=== PATIENT | male | born 1965 | race African-American/Black ===

== ENCOUNTER 2024-07-27 09:49 | Inpatient (IN) | payer MEDICARE, MEDICAID, SELFPAY ==
[2024-07-27] VITALS (14 sets, daily range): BP systolic 75–117; BP diastolic 49–77; PULSE 71–112; RESP 16–27; TEMP 36.6–38.9; O2SAT 97–100; BMI 26.5
--- NOTE | 2024-07-27 10:12 | XR_ITS ---
Examination: AP chest single view Technique one AP portable upright chest single view Exam date and time: November 24, 2024 11:10 AM Comparison April 29, 2024 Indications: Onset chest pain shortness of breath today. Findings: Moderate enlargement cardiac contour Mild vascular congestion. No anatoliy pulmonary edema No lobar pneumonia Left internal jugular dialysis catheter tip right atrium Cardiac lead satisfactory position Impression: Moderate enlargement cardiac contour No lobar pneumonia or anatoliy pulmonary edema
--- NOTE | 2024-07-27 10:12 | EKG_ITS ---
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[id number] Requested By: Christo Lopez Order Number: [id number] Reading MD: Christo Lopez Measurements Intervals Dumont Rate: 106 P: 50 AL: 144 QRS: -19 QRSD: 94 T: 159 QT: 346 QTc: 461 Interpretive Statements SINUS TACHYCARDIA WITH FREQUENT VENTRICULAR PREMATURE COMPLEXES POSSIBLE LEFT ATRIAL ENLARGEMENT [-0.1mV P-WAVE IN V1/V2] LEFT VENTRICULAR HYPERTROPHY AND ST-T CHANGE [VOLTAGE CRITERIA PLUS ST/T ABNORMALITY] Compared to ECG 05/01/2024 09:31:50 Ventricular premature complex(es) now present Sinus rhythm no longer present ST (T wave) deviation still present /store/S0/[id number].pdf
--- NOTE | 2024-07-27 10:14 | PD.EDADULT ---
ED General RME/HPI General Chief complaint: General Adult/Misc Complain Stated complaint: WEAKNESS Time Seen by Provider: 07/27/24 10:10 Arrival date/time: 07/27/24 09:49 RME / HPI RME / HPI narrative: DR. LOPEZ MAIN ED EVALUATION: Patient is a 59-year-old gentleman who comes in states he has been short of breath for the last day but went to dialysis this morning complete his dialysis and states he felt short of breath but EMS states his O2 sats were 98% on room air since the initial evaluated him and he has been asymptomatic up to the time of arrival. Patient has no complaints of fever was noted that his heart was going to 100 110 with a technical lead monitor. There is no known fever vomiting or diarrhea. Related Data Home Medications ?Medication ?Instructions ?Recorded ?Confirmed carvedilol 12.5 mg tablet (Coreg) 25 mg PO BID #0 tabs 03/10/17 04/29/24 sodium bicarbonate 650 mg tablet 1,300 mg PO BID 10/02/19 04/30/24 doxazosin 4 mg tablet 8 mg PO HS 12/16/23 04/29/24 sevelamer carbonate 800 mg tablet 800 mg PO TIDWMEAL 12/16/23 04/30/24 losartan 100 mg tablet 100 mg PO QDAY 04/29/24 04/29/24 sucroferric oxyhydroxide 500 mg 500 mg PO TID 04/30/24 04/30/24 chewable tablet (Velphoro) Previous Rx's ?Medication ?Instructions ?Recorded nifedipine 30 mg tablet,extended See Rx Instructions .Route 12/16/23 release .COMPLEX #20 tabs aspirin 81 mg tablet,delayed 81 mg PO QDAY #30 tabs 05/01/24 release hydralazine 50 mg tablet 50 mg PO TID 30 days #90 tabs 05/02/24 nifedipine 30 mg tablet,extended 60 mg (2 x 30 mg) PO SuMoWeFr@0900 05/02/24 release 24 hr #36 tabs fluticasone propionate 45 2 puff inhalation BID PRN 05/06/24 mcg-salmeterol 21 mcg/actuation shortness of breath or wheezing HFA inhaler (Advair HFA) #12 grams Allergies Allergy/AdvReac Type Severity Reaction Status Date / Time No Known Allergies Allergy Verified 11/01/24 10:09 Review of Systems Review of Systems Narrative Review of Systems: Review of Systems: Constitutional: DENIES: Fevers,; Eyes: DENIES: Loss of vision, Head/Ear/Nose: DENIES: Loss of hearing. Throat: Denies dysphagia. Cardiovascular: Denies chest pain, reports shortness of breath but unable to give precise duration and character of the symptoms. Respiratory: DENIES: Shortness of breath, Gastrointestinal: DENIES: Rectal bleeding or melena. Genitourinary: DENIES: Dysuria (painful or difficult urination),; Musculoskeletal: DENIES: Arthralgia (pain in a joint),; Skin: DENIES: Rash,; Neurological: DENIES: loss of function or movement,; Psychiatric: DENIES: recent major life stressor, emotional problem, illicit drug use or abuse,; Endocrinology: DENIES: Weight change,; Hematologic/Lymphatic: DENIES: Abnormal bruising. Allergic/Immunologic: DENIES: Urticaria (hives), Past Medical History Past Medical History CARDIAC: Positive Cardiac Disorders, Congestive Heart Failure and Hypertension GASTROINTESTINAL: Positive Gastrointestinal Disorders and Colitis GENITOURINARY: Positive Genitourinary Disorders, Renal Disease and Dialysis OTHER HISTORY: Positive Developmental Delay and Organ Transplant Surgical History SURGICAL: Positive Cardiac Surgery, Vascular Surgery, Pacemaker (Sister unable to recall if pacemaker or defibrilator in place.) and Organ Transplant Social History SMOKING STATUS: Never smoker SECOND HAND EXPOSURE: No SUBSTANCE USE: does not use ALCOHOL: Never ED Exam Narrative Physical exam: Physical Exam: General: The vital signs were reviewed. Heart rates around 100 on arrival no obvious fever patient is answering questions seem to have a little dull sensorium no family present to confirm if this is baseline. Patient evidently had his dialysis prior to coming here there was no reports from dialysis people to EMS that this patient's mental status had changed. The patient is non-toxic, in no apparent distress and appears healthy with a patent airway, no respiratory distress and has no apparent circulatory problems. Head & Scalp: Normocephalic, atraumatic. Face: Appears normal and is without lesions, deformity. Ears: Left external pinna appears normal. Right external pinna appears normal. Eyes: The sclera is anicteric. No obvious photophobia. The Left and Right Orbit/Lid/Conjunctiva appears normal without swelling, discoloration or injection. Nose: The nose is without deformity, discharge or tenderness; Throat: Appears normal. The mucous membranes are pink and moist without exudates, redness or mass seen. The tongue appears normal. Neck: The neck is supple and no apparent mass or adenopathy. Chest: The chest wall is normal in size and symmetry and has no chest wall tenderness or crepitus. The patient displays normal ventilator effort without retractions, accessory muscle use and has adequate air movement bilaterally with no wheezes and no rales. Cardiovascular: Regular rate and rhythm; No murmurs, rubs, or gallops; Gastrointestinal: The abdomen appears normal. No obvious hernias or mass. The abdomen is soft and benign, non-distended, with no pain, no guarding and no rebound tenderness. Bowel sounds are present and normal sounding. No CVA tenderness. Genitourinary: Back/Spine: Normal inspection Extremities/Musculoskeletal/lymphatic: Has a arm fistula has no thrill present. The bilateral upper and lower extremities are warm. There is no evidence of arterial insufficiency. There is no evidence of venous insufficiency/edema. The patient spontaneously moves bilateral upper and lower extremities with no pain and no limitation of movement. There is no apparent, injury or trauma. Skin: The skin is warm, dry and intact. No rashes. No petechia. No purpura. No abnormal bruising. The color is appropriate with no cyanosis. Mental status/Psychiatric: Mental status is appropriate for age. The patient has no apparent delusions, visual hallucinations, no apparent audible hallucinations. The patient has no apparent suicidal thoughts/ideation and no apparent homicidal thoughts/ideation. Neurological: The patient is awake, alert, interactive, cordial, cooperative and is oriented to name and situation. The patient follows commands and answers historical question with no impairment. There is no visual disturbance apparent. The pupils are equal and reactive bilaterally with normal eye movements and no diplopia The bilateral upper and lower extremities have normal strength, normal range of motion and normal functioning. The gait, station and balance not tested due to acuity Course Course Course Narrative: 1621: Sepsis alert initiated. Orders made at this time are congruent with ED Adult Sepsis Order List. Re-evaluation is to be completed. 1707: Fluids started. 1737: Sepsis reassessment performed consisting of lab review, vitals, physical exam including auscultation of heart, lungs, and visual evaluation of capillary refills, mucosal membranes and extremities. Quality Measures Current suspected stage: sepsis Possible source: unknown Blood cultures ordered: yes Antibiotic ordered: Yes Pertinent labs: 07/27/24 07/27/24 10:52 14:28 Lactic Acid 2.8 H mMol/L 3.4 H mMol/L (0.4-2.0) (0.4-2.0) Procalcitonin 81.08 H ng/ml (0.0-0.49) sepsis Orders Category Date Time Status Bedside Blood Glucose NOW Care 07/27/24 10:12 Active Solar Energy Installation Manager Q4H START 00 Care 07/27/24 16:29 Active EKG (ED ONLY) *Do not use* NOW Care 07/27/24 10:12 Completed In and Out Catheter X1 Care 07/27/24 16:34 Active EKG (ED Only) Stat Exams 07/27/24 10:12 Draft XR chest 1V portable Stat Exams 07/27/24 10:12 Completed B-Type Natriuretic Peptide Stat Lab 07/27/24 10:52 Completed Blood Culture (Lab) Stat Lab 07/27/24 11:05 Received CBC Stat Lab 07/27/24 10:52 Completed Comprehensive Metabolic Panel Stat Lab 07/27/24 12:20 Completed Lactate (Lactic Acid) Stat Lab 07/27/24 10:52 Completed Lactic Acid, 3 HR Stat Lab 07/27/24 14:28 Completed Procalcitonin Stat Lab 07/27/24 14:28 Completed Prothrombin Time with INR Stat Lab 07/27/24 10:52 Completed Troponin I Stat Lab 07/27/24 12:20 Completed Urinalysis Stat Lab 07/27/24 10:12 Ordered Urinalysis, C/S if Indicated Stat Lab 07/27/24 10:12 Ordered Venous Blood Gas Stat Lab 07/27/24 10:52 Completed Dextrose 10%-Water 1000 ml [D10w 1000 ml] 1,000 ml Med 07/27/24 16:30 Active IV 100 mls/hr Dextrose 50% Syr [D50w Syringe Abboject] Med 07/27/24 10:35 Discontinued 50 ml IV .STK-MED ONE Dextrose 50% Syr [D50w Syringe Abboject] Med 07/27/24 10:41 Discontinued 50 ml IV X1 ONE Piper/Tazo 3.375 gm [Zosyn] Med 07/27/24 16:25 Discontinued 3.375 gm in 50 ml IV X1 Sodium Chloride 0.9% 500 ml [Ns] 500 ml Med 07/27/24 16:33 Discontinued IV 999 mls/hr Sodium Chloride 0.9% 500 ml [Ns] 500 ml Med 07/27/24 20:03 Active IV 999 mls/hr Vancomycin Inj 1,000 mg Med 07/27/24 16:25 Discontinued Sodium Chloride 0.9% 250 ml [Ns] 250 ml IV X1 Vital Signs Vital signs: Vital Signs Temperature 97.8 F 07/27/24 10:02 Pulse Rate 71 07/27/24 10:02 Respiratory Rate 18 07/27/24 10:02 Blood Pressure 117/76 07/27/24 10:02 Pulse Oximetry (%) 97 07/27/24 10:02 Oxygen Delivery Method Room Air 07/27/24 10:02 [facility] Patient data External records reviewed:: [facility] previous records (Reviewed cardiology note by Dr. Sandoval, dated 05/06/24.) and EMS form Clinical information provided by:: EMS Social determinants that could affect healthcare access:: none Patient has the following chronic illnesses:: CHF, hypertension, renal disease on dialysis, developmental delay How is presenting disease/condition affected by chronic disease/condition?: exacerbated by Evaluation data The following diagnostics were reviewed and interpreted by me:: lab results, radiology exam(s) and EKG tracing(s) (EKG#1: Dated 07/27/2024 at 1554 hours. Interpreted by me: sinus tachycardia, rate 106, no STEMI) Lab and/or radiology exams considered but not ordered:: none Interpretation Summary: See above under [facility] narrative. RADIOLOGY Procedure(s): XR chest 1V portable Accession Number(s): [id number] cc: Christo Lopez MD; Magdy Gabriel MD; Elsy Willson MD~ Examination: AP chest single view Technique one AP portable upright chest single view Exam date and time: November 24, 2024 11:10 AM Comparison April 29, 2024 Indications: Onset chest pain shortness of breath today. Findings: Moderate enlargement cardiac contour Mild vascular congestion. No anatoliy pulmonary edema No lobar pneumonia Left internal jugular dialysis catheter tip right atrium Cardiac lead satisfactory position Impression: Moderate enlargement cardiac contour No lobar pneumonia or anatoliy pulmonary edema Dictated By: Magdy Gabriel MD Medications Medications considered but not ordered:: none Medication administrations:: Medication Administration History Dextrose (D10w 1000 Ml) 1,000 mls @ 100 mls/hr IV .Q10H ANTONIA Stop: 07/28/24 02:29 Sodium Chloride (Ns) 500 mls @ 999 mls/hr IV .Q31M ONE Stop: 07/27/24 20:33 Discontinued Medications Dextrose (Dextrose 50%-Water Inj 50 Ml Syringe) 50 ml IV X1 ONE Stop: 07/27/24 10:42 Last Admin: 07/27/24 10:42 Dose: 50 ml Documented By: EH Dextrose (Dextrose 50%-Water Inj 50 Ml Syringe) Confirm Administered Dose 50 ml IV .STK-MED ONE Stop: 07/27/24 10:36 Last Admin: 07/27/24 17:22 Dose: Not Given Documented By: KM Non-Admin Reason: Duplicate Medication on eMAR Vancomycin HCl 1,000 mg/ (Sodium Chloride) 250 mls @ 150 mls/hr IV X1 ONE Stop: 07/27/24 18:04 Last Infusion: 07/27/24 19:50 Dose: Infused Documented By: Admin: 07/27/24 17:05 Dose: 150 mls/hr Documented By: SURESH Piperacillin/Tazobactam/Dextrose (Zosyn) 3.375 gm in 50 mls @ 100 mls/hr IV X1 ONE Stop: 07/27/24 16:54 Last Infusion: 07/27/24 19:50 Dose: Infused Documented By: Admin: 07/27/24 17:08 Dose: 100 mls/hr Documented By: SURESH Sodium Chloride (Ns) 500 mls @ 999 mls/hr IV .Q31M ONE Stop: 07/27/24 17:03 Last Infusion: 07/27/24 19:50 Dose: Infused Documented By: Admin: 07/27/24 17:07 Dose: 999 mls/hr Documented By: EH see above Consultations Consultation(s) initiated? (list below): Yes Consultation #1 (Physician, Specialty, Details): Discussed test HPI, PMHx, lab, radiology results and/or management with hospitalist. Will admit for further evaluation and management. Accepts patient for admission. Time: 16:31 Consultation #2 (Physician, Specialty, Details): Dr Muse Consultation #3 (Physician, Specialty, Details): Dr. nicolas at 2014 Diagnosis Differential Diagnosis ED Complaint MDM: pneumonia, renal disease, CHF Most likely diagnosis given after review of the tests above:: As noted below. Admission Indicated Admission indicated?: indicated Explain why admission is indicated or not indicated:: Diagnoses meet admission criteria. Admission Request Was there a request for admission?: Yes Admission Attestation Admission request attestation: Discussed case with [] from Hospitalist service regarding admission. Discussed patients ED course, exam findings, labs, and radiology results. The Hospitalist [agrees,declines] to accept the patient for admission. Disposition Plan Disposition Plan: Admit Medical Decision Making MDM Narrative MDM Narrative: I, Kari Davis, am scribing for and in the presence of Dr. Lopez. Patient comes to the ER complaining of shortness of breath postdialysis but also states he was feeling that way prior to dialysis. Patient was initially seen in the ambulance bay eventually mated into room 8 where he was noted to have acute persistent low-grade sinus tach with adequate blood pressure. Medical workup was initiated revealed a white count of 15,000 globin of 12.8 MCV of 109 platelet count of 134,000 with a PT of 15.5 INR of 1.5 pH 7.21 pCO2 of 52 sodium 136 potassium 4.4 chloride 97 CO2 25.7 BUN 28 creatinine of 6.4 consistent with his chronic renal failure. Lactic acid is elevated at initially 2.8 and went up to 3.4. At that time he also spiked a fever and we started fluid boluses of 500 cc and contacted the hospitalist for admission. Also note the troponin was elevated at 1.881 pronation is an uric and no UA was collected and the procalcitonin came back at 81.08. When he spiked a fever up to 102 I was informed and we started Vanco and Zosyn. Hospitalist Dr. Arroyo was initially contacted and they asked that I contact cardiology. My shift has been greatly delayed and I am still here at 2024 hrs. and the nurse approached me and told me about the blood pressure being in the mid 90s and I asked to give another 500 cc fluid bolus and then contacted the hospitalist on-call now which was Dr. Spencer and Dr. Spencer assumed care of this patient after discussing a great length and then Dr. Puente the sql bi developer was also recontacted will be consulting. Dr. nicolas who is a long wall mining machine tender has seen this patient in the past was also called and will be consulting for the elevated troponin and the questionable new left bundle branch block. In summary we have a postdialysis patient who presents with shortness of breath who was tachycardic and then eventually has some bigeminy without any complaints of chest pain or shortness of breath and spiked a fever and has sepsis presumed with elevated lactic acids and patient require close fluid monitoring is not a candidate for 30 cc/kg fluid boluses and antibiotics were started soon after the septic alert was called. She be noted because of the progression to fevers septic alert and now some mild hypotension this is a critical care patient who has evidence of a non-ST elevation RI on top of all this. Differential Diagnosis Differential Diagnosis: pneumonia, renal disease, CHF Lab Data 07/27/24 10:52 07/27/24 12:20 Labs: Lab Results 07/27/24 07/27/24 07/27/24 Range/Units 10:52 12:20 14:28 WBC 15.0 H (3.8-10.6) Thou/mm3 RBC 4.35 L (4.50-5.90) Miln/mm3 Hgb 12.8 L (13.5-16.0) g/dL Hct 47.6 (41.0-53.0) % MCV 109 H (80-100) fL MCH 29.4 (25.0-35.0) pg MCHC 26.9 L (31.0-37.0) g/dl RDW Std Deviation 70.4 H (35.1-43.9) fL Plt Count 134 L (140-440) Thou/mm3 Neut % (Auto) 95 H (37-80) % Lymph % (Auto) 2 L (10-50) % [place] % (Auto) 2 (0-12) % Eos % (Auto) 0 (0-10) % Baso % (Auto) 0 (0-2.5) % Neut # (Auto) 14.3 H (1.8-7.7) Thou/mm3 Lymph # (Auto) 0.3 L (1.0-4.8) Thou/mm3 [place] # (Auto) 0.3 (0.0-0.8) Thou/mm3 Eos # (Auto) 0.0 (0.0-0.5) Thou/mm3 Baso # (Auto) 0.0 (0.0-0.2) Thou/mm3 Immature Gran # (Auto) 0.10 H (0.00-0.00) Thou/mm3 Absolute Nucleated RBC 0.00 (0.00-0.00) Thou/mm3 Immature Gran % 1 H (0-0) % Nucleated RBC % 0 (0) /100 WBC PT 15.5 H (9.0-12.2) Seconds INR 1.5 H (0.9-1.3) VBG pH 7.21 L (7.33-7.66) VBG pCO2 52 (36-56) mmHg VBG pO2 38 (15-58) mmHg VBG O2 Sat (Sophia) 62 L (96-97) % VBG Base Excess -7 L (-3-3) Sodium 136 (136-145) mMol/L Potassium 4.4 (3.4-5.1) mMol/L Chloride 97 L (98-107) mMol/L Carbon Dioxide 25.7 (20.0-31.0) mMol/L Anion Gap 13 (7-16) BUN 28 H (9-23) mg/dL Creatinine 6.4 H* (0.6-1.3) mg/dL Estim Creat Clear Calc 13.3 L (>60) mL/min eGFR 9 L* (60 - ) See Note BUN/Creatinine Ratio 4 L (12-20) Ratio Glucose 135 H (74-106) mg/dL Calculated Osmolality 279 (275-295) Lactic Acid 2.8 H 3.4 H (0.4-2.0) mMol/L Calcium 8.1 L (8.3-10.6) mg/dL Corrected Calcium 8.7 (8.5-10.1) mg/dL Total Bilirubin 0.8 (0.3-1.2) mg/dL AST 30 (0-34) U/L ALT 23 (10-49) U/L Alkaline Phosphatase 90 (46-116) U/L Troponin I 1.881 H* (0.0-0.045) ng/mL B-Natriuretic Peptide 751 H* (0-100) pg/mL Total Protein 6.0 (5.7-8.2) gm/dL Albumin 3.3 L (3.4-4.8) gm/dL Globulin 2.7 (2.3-3.5) gm/dL Albumin/Globulin Ratio 1.2 (1.2-2.2) Procalcitonin 81.08 H (0.0-0.49) ng/ml Critical Care Time Critical Care Time Critical Care Time: Yes Total Critical Care Time (min.): 65 Attestation: The high probability of sudden, clinically significant deterioration in the patient?s condition required the highest level of my preparedness to intervene urgently. The services I provided to this patient were to treat and/or prevent clinically significant deterioration. Services included the following: chart data review, reviewing nursing notes and/or old charts, documentation time, inbound sales consultant collaboration regarding findings and treatment options, medication orders and management, direct patient care, vital sign assessments and ordering, interpreting and reviewing diagnostic studies and lab tests. Aggregate critical care time includes only time during which I was engaged in work directly related to the patient?s care, as described above, whether at bedside or elsewhere in the Emergency Department. It did not include time spent performing other reported procedures or the services of residents, students, nurses or physician assistants. Discharge Plan Plan Patient Disposition: Admit Acute Care w/in Hospital Disposition Comment: Hospitalist to admit Dr. Puente to consult Prescriptions/Referrals Prescriptions/Med Rec: No Action carvedilol [Coreg] 12.5 MG tablet 25 mg PO BID Qty: 0 sodium bicarbonate 650 mg Tablet 1,300 mg PO BID doxazosin 4 mg tablet 8 mg PO HS sevelamer carbonate 800 mg tablet 800 mg PO TIDWMEAL Patient Comments: take 1 tablet by mouth three times a day with meals nifedipine 30 mg tablet extended release See Rx Instructions .ROUTE .COMPLEX Qty: 20 0RF Rx Instructions: 30 mg orally every Monday/Monday/Monday/Monday in AM. DO not take during dialysis days losartan 100 mg Tablet 100 mg PO QDAY Velphoro 500 mg tablet,chewable 500 mg PO TID Patient Comments: CHEW AND SWALLOW 2 tablets by mouth three times a day with meals aspirin 81 mg tablet,delayed release (DR/EC) 81 mg PO QDAY Qty: 30 2RF nifedipine 30 mg Tablet Extended Release 24hr 60 mg PO SuMoWeFr@0900 Qty: 36 2RF hydralazine 50 mg tablet 50 mg PO TID 30 Days Qty: 90 2RF fluticasone propion-salmeterol [Advair HFA] 45-21 mcg/actuation HFA aerosol inhaler 2 puff inhalation BID PRN (Reason: shortness of breath or wheezing) Qty: 12 0RF Rx Instructions: administer with spacer Referrals: Elsy Connell MD [Primary Care Provider] - In 1 week Problem List Clinical Impression: Fever, End stage renal failure on dialysis, Sepsis, Elevated lactic acid level, Non-STEMI (non-ST elevated myocardial infarction), Acute hypotension Patient/Caregiver Discharge Instructions Print Language: Ecuadorean Stand Alone Forms: Renae Award Info., Patient Portal Info Letter
[2024-07-27] MEDS: DEXTROSE 50%-WATER INJ 50 ML SYRINGE IV ×2 (10:42→20:57)
[2024-07-27 11:21] LABS: Base Excess, Venous -7 (-3-3); O2 Saturation, Venous 62 % (96-97); PCO2, Venous 52 mmHg (36-56); PO2, Venous 38 mmHg (15-58); pH, Venous 7.21 (7.33-7.66)
[2024-07-27 11:22] LABS: Lactate (Lactic Acid) 2.8 mMol/L (0.4-2.0)
[2024-07-27 11:32] LABS: Basophils % (Auto) 0 % (0-2.5); Eosinophils % (Auto) 0 % (0-10); Hematocrit 47.6 % (41.0-53.0); Hemoglobin 12.8 g/dL (13.5-16.0); Immature Granulocytes % (Auto) 1 % (0-0); Lymphocytes # (Auto) 0.3 Thou/mm3 (1.0-4.8); Lymphocytes % (Auto) 2 % (10-50); Mean Corpuscular HGB Conc 26.9 g/dl (31.0-37.0); Mean Corpuscular Hemoglobin 29.4 pg (25.0-35.0); Mean Corpuscular Volume 109 fL (80-100); Monocytes # (Auto) 0.3 Thou/mm3 (0.0-0.8); Monocytes % (Auto) 2 % (0-12); Neutrophils # (Auto) 14.3 Thou/mm3 (1.8-7.7); Neutrophils % (Auto) 95 % (37-80); Nucleated Red Blood Cell % 0 /100 WBC (0); Platelet Count 134 Thou/mm3 (140-440); RDW Standard Deviation 70.4 fL (35.1-43.9); Red Blood Count 4.35 Miln/mm3 (4.50-5.90)
[2024-07-27 11:38] LABS: INR 1.5 (0.9-1.3); Prothrombin Time 15.5 Seconds (9.0-12.2)
[2024-07-27 12:20] LABS: B-Type Natriuretic Peptide 751 pg/mL (0-100)
[2024-07-27 13:38] LABS: Alanine Aminotransferase 23 U/L (10-49); Albumin, Serum 3.3 gm/dL (3.4-4.8); Albumin/Globulin Ratio 1.2 (1.2-2.2); Alkaline Phosphatase 90 U/L (46-116); Anion Gap 13 (7-16); Aspartate Amino Transferase 30 U/L (0-34); BUN/Creatinine Ratio 4 Ratio (12-20); Bilirubin,Total 0.8 mg/dL (0.3-1.2); Blood Urea Nitrogen 28 mg/dL (9-23); Calcium 8.1 mg/dL (8.3-10.6); Calcium (Corrected) 8.7 mg/dL (8.5-10.1); Carbon Dioxide 25.7 mMol/L (20.0-31.0); Chloride 97 mMol/L (98-107); Creatinine (Component) 6.4 mg/dL (0.6-1.3); Estimated Creatinine Clearance 13.3 mL/min (>60); Globulin 2.7 gm/dL (2.3-3.5); Glucose 135 mg/dL (74-106); Osmolality,Calculated 279 (275-295); Potassium 4.4 mMol/L (3.4-5.1); Sodium 136 mMol/L (136-145); eGFR 9 See Note
[2024-07-27 13:41] LABS: Troponin I 1.881 ng/mL (0.0-0.045)
[2024-07-27 14:14] LABS: Reflex Lactate? Y
[2024-07-27 14:42] LABS: Lactic Acid, 3 HR 3.4 mMol/L (0.4-2.0)
--- NOTE | 2024-07-27 15:16 | PC.NURSE ---
Patient stated he needed to use the bathroom, upon standing he became incontinent. Patient cleaned and bedding changed
--- NOTE | 2024-07-27 16:31 | PC.NURSE ---
Per sister at bedside, patient does not produce urine.
[2024-07-27] MEDS: DEXTROSE 10%-WATER 1000 ML 1,000 ML 100 ML IV (17:00)
[2024-07-27] MEDS: Vancomycin Inj 1,000 MG in SODIUM CHLORIDE 0.9% 250 ML 250 ML 150 MG IV (17:05)
[2024-07-27] MEDS: SODIUM CHLORIDE 0.9% 500 ML 500 ML 999 ML IV ×2 (17:07→20:38)
[2024-07-27] MEDS: PIPER/TAZO 3.375 GM 3.375 GM/50 ML BAG IV (17:08)
[2024-07-27 18:04] LABS: Procalcitonin 81.08 ng/ml (0.0-0.49)
--- NOTE | 2024-07-27 19:55 | PC.NURSE ---
Called hospitalist spoke to resident Dr. Benoit. Made aware of rectal temp 102.1 and BP 89/56. No new orders received at this time, per MD will look at chart and put in orders.
--- NOTE | 2024-07-27 20:17 | PD.RESEVENT ---
Documentation for date of: 07/27/24 Event Note Event Note: ED physician contacted Team C for possible admission and upon further chart review the patient's EKG was concerning for new LBBB with elevated trops which would be equivalent to STEMI. ED physician was requested to consult process development engineer soil conservation aide and we would admit the patient if process development engineer is ok for the admission. The case was discussed with my attending MD Bret Andrade MD, PGY2 Internal Medicine
--- NOTE | 2024-07-27 20:25 | PC.NURSE ---
Dextrose 10 currently infusing at 100ml/hr started by day shift nurse. Bedside glucose 91. Dr. Benoit at bedside, per MD stop D10 at this time and have pt eat, check bedside glucose q1h x4hr.
--- NOTE | 2024-07-27 20:51 | PD.RESHP ---
Documentation for date of: 07/27/24 HPI History of Present Illness Chief complaint: Generalized weakness History of present illness: A 59-year-old male with past medical history of developmental delay, hypertension, polycystic kidney disease, s/p renal transplant on 12/02/[address] [facility], ESRD on HD since aug 2023 [T//MON], HFpEF 55 to 60%, bradycardia s/p ICD placement in 2011, s/p replacement of single-chamber AICD on 05/05/2024 for depleted battery, diverticulosis was brought to the hospital with a chief complaints of generalized weakness since 1 day. Patient had developmental delay and can answer questions with yes or no, so most of the history was taken from his sister, Christine on a phone call. Per sister, patient lives at home and able to do his routine activities and since 1 month she noticed patient is having shortness of breath but without any lower extremity swelling and sleep disturbances. On the day of admission, patient went for his routine dialysis session and patient was found to have sudden onset generalized weakness not able to hold a coffee cup and was immediately referred to our hospital, unsure if he completed the dialysis session completely or not. In the ED, patient was found to be hypoglycemic with a glucose of 20 and D50 was given, later patient was also found to have a febrile episode. Per sister, patient had polycystic kidney disease for which patient had dialysis for 7 years and underwent renal transplant in 2017 and again patient was started on dialysis since 1 year as patient again ended up in ESRD. Also endorsed that they got into transplant list and following up with the process. Dr. Lerma is staff trainer per patient's sisters history. Also endorsed that patient will have fistula repair in August 2024 ED Course: -Initial vitals were blood pressure 117/76 mmHg, pulse rate 71 bpm, respiratory rate 18/min, temperature 97.8 ?F, SpO2 97% with 2 L oxygen -Labs significant for WBC 15,000, Hb 12.8, platelets 134, INR 1.5, chloride 97, BUN 28, creatinine 6.4, lactate 3.4, troponins 1.881>1.816, BNP 751, procalcitonin 81.08 -Chest x-ray did not show any infiltrates. EKG showed sinus rhythm with multiple ectopics -In the ED, patient was given 500 mL NS bolus, Zosyn and vancomycin, D50 -Patient was admitted for sepsis secondary to catheter related bacterial stream infection Past medical history: developmental delay, hypertension, polycystic kidney disease, s/p renal transplant on 12/02/[address] [facility], ESRD on HD since aug 2023 [//MON], HFpEF 55 to 60%, diverticulosis Past surgical history: bradycardia s/p ICD placement in 2011, s/p replacement of single-chamber AICD on 05/05/2024 for depleted battery, renal transplantation in 08/2017 Social history: Denies smoking, alcohol, illicit drug abuse. Review of Systems Review of Systems ROS Unobtainable: unobtainable due to mental status Past Medical History Past Medical History CARDIAC: Positive Heart Murmur, Congestive Heart Failure, Valvular Heart Disease and Hypertension GASTROINTESTINAL: Positive Diverticulitis and Diverticulosis GENITOURINARY: Positive Polycystic Kidney Disease and Dialysis Social History SMOKING STATUS: Never smoker ALCOHOL: Never Travel History EBOLA RISK: No Exam Vital Signs Temp Pulse Resp BP Pulse Ox O2 Del Method O2 Flow Rate 102.1 F H 112 H 22 H 89/56 L 97 Nasal Cannula 2 07/27/24 19:35 07/27/24 20:30 07/27/24 19:35 07/27/24 19:35 07/27/24 19:35 07/27/24 19:35 07/27/24 19:35 Narrative Exam General: Awake. Lying comfortably on the bed HEENT: Normocephalic, atraumatic, mucous membranes dry. Heart: Regular rate and rhythm, pansystolic murmur heard in all 4 areas, better heard in tricuspid area Lungs: Clear to auscultation with no wheezing or crackles. Abdomen: Soft, nondistended, nontender, positive bowel sounds. ?No guarding or rebound tenderness. Neurologic: Alert and oriented x3, no gross neurological deficit, and patient able to move all 4 extremities. Extremities: No edema. Fistulas in both upper extremities Skin: No rash or ecchymoses. Results: Labs 07/27/24 10:52 07/27/24 12:20 Labs: Short CBC 07/27/24 Range/Units 10:52 WBC 15.0 H (3.8-10.6) Thou/mm3 Hgb 12.8 L (13.5-16.0) g/dL Hct 47.6 (41.0-53.0) % Plt Count 134 L (140-440) Thou/mm3 BMP 07/27/24 12:20 Sodium 136 Potassium 4.4 Chloride 97 L Carbon Dioxide 25.7 BUN 28 H Creatinine 6.4 H* Glucose 135 H Calcium 8.1 L Cardiac Enzymes 07/27/24 Range/Units 12:20 Troponin I 1.881 H* (0.0-0.045) ng/mL Liver Function 07/27/24 Range/Units 12:20 Total Bilirubin 0.8 (0.3-1.2) mg/dL AST 30 (0-34) U/L ALT 23 (10-49) U/L Alkaline Phosphatase 90 (46-116) U/L Albumin 3.3 L (3.4-4.8) gm/dL ABG Interpretation ABG results: 07/27/24 10:52 VBG pH 7.21 L VBG pCO2 52 VBG pO2 38 VBG Base Excess -7 L Quality Measures Quality Measures sepsis Current suspected stage: septic shock (LA >4 and/or hypotension) Sepsis reassessment completed at (date): 07/27/24 Sepsis reassessment completed at (time): 22:00 Possible source: unknown Blood cultures ordered: yes Antibiotic ordered: Yes Medications Home Medications and Allergies Home Medications ?Medication ?Instructions ?Recorded ?Confirmed ?Type carvedilol 12.5 mg tablet (Coreg) 25 mg PO BID #0 tabs 03/10/17 07/28/24 History sodium bicarbonate 650 mg tablet 1,300 mg PO BID 10/02/19 07/28/24 History doxazosin 4 mg tablet 8 mg PO HS 12/16/23 07/28/24 History sevelamer carbonate 800 mg tablet 800 mg PO TIDWMEAL 12/16/23 07/28/24 History losartan 100 mg tablet 100 mg PO QDAY 04/29/24 07/28/24 History sucroferric oxyhydroxide 500 mg 500 mg PO TID 04/30/24 07/28/24 History chewable tablet (Velphoro) Allergies Allergy/AdvReac Type Severity Reaction Status Date / Time No Known Allergies Allergy Verified 05/03/24 10:09 Visit Medications Acetaminophen (Acetaminophen 325 Mg Tablet) 650 mg PO Q6H PRN PRN Reason: Fever >101.5 Stop: 08/26/24 20:36 Lactated Ringer's (Lactated Ringers) 500 mls @ 999 mls/hr IV .Q31M ONE Stop: 07/27/24 21:13 Lactated Ringer's (Lactated Ringers) 1,000 mls @ 999 mls/hr IV .Q1H1M ONE Stop: 07/27/24 21:43 Ondansetron HCl (Ondansetron Inj 2 Mg/Ml Inj 2 Ml) 4 mg IV Q6H PRN; Protocol PRN Reason: NAUSEA OR VOMITING Stop: 08/26/24 20:36 Discontinued Medications Dextrose (Dextrose 50%-Water Inj 50 Ml Syringe) 50 ml IV X1 ONE Stop: 07/27/24 10:42 Last Admin: 07/27/24 10:42 Dose: 50 ml Dextrose (Dextrose 50%-Water Inj 50 Ml Syringe) 50 ml IV X1 ONE Stop: 07/27/24 20:43 Vancomycin HCl 1,000 mg/ (Sodium Chloride) 250 mls @ 150 mls/hr IV X1 ONE Stop: 07/27/24 18:04 Last Infusion: 07/27/24 19:50 Dose: Infused Piperacillin/Tazobactam/Dextrose (Zosyn) 3.375 gm in 50 mls @ 100 mls/hr IV X1 ONE Stop: 07/27/24 16:54 Last Infusion: 07/27/24 19:50 Dose: Infused Dextrose (D10w 1000 Ml) 1,000 mls @ 100 mls/hr IV .Q10H ANTONIA Stop: 07/28/24 02:29 Sodium Chloride (Ns) 500 mls @ 999 mls/hr IV .Q31M ONE Stop: 07/27/24 17:03 Last Infusion: 07/27/24 19:50 Dose: Infused Sodium Chloride (Ns) 500 mls @ 999 mls/hr IV .Q31M ONE Stop: 07/27/24 20:33 Last Admin: 07/27/24 20:38 Dose: 999 mls/hr Assessment & Plan Plan A 59-year-old male with past medical history of developmental delay, hypertension, polycystic kidney disease, s/p renal transplant on 12/02/[address] [facility], ESRD on HD since aug 2023 [T//MON], HFrEF 35 to 40%, bradycardia s/p ICD placement in 2011, s/p replacement of single-chamber AICD on 05/05/2024 for depleted battery, diverticulosis was brought to the hospital with a chief complaints of generalized weakness since 1 day and admitted for sepsis secondary to possible catheter related bloodstream infection. # Sepsis 2/2 likely to catheter related bloodstream infection -Presented to the hospital with generalized weakness -At the time of presentation to the ED, found to have a blood glucose of 20 and also had recurrent episodes of hypoglycemia -Initial vitals are stable but later found to have a febrile episode of 102.1 ?F in the ED. -On examination, patient appears dehydrated. On auscultation, pansystolic murmur heard in all 4 areas best heard at tricuspid area with no crackles/wheeze heard -Labs showed WBC 15,000, Hb 12.8, INR 1.5, BUN 28, creatinine 6.4, lactate 3.4, procalcitonin 81.08 -Sepsis = temperature 102.1 ?F + heart rate 112 bpm + temperature 102.1 ?F + WBC 15,000 and left tunneled dialysis catheter -Chest x-ray did not show any infiltrates. EKG done showed sinus rhythm with multiple ectopics -Received a dose of vancomycin and Zosyn, 1 L NS in the ED Plan -Blood cultures were sent, follow-up with results -Patient had a hypotensive episode with MAP around 55 for which patient was given 1.5L bolus of LR in the ED and also a dose of midodrine 10 Mg -Patient received a total of 2.5 L fluid in the ED, including 1.5 L LR and 1 L NS, Later the blood pressures were stabilized -Midodrine 10mg as needed every third hourly if MAP <65 mmHg -Started on vancomycin and Zosyn [07/27- -consider replacing the catheter -Monitor blood pressures # Hypoglycemia Likely due to sepsis -Blood glucose at the time of admission is 20 and later there are multiple episodes of hypoglycemia -Patient is given D50 in the ED later started on D10 Plan -D10 is discontinued and patient was given oral diet -Bedside glucose monitoring every hourly was done for 4 hours and later every 6th hourly # Bradycardia s/p ICD in 2011 # History of single-chamber AICD on 05/2024 # History of HFrEF, EF 35 to 40% -Per patient's sister, patient had episode of bradycardia for which ICD was placed in 2011 -Recently on 05/2024, as patient is having shortness of breath and also found to have battery depletion, ICD is replaced -EKG showed normal sinus rhythm with multiple ectopics -Echo done on 04/2024 showed Normal LV size. Moderate LVH. Moderate LV systolic dysfunction with global hypokinesis, Estimated EF 35-40%. Moderate PAH. Pacing wire present. Moderate AV sclerosis without sclerosis. Vmax 2.3 m/s and Mean PG of 10 mm hg. Moderate TR.There is anterior trivial pericardial effusion. No evidence of cardiac tamponde. Plan -Electric [employer] Machine Operator is consulted will appreciate recommendations -Carvedilol was held for now in view of hypotension, resume if the blood pressures improve # Elevated troponins, likely type II -resolved likely due to underlying sepsis with underlying ESRD -Lactate at the time of admission is 3.4 and troponin is 1.881 -Troponins down trended to 1.816 -Repeat lactate was ordered, follow-up with results. # ESRD on HD [/MON] # Polycystic kidney disease status post renal transplant which is failed hence back on hemodialysis -Patient is on HD since 1 year and last dialysis was on the day of admission -Not sure if he completed the dialysis session -Following up with Dr. Lerma, per patient's sister -Also sister endorsed that patient is having fistula repair scheduled in August 2024 -On examination, patient had fistula in both upper extremities but without any thrill -At the time of admission BUN is 28, creatinine 6.4 -Patient is getting dialysis through left tunneled dialysis catheter Plan -Dr. Muse is consulted, will appreciate recommendations -Will continue Velphoro 500 Mg p.o. 3 times daily -Will continue sevelamer 800 Mg p.o. 3 times daily -Will continue sodium bicarbonate 1300 Mg p.o. 2 times daily # Mild iron deficiency anemia # Mild thrombocytopenia -Likely due to ESRD -Hemoglobin at the time of admission is 12.8, MCV 109, MCH 29.4 -Recommended outpatient workup to rule out iron deficiency and replete the stores accordingly # History of hypertension -Patient is on carvedilol, hydralazine, losartan, nifedipine as home medication -Held all the antihypertensives in view of low blood pressures -Resume if blood pressures improve and as needed Hospital Maintenance: Dispo: Telemetry DVT ppx: Heparin GI ppx: Not needed Diet: Renal IV lines: Peripheral Code status: Full code Patient plan of care was discussed with the attending physician, Dr. Tj Benoit, PGY1 Attending Provider Attestation/Addendum I have discussed and was present for the essential components of the history, physical examination, diagnosis, and treatment plan with the resident. I agree with the patient's care as documented by the resident and amended herein by me. Gino Spencer, DO. Although this document has been carefully reviewed, there may still be some phonetic and other typographical errors. These errors are purely grammatical due to imperfections in the software program and should not be construed in any way to compromise the substance of the patient's medical care during this visit.
[2024-07-27] MEDS: ACETAMINOPHEN 325 MG TABLET 650 MG PO (20:54)
[2024-07-27] MEDS: RINGERS LACTATED 1000 ML 1,000 ML 999 ML IV (20:57)
[2024-07-27] MEDS: RINGERS LACTATED 500 ML 500 ML 999 ML IV (22:30)
[2024-07-27] MEDS: MIDODRINE 5 MG TABLET 10 MG PO (22:30)
[2024-07-27 22:38] LABS: Troponin I 1.816 ng/mL (0.0-0.045)
--- NOTE | 2024-07-27 23:40 | PC.NURSE ---
Report given to SARAH Woodardball racker
[2024-07-28] VITALS (10 sets, daily range): BP systolic 91–106; BP diastolic 62–79; PULSE 79–98; RESP 11–21; TEMP 36–36.4; O2SAT 94–100; BMI 22.3
--- NOTE | 2024-07-28 00:51 | ESCONSULT_ITS ---
<Statement entered by Lewis Sandoval MD - 07/31/24 00:08> I have personally seen and examined the patient separately on the above date of service and discussed the plan of care with the resident. I reviewed the resident Dr. Mitchell consultation progress note and agree with the resident findings and plan in the note above and have also edited the documentation to reflect my findings and plan. A 59-year-old male with a past medical history of mild to moderate CAD with 40 to 50% stenosis of the RCA in 2011, moderate to severe systolic congestive heart failure with an EF of 35%, status post single-lead AICD [employer] placed in 2011, battery replacement 2023, nonischemic cardiomyopathy, end-stage renal disease on hemodialysis history of renal transplant in 2018 at [facility], polycystic kidney disease, Developmental delay, chronic anemia, history of GI bleed internal hemorrhoids, diverticulosis, esophageal ulcers presented to the emergency department for further evaluation of diarrhea along with abdominal pain. Cardiology was consulted for provide elevated troponins of 1.81. EKG also showed sinus tachycardia with frequent PVCs with left bundle branch block morphology. Patient was also found to have chest with WBC count of 15,000, lactate of 2.8 and also hyperglycemic on admission with glucose level of 20. Chest x-ray did not show any acute pathology. Assessment and plan: 1. Elevated troponins-NSTEMI type II mostly secondary to supply/demand mismatch. 2. Sepsis mostly secondary to bacteremia from cath related infection 3. Acute hypoxic respiratory failure 4. History of moderate to severe systolic congestive heart failure with an EF of 35 to 40%-nonischemic cardiomyopathy 5. History of AICD placement in 2011 and battery change in normal 2023 6. History of mild to moderate CAD with 40 to 50% stenosis of RCA and rest of the arteries with mild CAD. 7. End-stage renal disease on hemodialysis 8. Essential Hypertension. Troponins mildly elevated at 1.88 and now downtrending to 1.81. Troponin elevation mostly secondary to NSTEMI type II in the setting of supply/demand mismatch as patient does have sepsis secondary to bacteremia. Final cultures elevated. Patient started on broad-spectrum antibiotics. Procalcitonin was also elevated during admission along with a lactate. Recommend continued treat infection aggressively with IV antibiotics. Continue medical treatment for the NSTEMI type II aspirin statin and beta-isidro for now. Recent echo from April 2024 reviewed with an EF of 35 to 40% and recommend to repeat an echo to reevaluate the EF and any new wall motion abnormalities. Patient does have a history of mild to moderate CAD as noted above and has nonischemic cardiomyopathy with an EF with moderate to severe systolic congestive heart failure with an EF of around 35% status post AICD. Recommend to continue medical treatment for now and the patient blood pressure is slightly on the lower side and hold off on the goal-directed medical therapy for now and be restarted when the patient blood pressure is better. Patient has end-stage renal disease on hemodialysis and fluid management as per the nephrology team and patient does not appear to be volume overloaded and is mostly euvolemic at the present point of time. Strict input of recommend elevation 2 g sodium diet. Patient is having frequent PVCs and these attacks risk for NSVT and given his low ejection fraction and recommend to start the beta-isidro when blood pressure is permissible and to correct electrolytes aggressively to keep potassium greater than 4 and magnesium greater than 2.0 at all times along with aggressive treatment of the infection. Management of rest of the medical conditions as per primary team and other consultants. Thank you for the consult and allowing me to participate in the care of the patient. Cardiology will continue to follow. Lewis Sandoval M.D. Interventional Cardiology HPI Data of Consult Requesting Physician: Jabier Spencer DO Admitting Provider: Jabier Spencer DO Attending Provider: Jabier Spencer DO Primary Care Provider: Elsy Connell MD Consult Narrative History of present illness: Casey is a 59 y/o male with PMHx of essential HTN, CAD, HFrEF with systolic dysfunction and wall motion abnormalities (EF 35-40%), single-lead AICD ([employer] s/p replacement by Dr. Zamudio in May 2024), polycystic kidney disease s/p L renal transplant (2017), ESRD on HD (//) renal transplant 2018 at [facility], developmental delay, chronic anemia secondary to ESRD, internal hemorrhoids, diverticulosis and esophageal ulcers presenting to the ED who comes for an evaluation of shortness of breath with associated nonbloody diarrhea 2 episodes and abdominal pain. Patient reports that he was having some abdominal pain and shortness of breath and had 2 episodes of diarrhea prior to arrival. He says that he has had symptoms similar to shortness of breath previously. Denies having any chest pain, however he did say that he had felt like his heart was racing at some point. He does say that he follows a spinning frame cleaner but is unsure who his doctor is. He also says he sees a machine shorthand teacher, Dr. Lerma. Denies any orthopnea, lower extremity edema. He denies that anyone in his household have these symptoms including his sister who he lives with. He did say that he had dialysis today and he does not miss sessions, however after dialysis today he felt short of breath. No other complaints at this time ED Course: Patient arrived afebrile, heart rate 79, blood pressure 117/76, saturating 97% room air. He was worked up and was found to have a white count of 15, hemoglobin of 12.8, sodium of 136, potassium 4.4, chloride of 97, BUN/creatinine of 26.4 respectively, bicarb of 26, lactate of 2.8, troponin of 1.81, BNP of 751. He was found to be hypoglycemic in the ED, level of glucose 20 and was given D50. He later become febrile, and tachycardic. Checks x-ray showed no anatoliy pulmonary edema or pneumonia, however enlarged cardiac contour. EKG showed tachycardia with frequent VPCs and possible left bundle branch block in V5 and V6. Medicine and cardiology were consulted and patient was admitted to floors. Medical history: As listed above Surgical history: AV fistula on left and right arm, R sided kidney transplant (2018), AICD replacement (done in May [address] Zamudio) Medications: Aspirin, hydralazine 50, Imdur, losartan 100, doxazosin 8 mg, Coreg 25 mg, nifedipine 60 mg, sodium bicarb, sevelamer, Advair, Velphoro Allergies: NKDA Family history: Patient denies any family history of medical problems including heart disease, open heart surgeries and stents. Social history: Patient says he lives with his sister in [place] currently. Denies having any smoking, alcohol or drug history. 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 Patient says he is originally from [place]. cc:: cc: Jabier Spencer, DO Review of Systems Review of Systems Narrative Review of Systems: 12 point ROS is reviewed and is otherwise negative unless directly stated in the HPI Exam Vital Signs Temp Pulse Resp BP Pulse Ox O2 Del Method O2 Flow Rate 99.6 F 87 16 94/60 100 Nasal Cannula 2 07/27/24 23:10 07/27/24 23:30 07/27/24 23:30 07/27/24 23:30 07/27/24 23:30 07/27/24 23:30 07/27/24 23:30 Narrative Exam General: AAOx3, NAD, pleasant male, having active bowel movement as we speak, possibly developmentally delayed HEENT: Moist mucous membranes, conjunctiva clear, EOMI, PERRLA, poor dentition Cardiovascular: Systolic ejection murmur heard over R 2nd intercostal space, Pansystolic murmur heard in left lower sternal border, RRR, L sided TDC present Pulmonary: CTAB bilat no cough, no wheezing GI: No tenderness to light or deep palpitation, no guarding, rigidity, rebound tenderness or distension Extremities: No presence of trace or pitting edema in lower extremities bilaterally, dorsalis pedis pulses +2 bilaterally, AV fistula in L arm Neuro: AAOx3, no focal motor or sensory deficits in the UE or LE bilat Psych: Cooperative Results Labs 07/28/24 08:23 07/28/24 05:52 Labs: Short CBC 07/27/24 Range/Units 10:52 WBC 15.0 H (3.8-10.6) Thou/mm3 Hgb 12.8 L (13.5-16.0) g/dL Hct 47.6 (41.0-53.0) % Plt Count 134 L (140-440) Thou/mm3 BMP 07/27/24 12:20 Sodium 136 Potassium 4.4 Chloride 97 L Carbon Dioxide 25.7 BUN 28 H Creatinine 6.4 H* Glucose 135 H Calcium 8.1 L Cardiac Enzymes 07/27/24 07/27/24 Range/Units 12:20 21:56 Troponin I 1.881 H* 1.816 H* (0.0-0.045) ng/mL Liver Function 07/27/24 Range/Units 12:20 Total Bilirubin 0.8 (0.3-1.2) mg/dL AST 30 (0-34) U/L ALT 23 (10-49) U/L Alkaline Phosphatase 90 (46-116) U/L Albumin 3.3 L (3.4-4.8) gm/dL ABG Interpretation ABG results: 07/27/24 10:52 VBG pH 7.21 L VBG pCO2 52 VBG pO2 38 VBG Base Excess -7 L Quality Measures Quality Measures sepsis Current suspected stage: sepsis Possible source: unknown Blood cultures ordered: yes Antibiotic ordered: Yes Medications Home Medications and Allergies Home Medications ?Medication ?Instructions ?Recorded ?Confirmed ?Type carvedilol 12.5 mg tablet (Coreg) 25 mg PO BID #0 tabs 03/10/17 07/28/24 History sodium bicarbonate 650 mg tablet 1,300 mg PO BID 10/02/19 07/28/24 History doxazosin 4 mg tablet 8 mg PO HS 12/16/23 07/28/24 History sevelamer carbonate 800 mg tablet 800 mg PO TIDWMEAL 12/16/23 07/28/24 History losartan 100 mg tablet 100 mg PO QDAY 04/29/24 07/28/24 History sucroferric oxyhydroxide 500 mg 500 mg PO TID 04/30/24 07/28/24 History chewable tablet (Velphoro) Allergies Allergy/AdvReac Type Severity Reaction Status Date / Time No Known Allergies Allergy Verified 05/03/24 10:09 Visit Medications Acetaminophen (Acetaminophen 325 Mg Tablet) 650 mg PO Q6H PRN PRN Reason: Fever >101.5 Stop: 08/26/24 20:36 Last Admin: 07/27/24 20:54 Dose: 650 mg Dextrose (Dextrose 50%-Water Inj 50 Ml Syringe) 25 ml IV Q15MIN PRN PRN Reason: BG 50-70 responsive npo pt Stop: 08/26/24 22:51 Dextrose (Dextrose 50%-Water Inj 50 Ml Syringe) 50 ml IV Q15MIN PRN PRN Reason: BG <50 OR BG <70 & pt unresponsive Stop: 08/26/24 22:51 Glucagon (Glucagon Inj 1 Mg Vial) 1 mg IM Q15MIN PRN PRN Reason: BG <70, and no IV access Piperacillin/Tazobactam/Dextrose (Zosyn) 2.25 gm in 50 mls @ 100 mls/hr IV Q8HR ANTONIA Stop: 08/03/24 21:09 Piperacillin/Tazobactam/Dextrose (Zosyn) 2.25 gm in 50 mls @ 100 mls/hr IV X1 ONE Stop: 07/28/24 01:29 Ondansetron HCl (Ondansetron Inj 2 Mg/Ml Inj 2 Ml) 4 mg IV Q6H PRN; Protocol PRN Reason: NAUSEA OR VOMITING Stop: 08/26/24 20:36 Pharmacy Consult (Vancomycin Pharmacy To Dose 1 Each Each) 1 each IV QDAY [facility] Stop: 08/27/24 08:59 Discontinued Medications Dextrose (Dextrose 50%-Water Inj 50 Ml Syringe) 50 ml IV X1 ONE Stop: 07/27/24 10:42 Last Admin: 07/27/24 10:42 Dose: 50 ml Dextrose (Dextrose 50%-Water Inj 50 Ml Syringe) 50 ml IV X1 ONE Stop: 07/27/24 20:43 Last Admin: 07/27/24 20:57 Dose: 50 ml Vancomycin HCl 1,000 mg/ (Sodium Chloride) 250 mls @ 150 mls/hr IV X1 ONE Stop: 07/27/24 18:04 Last Infusion: 07/27/24 19:50 Dose: Infused Piperacillin/Tazobactam/Dextrose (Zosyn) 3.375 gm in 50 mls @ 100 mls/hr IV X1 ONE Stop: 07/27/24 16:54 Last Infusion: 07/27/24 19:50 Dose: Infused Dextrose (D10w 1000 Ml) 1,000 mls @ 100 mls/hr IV .Q10H ANTONIA Stop: 07/28/24 02:29 Sodium Chloride (Ns) 500 mls @ 999 mls/hr IV .Q31M ONE Stop: 07/27/24 17:03 Last Infusion: 07/27/24 19:50 Dose: Infused Sodium Chloride (Ns) 500 mls @ 999 mls/hr IV .Q31M ONE Stop: 07/27/24 20:33 Last Infusion: 07/27/24 21:30 Dose: Infused Lactated Ringer's (Lactated Ringers) 500 mls @ 999 mls/hr IV .Q31M ONE Stop: 07/27/24 21:13 Last Admin: 07/27/24 21:14 Dose: Not Given Lactated Ringer's (Lactated Ringers) 1,000 mls @ 999 mls/hr IV .Q1H1M ONE Stop: 07/27/24 21:43 Last Infusion: 07/27/24 22:15 Dose: Infused Lactated Ringer's (Lactated Ringers) 500 mls @ 999 mls/hr IV .Q31M ANTONIA Stop: 07/27/24 22:48 Last Infusion: 07/27/24 23:11 Dose: Infused Midodrine (Midodrine 5 Mg Tablet) 10 mg PO X1 ONE Stop: 07/27/24 22:19 Last Admin: 07/27/24 22:30 Dose: 10 mg Assessment & Plan Plan Assessment Casey is a 59 y/o male with PMHx of essential HTN, CAD, HFrEF with systolic dysfunction and wall motion abnormalities (EF 35-40%), single-lead AICD ([employer] s/p replacement by Dr. Zamudio in May 2024), ESRD on HD (/) renal transplant 2018 at [facility], developmental delay, chronic anemia secondary to ESRD, internal hemorrhoids, diverticulosis and esophageal ulcers #History of mild to moderate CAD with 40 to 50% stenosis of RCA #NSTEMI type II, likely related to demand ischemia, resolved #History of HFrEF with systolic dysfunction and wall motion normalities, EF 35 to 40% #Nonischemic cardiomyopathy #Hx of AICD replacement (05/2024) Troponins have down trended from 1.88 till 1.81 Echo in April 2024 showed normal LV, systolic dysfunction with wall motion abnormalities RV dilatation RVSP 49 mmHg, EF 35 to 40% Last cardiac cath done in 2011, do not have reports at this time, based of history Plan: ? No need to trend troponin anymore ? Continue with ASA ? Resume GDMT therapy when able ? Keep magnesium and potassium above 2 and 4 respectively ? Continue dialysis schedule #History of hypertension Has Coreg, hydralazine, losartan and nifedipine as his blood pressure medicines at home Plan: ? Resume home blood pressure medicines when able #Sepsis 2/2 likely to catheter related bloodstream infection #Acute hypoxic respiratory failure Had 4 out of 4 SIRS criteria, source at this time believed to be dialysis catheter Patient started on broad-spectrum antibiotics and has received fluid bolus (2.5 L) in ED Blood cultures no growth after 1 day Plan: ?Management by primary team ?Treat underlying source of infection ?Follow-up blood cultures #Hypoglycemia #ESRD on HD [//MON] #Polycystic kidney disease status post renal transplant which is failed hence back on hemodialysis #Mild iron deficiency anemia #Mild thrombocytopenia Above management primary hospitalist team Patient seen and care discussed with my attending physician, Dr. Lori Garcia, PGY-1
[2024-07-28] MEDS: DEXTROSE 50%-WATER INJ 50 ML SYRINGE IV ×2 (04:01→07:53)
[2024-07-28] MEDS: HEPARIN SOD INJ 5000 UNIT/ML VIAL SC ×3 (05:18→20:15)
[2024-07-28 06:29] LABS: Lactate (Lactic Acid) 2.6 mMol/L (0.4-2.0)
[2024-07-28 07:05] LABS: Alanine Aminotransferase 24 U/L (10-49); Albumin/Globulin Ratio 1.2 (1.2-2.2); Alkaline Phosphatase 81 U/L (46-116); Anion Gap 12 (7-16); Aspartate Amino Transferase 22 U/L (0-34); BUN/Creatinine Ratio 5 Ratio (12-20); Bilirubin,Total 0.5 mg/dL (0.3-1.2); Blood Urea Nitrogen 39 mg/dL (9-23); Calcium 7.7 mg/dL (8.3-10.6); Calcium (Corrected) 8.5 mg/dL (8.5-10.1); Carbon Dioxide 25.5 mMol/L (20.0-31.0); Chloride 97 mMol/L (98-107); Creatinine (Component) 7.7 mg/dL (0.6-1.3); Estimated Creatinine Clearance 10.9 mL/min (>60); Globulin 2.5 gm/dL (2.3-3.5); Glucose 108 mg/dL (74-106); Osmolality,Calculated 278 (275-295); Potassium 4.9 mMol/L (3.4-5.1); Sodium 134 mMol/L (136-145); Total Protein 5.5 gm/dL (5.7-8.2); eGFR 7 See Note
[2024-07-28] MEDS: SEVELAMER CARBONATE 800 MG TABLET PO ×3 (07:56→16:54)
[2024-07-28] MEDS: SODIUM BICARBONATE 650 MG TABLET 1300 MG PO ×2 (08:00→20:15)
[2024-07-28] MEDS: ASPIRIN EC 81 MG TABEC PO (08:00)
[2024-07-28] MEDS: PIPER/TAZO 3.375 GM 50 ML IV ×2 (08:02→20:15)
[2024-07-28 08:53] LABS: Basophils % (Auto) 0 % (0-2.5); Eosinophils # (Auto) 0.1 Thou/mm3 (0.0-0.5); Eosinophils % (Auto) 1 % (0-10); Hematocrit 39.2 % (41.0-53.0); Hemoglobin 12.5 g/dL (13.5-16.0); Immature Granulocytes % (Auto) 0 % (0-0); Immature Granulocytes Auto 0.03 Thou/mm3 (0.00-0.00); Lymphocytes # (Auto) 0.3 Thou/mm3 (1.0-4.8); Lymphocytes % (Auto) 4 % (10-50); Mean Corpuscular HGB Conc 31.9 g/dl (31.0-37.0); Mean Corpuscular Hemoglobin 29.1 pg (25.0-35.0); Mean Corpuscular Volume 91 fL (80-100); Monocytes # (Auto) 0.4 Thou/mm3 (0.0-0.8); Monocytes % (Auto) 5 % (0-12); Neutrophils # (Auto) 7.1 Thou/mm3 (1.8-7.7); Neutrophils % (Auto) 90 % (37-80); Nucleated Red Blood Cell % 0 /100 WBC (0); Platelet Count 112 Thou/mm3 (140-440); RDW Standard Deviation 53.4 fL (35.1-43.9); White Blood Count 7.9 Thou/mm3 (3.8-10.6)
[2024-07-28 09:29] LABS: Reflex Lactate? Y
--- NOTE | 2024-07-28 10:38 | PD.NEPHCONS ---
History of Present Illness Data of Consult Consult date: 07/28/24 Requesting Physician: Jabier Spencer DO Primary Care Provider: Elsy Connell MD Consult Narrative Reason for consult: ESRD History of present illness: Informant sister- aj on the phone Patient currently seen in telemetry. Mr. Montgomery is a 59-year-old -[place] gentleman with past medical history of developmental delay, hypertension, polycystic kidney disease, s/p renal transplant on 12/02/[address] [facility]- failed, back on HD since aug 2023 [//MON]- under DR. LERMA, HFpEF 55 to 60%, bradycardia s/p ICD placement in 2011, s/p replacement of single-chamber AICD on 05/05/2024 for depleted battery, diverticulosis was sent from the dialysis unit with a chief complaint of significant weakness and sleep problems. In the emergency department patient was noted to have hypoglycemia with a glucose of 20. D50 was given. Also noted to have fever. Patient has a AV fistula which is nonfunctioning and is currently receiving dialysis through right IJ PermCath. In the emergency department vital signs blood pressure 117/76, heart rate 71, temp 97.8. On 2 L. WBC 15,000, hemoglobin 12.8, platelets 134, BUN 28, creatinine 6.4, lactic acid 3.4, troponin 1.88, BNP 751, Pro-Oswald 81. Chest x-ray showed no pneumonia. EKG showed ectopy. Patient was given antibiotics and admitted to the hospital for sepsis-question catheter related bacteremia. He did receive a 500 cc normal saline bolus, Zosyn, vancomycin. Nephrology consultation requested for need for dialysis. Patient is a Monday, , Monday schedule and did complete dialysis today for cystoscopy. cc:: cc: Jabier Spencer DO Review of Systems Review of Systems Narrative Review of Systems: Denies any chest pain, shortness of breath. Denies any nausea, vomiting. Fevers are better now. Noted to have some developmental delay. Past Medical History Past Medical History NEUROLOGIC: Negative Neurological Disorders or Seizures CARDIAC: Positive Cardiac Disorders, Heart Murmur, Congestive Heart Failure, Valvular Heart Disease and Hypertension RESPIRATORY: Negative Chronic Obstructive Pulmonary Disease (COPD) or Asthma GASTROINTESTINAL: Positive Gastrointestinal Disorders, Colitis, Diverticulitis and Diverticulosis; Negative Hepatitis GENITOURINARY: Positive Genitourinary Disorders, Renal Disease, Polycystic Kidney Disease and Dialysis REPRODUCTIVE: Negative Fibroids or Testicular Cancer MUSCULOSKELETAL: Negative Musculoskeletal Disorders ENDOCRINE: Negative Endocrine Disorders, Diabetes Mellitus Type 1 or Diabetes Mellitus Type 2 HEMATOLOGIC: Negative Blood Disorders, Anemia, Leukemia, Hemophilia, Thalassemia, Sickle Cell Disease or Clotting Problems OTHER HISTORY: Positive Developmental Delay and Organ Transplant; Negative Hospitalization, Autoimmune Disease, Down Syndrome, Falls, Blood Transfusions, Blood Transfusion Reaction, Anesthesia Reactions, Chemotherapy, Radiation Therapy, MRSA, VRSA, Vancomycin-Resistant Enterococci, Human Immunodeficiency Virus (HIV), Chicken Pox, Measles, Mumps, Rubella (Yoruba Measles), Pertussis, Clostridium Difficile, Cancer or Testicular Cancer Surgical History SURGICAL: Positive Cardiac Surgery, Vascular Surgery, Pacemaker and Organ Transplant; Negative Vasectomy Social History SMOKING STATUS: Never smoker SECOND HAND EXPOSURE: No SUBSTANCE USE: does not use Travel History EBOLA RISK: No Meds Home Medications and Allergies Home Medications ?Medication ?Instructions ?Recorded ?Confirmed ?Type carvedilol 12.5 mg tablet (Coreg) 25 mg PO BID #0 tabs 03/10/17 07/28/24 History sodium bicarbonate 650 mg tablet 1,300 mg PO BID 10/02/19 07/28/24 History doxazosin 4 mg tablet 8 mg PO HS 12/16/23 07/28/24 History sevelamer carbonate 800 mg tablet 800 mg PO TIDWMEAL 12/16/23 07/28/24 History losartan 100 mg tablet 100 mg PO QDAY 04/29/24 07/28/24 History sucroferric oxyhydroxide 500 mg 1,000 mg PO TID 04/30/24 07/28/24 History chewable tablet (Velphoro) Allergies Allergy/AdvReac Type Severity Reaction Status Date / Time No Known Allergies Allergy Verified 05/03/24 10:09 Exam Vital Signs Temp Pulse Resp BP Pulse Ox O2 Del Method O2 Flow Rate 36.0 C 91 20 101/78 96 Nasal Cannula 2 07/28/24 07:50 07/28/24 09:10 07/28/24 09:10 07/28/24 07:50 07/28/24 09:10 07/28/24 07:50 07/28/24 09:10 Narrative Exam GENERAL APPEARANCE: Patient seems to be comfortable, adequately hydrated and nourished. Currently seen in telemetry HEENT: EOMI, PERRLA NECK: Neck supple, no JVD or bruit CARDIOVASCULAR: Heart regular, no murmurs LUNGS/CHEST: Chest clear to auscultation. No rales, rhonchi, wheezing ABDOMEN: Soft, nontender, nondistended. No masses. Normal bowel sounds. EXTREMITIES: No edema, clubbing or cyanosis. SKIN: IJ PermCath. Left AV fistula with no thrill MUSCULOSKELETAL: Musculoskeletal exam normal PSYCHIATRIC: Normal mood, affect LYMPHATICS: No lymphadenopathy noted NEUROLOGICAL : No neurological deficits Results Labs 07/28/24 08:23 07/28/24 05:52 Labs: Short CBC 07/27/24 07/28/24 Range/Units 10:52 08:23 WBC 15.0 H 7.9 D (3.8-10.6) Thou/mm3 Hgb 12.8 L 12.5 L (13.5-16.0) g/dL Hct 47.6 39.2 L (41.0-53.0) % Plt Count 134 L 112 L (140-440) Thou/mm3 BMP 07/27/24 07/28/24 12:20 05:52 Sodium 136 134 L Potassium 4.4 4.9 D Chloride 97 L 97 L Carbon Dioxide 25.7 25.5 BUN 28 H 39 H Creatinine 6.4 H* 7.7 H* D Glucose 135 H 108 H Calcium 8.1 L 7.7 L Cardiac Enzymes 07/27/24 07/27/24 Range/Units 12:20 21:56 Troponin I 1.881 H* 1.816 H* (0.0-0.045) ng/mL Liver Function 07/27/24 07/28/24 Range/Units 12:20 05:52 Total Bilirubin 0.8 0.5 (0.3-1.2) mg/dL AST 30 22 (0-34) U/L ALT 23 24 (10-49) U/L Alkaline Phosphatase 90 81 (46-116) U/L Albumin 3.3 L 3.0 L (3.4-4.8) gm/dL ABG Interpretation ABG results: 07/27/24 10:52 VBG pH 7.21 L VBG pCO2 52 VBG pO2 38 VBG Base Excess -7 L Assessment & Plan Additional Assessment & Plan Additional Plan: # ESRD-secondary to failed transplant and has been on dialysis for 1 year. Under the care of Dr. Lerma. Next dialysis will be Monday. # Sepsis-rule out catheter related bacteremia. Blood cultures positive for gram-negative rods. Currently on Zosyn. Hold off on dialysis catheter removal pending official cultures. # Renal osteodystrophy # Essential hyertension -resume home blood pressure medications # Thrombocytopenia - possibly medication induced. His baseline platelets are 115. # Elevated troponin-secondary to underlying stress. Denies any chest pain. Thank you Gino for allowing me to participate in the care of Mr. Montgomery
--- NOTE | 2024-07-28 10:45 | PC.SS ---
Patient Casey Montgomery is a 59 Year old male admitted for Sespis. SS met with patient at bedside to discuss discharge plan and review demographic information. Patient states he resides with sister, Christine. Patient states he's independent with ADL's. Patient states his PCP is Elsy Connell. Patient states his sister, Christine, is the alt medical decision maker [phone]. patient reports he utilizes a FWW to assist with ambulation. Patient does not utilize 02. At time of discharge patient will return back home. Next of kin, SisterChristine Discharge plan: Home
[2024-07-28] MEDS: SODIUM CHLORIDE 0.9% 250 ML 250 ML 999 ML IV (10:46)
[2024-07-28 10:59] LABS: Lactic Acid, 3 HR 1.8 mMol/L (0.4-2.0)
--- NOTE | 2024-07-28 13:38 | ESPR_ITS ---
Documentation for date of: 07/28/24 Subjective Subjective Interval history: No overnight events. Patient seen and examined at bedside. Patient was somnolent, requiring frequent stimulus to arouse, improved later in the day. Complaining of shortness of breath. Denies fever, chills, chest pain, nausea, vomiting. Continue IV antibiotics, follow-up cultures. Cocci test ordered. Exam Vital Signs Temp Pulse Resp BP Pulse Ox O2 Del Method O2 Flow Rate 97.0 F 89 21 H 105/73 99 Nasal Cannula 2 07/28/24 12:00 07/28/24 12:00 07/28/24 12:00 07/28/24 12:00 07/28/24 12:00 07/28/24 12:00 07/28/24 12:00 Narrative Exam General: Awake. Lying comfortably on the bed HEENT: Normocephalic, atraumatic, mucous membranes moist. Heart: Regular rate and rhythm Lungs: Mild diffuse wheezing. No crackles or rhonchi. Abdomen: Soft, nondistended, nontender, positive bowel sounds. ?No guarding or rebound tenderness. Neurologic: Alert and oriented x3, no gross neurological deficit, and patient able to move all 4 extremities. Lethargic. Extremities: No edema. Fistulas in both upper extremities Skin: No rash or ecchymoses. Objective Labs 07/28/24 08:23 07/28/24 05:52 Labs: Laboratory Results - last 24 hr 07/27/24 07/27/24 07/27/24 12:20 14:28 21:56 WBC RBC Hgb Hct MCV MCH MCHC RDW Std Deviation Plt Count Neut % (Auto) Lymph % (Auto) Dane % (Auto) Eos % (Auto) Baso % (Auto) Neut # (Auto) Lymph # (Auto) Dane # (Auto) Eos # (Auto) Baso # (Auto) Immature Gran # (Auto) Absolute Nucleated RBC Immature Gran % Nucleated RBC % Sodium 136 Potassium 4.4 Chloride 97 L Carbon Dioxide 25.7 Anion Gap 13 BUN 28 H Creatinine 6.4 H* Estim Creat Clear Calc 13.3 L eGFR 9 L* BUN/Creatinine Ratio 4 L Glucose 135 H Calculated Osmolality 279 Lactic Acid 3.4 H Calcium 8.1 L Corrected Calcium 8.7 Total Bilirubin 0.8 AST 30 ALT 23 Alkaline Phosphatase 90 Troponin I 1.881 H* 1.816 H* Total Protein 6.0 Albumin 3.3 L Globulin 2.7 Albumin/Globulin Ratio 1.2 Procalcitonin 81.08 H 07/28/24 07/28/24 07/28/24 05:52 08:23 10:42 WBC 7.9 D RBC 4.30 L Hgb 12.5 L Hct 39.2 L MCV 91 MCH 29.1 MCHC 31.9 RDW Std Deviation 53.4 H Plt Count 112 L Neut % (Auto) 90 H Lymph % (Auto) 4 L Dane % (Auto) 5 Eos % (Auto) 1 Baso % (Auto) 0 Neut # (Auto) 7.1 Lymph # (Auto) 0.3 L Dane # (Auto) 0.4 Eos # (Auto) 0.1 Baso # (Auto) 0.0 Immature Gran # (Auto) 0.03 H Absolute Nucleated RBC 0.00 Immature Gran % 0 Nucleated RBC % 0 Sodium 134 L Potassium 4.9 D Chloride 97 L Carbon Dioxide 25.5 Anion Gap 12 BUN 39 H Creatinine 7.7 H* D Estim Creat Clear Calc 10.9 L eGFR 7 L* BUN/Creatinine Ratio 5 L Glucose 108 H Calculated Osmolality 278 Lactic Acid 2.6 H 1.8 Calcium 7.7 L Corrected Calcium 8.5 Total Bilirubin 0.5 AST 22 ALT 24 Alkaline Phosphatase 81 Troponin I Total Protein 5.5 L Albumin 3.0 L Globulin 2.5 Albumin/Globulin Ratio 1.2 Procalcitonin ABG Interpretation ABG results: 07/27/24 10:52 VBG pH 7.21 L VBG pCO2 52 VBG pO2 38 VBG Base Excess -7 L Quality Measures Quality Measures sepsis Current suspected stage: sepsis Possible source: unknown Blood cultures ordered: yes Antibiotic ordered: Yes Assessment & Plan Assessment Current Active Medications: Generic Name Dose Route Start Last Admin Trade Name Freq PRN Reason Stop Dose Admin Acetaminophen 650 mg 07/28/24 09:36 Acetaminophen 325 Mg Tablet PO 08/26/24 20:36 Q6H PRN Fever >100.3 Aspirin 81 mg 07/28/24 09:00 07/28/24 08:00 Aspirin Ec 81 Mg Tabec PO 08/27/24 08:59 81 mg QDAY ANTONIA Administration Dextrose 25 ml 07/27/24 22:52 Dextrose 50%-Water Inj 50 Ml Syringe IV 08/26/24 22:51 Q15MIN PRN BG 50-70 responsive npo pt Dextrose 50 ml 07/27/24 22:52 07/28/24 07:53 Dextrose 50%-Water Inj 50 Ml Syringe IV 08/26/24 22:51 50 ml Q15MIN PRN Administration BG <50 OR BG <70 & pt unresponsive Glucagon 1 mg 07/27/24 22:52 Glucagon Inj 1 Mg Vial IM Q15MIN PRN BG <70, and no IV access Heparin Sodium (Porcine) 5,000 unit 07/28/24 06:00 07/28/24 05:18 Heparin Sod Inj 5000 Unit/Ml Vial SC 08/11/24 05:59 5,000 unit Q8HR ANTONIA Administration Piperacillin/Tazobactam/Dextrose 50 mls @ 12.5 mls/hr 07/28/24 09:00 07/28/24 08:02 Zosyn IV 08/04/24 08:59 12.5 mls/hr Q12HR ANTONIA Administration Midodrine 5 mg 07/28/24 01:33 Midodrine 5 Mg Tablet PO 08/27/24 01:44 TID PRN if MAP <65 Home Medication- 500 mg 07/28/24 06:00 07/28/24 06:17 Please Speak With PO 08/27/24 05:59 Not Given Patient Caregiver To TID ANTONIA Have Rx Brought To [facility] Ondansetron HCl 4 mg 07/27/24 20:37 Ondansetron Inj 2 Mg/Ml Inj 2 Ml IV 08/26/24 20:36 Q6H PRN NAUSEA OR VOMITING Protocol Pharmacy Consult 1 each 07/28/24 09:00 Vancomycin Pharmacy To Dose 1 Each Each IV 08/27/24 08:59 QDAY PRN CONSULT Sevelamer Carbonate 800 mg 07/28/24 08:00 07/28/24 12:10 Sevelamer Carbonate 800 Mg Tablet PO 08/27/24 07:59 800 mg TIDWMEAL ANTONIA Administration Sodium Bicarbonate 1,300 mg 07/28/24 09:00 07/28/24 08:00 Sodium Bicarbonate 650 Mg Tablet PO 08/27/24 08:59 1,300 mg BID ANTONIA Administration Plan 59 y/o M with past medical history of developmental delay, hypertension, polycystic kidney disease, s/p renal transplant on 12/02/2017 at [facility], ESRD on HD since aug 2023 (), HFrEF 35 to 40%, bradycardia s/p ICD placement in 2011, s/p replacement of single-chamber AICD on 05/05/2024 for depleted battery, diverticulosis was brought to the hospital with a chief complaints of generalized weakness since 1 day and admitted for sepsis secondary to possible catheter related bloodstream infection. #Sepsis 2/2 possible catheter related bloodstream infection Presented to the hospital with generalized weakness. At the time of presentation to the ED, found to have a blood glucose of 20 and also had recurrent episodes of hypoglycemia. Initial vitals are stable but later found to have a febrile episode of 102.1 ?F in the ED. On examination, patient appears dehydrated. On auscultation no crackles/wheeze heard. Labs showed WBC 15,000, Hb 12.8, INR 1.5, BUN 28, creatinine 6.4, lactate 3.4, procalcitonin 81.08 SIRS 3/: Temperature 102.1, heart rate 112, WBC 15,000. Chest x-ray did not show infiltrates. Left tunneled dialysis catheter possible source. Chest x-ray did not show any infiltrates. EKG done showed sinus rhythm with multiple ectopics. Received a dose of vancomycin and Zosyn, 1 L NS in the ED. given additional 1.5 L lactated ringer. -Blood cultures were sent, follow-up with results -Midodrine 5mg as needed up to 3 times daily -Started on vancomycin and Zosyn (07/27-) -consider replacing the catheter -Monitor blood pressures -Cocci tests ordered, follow-up #Hypoglycemia Likely due to sepsis. Blood glucose at the time of admission is 20 and later there are multiple episodes of hypoglycemia. Patient is given D50 in the ED later started on D10. -D10 is discontinued and patient was given oral diet -Bedside glucose monitoring every 4 hours #ESRD on HD [] #Polycystic kidney disease status post renal transplant which is failed hence back on hemodialysis Patient is on HD since 1 year and last dialysis was on the day of admission. Following up with Dr. Lerma, per patient's sister, also sister endorsed that patient is having fistula repair scheduled in August 2024. On examination, patient had fistula in both upper extremities but without any thrill. At the time of admission BUN is 28, creatinine 6.4. Patient is getting dialysis through left tunneled dialysis catheter -Dr. Muse is consulted, appreciate recommendations -Plan for dialysis as per patient's usual schedule -Will continue Velphoro 500 Mg p.o. 3 times daily -Will continue sevelamer 800 Mg p.o. 3 times daily -Will continue sodium bicarbonate 1300 Mg p.o. 2 times daily #Bradycardia s/p ICD in 2011 #History of single-chamber AICD on 05/2024 #History of HFrEF, EF 35 to 40% Per patient's sister, patient had episode of bradycardia for which ICD was placed in 2011. Recently on 05/2024, as patient is having shortness of breath and also found to have battery depletion, ICD is replaced. EKG showed normal sinus rhythm with multiple ectopics. Echo done on 04/2024 showed moderate LV systolic dysfunction with global hypokinesis, Estimated EF 35-40%. Moderate PAH. Pacing wire present. -Early Breastfeeding Care Specialist is consulted, appreciate recommendations -Carvedilol was held for now in view of hypotension, resume if the blood pressures improve -Telemetry #Elevated troponins, likely type II -resolved likely due to underlying sepsis with underlying ESRD. Lactate at the time of admission is 3.4, downtrending. Troponin is 1.881, down trended -Telemetry #Mild iron deficiency anemia #Mild thrombocytopenia Likely due to ESRD. Hemoglobin at the time of admission is 12.8, MCV 109, MCH 29.4. -Recommended outpatient workup to rule out iron deficiency and replete the stores accordingly #History of hypertension Patient is on carvedilol, hydralazine, losartan, nifedipine as home medication. -Held all the antihypertensives in view of low blood pressures -Resume if blood pressures improves, as needed DVT prophylaxis: Heparin GI prophylaxis: None Diet: Renal Lines:Tunnelled dialysis cat, PIV Code status: Full Code Plan of care discussed with attending Dr. Kelly. En Campbell MD PGY-1 Attending Provider Attestation/Addendum I have examined the patient, reviewed labs and imaging findings, discussed the case with the resident(s), and reviewed entered orders. I agree with the plan of care as outlined in this note, with these additional summaries/recommendations: Patient and brother seen at bedside. Patient resting comfortably in hospital bed. Patient diagnosed with sepsis on admission. Chest x-ray showed no evidence of pneumonia. Urinalysis was ordered although patient does not appear to make urine. Most likely source at this time is catheter associated bloodstream infection. Blood cultures taken and pending. We will order flu. Continue broad-spectrum antibiotics IV vancomycin and Zosyn. Per patient's daughter patient had AICD replaced on 05/05/2024. Patient has history of end- stage renal disease on hemodialysis. Nephrology consulted and will coordinate line removal with nephrology if blood cultures returned positive. Continue hemodialysis per nephrology recs. Troponin found to be elevated and peaked at 1.881. Patient does have extensive cardiac history with HFrEF and bradycardia. Elevated troponin most likely secondary to demand ischemia +/- decreased clearance from ESRD. Cardiology following, recommendations appreciated. Goal- directed medical therapy for HFrEF currently on hold given hypotension on admission and will reinstitute as tolerated. Hypoglycemia on admission has resolved so we will continue to monitor fingersticks. Lactic acidosis resolved. Repeat hematology and chemistry panel in AM. Dr. Kelly
[2024-07-28] MEDS: VELPHORO 500 MG PO (14:24)
[2024-07-28 18:39] LABS: Influenza A Ag Negative; Influenza B Ag Negative
--- NOTE | 2024-07-28 18:53 | XR_ITS ---
Examination: Duplex scan of the upper extremity, unilateral right Date and time of exam: July 28, 2024 1908 hours INDICATIONS: Arm swelling this week, history fistula Technique: Duplex scan of the extremity veins using B-mode/grayscale imaging and Doppler spectral analysis and color flow Attention is directed to internal echogenicity, compression and augmentation involving these veins, color flow assessment, spectral analysis Findings: Positive for deep vein thrombus in the right subclavian vein as well as superficial cephalic vein Slow flow in the jugular vein IMPRESSION: Positive for deep vein thrombus in the right subclavian vein
[2024-07-29] VITALS (10 sets, daily range): BP systolic 103–131; BP diastolic 65–94; PULSE 65–99; RESP 13–29; TEMP 36–36.4; O2SAT 95–100; BMI 22.6
[2024-07-29 01:24] LABS: INR 1.1 (0.9-1.3); Partial Thromboplastin Time 34.8 Seconds (22.0-36.0)
[2024-07-29] MEDS: HEPARIN SOD INJ 5000 UNIT/ML VIAL 6100 UNIT IV (01:50)
[2024-07-29] MEDS: Heparin/D5w 25K 250 ML Ivpb 25,000 UNIT/250 ML BAG 13.749 UNIT IV ×2 (01:51→20:05)
[2024-07-29 06:27] LABS: Basophils % (Auto) 1 % (0-2.5); Eosinophils # (Auto) 0.2 Thou/mm3 (0.0-0.5); Eosinophils % (Auto) 3 % (0-10); Hematocrit 34.2 % (41.0-53.0); Hemoglobin 11.2 g/dL (13.5-16.0); Immature Granulocytes % (Auto) 1 % (0-0); Immature Granulocytes Auto 0.03 Thou/mm3 (0.00-0.00); Lymphocytes # (Auto) 0.4 Thou/mm3 (1.0-4.8); Lymphocytes % (Auto) 8 % (10-50); Mean Corpuscular HGB Conc 32.7 g/dl (31.0-37.0); Mean Corpuscular Hemoglobin 29.2 pg (25.0-35.0); Mean Corpuscular Volume 89 fL (80-100); Monocytes # (Auto) 0.6 Thou/mm3 (0.0-0.8); Monocytes % (Auto) 11 % (0-12); Neutrophils # (Auto) 4.2 Thou/mm3 (1.8-7.7); Neutrophils % (Auto) 78 % (37-80); Nucleated Red Blood Cell % 0 /100 WBC (0); Platelet Count 106 Thou/mm3 (140-440); RDW Standard Deviation 51.8 fL (35.1-43.9); Red Blood Count 3.83 Miln/mm3 (4.50-5.90); White Blood Count 5.5 Thou/mm3 (3.8-10.6)
[2024-07-29 06:57] LABS: Alanine Aminotransferase 19 U/L (10-49); Albumin/Globulin Ratio 1.2 (1.2-2.2); Alkaline Phosphatase 76 U/L (46-116); Anion Gap 11 (7-16); Aspartate Amino Transferase < 8 U/L (0-34); BUN/Creatinine Ratio 6 Ratio (12-20); Bilirubin,Total 0.3 mg/dL (0.3-1.2); Blood Urea Nitrogen 51 mg/dL (9-23); Calcium 7.5 mg/dL (8.3-10.6); Calcium (Corrected) 8.3 mg/dL (8.5-10.1); Carbon Dioxide 25.1 mMol/L (20.0-31.0); Chloride 96 mMol/L (98-107); Creatinine (Component) 8.9 mg/dL (0.6-1.3); Estimated Creatinine Clearance 9.5 mL/min (>60); Globulin 2.6 gm/dL (2.3-3.5); Glucose 79 mg/dL (74-106); Magnesium 2.1 mg/dL (1.6-2.6); Osmolality,Calculated 277 (275-295); Potassium 4.6 mMol/L (3.4-5.1); Sodium 132 mMol/L (136-145); Total Protein 5.6 gm/dL (5.7-8.2); Vancomycin,Random 9.4 mcg/mL; eGFR 6 See Note
[2024-07-29] MEDS: SEVELAMER CARBONATE 800 MG TABLET PO ×3 (07:42→16:57)
[2024-07-29] MEDS: VELPHORO 500 MG PO ×3 (07:42→16:57)
[2024-07-29] MEDS: SODIUM BICARBONATE 650 MG TABLET 1300 MG PO ×2 (08:23→20:05)
[2024-07-29] MEDS: ASPIRIN EC 81 MG TABEC PO (08:24)
--- NOTE | 2024-07-29 08:47 | ESPR_ITS ---
Documentation for date of: 07/29/24 Subjective Subjective Interval history: 07/29/2024: Pt examined at bedside today. No acute overnights on telemetry, patient is rate controlled in the 70s. He reports he is doing fine. By expensing any chest pain or palpitations. Denies having any shortness of breath. He was found to have a DVT in his right subclavian vein no started on heparin drip. Patient's BUN/creatinine 51 8.9, potassium 4.6, potassium 2.1, phosphorus 5. Dialysis scheduled for Monday. Patient's blood pressure has been soft, has not been able to resume GDMT therapy at this time. Will continue with medical management, no other complaints at this time. Exam Vital Signs Temp Pulse Resp BP Pulse Ox O2 Del Method O2 Flow Rate 97.0 F 65 17 103/65 97 Nasal Cannula 2 07/29/24 07:50 07/29/24 07:50 07/29/24 07:50 07/29/24 07:50 07/29/24 07:50 07/29/24 07:50 07/29/24 07:50 Narrative Exam General: AAOx3, NAD, pleasant male, having active bowel movement as we speak, possibly developmentally delayed HEENT: Moist mucous membranes, conjunctiva clear, EOMI, PERRLA, poor dentition Cardiovascular: Systolic ejection murmur heard over R 2nd intercostal space, Pansystolic murmur heard in left lower sternal border, RRR, L sided TDC present Pulmonary: CTAB bilat no cough, no wheezing GI: No tenderness to light or deep palpitation, no guarding, rigidity, rebound tenderness or distension Extremities: No presence of trace or pitting edema in lower extremities bilaterally, dorsalis pedis pulses +2 bilaterally, AV fistula in L arm Neuro: AAOx3, no focal motor or sensory deficits in the UE or LE bilat Psych: Cooperative Objective Labs 07/30/24 05:47 07/30/24 05:47 Labs: Laboratory Results - last 24 hr 07/28/24 07/28/24 07/28/24 08:23 10:42 16:30 WBC 7.9 D RBC 4.30 L Hgb 12.5 L Hct 39.2 L MCV 91 MCH 29.1 MCHC 31.9 RDW Std Deviation 53.4 H Plt Count 112 L Neut % (Auto) 90 H Lymph % (Auto) 4 L [place] % (Auto) 5 Eos % (Auto) 1 Baso % (Auto) 0 Neut # (Auto) 7.1 Lymph # (Auto) 0.3 L [place] # (Auto) 0.4 Eos # (Auto) 0.1 Baso # (Auto) 0.0 Immature Gran # (Auto) 0.03 H Absolute Nucleated RBC 0.00 Immature Gran % 0 Nucleated RBC % 0 PT INR APTT Sodium Potassium Chloride Carbon Dioxide Anion Gap BUN Creatinine Estim Creat Clear Calc eGFR BUN/Creatinine Ratio Glucose Calculated Osmolality Lactic Acid 1.8 Calcium Corrected Calcium Phosphorus Magnesium Total Bilirubin AST ALT Alkaline Phosphatase Total Protein Albumin Globulin Albumin/Globulin Ratio Random Vancomycin Influenza A (Rapid) Negative Influenza B (Rapid) Negative 07/29/24 07/29/24 00:45 05:32 WBC 5.5 RBC 3.83 L Hgb 11.2 L Hct 34.2 L MCV 89 MCH 29.2 MCHC 32.7 RDW Std Deviation 51.8 H Plt Count 106 L Neut % (Auto) 78 Lymph % (Auto) 8 L [place] % (Auto) 11 Eos % (Auto) 3 Baso % (Auto) 1 Neut # (Auto) 4.2 Lymph # (Auto) 0.4 L [place] # (Auto) 0.6 Eos # (Auto) 0.2 Baso # (Auto) 0.0 Immature Gran # (Auto) 0.03 H Absolute Nucleated RBC 0.00 Immature Gran % 1 H Nucleated RBC % 0 PT 12.0 D INR 1.1 APTT 34.8 Sodium 132 L Potassium 4.6 Chloride 96 L Carbon Dioxide 25.1 Anion Gap 11 BUN 51 H Creatinine 8.9 H* D Estim Creat Clear Calc 9.5 L eGFR 6 L* BUN/Creatinine Ratio 6 L Glucose 79 Calculated Osmolality 277 Lactic Acid Calcium 7.5 L Corrected Calcium 8.3 L Phosphorus 5.0 Magnesium 2.1 Total Bilirubin 0.3 AST < 8 ALT 19 Alkaline Phosphatase 76 Total Protein 5.6 L Albumin 3.0 L Globulin 2.6 Albumin/Globulin Ratio 1.2 Random Vancomycin 9.4 Influenza A (Rapid) Influenza B (Rapid) ABG Interpretation ABG results: 07/27/24 10:52 VBG pH 7.21 L VBG pCO2 52 VBG pO2 38 VBG Base Excess -7 L Quality Measures Quality Measures sepsis Current suspected stage: sepsis Possible source: unknown Blood cultures ordered: yes Antibiotic ordered: Yes Assessment & Plan Assessment Current Active Medications: Generic Name Dose Route Start Last Admin Trade Name Freq PRN Reason Stop Dose Admin Acetaminophen 650 mg 07/28/24 09:36 Acetaminophen 325 Mg Tablet PO 08/26/24 20:36 Q6H PRN Fever >100.3 Aspirin 81 mg 07/28/24 09:00 07/29/24 08:24 Aspirin Ec 81 Mg Tabec PO 08/27/24 08:59 81 mg QDAY ANTONIA Administration Velphoro ( 0 ea 07/29/24 08:00 07/29/24 07:42 Sucroferric PO 08/28/24 07:59 2 chew Oxyhydroxide) 500 Mg TIDWM ANTONIA Administration Chewable Tablets Dextrose 25 ml 07/27/24 22:52 Dextrose 50%-Water Inj 50 Ml Syringe IV 08/26/24 22:51 Q15MIN PRN BG 50-70 responsive npo pt Dextrose 50 ml 07/27/24 22:52 07/28/24 07:53 Dextrose 50%-Water Inj 50 Ml Syringe IV 08/26/24 22:51 50 ml Q15MIN PRN Administration BG <50 OR BG <70 & pt unresponsive Glucagon 1 mg 07/27/24 22:52 Glucagon Inj 1 Mg Vial IM Q15MIN PRN BG <70, and no IV access Piperacillin/Tazobactam/Dextrose 50 mls @ 12.5 mls/hr 07/28/24 09:00 07/29/24 08:24 Zosyn IV 08/04/24 08:59 12.5 mls/hr Q12HR ANTONIA Administration Heparin Sodium/Dextrose 25,000 unit in 250 mls @ 13.749 mls/hr 07/29/24 00:30 07/29/24 01:51 Heparin In D5w Ivpb IV 08/12/24 00:29 18 units/kg/hr .[id number] ANTONIA 13.749 mls/hr Administration Protocol 18 UNITS/KG/HR Vancomycin/Sodium Chloride 200 mls @ 120 mls/hr 07/29/24 10:00 Vancomycin/Ns 1 Gm Ivpb IV 07/29/24 11:39 X1 ONE Midodrine 5 mg 07/28/24 01:33 Midodrine 5 Mg Tablet PO 08/27/24 01:44 TID PRN if MAP <65 Ondansetron HCl 4 mg 07/27/24 20:37 Ondansetron Inj 2 Mg/Ml Inj 2 Ml IV 08/26/24 20:36 Q6H PRN NAUSEA OR VOMITING Protocol Pharmacy Consult 1 each 07/28/24 09:00 Vancomycin Pharmacy To Dose 1 Each Each IV 08/27/24 08:59 QDAY PRN CONSULT Sevelamer Carbonate 800 mg 07/28/24 08:00 07/29/24 07:42 Sevelamer Carbonate 800 Mg Tablet PO 08/27/24 07:59 800 mg TIDWMEAL ANTONIA Administration Sodium Bicarbonate 1,300 mg 07/28/24 09:00 07/29/24 08:23 Sodium Bicarbonate 650 Mg Tablet PO 08/27/24 08:59 1,300 mg BID ANTONIA Administration Plan Assessment Casey is a 59 y/o male with PMHx of essential HTN, CAD, HFrEF with systolic dysfunction and wall motion abnormalities (EF 35-40%), single-lead AICD ([employer] s/p replacement by Dr. Zamudio in May 2024), ESRD on HD () renal transplant 2018 at [facility], developmental delay, chronic anemia secondary to ESRD, internal hemorrhoids, diverticulosis and esophageal ulcers #History of mild to moderate CAD with 40 to 50% stenosis of RCA #NSTEMI type II, likely related to demand ischemia, resolved #History of HFrEF with systolic dysfunction and wall motion normalities, EF 35 to 40% #Nonischemic cardiomyopathy #Hx of AICD replacement (05/2024) Troponins have down trended from 1.88 till 1.81 Echo in April 2024 showed normal LV, systolic dysfunction with wall motion abnormalities RV dilatation RVSP 49 mmHg, EF 35 to 40% Last cardiac cath done in 2011, do not have reports at this time, based of history Plan: ? Continue with ASA ? Resume GDMT therapy when able ? Keep magnesium and potassium above 2 and 4 respectively ? Next dialysis scheduled on Monday #History of hypertension Has Coreg, hydralazine, losartan and nifedipine as his blood pressure medicines at home Plan: ? Resume home blood pressure medicines when able #Sepsis 2/2 likely to catheter related bloodstream infection #Acute hypoxic respiratory failure Had 4 out of 4 SIRS criteria, source at this time believed to be dialysis catheter Patient started on broad-spectrum antibiotics and has received fluid bolus (2.5 L) in ED Blood cultures 1/2 bottles GNR Plan: ?Management by primary team ?Treat underlying source of infection, on Vanc and Zoysn ?Follow-up blood cultures #Hypoglycemia #ESRD on HD [T//MON] #Polycystic kidney disease status post renal transplant which is failed hence back on hemodialysis #Mild iron deficiency anemia #Mild thrombocytopenia Above management primary hospitalist team Patient seen and care discussed with my attending physician, Dr. Lori Garcia, PGY-1 Attending Provider Attestation/Addendum I have personally seen and examined the patient separately on the above date of service and discussed the plan of care with the resident. I reviewed the resident Dr. Mitchell consultation progress note and agree with the resident findings and plan in the note above and have also edited the documentation to reflect my findings and plan. Lewis Sandoval M.D. Interventional Cardiology
--- NOTE | 2024-07-29 09:21 | PD.NEPHPROG ---
Documentation for date of: 07/29/24 Subjective Subjective Interval history: Informant sister- aj on the phone Patient currently seen in telemetry. Mr. Montgomery is a 59-year-old -[place] gentleman with past medical history of developmental delay, hypertension, polycystic kidney disease, s/p renal transplant on 12/02/2017 at [facility]- failed, back on HD since aug 2023 [T//MON]- under DR. LERMA, HFpEF 55 to 60%, bradycardia s/p ICD placement in 2011, s/p replacement of single-chamber AICD on 05/05/2024 for depleted battery, diverticulosis was sent from the dialysis unit with a chief complaint of significant weakness and sleep problems. In the emergency department patient was noted to have hypoglycemia with a glucose of 20. D50 was given. Also noted to have fever. Patient has a AV fistula which is nonfunctioning and is currently receiving dialysis through right IJ PermCath. In the emergency department vital signs blood pressure 117/76, heart rate 71, temp 97.8. On 2 L. WBC 15,000, hemoglobin 12.8, platelets 134, BUN 28, creatinine 6.4, lactic acid 3.4, troponin 1.88, BNP 751, Pro-O[place]ald 81. Chest x-ray showed no pneumonia. EKG showed ectopy. Patient was given antibiotics and admitted to the hospital for sepsis-question catheter related bacteremia. He did receive a 500 cc normal saline bolus, Zosyn, vancomycin. Nephrology consultation requested for need for dialysis. Patient is a Monday, , Monday schedule and did complete dialysis today for cystoscopy. 07/29/2024 patient currently seen in telemetry. Still having some cough. Denies any chest pain. Does have some shortness of breath. Medications/labs reviewed. WBC 5.5, hemoglobin 11.2, platelets 106. Sodium 132, potassium 4.6, bicarbonate 25, BUN 51, creatinine 0.9, calcium 8.3, phosphorus 5, LFTs normal, albumin 3, venous Doppler lower extremity positive for DVT on the right arm. Patient has left IJ dialysis catheter. Review of Systems Review of Systems Narrative Review of Systems: Denies any chest pain. ++shortness of breath. Denies any nausea, vomiting. No fevers today noted to have some developmental delay. Exam Vital Signs Temp Pulse Resp BP Pulse Ox O2 Del Method O2 Flow Rate 36.1 C 65 17 103/65 97 Nasal Cannula 2 07/29/24 07:50 07/29/24 07:50 07/29/24 07:50 07/29/24 07:50 07/29/24 07:50 07/29/24 07:50 07/29/24 07:50 Narrative Exam GENERAL APPEARANCE: Patient seems to be comfortable, adequately hydrated and nourished. Currently seen in telemetry HEENT: EOMI, PERRLA NECK: Neck supple, no JVD or bruit CARDIOVASCULAR: Heart regular, no murmurs LUNGS/CHEST: Few rhonchi bilaterally ABDOMEN: Soft, nontender, nondistended. No masses. Normal bowel sounds. EXTREMITIES: No edema, clubbing or cyanosis. SKIN: IJ PermCath. Left AV fistula with no thrill MUSCULOSKELETAL: Musculoskeletal exam normal PSYCHIATRIC: Normal mood, affect LYMPHATICS: No lymphadenopathy noted NEUROLOGICAL : No neurological deficits Objective Labs 07/29/24 05:32 07/29/24 05:32 Labs: Laboratory Results - last 24 hr 07/28/24 07/28/24 07/29/24 10:42 16:30 00:45 WBC RBC Hgb Hct MCV MCH MCHC RDW Std Deviation Plt Count Neut % (Auto) Lymph % (Auto) [place] % (Auto) Eos % (Auto) Baso % (Auto) Neut # (Auto) Lymph # (Auto) [place] # (Auto) Eos # (Auto) Baso # (Auto) Immature Gran # (Auto) Absolute Nucleated RBC Immature Gran % Nucleated RBC % PT 12.0 D INR 1.1 APTT 34.8 Sodium Potassium Chloride Carbon Dioxide Anion Gap BUN Creatinine Estim Creat Clear Calc eGFR BUN/Creatinine Ratio Glucose Calculated Osmolality Lactic Acid 1.8 Calcium Corrected Calcium Phosphorus Magnesium Total Bilirubin AST ALT Alkaline Phosphatase Total Protein Albumin Globulin Albumin/Globulin Ratio Random Vancomycin Influenza A (Rapid) Negative Influenza B (Rapid) Negative 07/29/24 05:32 WBC 5.5 RBC 3.83 L Hgb 11.2 L Hct 34.2 L MCV 89 MCH 29.2 MCHC 32.7 RDW Std Deviation 51.8 H Plt Count 106 L Neut % (Auto) 78 Lymph % (Auto) 8 L [place] % (Auto) 11 Eos % (Auto) 3 Baso % (Auto) 1 Neut # (Auto) 4.2 Lymph # (Auto) 0.4 L [place] # (Auto) 0.6 Eos # (Auto) 0.2 Baso # (Auto) 0.0 Immature Gran # (Auto) 0.03 H Absolute Nucleated RBC 0.00 Immature Gran % 1 H Nucleated RBC % 0 PT INR APTT Sodium 132 L Potassium 4.6 Chloride 96 L Carbon Dioxide 25.1 Anion Gap 11 BUN 51 H Creatinine 8.9 H* D Estim Creat Clear Calc 9.5 L eGFR 6 L* BUN/Creatinine Ratio 6 L Glucose 79 Calculated Osmolality 277 Lactic Acid Calcium 7.5 L Corrected Calcium 8.3 L Phosphorus 5.0 Magnesium 2.1 Total Bilirubin 0.3 AST < 8 ALT 19 Alkaline Phosphatase 76 Total Protein 5.6 L Albumin 3.0 L Globulin 2.6 Albumin/Globulin Ratio 1.2 Random Vancomycin 9.4 Influenza A (Rapid) Influenza B (Rapid) ABG Interpretation ABG results: 07/27/24 10:52 VBG pH 7.21 L VBG pCO2 52 VBG pO2 38 VBG Base Excess -7 L Assessment & Plan Additional Assessment & Plan Additional Plan: # ESRD-secondary to failed transplant and has been on dialysis for 1 year. Under the care of Dr. Lerma. Next dialysis will be Monday. # Sepsis-rule out catheter related bacteremia. Blood cultures positive for gram-negative rods. Currently on Zosyn. Hold off on dialysis catheter removal pending official cultures. # Renal osteodystrophy # Right upper extremity DVT-on heparin drip # Essential hyertension -resume home blood pressure medications # Thrombocytopenia - possibly medication induced. His baseline platelets are 115. # Elevated troponin-secondary to underlying stress. Denies any chest pain. Thank you Gino for allowing me to participate in the care of Mr. Montgomery Quality - progress note Quality Measures Quality Measures: VTE prophylaxis Reason for Continued Stay Reason for Continued Stay: further monitoring
[2024-07-29 09:35] LABS: Partial Thromboplastin Time 67.8 Seconds (22.0-36.0)
--- NOTE | 2024-07-29 10:29 | PC.SS ---
SS follow up note; Patient is on Heparin drip.
--- NOTE | 2024-07-29 13:25 | ESPR_ITS ---
<Statement entered by Von Paniagua MD - 07/29/24 14:28> Patient was seen and examined at the bedside this morning. Patient overnight Doppler right upper extremity showed DVT and heparin drip was started. 1 out of 2 grew GNR therefore we are waiting on final culture results. Will continue with Zosyn and DC'd vancomycin. Overnight patient did not had a fever spike. White count improved. Kidney functions consistent with ESRD. Scheduled for dialysis tomorrow. Blood sugars are controlled. Patient is tolerating diet. All labs and orders were reviewed. I saw and examined the patient, and I agree with current management stated by Dr Adrian MD,PGY1. Plan of care was discussed with the attending physician and resident physician. Disclaimer: Despite multiple revisions, due to the dictation software being used, the document bellow may not be free of grammatical errors including phonetic/typographic errors. However, this does not deter from our commitment to providing health care in the patient's best interest in mind. Dr. Arcelia MD, PGY 2 Documentation for date of: 07/29/24 Subjective Subjective Interval history: Overnight: Ultrasound positive for DVT right subclavian vein, heparin drip initiated. Patient seen and examined at bedside. Patient notes shortness of breath. Patient is no other complaints. Denies fever, chills, chest pain, nausea, vomiting. Continue IV antibiotics. Continue heparin drip. Discontinued vancomycin, blood cultures GNR 1/2. Exam Vital Signs Temp Pulse Resp BP Pulse Ox O2 Del Method O2 Flow Rate 97.0 F 95 17 103/65 97 Nasal Cannula 2 07/29/24 07:50 07/29/24 09:00 07/29/24 09:00 07/29/24 07:50 07/29/24 09:00 07/29/24 07:50 07/29/24 09:00 Narrative Exam General: Awake. Lying comfortably on the bed HEENT: Normocephalic, atraumatic, mucous membranes moist. Heart: Regular rate and rhythm Lungs: Mild diffuse wheezing. No crackles or rhonchi. Abdomen: Soft, nondistended, nontender, positive bowel sounds. ?No guarding or rebound tenderness. Neurologic: Alert and oriented x3, no gross neurological deficit, and patient able to move all 4 extremities. Extremities: No edema. Fistulas in both upper extremities. Right upper extremity swollen, nonpitting. Skin: No rash or ecchymoses. Objective Labs 07/30/24 05:47 07/29/24 05:32 Labs: Laboratory Results - last 24 hr 07/28/24 07/29/24 07/29/24 16:30 00:45 05:32 WBC 5.5 RBC 3.83 L Hgb 11.2 L Hct 34.2 L MCV 89 MCH 29.2 MCHC 32.7 RDW Std Deviation 51.8 H Plt Count 106 L Neut % (Auto) 78 Lymph % (Auto) 8 L [place] % (Auto) 11 Eos % (Auto) 3 Baso % (Auto) 1 Neut # (Auto) 4.2 Lymph # (Auto) 0.4 L [place] # (Auto) 0.6 Eos # (Auto) 0.2 Baso # (Auto) 0.0 Immature Gran # (Auto) 0.03 H Absolute Nucleated RBC 0.00 Immature Gran % 1 H Nucleated RBC % 0 PT 12.0 D INR 1.1 APTT 34.8 Sodium 132 L Potassium 4.6 Chloride 96 L Carbon Dioxide 25.1 Anion Gap 11 BUN 51 H Creatinine 8.9 H* D Estim Creat Clear Calc 9.5 L eGFR 6 L* BUN/Creatinine Ratio 6 L Glucose 79 Calculated Osmolality 277 Calcium 7.5 L Corrected Calcium 8.3 L Phosphorus 5.0 Magnesium 2.1 Total Bilirubin 0.3 AST < 8 ALT 19 Alkaline Phosphatase 76 Total Protein 5.6 L Albumin 3.0 L Globulin 2.6 Albumin/Globulin Ratio 1.2 Random Vancomycin 9.4 Influenza A (Rapid) Negative Influenza B (Rapid) Negative 07/29/24 08:40 WBC RBC Hgb Hct MCV MCH MCHC RDW Std Deviation Plt Count Neut % (Auto) Lymph % (Auto) [place] % (Auto) Eos % (Auto) Baso % (Auto) Neut # (Auto) Lymph # (Auto) [place] # (Auto) Eos # (Auto) Baso # (Auto) Immature Gran # (Auto) Absolute Nucleated RBC Immature Gran % Nucleated RBC % PT INR APTT 67.8 H D Sodium Potassium Chloride Carbon Dioxide Anion Gap BUN Creatinine Estim Creat Clear Calc eGFR BUN/Creatinine Ratio Glucose Calculated Osmolality Calcium Corrected Calcium Phosphorus Magnesium Total Bilirubin AST ALT Alkaline Phosphatase Total Protein Albumin Globulin Albumin/Globulin Ratio Random Vancomycin Influenza A (Rapid) Influenza B (Rapid) ABG Interpretation ABG results: 07/27/24 10:52 VBG pH 7.21 L VBG pCO2 52 VBG pO2 38 VBG Base Excess -7 L Quality Measures Quality Measures sepsis Current suspected stage: sepsis Possible source: unknown Blood cultures ordered: yes Antibiotic ordered: Yes Assessment & Plan Assessment Current Active Medications: Generic Name Dose Route Start Last Admin Trade Name Freq PRN Reason Stop Dose Admin Acetaminophen 650 mg 07/28/24 09:36 Acetaminophen 325 Mg Tablet PO 08/26/24 20:36 Q6H PRN Fever >100.3 Aspirin 81 mg 07/28/24 09:00 07/29/24 08:24 Aspirin Ec 81 Mg Tabec PO 08/27/24 08:59 81 mg QDAY ANTONIA Administration Velphoro ( 0 ea 07/29/24 08:00 07/29/24 11:53 Sucroferric PO 08/28/24 07:59 2 chew Oxyhydroxide) 500 Mg TIDWM ANTONIA Administration Chewable Tablets Dextrose 25 ml 07/27/24 22:52 Dextrose 50%-Water Inj 50 Ml Syringe IV 08/26/24 22:51 Q15MIN PRN BG 50-70 responsive npo pt Dextrose 50 ml 07/27/24 22:52 07/28/24 07:53 Dextrose 50%-Water Inj 50 Ml Syringe IV 08/26/24 22:51 50 ml Q15MIN PRN Administration BG <50 OR BG <70 & pt unresponsive Glucagon 1 mg 07/27/24 22:52 Glucagon Inj 1 Mg Vial IM Q15MIN PRN BG <70, and no IV access Piperacillin/Tazobactam/Dextrose 50 mls @ 12.5 mls/hr 07/28/24 09:00 07/29/24 09:33 Zosyn IV 08/04/24 08:59 Not Given Q12HR ANTONIA Heparin Sodium/Dextrose 25,000 unit in 250 mls @ 13.749 mls/hr 07/29/24 00:30 07/29/24 09:48 Heparin In D5w Ivpb IV 08/12/24 00:29 18 units/kg/hr .[id number] ANTONIA 13.749 mls/hr Titration Protocol 18 UNITS/KG/HR Midodrine 5 mg 07/28/24 01:33 Midodrine 5 Mg Tablet PO 08/27/24 01:44 TID PRN if MAP <65 Ondansetron HCl 4 mg 07/27/24 20:37 Ondansetron Inj 2 Mg/Ml Inj 2 Ml IV 08/26/24 20:36 Q6H PRN NAUSEA OR VOMITING Protocol Sevelamer Carbonate 800 mg 07/28/24 08:00 07/29/24 11:53 Sevelamer Carbonate 800 Mg Tablet PO 08/27/24 07:59 800 mg TIDWMEAL ANTONIA Administration Sodium Bicarbonate 1,300 mg 07/28/24 09:00 07/29/24 08:23 Sodium Bicarbonate 650 Mg Tablet PO 08/27/24 08:59 1,300 mg BID ANTONIA Administration Plan 59 y/o M with past medical history of developmental delay, hypertension, polycystic kidney disease, s/p renal transplant on 12/02/2017 at [facility], ESRD on HD since aug 2023 (//MON), HFrEF 35 to 40%, bradycardia s/p ICD placement in 2011, s/p replacement of single-chamber AICD on 05/05/2024 for depleted battery, diverticulosis was brought to the hospital with a chief complaints of generalized weakness since 1 day and admitted for sepsis secondary to possible catheter related bloodstream infection. #Sepsis 2/2 possible catheter related bloodstream infection Presented to the hospital with generalized weakness. At the time of presentation to the ED, found to have a blood glucose of 20 and also had recurrent episodes of hypoglycemia. Initial vitals are stable but later found to have a febrile episode of 102.1 ?F in the ED. On examination, patient appears dehydrated. On auscultation no crackles/wheeze heard. Labs showed WBC 15,000, Hb 12.8, INR 1.5, BUN 28, creatinine 6.4, lactate 3.4, procalcitonin 81.08 SIRS 3/4: Temperature 102.1, heart rate 112, WBC 15,000. Chest x-ray did not show infiltrates. Left tunneled dialysis catheter possible source. Chest x-ray did not show any infiltrates. EKG done showed sinus rhythm with multiple ectopics. Received a dose of vancomycin and Zosyn, 1 L NS in the ED. given additional 1.5 L lactated ringer. Blood culture positive for GNR 1/2. Vancomycin was continued. Patient has right upper extremity DVT, potential source of fever/tachycardia/leukocytosis. -Blood cultures were sent, follow-up with results -Midodrine 5mg as needed up to 3 times daily -Vancomycin (07/27?07/29) -Zosyn (07/27-) -consider replacing the catheter -Monitor blood pressures -Cocci tests ordered, follow-up #Right subclavian vein DVT Patient developed swelling of right arm. Ultrasound was ordered, confirmed right subclavian vein DVT. Patient initiated on heparin drip. -Heparin drip #Hypoglycemia Likely due to sepsis. Blood glucose at the time of admission is 20 and later there are multiple episodes of hypoglycemia. Patient is given D50 in the ED later started on D10. D10 is discontinued and patient was given oral diet -Bedside glucose monitoring ACHS #ESRD on HD [/MON] #Polycystic kidney disease status post renal transplant which is failed hence back on hemodialysis Patient is on HD since 1 year and last dialysis was on the day of admission. Following up with Dr. Lerma, per patient's sister, also sister endorsed that patient is having fistula repair scheduled in August 2024. On examination, patient had fistula in both upper extremities but without any thrill. At the time of admission BUN is 28, creatinine 6.4. Patient is getting dialysis through left tunneled dialysis catheter -Dr. Muse is consulted, appreciate recommendations -Plan for dialysis as per patient's usual schedule -Will continue Velphoro 500 Mg p.o. 3 times daily -Will continue sevelamer 800 Mg p.o. 3 times daily -Will continue sodium bicarbonate 1300 Mg p.o. 2 times daily #Bradycardia s/p ICD in 2011 #History of single-chamber AICD on 05/2024 #History of HFrEF, EF 35 to 40% Per patient's sister, patient had episode of bradycardia for which ICD was placed in 2011. Recently on 05/2024, as patient is having shortness of breath and also found to have battery depletion, ICD is replaced. EKG showed normal sinus rhythm with multiple ectopics. Echo done on 04/2024 showed moderate LV systolic dysfunction with global hypokinesis, Estimated EF 35-40%. Moderate PAH. Pacing wire present. -Bank President is consulted, appreciate recommendations -Carvedilol was held for now in view of hypotension, resume if the blood pressures improve -Telemetry #Elevated troponins, likely type II -resolved likely due to underlying sepsis with underlying ESRD. Lactate at the time of admission is 3.4, downtrending. Troponin is 1.881, down trended -Telemetry #Mild iron deficiency anemia #Mild thrombocytopenia Likely due to ESRD. Hemoglobin at the time of admission is 12.8, MCV 109, MCH 29.4. -Recommended outpatient workup to rule out iron deficiency and replete the stores accordingly #History of hypertension Patient is on carvedilol, hydralazine, losartan, nifedipine as home medication. -Held all the antihypertensives in view of low blood pressures -Resume if blood pressures improves, as needed DVT prophylaxis: Heparin GI prophylaxis: None Diet: Renal Lines:Tunnelled dialysis cat, PIV Code status: Full Code Plan of care discussed with senior resident Dr. Paniagua PGY?[address] Kelly. En Campbell MD PGY-1 Attending Provider Attestation/Addendum I have examined the patient, reviewed labs and imaging findings, discussed the case with the resident(s), and reviewed entered orders. I agree with the plan of care as outlined in this note, with these additional summaries/recommendations: Patient and brother seen at bedside. Patient resting comfortably in hospital bed. Overnight patient endorsed some right upper extremity swelling and US was obtained which is positive for deep vein thrombus in the right subclavian vein. Patient started on heparin gtt and target aPTT of 60-80 seconds. We will transition to NOAC when able. Patient diagnosed with sepsis on admission. Chest x-ray showed no evidence of pneumonia. Urinalysis was ordered although patient does not appear to make urine. Most likely source at this time is catheter associated bloodstream infection although currently only 1 out of 2 blood cxs showing GNR. We will await final blood cx results before determining if patient truly has bacteremia. Continue IV Zosyn and discontinue vancomycin. Per patient's daughter patient had AICD replaced on 05/05/2024. Patient has history of end-stage renal disease on hemodialysis. Nephrology consulted and will coordinate line removal with nephrology if blood cultures returned positive. Continue hemodialysis per nephrology recs. Troponin found to be elevated and peaked at 1.881. Patient does have extensive cardiac history with HFrEF and bradycardia. Elevated troponin most likely secondary to demand ischemia +/- decreased clearance from ESRD. Cardiology following, recommendations appreciated. Goal-directed medical therapy for HFrEF currently on hold given blood pressure continues to be soft. Midodrine PRN on board. Repeat hematology and chemistry panel in AM. Dr. Kelly
[2024-07-29 14:51] LABS: Cocci Serology, IgM Negative (Negative)
--- NOTE | 2024-07-29 20:21 | PC.NURSE ---
SPOKE WITH DR. BETANCOURT REGARDING ABX THERAPY. UNABLE TO GIVE D/T ONLY ONE LINE TO RIGHT ARM WHICH WAS APPROVED BY DAY TEAM SHIFT. NO OTHER LINE TO BE PLACED AT THIS TIME, PER DAY TEAM SHIFT REPORT SECONDARY TO DVT TO RIGHT ARM. REQUESTED FOR PT TO BE PLACED ON PO ABX AT THIS TIME. MD TO LOOK INTO IT AND CALL ME BACK.
--- NOTE | 2024-07-29 20:33 | PC.NURSE ---
DR. BETANCOURT APPROVED ULTRASOUND GUIDED IV PLACEMENT TO RIGHT ARM FOR IV ABX
[2024-07-29] MEDS: PIPER/TAZO 3.375 GM 50 ML IV (20:39)
[2024-07-29 22:44] LABS: Partial Thromboplastin Time 130.1 Seconds (22.0-36.0)
[2024-07-30] VITALS (21 sets, daily range): BP systolic 85–160; BP diastolic 54–94; PULSE 69–100; RESP 18–24; TEMP 36–36.6; O2SAT 95–99
[2024-07-30 06:29] LABS: Basophils % (Auto) 1 % (0-2.5); Eosinophils # (Auto) 0.2 Thou/mm3 (0.0-0.5); Eosinophils % (Auto) 4 % (0-10); Hematocrit 35.7 % (41.0-53.0); Hemoglobin 11.7 g/dL (13.5-16.0); Immature Granulocytes % (Auto) 1 % (0-0); Immature Granulocytes Auto 0.04 Thou/mm3 (0.00-0.00); Lymphocytes # (Auto) 0.4 Thou/mm3 (1.0-4.8); Lymphocytes % (Auto) 9 % (10-50); Mean Corpuscular HGB Conc 32.8 g/dl (31.0-37.0); Mean Corpuscular Hemoglobin 29.6 pg (25.0-35.0); Mean Corpuscular Volume 90 fL (80-100); Monocytes # (Auto) 0.6 Thou/mm3 (0.0-0.8); Monocytes % (Auto) 15 % (0-12); Neutrophils # (Auto) 2.9 Thou/mm3 (1.8-7.7); Neutrophils % (Auto) 70 % (37-80); Nucleated Red Blood Cell % 0 /100 WBC (0); Platelet Count 110 Thou/mm3 (140-440); RDW Standard Deviation 53.4 fL (35.1-43.9); Red Blood Count 3.95 Miln/mm3 (4.50-5.90); White Blood Count 4.2 Thou/mm3 (3.8-10.6)
[2024-07-30 06:49] LABS: Partial Thromboplastin Time 47.5 Seconds (22.0-36.0)
[2024-07-30 07:38] LABS: Alanine Aminotransferase 14 U/L (10-49); Albumin, Serum 3.3 gm/dL (3.4-4.8); Albumin/Globulin Ratio 1.2 (1.2-2.2); Alkaline Phosphatase 85 U/L (46-116); Anion Gap 12 (7-16); Aspartate Amino Transferase < 10 U/L (0-34); BUN/Creatinine Ratio 6 Ratio (12-20); Bilirubin,Total 0.3 mg/dL (0.3-1.2); Blood Urea Nitrogen 61 mg/dL (9-23); Calcium 7.9 mg/dL (8.3-10.6); Calcium (Corrected) 8.5 mg/dL (8.5-10.1); Carbon Dioxide 26.2 mMol/L (20.0-31.0); Chloride 92 mMol/L (98-107); Estimated Creatinine Clearance 8.3 mL/min (>60); Globulin 2.7 gm/dL (2.3-3.5); Glucose 76 mg/dL (74-106); Magnesium 2.3 mg/dL (1.6-2.6); Osmolality,Calculated 277 (275-295); Phosphorous 4.8 mg/dL (2.4-5.1); Sodium 130 mMol/L (136-145); eGFR 5 See Note
[2024-07-30 07:46] LABS: Creatinine (Component) 10.2 mg/dL (0.6-1.3)
[2024-07-30] MEDS: SEVELAMER CARBONATE 800 MG TABLET PO ×3 (08:30→18:07)
[2024-07-30] MEDS: ASPIRIN EC 81 MG TABEC PO (08:30)
[2024-07-30] MEDS: DEXTROSE 50%-WATER INJ 50 ML SYRINGE 25 ML IV (08:31)
[2024-07-30] MEDS: HEPARIN SOD INJ 5000 UNIT/ML VIAL 4000 UNIT IVP (09:04)
[2024-07-30] MEDS: SODIUM BICARBONATE 650 MG TABLET 1300 MG PO ×2 (09:04→20:35)
[2024-07-30] MEDS: VELPHORO 500 MG PO ×3 (09:05→18:17)
--- NOTE | 2024-07-30 09:18 | PC.NURSE ---
[facility] downtime occurred on 07-30-24 from 0100 to 0700
[2024-07-30] MEDS: HEPARIN SOD INJ 1000 UNIT/ML VIAL 10 ML 1500 UNIT IV (09:37)
--- NOTE | 2024-07-30 09:49 | PD.RESPRO ---
Documentation for date of: 07/30/24 Subjective Subjective Interval history: Casey Montgomery is a 59-year-old -Filipino gentleman with past medical history of developmental delay, hypertension, polycystic kidney disease, s/p renal transplant on 12/02/2017 at [facility] that failed and now back on HD since 08/2023 () under Dr. Lerma, HFpEF (EF 55 to 60%), bradycardia s/p ICD placement in 2011, s/p replacement of single-chamber AICD on 05/05/2024 for depleted battery, and diverticulosis who was sent from dialysis unit with a chief complaint of significant weakness and sleep problems. In ED patient was noted to have hypoglycemia with a glucose of 20. D50 was given. Also noted to have fever. Patient has AV fistula which is nonfunctioning and is currently receiving dialysis through right IJ PermCath. In ED, vital signs showed BP 117/76, HR 71, T 97.8 F, on 2 L NC. WBC 15, hemoglobin 12.8, platelets 134, BUN 28, creatinine 6.4, lactic acid 3.4, troponin 1.88, BNP 751, Pro-Oswald 81. CXR showed no pneumonia. EKG showed ectopy. Given 500 cc NS bolus, Zosyn, and vancomycin. Admitted for sepsis possibly due to catheter-related blood stream infection. Nephrology consulted for ESRD on HD (). 07/29: Patient currently seen in telemetry. Still having some cough. Denies any chest pain. Does have some shortness of breath. Medications/labs reviewed. WBC 5.5, hemoglobin 11.2, platelets 106. Sodium 132, potassium 4.6, bicarbonate 25, BUN 51, creatinine 8.9, calcium 8.3, phosphorus 5, LFTs normal, albumin 3, venous Doppler lower extremity positive for DVT on the right arm. Patient has left IJ dialysis catheter. 07/30: Patient seen and examined while undergoing dialysis, tolerating well. No acute overnight events reported does not currently have any complaints. Hemoglobin stable at 11.7, WBC within normal limits, platelets 110. Na noted to downtrend throughout hospital stay, currently down to 130., BUN 61 and creatinine 10.2 (prior to dialysis), calcium/magnesium/phosphorus within normal limits. Exam Vital Signs Temp Pulse Resp BP Pulse Ox O2 Del Method O2 Flow Rate 96.9 F 87 24 H 111/77 99 Nasal Cannula 2 07/30/24 08:18 07/30/24 09:45 07/30/24 08:24 07/30/24 09:45 07/30/24 08:24 07/30/24 08:00 07/30/24 08:24 Narrative Exam General: AOx3, no acute distress, lying comfortably in bed HEENT: NC/AT, mucous membranes moist, bilateral sclera anicteric Cardiovascular: regular rate and rhythm, S1/S2 present, no murmurs appreciated Pulmonary: coarse lung sounds Abdominal: soft, non-tender, non-distended, no rebound/guarding, normal bowel sounds present Musculoskeletal: swelling in RUE, no lower extremity edema Skin: warm and dry, intact, no rashes Objective Labs 07/30/24 05:47 07/30/24 05:47 Labs: Laboratory Results - last 24 hr 07/28/24 07/29/24 07/29/24 13:56 15:39 21:55 WBC RBC Hgb Hct MCV MCH MCHC RDW Std Deviation Plt Count Neut % (Auto) Lymph % (Auto) [place] % (Auto) Eos % (Auto) Baso % (Auto) Neut # (Auto) Lymph # (Auto) [place] # (Auto) Eos # (Auto) Baso # (Auto) Immature Gran # (Auto) Absolute Nucleated RBC Immature Gran % Nucleated RBC % APTT 61.0 H 130.1 H* D Sodium Potassium Chloride Carbon Dioxide Anion Gap BUN Creatinine Estim Creat Clear Calc eGFR BUN/Creatinine Ratio Glucose Calculated Osmolality Calcium Corrected Calcium Phosphorus Magnesium Total Bilirubin AST ALT Alkaline Phosphatase Total Protein Albumin Globulin Albumin/Globulin Ratio Coccidioides IgM Ab Negative 07/30/24 05:47 WBC 4.2 RBC 3.95 L Hgb 11.7 L Hct 35.7 L MCV 90 MCH 29.6 MCHC 32.8 RDW Std Deviation 53.4 H Plt Count 110 L Neut % (Auto) 70 Lymph % (Auto) 9 L [place] % (Auto) 15 H Eos % (Auto) 4 Baso % (Auto) 1 Neut # (Auto) 2.9 Lymph # (Auto) 0.4 L [place] # (Auto) 0.6 Eos # (Auto) 0.2 Baso # (Auto) 0.0 Immature Gran # (Auto) 0.04 H Absolute Nucleated RBC 0.00 Immature Gran % 1 H Nucleated RBC % 0 APTT 47.5 H D Sodium 130 L Potassium 5.0 Chloride 92 L Carbon Dioxide 26.2 Anion Gap 12 BUN 61 H Creatinine 10.2 H* D Estim Creat Clear Calc 8.3 L eGFR 5 L* BUN/Creatinine Ratio 6 L Glucose 76 Calculated Osmolality 277 Calcium 7.9 L Corrected Calcium 8.5 Phosphorus 4.8 Magnesium 2.3 Total Bilirubin 0.3 AST < 10 ALT 14 Alkaline Phosphatase 85 Total Protein 6.0 Albumin 3.3 L Globulin 2.7 Albumin/Globulin Ratio 1.2 Coccidioides IgM Ab ABG Interpretation ABG results: 07/27/24 10:52 VBG pH 7.21 L VBG pCO2 52 VBG pO2 38 VBG Base Excess -7 L Quality Measures Quality Measures sepsis Current suspected stage: ruled out Possible source: unknown Blood cultures ordered: yes Antibiotic ordered: Yes Assessment & Plan Assessment Current Active Medications: Generic Name Dose Route Start Last Admin Trade Name Freq PRN Reason Stop Dose Admin Acetaminophen 650 mg 07/28/24 09:36 Acetaminophen 325 Mg Tablet PO 08/26/24 20:36 Q6H PRN Fever >100.3 Aspirin 81 mg 07/28/24 09:00 07/30/24 08:30 Aspirin Ec 81 Mg Tabec PO 08/27/24 08:59 81 mg QDAY ANTONIA Administration Velphoro ( 0 ea 07/29/24 08:00 07/30/24 09:05 Sucroferric PO 08/28/24 07:59 2 chew Oxyhydroxide) 500 Mg TIDWM ANTONIA Administration Chewable Tablets Dextrose 25 ml 07/27/24 22:52 07/30/24 08:31 Dextrose 50%-Water Inj 50 Ml Syringe IV 08/26/24 22:51 25 ml Q15MIN PRN Administration BG 50-70 responsive npo pt Dextrose 50 ml 07/27/24 22:52 07/28/24 07:53 Dextrose 50%-Water Inj 50 Ml Syringe IV 08/26/24 22:51 50 ml Q15MIN PRN Administration BG <50 OR BG <70 & pt unresponsive Glucagon 1 mg 07/27/24 22:52 Glucagon Inj 1 Mg Vial IM Q15MIN PRN BG <70, and no IV access Heparin Sodium (Porcine) 1,500 unit 07/30/24 10:00 07/30/24 09:37 Heparin Sod Inj 1000 Unit/Ml Vial 10 Ml IV 07/30/24 10:01 1,500 unit X1 ONE Administration Heparin Sodium (Porcine) 4,000 unit 07/30/24 09:39 Heparin Sod Inj 1000 Unit/Ml Vial 10 Ml INDWELLCAT 08/13/24 09:38 X1 PRN DIALYSIS Piperacillin/Tazobactam/Dextrose 50 mls @ 12.5 mls/hr 07/28/24 09:00 07/29/24 20:39 Zosyn IV 08/04/24 08:59 12.5 mls/hr Q12HR ANTONIA Administration Heparin Sodium/Dextrose 25,000 unit in 250 mls @ 13.749 mls/hr 07/29/24 00:30 07/30/24 08:00 Heparin In D5w Ivpb IV 08/12/24 00:29 17 units/kg/hr .[id number] ANTONIA 12.985 mls/hr Titration Protocol 18 UNITS/KG/HR Midodrine 5 mg 07/28/24 01:33 Midodrine 5 Mg Tablet PO 08/27/24 01:44 TID PRN if MAP <65 Ondansetron HCl 4 mg 07/27/24 20:37 Ondansetron Inj 2 Mg/Ml Inj 2 Ml IV 08/26/24 20:36 Q6H PRN NAUSEA OR VOMITING Protocol Sevelamer Carbonate 800 mg 07/28/24 08:00 07/30/24 08:30 Sevelamer Carbonate 800 Mg Tablet PO 08/27/24 07:59 800 mg TIDWMEAL ANTONIA Administration Sodium Bicarbonate 1,300 mg 07/28/24 09:00 07/30/24 09:04 Sodium Bicarbonate 650 Mg Tablet PO 08/27/24 08:59 1,300 mg BID ANTONIA Administration Plan Casey Montgomery is a 59-year-old -Filipino gentleman with past medical history of developmental delay, hypertension, polycystic kidney disease, s/p renal transplant on 12/02/2017 at [facility] that failed and now back on HD since 08/2023 (//Mon) under Dr. Lerma, HFpEF (EF 55 to 60%), bradycardia s/p ICD placement in 2011, s/p replacement of single-chamber AICD on 05/05/2024 for depleted battery, and diverticulosis who was admitted for sepsis possibly due to catheter-related blood stream infection. Nephrology consulted for ESRD on HD (//Mon). #ESRD (//Mon) secondary to failed transplant Has been on dialysis for 1 year under the care of Dr. Lerma. Underwent dialysis today and tolerated well. ? Continue outpatient dialysis regimen of T//Mon ? Renally dose medications ? Avoid nephrotoxic agents ? Hold off on removing dialysis catheter while pending official culture results #Hyponatremia, likely secondary to renal failure/ESRD Serum osm within normal limits, but glucose also within normal limits and unlikely pseudohyponatremia/artifact (i.e. hyperlipidemia, hyperproteinemia). Thus, most likely etiology would be renal failure. ? dialysis as above ? fluid restriction, consider salt tablets if Na continues to downtrend ? if patient able to produce urine, consider urine studies (Na, osmolality, creatinine) #Sepsis, rule out catheter-related blood stream infection - blood cultures positive for GNR on Zosyn #Renal osteodystrophy #Right upper extremity DVT - on heparin drip #Essential hyertension - resume home blood pressure medications #Thrombocytopenia - possibly medication induced (BL platelets are 115) #Elevated troponin, secondary to underlying stress ? Continue management per primary team ----- Plan discussed with attending physician Dr. Micha Hua MD PGY-1 Internal Medicine Attending Provider Attestation/Addendum Patient seen and examined with resident physician Dr. De. Note reviewed, agree with findings and recommendations. # ESRD-secondary to failed transplant and has been on dialysis for 1 year. Under the care of Dr. Lerma. Patient currently seen on dialysis. Tolerating dialysis without any problems. Hemodialysis for 3 hours, 2K, ultrafiltration 2L, Epogen 6000, no heparin ordered. Plan of care discussed with the dialysis nurse. Please see dialysis flowsheet for further details.
--- NOTE | 2024-07-30 10:47 | PC.NURSE ---
On dialysis at this time. BP low 85/55, HR83. UF off for few minutes until bp is stable. UF goal reduced to 2.5 L as tolerated. Pt stated he feel fine. Will monitor
[2024-07-30] MEDS: ALBUMIN HUMAN 25% IVPB 25 GM/100 ML BTL IV (10:52)
--- NOTE | 2024-07-30 11:03 | PC.NURSE ---
BP inproved 101/71, HR 84. UF back on. UFR at 840 ml/hr as tolerated. Albumin 25 gm infusing for low BP support. Will monitor
[2024-07-30] MEDS: HEPARIN SOD INJ 1000 UNIT/ML VIAL 10 ML 4000 UNIT INDWELLCAT (12:09)
[2024-07-30 13:05] LABS: Hepatitis A Antibody IgM Non Reactive (Non React); Hepatitis B Core Antibody IgM Non Reactive (Non React); Hepatitis B Surface Ab Reactive (Immune) (Immune); Hepatitis B Surface Antigen Non Reactive (Non React); Hepatitis C Antibody Non Reactive (Non React)
--- NOTE | 2024-07-30 13:19 | ESPR_ITS ---
<Statement entered by Von Paniagua MD - 07/30/24 15:12> Patient was seen and examined at the bedside this morning. Patient was complaining of show mild shortness of breath and saturating well on 2 L NC. He was also complaining of right hand pain. His right upper extremity appears swollen. Will continue with heparin drip and recommended to start warm compresses to help with swelling. Patient received hemodialysis per schedule today. Blood cultures growing ESBL E. coli in 1 of 2 therefore blood cultures were repeated. ID specialist, Dr Montaño is consulted for further recommendations. Labs and orders were reviewed. I saw and examined the patient, and I agree with current management stated by Dr Gabrielle MD,PGY1. Plan of care was discussed with the attending physician and resident physician. Disclaimer: Despite multiple revisions, due to the dictation software being used, the document bellow may not be free of grammatical errors including phonetic/typographic errors. However, this does not deter from our commitment to providing health care in the patient's best interest in mind. Dr. Nikko MD, PGY 2 Documentation for date of: 07/30/24 Subjective Subjective Interval history: Overnight: Patient heparin drip held temporarily due to elevated APTT, resumed this morning. Patient seen examined during dialysis. Patient complaining of shortness of breath, saturating well on 2 L via nasal cannula. Complaining of mild right hand pain. Blood culture +1/2 ESBL E. coli, ID consulted. Continuing heparin drip for DVT. Resuming home Coreg and losartan as per cardio recs. Exam Vital Signs Temp Pulse Resp BP Pulse Ox O2 Del Method O2 Flow Rate 97.8 F 89 18 133/78 H 99 Nasal Cannula 2 07/30/24 11:53 07/30/24 12:13 07/30/24 11:53 07/30/24 12:13 07/30/24 11:53 07/30/24 08:00 07/30/24 11:53 Narrative Exam General: Awake. Lying comfortably on the bed HEENT: Normocephalic, atraumatic, mucous membranes moist. Heart: Regular rate and rhythm Lungs: Mild diffuse wheezing. No crackles or rhonchi. Abdomen: Soft, nondistended, nontender, positive bowel sounds. ?No guarding or rebound tenderness. Neurologic: Alert and oriented x3, no gross neurological deficit, and patient able to move all 4 extremities. Extremities: No edema. Fistulas in both upper extremities. Right upper extremity swollen, nonpitting. Skin: No rash or ecchymoses. Objective Labs 07/30/24 05:47 07/30/24 05:47 Labs: Laboratory Results - last 24 hr 07/28/24 07/29/24 07/29/24 13:56 15:39 21:55 WBC RBC Hgb Hct MCV MCH MCHC RDW Std Deviation Plt Count Neut % (Auto) Lymph % (Auto) [place] % (Auto) Eos % (Auto) Baso % (Auto) Neut # (Auto) Lymph # (Auto) [place] # (Auto) Eos # (Auto) Baso # (Auto) Immature Gran # (Auto) Absolute Nucleated RBC Immature Gran % Nucleated RBC % APTT 61.0 H 130.1 H* D Sodium Potassium Chloride Carbon Dioxide Anion Gap BUN Creatinine Estim Creat Clear Calc eGFR BUN/Creatinine Ratio Glucose Calculated Osmolality Calcium Corrected Calcium Phosphorus Magnesium Total Bilirubin AST ALT Alkaline Phosphatase Total Protein Albumin Globulin Albumin/Globulin Ratio Coccidioides IgM Ab Negative Hepatitis A IgM Ab Hep Bs Antigen Hep Bs Antibody Hep B Core IgM Ab Hepatitis C Antibody 07/30/24 05:47 WBC 4.2 RBC 3.95 L Hgb 11.7 L Hct 35.7 L MCV 90 MCH 29.6 MCHC 32.8 RDW Std Deviation 53.4 H Plt Count 110 L Neut % (Auto) 70 Lymph % (Auto) 9 L [place] % (Auto) 15 H Eos % (Auto) 4 Baso % (Auto) 1 Neut # (Auto) 2.9 Lymph # (Auto) 0.4 L [place] # (Auto) 0.6 Eos # (Auto) 0.2 Baso # (Auto) 0.0 Immature Gran # (Auto) 0.04 H Absolute Nucleated RBC 0.00 Immature Gran % 1 H Nucleated RBC % 0 APTT 47.5 H D Sodium 130 L Potassium 5.0 Chloride 92 L Carbon Dioxide 26.2 Anion Gap 12 BUN 61 H Creatinine 10.2 H* D Estim Creat Clear Calc 8.3 L eGFR 5 L* BUN/Creatinine Ratio 6 L Glucose 76 Calculated Osmolality 277 Calcium 7.9 L Corrected Calcium 8.5 Phosphorus 4.8 Magnesium 2.3 Total Bilirubin 0.3 AST < 10 ALT 14 Alkaline Phosphatase 85 Total Protein 6.0 Albumin 3.3 L Globulin 2.7 Albumin/Globulin Ratio 1.2 Coccidioides IgM Ab Hepatitis A IgM Ab Non Reactive Hep Bs Antigen Non Reactive Hep Bs Antibody Reactive (Immune) Hep B Core IgM Ab Non Reactive Hepatitis C Antibody Non Reactive ABG Interpretation ABG results: 07/27/24 10:52 VBG pH 7.21 L VBG pCO2 52 VBG pO2 38 VBG Base Excess -7 L Quality Measures Quality Measures sepsis Current suspected stage: sepsis (Resolved) Possible source: unknown Blood cultures ordered: yes Antibiotic ordered: Yes Assessment & Plan Assessment Current Active Medications: Generic Name Dose Route Start Last Admin Trade Name Freq PRN Reason Stop Dose Admin Acetaminophen 650 mg 07/28/24 09:36 Acetaminophen 325 Mg Tablet PO 08/26/24 20:36 Q6H PRN Fever >100.3 Aspirin 81 mg 07/28/24 09:00 07/30/24 08:30 Aspirin Ec 81 Mg Tabec PO 08/27/24 08:59 81 mg QDAY ANTONIA Administration Velphoro ( 0 ea 07/29/24 08:00 07/30/24 09:05 Sucroferric PO 08/28/24 07:59 2 chew Oxyhydroxide) 500 Mg TIDWM ANTONIA Administration Chewable Tablets Dextrose 25 ml 07/27/24 22:52 07/30/24 08:31 Dextrose 50%-Water Inj 50 Ml Syringe IV 08/26/24 22:51 25 ml Q15MIN PRN Administration BG 50-70 responsive npo pt Dextrose 50 ml 07/27/24 22:52 07/28/24 07:53 Dextrose 50%-Water Inj 50 Ml Syringe IV 08/26/24 22:51 50 ml Q15MIN PRN Administration BG <50 OR BG <70 & pt unresponsive Glucagon 1 mg 07/27/24 22:52 Glucagon Inj 1 Mg Vial IM Q15MIN PRN BG <70, and no IV access Heparin Sodium (Porcine) 4,000 unit 07/30/24 09:39 07/30/24 12:09 Heparin Sod Inj 1000 Unit/Ml Vial 10 Ml INDWELLCAT 08/13/24 09:38 4,000 unit X1 PRN Administration DIALYSIS Piperacillin/Tazobactam/Dextrose 50 mls @ 12.5 mls/hr 07/28/24 09:00 07/29/24 20:39 Zosyn IV 08/04/24 08:59 12.5 mls/hr Q12HR ANTONIA Administration Heparin Sodium/Dextrose 25,000 unit in 250 mls @ 13.749 mls/hr 07/29/24 00:30 07/30/24 08:00 Heparin In D5w Ivpb IV 08/12/24 00:29 17 units/kg/hr .[id number] ANTONIA 12.985 mls/hr Titration Protocol 18 UNITS/KG/HR Albumin Human 25 gm in 100 mls @ 100 mls/hr 07/30/24 10:50 07/30/24 10:52 Albuminar-25 Ivpb IV 100 mls/hr PRN PRN Administration DIALYSIS Midodrine 5 mg 07/28/24 01:33 Midodrine 5 Mg Tablet PO 08/27/24 01:44 TID PRN if MAP <65 Ondansetron HCl 4 mg 07/27/24 20:37 Ondansetron Inj 2 Mg/Ml Inj 2 Ml IV 08/26/24 20:36 Q6H PRN NAUSEA OR VOMITING Protocol Sevelamer Carbonate 800 mg 07/28/24 08:00 07/30/24 08:30 Sevelamer Carbonate 800 Mg Tablet PO 08/27/24 07:59 800 mg TIDWMEAL ANTONIA Administration Sodium Bicarbonate 1,300 mg 07/28/24 09:00 07/30/24 09:04 Sodium Bicarbonate 650 Mg Tablet PO 08/27/24 08:59 1,300 mg BID ANTONIA Administration Plan 59 y/o M with past medical history of developmental delay, hypertension, polycystic kidney disease, s/p renal transplant on 12/02/2017 at [facility], ESRD on HD since aug 2023 (//MON), HFrEF 35 to 40%, bradycardia s/p ICD placement in 2011, s/p replacement of single-chamber AICD on 05/05/2024 for depleted battery, diverticulosis was brought to the hospital with a chief complaints of generalized weakness since 1 day and admitted for sepsis secondary to possible catheter related bloodstream infection. #Sepsis 2/2 possible catheter related bloodstream infection, sepsis resolved Presented to the hospital with generalized weakness. At the time of presentation to the ED, found to have a blood glucose of 20 and also had recurrent episodes of hypoglycemia. Initial vitals are stable but later found to have a febrile episode of 102.1 ?F in the ED. On examination, patient appears dehydrated. On auscultation no crackles/wheeze heard. Labs showed WBC 15,000, Hb 12.8, INR 1.5, BUN 28, creatinine 6.4, lactate 3.4, procalcitonin 81.08 SIRS 3/: Temperature 102.1, heart rate 112, WBC 15,000. Chest x-ray did not show infiltrates. Left tunneled dialysis catheter possible source. Chest x-ray did not show any infiltrates. EKG done showed sinus rhythm with multiple ectopics. Received a dose of vancomycin and Zosyn, 1 L NS in the ED. given additional 1.5 L lactated ringer. Blood culture positive for ESBL E. coli 07/04. Vancomycin was continued. Patient has right upper extremity DVT, potential source of fever/tachycardia/leukocytosis. Cocci negative. -Blood cultures were sent, follow-up with results -Midodrine 5mg as needed up to 3 times daily -Vancomycin (07/27?07/29) -Zosyn (07/27-) -consider replacing the catheter -Monitor blood pressures -ID consult placed, follow-up #Right subclavian vein DVT Patient developed swelling of right arm. Ultrasound was ordered, confirmed right subclavian vein DVT. Patient initiated on heparin drip. -Heparin drip (started 07/29) -Warm compresses #Hyponatremia Patient sodium has been downtrending, 130 as of 07/30. Nephrology on board -Follow nephrology recs #Hypoglycemia Likely due to sepsis. Blood glucose at the time of admission is 20 and later there are multiple episodes of hypoglycemia. Patient is given D50 in the ED later started on D10. D10 is discontinued and patient was given oral diet -Bedside glucose monitoring ACHS #ESRD on HD [//MON] #Polycystic kidney disease status post renal transplant which is failed hence back on hemodialysis Patient is on HD since 1 year and last dialysis was on the day of admission. Following up with Dr. Lerma, per patient's sister, also sister endorsed that patient is having fistula repair scheduled in August 2024. On examination, patient had fistula in both upper extremities but without any thrill. At the time of admission BUN is 28, creatinine 6.4. Patient is getting dialysis through left tunneled dialysis catheter -Dr. Muse is consulted, appreciate recommendations -Plan for dialysis as per patient's usual schedule -Will continue Velphoro 500 Mg p.o. 3 times daily -Will continue sevelamer 800 Mg p.o. 3 times daily -Will continue sodium bicarbonate 1300 Mg p.o. 2 times daily #Bradycardia s/p ICD in 2011 #History of single-chamber AICD on 05/2024 #History of HFrEF, EF 35 to 40% Per patient's sister, patient had episode of bradycardia for which ICD was placed in 2011. Recently on 05/2024, as patient is having shortness of breath and also found to have battery depletion, ICD is replaced. EKG showed normal sinus rhythm with multiple ectopics. Echo done on 04/2024 showed moderate LV systolic dysfunction with global hypokinesis, Estimated EF 35-40%. Moderate PAH. Pacing wire present. -System Architect is consulted, appreciate recommendations -Resuming home Coreg and losartan -Telemetry #Elevated troponins, likely type II -resolved likely due to underlying sepsis with underlying ESRD. Lactate at the time of admission is 3.4, downtrending. Troponin is 1.881, down trended -Telemetry #Mild iron deficiency anemia #Mild thrombocytopenia Likely due to ESRD. Hemoglobin at the time of admission is 12.8, MCV 109, MCH 29.4. -Recommended outpatient workup to rule out iron deficiency and replete the stores accordingly #History of hypertension Patient is on carvedilol, hydralazine, losartan, nifedipine as home medication. -Resume home Coreg and losartan DVT prophylaxis: Heparin GI prophylaxis: None Diet: Renal Lines:Tunnelled dialysis cat, PIV Code status: Full Code Plan of care discussed with senior resident Dr. Paniagua PGY?[address] Kelly. En Campbell MD PGY-1 Attending Provider Attestation/Addendum I have examined the patient, reviewed labs and imaging findings, discussed the case with the resident(s), and reviewed entered orders. I agree with the plan of care as outlined in this note, with these additional summaries/recommendations: Patient seen at bedside. No acute overnight events. Patient resting comfortably in hospital bed although endorsing right upper extremity discomfort. Right upper extremity US positive for deep vein thrombus in the right subclavian vein. Patient currently on heparin gtt and target aPTT of 60-80 seconds. We will transition to NOAC likely in the next 24 to 48 hours if no plan for line removal. Start warm compresses. On admission patient found to have sepsis. Chest x-ray showed no evidence of pneumonia. Urinalysis was ordered although patient does not appear to make urine. Most likely source at this time is still catheter associated bloodstream infection although currently only 1 out of 2 blood cxs grew ESBL E.coli. We will consult infectious disease for further recommendations. Continue IV Zosyn and discontinue vancomycin. Per patient's daughter patient had AICD replaced on 05/05/2024. Patient has history of end- stage renal disease on hemodialysis. Nephrology following for inpatient hemodialysis. Troponin found to be elevated and peaked at 1.881. Patient does have extensive cardiac history with HFrEF and bradycardia. Elevated troponin most likely secondary to demand ischemia +/- decreased clearance from ESRD. Cardiology following. Goal-directed medical therapy for HFrEF currently on hold given blood pressure continues to be soft. Midodrine PRN on board. Repeat hematology and chemistry panel in AM. Dr. Kelly
[2024-07-30] MEDS: PIPER/TAZO 3.375 GM 50 ML IV ×2 (13:32→20:35)
[2024-07-30 13:40] LABS: Cocci Serology, IgG Negative (Negative)
--- NOTE | 2024-07-30 13:44 | PC.NURSE ---
Dialysis completed for 3 hrs, tolerated well.? Respiration even and unlabored. Saturating at 99% on O2 at 2L/min via nc.? Able to removed 2000 ml of fluid net.? Post tx BP 115/74, HR 84, Temp 97.8.? Pt back in his room.? Call light within reached. Report given to Azucena SMITH
--- NOTE | 2024-07-30 14:44 | PD.RESPRO ---
Documentation for date of: 07/30/24 Subjective Subjective Interval history: 07/29/2024: Pt examined at bedside today. No acute overnights on telemetry, patient is rate controlled in the 70s. He reports he is doing fine. By expensing any chest pain or palpitations. Denies having any shortness of breath. He was found to have a DVT in his right subclavian vein no started on heparin drip. Patient's BUN/creatinine 51 8.9, potassium 4.6, potassium 2.1, phosphorus 5. Dialysis scheduled for Monday. Patient's blood pressure has been soft, has not been able to resume GDMT therapy at this time. Will continue with medical management, no other complaints at this time. 07/30/2024: Pt examined at bedside today. No acute overnight events on telemetry. He was seen today after dialysis. He reports he is doing well and is not experiencing any chest pain or palpitations, nor experiencing any SOB. He is still continuing heparin drip for DVT in his R subclavian vein. Pt's BUN/Cr 61 and 10.2 respectively, potassium 5, phos 4.8 and mg 2.3. During diaylsis they were able to remove 2L today. He was found to have ESBL E coli, will continue with Zoysn. We recommend to continue with GDMT therapy as he tolerates as he has been a bit low throughout this admission. Exam Vital Signs Temp Pulse Resp BP Pulse Ox O2 Del Method O2 Flow Rate 97.8 F 84 18 115/74 99 Nasal Cannula 2 07/30/24 12:14 07/30/24 12:14 07/30/24 12:14 07/30/24 12:14 07/30/24 12:14 07/30/24 08:00 07/30/24 12:14 Narrative Exam General: AAOx3, NAD, pleasant male, developmentally delayed HEENT: Moist mucous membranes, conjunctiva clear, EOMI, PERRLA, poor dentition Cardiovascular: Pansystolic murmur heard in left lower sternal border, RRR, L sided TDC present Pulmonary: CTAB bilat no cough, no wheezing GI: No tenderness to light or deep palpitation, no guarding, rigidity, rebound tenderness or distension Extremities: No presence of trace or pitting edema in lower extremities bilaterally, dorsalis pedis pulses +2 bilaterally, AV fistula in L arm Neuro: AAOx3, no focal motor or sensory deficits in the UE or LE bilat Psych: Cooperative Objective Labs 07/30/24 05:47 07/30/24 05:47 Labs: Laboratory Results - last 24 hr 07/28/24 07/29/24 07/29/24 13:56 15:39 21:55 WBC RBC Hgb Hct MCV MCH MCHC RDW Std Deviation Plt Count Neut % (Auto) Lymph % (Auto) [place] % (Auto) Eos % (Auto) Baso % (Auto) Neut # (Auto) Lymph # (Auto) [place] # (Auto) Eos # (Auto) Baso # (Auto) Immature Gran # (Auto) Absolute Nucleated RBC Immature Gran % Nucleated RBC % APTT 61.0 H 130.1 H* D Sodium Potassium Chloride Carbon Dioxide Anion Gap BUN Creatinine Estim Creat Clear Calc eGFR BUN/Creatinine Ratio Glucose Calculated Osmolality Calcium Corrected Calcium Phosphorus Magnesium Total Bilirubin AST ALT Alkaline Phosphatase Total Protein Albumin Globulin Albumin/Globulin Ratio Coccidioides IgG Ab Negative Coccidioides IgM Ab Negative Hepatitis A IgM Ab Hep Bs Antigen Hep Bs Antibody Hep B Core IgM Ab Hepatitis C Antibody 07/30/24 05:47 WBC 4.2 RBC 3.95 L Hgb 11.7 L Hct 35.7 L MCV 90 MCH 29.6 MCHC 32.8 RDW Std Deviation 53.4 H Plt Count 110 L Neut % (Auto) 70 Lymph % (Auto) 9 L [place] % (Auto) 15 H Eos % (Auto) 4 Baso % (Auto) 1 Neut # (Auto) 2.9 Lymph # (Auto) 0.4 L [place] # (Auto) 0.6 Eos # (Auto) 0.2 Baso # (Auto) 0.0 Immature Gran # (Auto) 0.04 H Absolute Nucleated RBC 0.00 Immature Gran % 1 H Nucleated RBC % 0 APTT 47.5 H D Sodium 130 L Potassium 5.0 Chloride 92 L Carbon Dioxide 26.2 Anion Gap 12 BUN 61 H Creatinine 10.2 H* D Estim Creat Clear Calc 8.3 L eGFR 5 L* BUN/Creatinine Ratio 6 L Glucose 76 Calculated Osmolality 277 Calcium 7.9 L Corrected Calcium 8.5 Phosphorus 4.8 Magnesium 2.3 Total Bilirubin 0.3 AST < 10 ALT 14 Alkaline Phosphatase 85 Total Protein 6.0 Albumin 3.3 L Globulin 2.7 Albumin/Globulin Ratio 1.2 Coccidioides IgG Ab Coccidioides IgM Ab Hepatitis A IgM Ab Non Reactive Hep Bs Antigen Non Reactive Hep Bs Antibody Reactive (Immune) Hep B Core IgM Ab Non Reactive Hepatitis C Antibody Non Reactive ABG Interpretation ABG results: 07/27/24 10:52 VBG pH 7.21 L VBG pCO2 52 VBG pO2 38 VBG Base Excess -7 L Quality Measures Quality Measures sepsis Current suspected stage: sepsis Possible source: unknown Blood cultures ordered: yes Antibiotic ordered: Yes Assessment & Plan Assessment Current Active Medications: Generic Name Dose Route Start Last Admin Trade Name Freq PRN Reason Stop Dose Admin Acetaminophen 650 mg 07/28/24 09:36 Acetaminophen 325 Mg Tablet PO 08/26/24 20:36 Q6H PRN Fever >100.3 Amlodipine Besylate 2.5 mg 07/30/24 14:15 Amlodipine Besylate 2.5 Mg Tablet PO 08/29/24 14:14 QDAY ANTONIA Aspirin 81 mg 07/28/24 09:00 07/30/24 08:30 Aspirin Ec 81 Mg Tabec PO 08/27/24 08:59 81 mg QDAY ANTONIA Administration Velphoro ( 0 ea 07/29/24 08:00 07/30/24 13:32 Sucroferric PO 08/28/24 07:59 2 chew Oxyhydroxide) 500 Mg TIDWM ANTONIA Administration Chewable Tablets Dextrose 25 ml 07/27/24 22:52 07/30/24 08:31 Dextrose 50%-Water Inj 50 Ml Syringe IV 08/26/24 22:51 25 ml Q15MIN PRN Administration BG 50-70 responsive npo pt Dextrose 50 ml 07/27/24 22:52 07/28/24 07:53 Dextrose 50%-Water Inj 50 Ml Syringe IV 08/26/24 22:51 50 ml Q15MIN PRN Administration BG <50 OR BG <70 & pt unresponsive Glucagon 1 mg 07/27/24 22:52 Glucagon Inj 1 Mg Vial IM Q15MIN PRN BG <70, and no IV access Heparin Sodium (Porcine) 4,000 unit 07/30/24 09:39 07/30/24 12:09 Heparin Sod Inj 1000 Unit/Ml Vial 10 Ml INDWELLCAT 08/13/24 09:38 4,000 unit X1 PRN Administration DIALYSIS Piperacillin/Tazobactam/Dextrose 50 mls @ 12.5 mls/hr 07/28/24 09:00 07/30/24 13:32 Zosyn IV 08/04/24 08:59 12.5 mls/hr Q12HR ANTOINA Administration Heparin Sodium/Dextrose 25,000 unit in 250 mls @ 13.749 mls/hr 07/29/24 00:30 07/30/24 08:00 Heparin In D5w Ivpb IV 08/12/24 00:29 17 units/kg/hr .[id number] ANTONIA 12.985 mls/hr Titration Protocol 18 UNITS/KG/HR Albumin Human 25 gm in 100 mls @ 100 mls/hr 07/30/24 10:50 07/30/24 10:52 Albuminar-25 Ivpb IV 100 mls/hr PRN PRN Administration DIALYSIS Midodrine 5 mg 07/28/24 01:33 Midodrine 5 Mg Tablet PO 08/27/24 01:44 TID PRN if MAP <65 Ondansetron HCl 4 mg 07/27/24 20:37 Ondansetron Inj 2 Mg/Ml Inj 2 Ml IV 08/26/24 20:36 Q6H PRN NAUSEA OR VOMITING Protocol Sevelamer Carbonate 800 mg 07/28/24 08:00 07/30/24 13:32 Sevelamer Carbonate 800 Mg Tablet PO 08/27/24 07:59 800 mg TIDWMEAL ANTONIA Administration Sodium Bicarbonate 1,300 mg 07/28/24 09:00 07/30/24 09:04 Sodium Bicarbonate 650 Mg Tablet PO 08/27/24 08:59 1,300 mg BID ANTONIA Administration Plan Assessment Casey is a 59 y/o male with PMHx of essential HTN, CAD, HFrEF with systolic dysfunction and wall motion abnormalities (EF 35-40%), single-lead AICD ([employer] s/p replacement by Dr. Zamudio in May 2024), ESRD on HD (//) renal transplant [facility], developmental delay, chronic anemia secondary to ESRD, internal hemorrhoids, diverticulosis and esophageal ulcers #History of mild to moderate CAD with 40 to 50% stenosis of RCA #NSTEMI type II, likely related to demand ischemia, resolved #History of HFrEF with systolic dysfunction and wall motion normalities, EF 35 to 40% #Nonischemic cardiomyopathy #Hx of AICD replacement (05/2024) Troponins have down trended from 1.88 till 1.81 Echo in April 2024 showed Normal LV size. Moderate LVH. Moderate LV systolic dysfunction with global hypokinesis, Estimated EF 35-40%. Mild RV dilatation. Normal RV function. Estimated RVSP 49mmHg. RAP 15. Moderate PAH. Pacing wire present. Moderate AV sclerosis without sclerosis. Vmax 2.3 m/s and Mean PG of 10 mm hg. Mild MR. Moderate TR. Moderate PAH. There is anterior trivial pericardial effusion. No evidence of cardiac tamponde. Last cardiac cath done in 2011, do not have reports at this time, based of history Pt tolerated dialysis today Plan: ? Continue with ASA ? Resume GDMT therapy when able ? Keep magnesium and potassium above 2 and 4 respectively ? Continue with dialysis schedule #History of hypertension Has Coreg, hydralazine, losartan and nifedipine as his blood pressure medicines at home Plan: ? Resume home blood pressure medicines when able #Sepsis 2/2 likely to catheter related bloodstream infection #Acute hypoxic respiratory failure Had 4 out of 4 SIRS criteria, source at this time believed to be dialysis catheter Patient started on broad-spectrum antibiotics and has received fluid bolus (2.5 L) in ED Blood cultures show ESBL E coli Plan: ?Management by primary team ?Treat underlying source of infection, on Zoysn #Hypoglycemia #ESRD on HD [//MON] #Polycystic kidney disease status post renal transplant which is failed hence back on hemodialysis #Mild iron deficiency anemia #Mild thrombocytopenia Above management primary hospitalist team Patient seen and care discussed with my attending physician, Dr. Lori Garcia, PGY-1 Attending Provider Attestation/Addendum I have personally seen and examined the patient separately on the above date of service and discussed the plan of care with the resident. I reviewed the resident Dr. Mitchell consultation progress note and agree with the resident findings and plan in the note above and have also edited the documentation to reflect my findings and plan. Lewis Sandoval M.D. Interventional Cardiology
[2024-07-30 15:12] LABS: Partial Thromboplastin Time 72.8 Seconds (22.0-36.0)
[2024-07-30] MEDS: Heparin/D5w 25K 250 ML Ivpb 25,000 UNIT/250 ML BAG 12.985 UNIT IV (18:07)
[2024-07-30] MEDS: PREPARATION H OINT 30 GM TUBE PR (20:35)
[2024-07-30 21:53] LABS: Partial Thromboplastin Time > 139.0 Seconds (22.0-36.0)
[2024-07-31] VITALS (11 sets, daily range): BP systolic 93–137; BP diastolic 53–95; PULSE 73–101; RESP 12–100; TEMP 35.9–36.7; O2SAT 95–100; BMI 22.6
[2024-07-31] MEDS: carVEDILOL 12.5 MG TABLET 25 MG PO ×3 (01:11→20:31)
[2024-07-31 06:56] LABS: Basophils % (Auto) 1 % (0-2.5); Eosinophils # (Auto) 0.2 Thou/mm3 (0.0-0.5); Eosinophils % (Auto) 4 % (0-10); Hematocrit 33.8 % (41.0-53.0); Immature Granulocytes % (Auto) 1 % (0-0); Immature Granulocytes Auto 0.04 Thou/mm3 (0.00-0.00); Lymphocytes # (Auto) 0.5 Thou/mm3 (1.0-4.8); Lymphocytes % (Auto) 13 % (10-50); Mean Corpuscular HGB Conc 32.5 g/dl (31.0-37.0); Mean Corpuscular Hemoglobin 29.3 pg (25.0-35.0); Mean Corpuscular Volume 90 fL (80-100); Monocytes # (Auto) 0.5 Thou/mm3 (0.0-0.8); Monocytes % (Auto) 14 % (0-12); Neutrophils # (Auto) 2.4 Thou/mm3 (1.8-7.7); Neutrophils % (Auto) 67 % (37-80); Nucleated Red Blood Cell % 0 /100 WBC (0); Platelet Count 106 Thou/mm3 (140-440); Red Blood Count 3.75 Miln/mm3 (4.50-5.90); White Blood Count 3.6 Thou/mm3 (3.8-10.6)
[2024-07-31 07:08] LABS: Partial Thromboplastin Time 40.2 Seconds (22.0-36.0); Prothrombin Time 11.3 Seconds (9.0-12.2)
[2024-07-31 07:18] LABS: Alanine Aminotransferase 10 U/L (10-49); Albumin, Serum 3.3 gm/dL (3.4-4.8); Albumin/Globulin Ratio 1.3 (1.2-2.2); Alkaline Phosphatase 66 U/L (46-116); Anion Gap 10 (7-16); BUN/Creatinine Ratio 5 Ratio (12-20); Bilirubin,Total 0.4 mg/dL (0.3-1.2); Blood Urea Nitrogen 41 mg/dL (9-23); Calcium 8.5 mg/dL (8.3-10.6); Calcium (Corrected) 9.1 mg/dL (8.5-10.1); Carbon Dioxide 27.4 mMol/L (20.0-31.0); Chloride 96 mMol/L (98-107); Creatinine (Component) 7.6 mg/dL (0.6-1.3); Estimated Creatinine Clearance 11.2 mL/min (>60); Globulin 2.6 gm/dL (2.3-3.5); Glucose 73 mg/dL (74-106); Magnesium 2.1 mg/dL (1.6-2.6); Osmolality,Calculated 275 (275-295); Phosphorous 4.8 mg/dL (2.4-5.1); Potassium 4.5 mMol/L (3.4-5.1); Sodium 133 mMol/L (136-145); Total Protein 5.9 gm/dL (5.7-8.2); eGFR 8 See Note
[2024-07-31 07:34] LABS: Aspartate Amino Transferase < 8 U/L (0-34)
[2024-07-31] MEDS: ASPIRIN EC 81 MG TABEC PO (08:12)
[2024-07-31] MEDS: SEVELAMER CARBONATE 800 MG TABLET PO ×3 (08:12→17:54)
[2024-07-31] MEDS: LOSARTAN POTASSIUM 25 MG TABLET 100 MG PO (08:12)
[2024-07-31] MEDS: SODIUM BICARBONATE 650 MG TABLET 1300 MG PO ×2 (08:13→20:32)
[2024-07-31] MEDS: VELPHORO 500 MG PO ×3 (08:14→17:55)
--- NOTE | 2024-07-31 08:24 | ESPR_ITS ---
Documentation for date of: 07/31/24 Subjective Subjective Interval history: Casey Montgomery is a 59-year-old -[place] gentleman with past medical history of developmental delay, hypertension, polycystic kidney disease, s/p renal transplant on 12/02/2017 at [facility] that failed and now back on HD since 08/2023 () under Dr. Lerma, HFpEF (EF 55 to 60%), bradycardia s/p ICD placement in 2011, s/p replacement of single-chamber AICD on 05/05/2024 for depleted battery, and diverticulosis who was sent from dialysis unit with a chief complaint of significant weakness and sleep problems. In ED patient was noted to have hypoglycemia with a glucose of 20. D50 was given. Also noted to have fever. Patient has AV fistula which is nonfunctioning and is currently receiving dialysis through right IJ PermCath. In ED, vital signs showed BP 117/76, HR 71, T 97.8 F, on 2 L NC. WBC 15, hemoglobin 12.8, platelets 134, BUN 28, creatinine 6.4, lactic acid 3.4, troponin 1.88, BNP 751, Pro-Oswald 81. CXR showed no pneumonia. EKG showed ectopy. Given 500 cc NS bolus, Zosyn, and vancomycin. Admitted for sepsis possibly due to catheter-related blood stream infection. Nephrology consulted for ESRD on HD (). 07/29: Patient currently seen in telemetry. Still having some cough. Denies any chest pain. Does have some shortness of breath. Medications/labs reviewed. WBC 5.5, hemoglobin 11.2, platelets 106. Sodium 132, potassium 4.6, bicarbonate 25, BUN 51, creatinine 8.9, calcium 8.3, phosphorus 5, LFTs normal, albumin 3, venous Doppler lower extremity positive for DVT on the right arm. Patient has left IJ dialysis catheter. 07/30: Patient seen and examined while undergoing dialysis, tolerating well. No acute overnight events reported does not currently have any complaints. Hemoglobin stable at 11.7, WBC within normal limits, platelets 110. Na noted to downtrend throughout hospital stay, currently down to 130. BUN 61 and creatinine 10.2 (prior to dialysis), calcium/magnesium/phosphorus within normal limits. 07/31: Seen and examined at bedside in telemetry, resting comfortably. No acute overnight events reported. Blood cultures positive for E. coli in 1/2 bottles, still pending final culture results of second bottle. No spikes fevers and WBC 3.6. Continues to be on heparin drip for DVT in right subclavian vein, which swelling appears to be improved. Na 133, K wnl, BUN 41, Cr 7.6. Ca/Mg/Phos wnl. Recommend soft fluid restriction of 2 L/day. Exam Vital Signs Temp Pulse Resp BP Pulse Ox O2 Del Method O2 Flow Rate 97.1 F 88 22 H 113/77 95 Room Air 2 07/31/24 08:00 07/31/24 08:13 07/31/24 08:00 07/31/24 08:13 07/31/24 08:00 07/31/24 08:00 07/31/24 04:00 Narrative Exam General: AOx3, no acute distress, lying comfortably in bed HEENT: NC/AT, mucous membranes moist, bilateral sclera anicteric Cardiovascular: regular rate and rhythm, S1/S2 present, no murmurs appreciated Pulmonary: clear lung sounds bilaterally Abdominal: soft, non-tender, non-distended, no rebound/guarding, normal bowel sounds present Musculoskeletal: swelling in RUE, no lower extremity edema Skin: warm and dry, intact, no rashes Objective Labs 08/01/24 04:41 08/01/24 04:41 Labs: Laboratory Results - last 24 hr 07/28/24 07/30/24 07/30/24 13:56 05:47 13:52 WBC RBC Hgb Hct MCV MCH MCHC RDW Std Deviation Plt Count Neut % (Auto) Lymph % (Auto) [place] % (Auto) Eos % (Auto) Baso % (Auto) Neut # (Auto) Lymph # (Auto) [place] # (Auto) Eos # (Auto) Baso # (Auto) Immature Gran # (Auto) Absolute Nucleated RBC Immature Gran % Nucleated RBC % PT INR APTT 72.8 H D Sodium Potassium Chloride Carbon Dioxide Anion Gap BUN Creatinine Estim Creat Clear Calc eGFR BUN/Creatinine Ratio Glucose Calculated Osmolality Calcium Corrected Calcium Phosphorus Magnesium Total Bilirubin AST ALT Alkaline Phosphatase Total Protein Albumin Globulin Albumin/Globulin Ratio Coccidioides IgG Ab Negative Hepatitis A IgM Ab Non Reactive Hep Bs Antigen Non Reactive Hep Bs Antibody Reactive (Immune) Hep B Core IgM Ab Non Reactive Hepatitis C Antibody Non Reactive 07/30/24 07/31/24 20:44 06:20 WBC 3.6 L RBC 3.75 L Hgb 11.0 L Hct 33.8 L MCV 90 MCH 29.3 MCHC 32.5 RDW Std Deviation 53.0 H Plt Count 106 L Neut % (Auto) 67 Lymph % (Auto) 13 [place] % (Auto) 14 H Eos % (Auto) 4 Baso % (Auto) 1 Neut # (Auto) 2.4 Lymph # (Auto) 0.5 L [place] # (Auto) 0.5 Eos # (Auto) 0.2 Baso # (Auto) 0.0 Immature Gran # (Auto) 0.04 H Absolute Nucleated RBC 0.00 Immature Gran % 1 H Nucleated RBC % 0 PT 11.3 INR 1.0 APTT > 139.0 H* D 40.2 H D Sodium 133 L Potassium 4.5 D Chloride 96 L Carbon Dioxide 27.4 Anion Gap 10 BUN 41 H Creatinine 7.6 H* D Estim Creat Clear Calc 11.2 L eGFR 8 L* BUN/Creatinine Ratio 5 L Glucose 73 L Calculated Osmolality 275 Calcium 8.5 Corrected Calcium 9.1 Phosphorus 4.8 Magnesium 2.1 Total Bilirubin 0.4 AST < 8 ALT 10 Alkaline Phosphatase 66 D Total Protein 5.9 Albumin 3.3 L Globulin 2.6 Albumin/Globulin Ratio 1.3 Coccidioides IgG Ab Hepatitis A IgM Ab Hep Bs Antigen Hep Bs Antibody Hep B Core IgM Ab Hepatitis C Antibody ABG Interpretation ABG results: 07/27/24 10:52 VBG pH 7.21 L VBG pCO2 52 VBG pO2 38 VBG Base Excess -7 L Quality Measures Quality Measures sepsis Current suspected stage: ruled out Possible source: unknown Blood cultures ordered: yes Antibiotic ordered: Yes Assessment & Plan Assessment Current Active Medications: Generic Name Dose Route Start Last Admin Trade Name Freq PRN Reason Stop Dose Admin Acetaminophen 650 mg 07/28/24 09:36 Acetaminophen 325 Mg Tablet PO 08/26/24 20:36 Q6H PRN Fever >100.3 Aspirin 81 mg 07/28/24 09:00 07/31/24 08:12 Aspirin Ec 81 Mg Tabec PO 08/27/24 08:59 81 mg QDAY ANTONIA Administration Carvedilol 25 mg 07/30/24 21:00 07/31/24 08:13 Carvedilol 12.5 Mg Tablet PO 08/29/24 20:59 25 mg BID ANTONIA Administration Velphoro ( 0 ea 07/29/24 08:00 07/31/24 08:14 Sucroferric PO 08/28/24 07:59 2 chew Oxyhydroxide) 500 Mg TIDWM ANTONIA Administration Chewable Tablets Dextrose 25 ml 07/27/24 22:52 07/30/24 08:31 Dextrose 50%-Water Inj 50 Ml Syringe IV 08/26/24 22:51 25 ml Q15MIN PRN Administration BG 50-70 responsive npo pt Dextrose 50 ml 07/27/24 22:52 07/28/24 07:53 Dextrose 50%-Water Inj 50 Ml Syringe IV 08/26/24 22:51 50 ml Q15MIN PRN Administration BG <50 OR BG <70 & pt unresponsive Glucagon 1 mg 07/27/24 22:52 Glucagon Inj 1 Mg Vial IM Q15MIN PRN BG <70, and no IV access Heparin Sodium (Porcine) 4,000 unit 07/30/24 09:39 07/30/24 12:09 Heparin Sod Inj 1000 Unit/Ml Vial 10 Ml INDWELLCAT 08/13/24 09:38 4,000 unit X1 PRN Administration DIALYSIS Piperacillin/Tazobactam/Dextrose 50 mls @ 12.5 mls/hr 07/28/24 09:00 07/30/24 20:35 Zosyn IV 08/04/24 08:59 12.5 mls/hr Q12HR ANTONIA Administration Heparin Sodium/Dextrose 25,000 unit in 250 mls @ 13.749 mls/hr 07/29/24 00:30 07/31/24 06:45 Heparin In D5w Ivpb IV 08/12/24 00:29 14 units/kg/hr .[id number] ANTONIA 10.694 mls/hr Titration Protocol 18 UNITS/KG/HR Albumin Human 25 gm in 100 mls @ 100 mls/hr 07/30/24 10:50 07/30/24 10:52 Albuminar-25 Ivpb IV 100 mls/hr PRN PRN Administration DIALYSIS Losartan Potassium 100 mg 07/31/24 09:00 07/31/24 08:12 Losartan Potassium 25 Mg Tablet PO 08/30/24 08:59 100 mg QDAY ANTONIA Administration Midodrine 5 mg 07/28/24 01:33 Midodrine 5 Mg Tablet PO 08/27/24 01:44 TID PRN if MAP <65 Ondansetron HCl 4 mg 07/27/24 20:37 Ondansetron Inj 2 Mg/Ml Inj 2 Ml IV 08/26/24 20:36 Q6H PRN NAUSEA OR VOMITING Protocol Sevelamer Carbonate 800 mg 07/28/24 08:00 07/31/24 08:12 Sevelamer Carbonate 800 Mg Tablet PO 08/27/24 07:59 800 mg TIDWMEAL ANTONIA Administration Sodium Bicarbonate 1,300 mg 07/28/24 09:00 07/31/24 08:13 Sodium Bicarbonate 650 Mg Tablet PO 08/27/24 08:59 1,300 mg BID ANTONIA Administration Plan Casey Montgomery is a 59-year-old -[place] gentleman with past medical history of developmental delay, hypertension, polycystic kidney disease, s/p renal transplant on 12/02/2017 at [facility] that failed and now back on HD since 08/2023 () under Dr. Lerma, HFpEF (EF 55 to 60%), bradycardia s/p ICD placement in 2011, s/p replacement of single-chamber AICD on 05/05/2024 for depleted battery, and diverticulosis who was admitted for sepsis possibly due to catheter-related blood stream infection. Nephrology consulted for ESRD on HD (). #ESRD () secondary to failed transplant Has been on dialysis for 1 year under the care of Dr. Lerma. Underwent dialysis yesterday and tolerated well. ? Continue outpatient dialysis regimen of ? Renally dose medications ? Avoid nephrotoxic agents ? Hold off on removing dialysis catheter while pending official culture results #Hyponatremia, likely secondary to renal failure/ESRD Serum osm within normal limits, but glucose also within normal limits and unlikely pseudohyponatremia/artifact (i.e. hyperlipidemia, hyperproteinemia). Thus, most likely etiology would be renal failure. Improving on fluid restriction only. Patient states that he does not make urine and so will not be able to do urine studies. ? dialysis as above ? fluid restriction of 2 L/day, consider salt tablets if Na continues to downtrend #Sepsis, rule out catheter-related blood stream infection - blood cultures positive for GNR on Zosyn #Renal osteodystrophy #Right upper extremity DVT - on heparin drip #Essential hyertension - resume home blood pressure medications #Thrombocytopenia - possibly medication induced (BL platelets are 115) #Elevated troponin, secondary to underlying stress ? Continue management per primary team ----- Plan discussed with attending physician Dr. Micha Hua MD PGY-1 Internal Medicine Attending Provider Attestation/Addendum Patient seen and examined with resident physician Dr. De. Note reviewed, agree with findings and recommendations. Patient currently on oxygen. Did receive dialysis yesterday. Blood cultures positive for E. coli. Doubt catheter related bacteremia. No need to remove the catheter at this point. Repeat cultures ordered. On antibiotics. Next dialysis scheduled for tomorrow
[2024-07-31] MEDS: HEPARIN SOD INJ 5000 UNIT/ML VIAL 3100 UNIT IVP (08:44)
--- NOTE | 2024-07-31 11:32 | PC.SS ---
Rounding: Pending ID consult, on Heprin Drip
--- NOTE | 2024-07-31 12:18 | PD.RESPRO ---
Documentation for date of: 07/31/24 Subjective Subjective Interval history: 07/29/2024: Pt examined at bedside today. No acute overnights on telemetry, patient is rate controlled in the 70s. He reports he is doing fine. By expensing any chest pain or palpitations. Denies having any shortness of breath. He was found to have a DVT in his right subclavian vein no started on heparin drip. Patient's BUN/creatinine 51 8.9, potassium 4.6, potassium 2.1, phosphorus 5. Dialysis scheduled for Monday. Patient's blood pressure has been soft, has not been able to resume GDMT therapy at this time. Will continue with medical management, no other complaints at this time. 07/30/2024: Pt examined at bedside today. No acute overnight events on telemetry. He was seen today after dialysis. He reports he is doing well and is not experiencing any chest pain or palpitations, nor experiencing any SOB. He is still continuing heparin drip for DVT in his R subclavian vein. Pt's BUN/Cr 61 and 10.2 respectively, potassium 5, phos 4.8 and mg 2.3. During diaylsis they were able to remove 2L today. He was found to have ESBL E coli, will continue with Zoysn. We recommend to continue with GDMT therapy as he tolerates as he has been a bit low throughout this admission. 07/31/2024: Bedside sitter. No acute overnight events on telemetry, rate seems to be in the 80s and 90s. Reports he is doing well, feels a bit short of breath but no other complaints. Denies having chest pain or palpitations. He is aware that he has an infection in his blood. His BUN/creatinine was 41 and 7.6 respectively, potassium 4.5, magnesium 2.1, phosphorus 4.8. White count 3.6, hemoglobin 11.0. With this time Exam Vital Signs Temp Pulse Resp BP Pulse Ox O2 Del Method O2 Flow Rate 97.1 F 88 22 H 113/77 95 Room Air 2 07/31/24 08:00 07/31/24 08:13 07/31/24 08:00 07/31/24 08:13 07/31/24 08:00 07/31/24 08:00 07/31/24 04:00 Narrative Exam General: AAOx3, NAD, pleasant male, developmentally delayed HEENT: Moist mucous membranes, conjunctiva clear, EOMI, PERRLA, poor dentition Cardiovascular: Pansystolic murmur heard in left lower sternal border, RRR, L sided TDC present Pulmonary: CTAB bilat no cough, no wheezing GI: No tenderness to light or deep palpitation, no guarding, rigidity, rebound tenderness or distension Extremities: No presence of trace or pitting edema in lower extremities bilaterally, dorsalis pedis pulses +2 bilaterally, AV fistula in L arm Neuro: AAOx3, no focal motor or sensory deficits in the UE or LE bilat Psych: Cooperative Objective Labs 07/31/24 06:20 07/31/24 06:20 Labs: Laboratory Results - last 24 hr 07/28/24 07/30/24 07/30/24 13:56 05:47 13:52 WBC RBC Hgb Hct MCV MCH MCHC RDW Std Deviation Plt Count Neut % (Auto) Lymph % (Auto) [place] % (Auto) Eos % (Auto) Baso % (Auto) Neut # (Auto) Lymph # (Auto) [place] # (Auto) Eos # (Auto) Baso # (Auto) Immature Gran # (Auto) Absolute Nucleated RBC Immature Gran % Nucleated RBC % PT INR APTT 72.8 H D Sodium Potassium Chloride Carbon Dioxide Anion Gap BUN Creatinine Estim Creat Clear Calc eGFR BUN/Creatinine Ratio Glucose Calculated Osmolality Calcium Corrected Calcium Phosphorus Magnesium Total Bilirubin AST ALT Alkaline Phosphatase Total Protein Albumin Globulin Albumin/Globulin Ratio Coccidioides IgG Ab Negative Hepatitis A IgM Ab Non Reactive Hep Bs Antigen Non Reactive Hep Bs Antibody Reactive (Immune) Hep B Core IgM Ab Non Reactive Hepatitis C Antibody Non Reactive 07/30/24 07/31/24 20:44 06:20 WBC 3.6 L RBC 3.75 L Hgb 11.0 L Hct 33.8 L MCV 90 MCH 29.3 MCHC 32.5 RDW Std Deviation 53.0 H Plt Count 106 L Neut % (Auto) 67 Lymph % (Auto) 13 [place] % (Auto) 14 H Eos % (Auto) 4 Baso % (Auto) 1 Neut # (Auto) 2.4 Lymph # (Auto) 0.5 L [place] # (Auto) 0.5 Eos # (Auto) 0.2 Baso # (Auto) 0.0 Immature Gran # (Auto) 0.04 H Absolute Nucleated RBC 0.00 Immature Gran % 1 H Nucleated RBC % 0 PT 11.3 INR 1.0 APTT > 139.0 H* D 40.2 H D Sodium 133 L Potassium 4.5 D Chloride 96 L Carbon Dioxide 27.4 Anion Gap 10 BUN 41 H Creatinine 7.6 H* D Estim Creat Clear Calc 11.2 L eGFR 8 L* BUN/Creatinine Ratio 5 L Glucose 73 L Calculated Osmolality 275 Calcium 8.5 Corrected Calcium 9.1 Phosphorus 4.8 Magnesium 2.1 Total Bilirubin 0.4 AST < 8 ALT 10 Alkaline Phosphatase 66 D Total Protein 5.9 Albumin 3.3 L Globulin 2.6 Albumin/Globulin Ratio 1.3 Coccidioides IgG Ab Hepatitis A IgM Ab Hep Bs Antigen Hep Bs Antibody Hep B Core IgM Ab Hepatitis C Antibody ABG Interpretation ABG results: 07/27/24 10:52 VBG pH 7.21 L VBG pCO2 52 VBG pO2 38 VBG Base Excess -7 L Quality Measures Quality Measures sepsis Current suspected stage: sepsis Possible source: unknown Blood cultures ordered: yes Antibiotic ordered: Yes Assessment & Plan Assessment Current Active Medications: Generic Name Dose Route Start Last Admin Trade Name Freq PRN Reason Stop Dose Admin Acetaminophen 650 mg 07/28/24 09:36 Acetaminophen 325 Mg Tablet PO 08/26/24 20:36 Q6H PRN Fever >100.3 Aspirin 81 mg 07/28/24 09:00 07/31/24 08:12 Aspirin Ec 81 Mg Tabec PO 08/27/24 08:59 81 mg QDAY ANTONIA Administration Carvedilol 25 mg 07/30/24 21:00 07/31/24 08:13 Carvedilol 12.5 Mg Tablet PO 08/29/24 20:59 25 mg BID ANTONIA Administration Velphoro ( 0 ea 07/29/24 08:00 07/31/24 08:14 Sucroferric PO 08/28/24 07:59 2 chew Oxyhydroxide) 500 Mg TIDWM ANTONIA Administration Chewable Tablets Dextrose 25 ml 07/27/24 22:52 07/30/24 08:31 Dextrose 50%-Water Inj 50 Ml Syringe IV 08/26/24 22:51 25 ml Q15MIN PRN Administration BG 50-70 responsive npo pt Dextrose 50 ml 07/27/24 22:52 07/28/24 07:53 Dextrose 50%-Water Inj 50 Ml Syringe IV 08/26/24 22:51 50 ml Q15MIN PRN Administration BG <50 OR BG <70 & pt unresponsive Glucagon 1 mg 07/27/24 22:52 Glucagon Inj 1 Mg Vial IM Q15MIN PRN BG <70, and no IV access Heparin Sodium (Porcine) 4,000 unit 07/30/24 09:39 07/30/24 12:09 Heparin Sod Inj 1000 Unit/Ml Vial 10 Ml INDWELLCAT 08/13/24 09:38 4,000 unit X1 PRN Administration DIALYSIS Piperacillin/Tazobactam/Dextrose 50 mls @ 12.5 mls/hr 07/28/24 09:00 07/31/24 09:00 Zosyn IV 08/04/24 08:59 Not Given Q12HR ANTONIA Heparin Sodium/Dextrose 25,000 unit in 250 mls @ 13.749 mls/hr 07/29/24 00:30 07/31/24 10:53 Heparin In D5w Ivpb IV 08/12/24 00:29 Not Given .[id number] ANTONIA Protocol 18 UNITS/KG/HR Albumin Human 25 gm in 100 mls @ 100 mls/hr 07/30/24 10:50 07/30/24 10:52 Albuminar-25 Ivpb IV 100 mls/hr PRN PRN Administration DIALYSIS Losartan Potassium 100 mg 07/31/24 09:00 07/31/24 08:12 Losartan Potassium 25 Mg Tablet PO 08/30/24 08:59 100 mg QDAY ANTONIA Administration Midodrine 5 mg 07/28/24 01:33 Midodrine 5 Mg Tablet PO 08/27/24 01:44 TID PRN if MAP <65 Ondansetron HCl 4 mg 07/27/24 20:37 Ondansetron Inj 2 Mg/Ml Inj 2 Ml IV 08/26/24 20:36 Q6H PRN NAUSEA OR VOMITING Protocol Sevelamer Carbonate 800 mg 07/28/24 08:00 07/31/24 08:12 Sevelamer Carbonate 800 Mg Tablet PO 08/27/24 07:59 800 mg TIDWMEAL ANTONIA Administration Sodium Bicarbonate 1,300 mg 07/28/24 09:00 07/31/24 08:13 Sodium Bicarbonate 650 Mg Tablet PO 08/27/24 08:59 1,300 mg BID ANTONIA Administration Plan Assessment Casey is a 59 y/o male with PMHx of essential HTN, CAD, HFrEF with systolic dysfunction and wall motion abnormalities (EF 35-40%), single-lead AICD ([employer] s/p replacement by Dr. Zamudio in May 2024), ESRD on HD (/) renal transplant 2018 at [facility], developmental delay, chronic anemia secondary to ESRD, internal hemorrhoids, diverticulosis and esophageal ulcers #History of mild to moderate CAD with 40 to 50% stenosis of RCA #NSTEMI type II, likely related to demand ischemia, resolved #History of HFrEF with systolic dysfunction and wall motion normalities, EF 35 to 40% #Nonischemic cardiomyopathy #Hx of AICD replacement (05/2024) Troponins have down trended from 1.88 till 1.81 Echo in April 2024 showed Normal LV size. Moderate LVH. Moderate LV systolic dysfunction with global hypokinesis, Estimated EF 35-40%. Mild RV dilatation. Normal RV function. Estimated RVSP 49mmHg. RAP 15. Moderate PAH. Pacing wire present. Moderate AV sclerosis without sclerosis. Vmax 2.3 m/s and Mean PG of 10 mm hg. Mild MR. Moderate TR. Moderate PAH. There is anterior trivial pericardial effusion. No evidence of cardiac tamponde. Last cardiac cath done in 2011, do not have reports at this time, based of history Pt tolerated dialysis today Plan: ? Continue with ASA ? Currently on Coreg 25 mg twice daily and losartan 100 mg ? Keep magnesium and potassium above 2 and 4 respectively ? Continue with dialysis schedule #History of hypertension Has Coreg, hydralazine, losartan and nifedipine as his blood pressure medicines at home Plan: ? Coreg and losartan as above #Sepsis 2/2 likely to catheter related bloodstream infection #Acute hypoxic respiratory failure Had 4 out of 4 SIRS criteria, source at this time believed to be dialysis catheter Patient started on broad-spectrum antibiotics and has received fluid bolus (2.5 L) in ED Blood cultures show ESBL E coli Plan: ? Management by primary team ? Gentamicin started by infectious disease team #Hypoglycemia #ESRD on HD [/MON] #Polycystic kidney disease status post renal transplant which is failed hence back on hemodialysis #Mild iron deficiency anemia #Mild thrombocytopenia Above management primary hospitalist team Patient seen and care discussed with my attending physician, Dr. Lori Garcia, PGY-1 Attending Provider Attestation/Addendum I have personally seen and examined the patient separately on the above date of service and discussed the plan of care with the resident. I reviewed the resident Dr. Mitchell consultation progress note and agree with the resident findings and plan in the note above and have also edited the documentation to reflect my findings and plan. Lewis Sandoval M.D. Interventional Cardiology
--- NOTE | 2024-07-31 13:26 | ESPR_ITS ---
<Statement entered by Von Paniagua MD - 07/31/24 14:17> Patient was seen and examined at the bedside. Patient is manage since admission. Right upper arm was swollen with some hematoma formation. Nurse was informed and recommended to start warm compresses. Will continue with heparin drip for upper extremity DVT. Blood pressure medications were reconciled including losartan 100 mg and Coreg . ID recommendations are pending at this time due to E. coli bacteremia. Continuing Zosyn. White count improved no fever spikes recorded. Patient will get dialysis per schedule tomorrow morning. All labs and orders were reviewed. I saw and examined the patient, and I agree with current management stated by Dr Adrian MD,PGY1. Plan of care was discussed with the attending physician and resident physician. Disclaimer: Despite multiple revisions, due to the dictation software being used, the document bellow may not be free of grammatical errors including phonetic/typographic errors. However, this does not deter from our commitment to providing health care in the patient's best interest in mind. Dr. Arcelia MD, PGY 2 Documentation for date of: 07/31/24 Subjective Subjective Interval history: No overnight events. Patient seen and examined at bedside. Patient is comfortably, denies shortness of breath or right upper arm pain. Pending ID recs. Closely monitor BP, Coreg and losartan initiated. Fluid restriction for hyponatremia. Exam Vital Signs Temp Pulse Resp BP Pulse Ox O2 Del Method O2 Flow Rate 97.1 F 88 22 H 113/77 95 Room Air 2 07/31/24 08:00 07/31/24 08:13 07/31/24 08:00 07/31/24 08:13 07/31/24 08:00 07/31/24 08:00 07/31/24 04:00 Narrative Exam General: Awake. Lying comfortably on the bed HEENT: Normocephalic, atraumatic, mucous membranes moist. Heart: Regular rate and rhythm Lungs: Lungs clear to auscultation bilaterally. Abdomen: Soft, nondistended, nontender, positive bowel sounds. ?No guarding or rebound tenderness. Neurologic: Alert and oriented x3, no gross neurological deficit, and patient able to move all 4 extremities. Extremities: No edema. Fistulas in both upper extremities. Right upper extremity swollen, nonpitting. Skin: No rash or ecchymoses. Objective Labs 07/31/24 06:20 07/31/24 06:20 Labs: Laboratory Results - last 24 hr 07/28/24 07/30/24 07/30/24 13:56 13:52 20:44 WBC RBC Hgb Hct MCV MCH MCHC RDW Std Deviation Plt Count Neut % (Auto) Lymph % (Auto) [place] % (Auto) Eos % (Auto) Baso % (Auto) Neut # (Auto) Lymph # (Auto) [place] # (Auto) Eos # (Auto) Baso # (Auto) Immature Gran # (Auto) Absolute Nucleated RBC Immature Gran % Nucleated RBC % PT INR APTT 72.8 H D > 139.0 H* D Sodium Potassium Chloride Carbon Dioxide Anion Gap BUN Creatinine Estim Creat Clear Calc eGFR BUN/Creatinine Ratio Glucose Calculated Osmolality Calcium Corrected Calcium Phosphorus Magnesium Total Bilirubin AST ALT Alkaline Phosphatase Total Protein Albumin Globulin Albumin/Globulin Ratio Coccidioides IgG Ab Negative 07/31/24 06:20 WBC 3.6 L RBC 3.75 L Hgb 11.0 L Hct 33.8 L MCV 90 MCH 29.3 MCHC 32.5 RDW Std Deviation 53.0 H Plt Count 106 L Neut % (Auto) 67 Lymph % (Auto) 13 [place] % (Auto) 14 H Eos % (Auto) 4 Baso % (Auto) 1 Neut # (Auto) 2.4 Lymph # (Auto) 0.5 L [place] # (Auto) 0.5 Eos # (Auto) 0.2 Baso # (Auto) 0.0 Immature Gran # (Auto) 0.04 H Absolute Nucleated RBC 0.00 Immature Gran % 1 H Nucleated RBC % 0 PT 11.3 INR 1.0 APTT 40.2 H D Sodium 133 L Potassium 4.5 D Chloride 96 L Carbon Dioxide 27.4 Anion Gap 10 BUN 41 H Creatinine 7.6 H* D Estim Creat Clear Calc 11.2 L eGFR 8 L* BUN/Creatinine Ratio 5 L Glucose 73 L Calculated Osmolality 275 Calcium 8.5 Corrected Calcium 9.1 Phosphorus 4.8 Magnesium 2.1 Total Bilirubin 0.4 AST < 8 ALT 10 Alkaline Phosphatase 66 D Total Protein 5.9 Albumin 3.3 L Globulin 2.6 Albumin/Globulin Ratio 1.3 Coccidioides IgG Ab ABG Interpretation ABG results: 07/27/24 10:52 VBG pH 7.21 L VBG pCO2 52 VBG pO2 38 VBG Base Excess -7 L Quality Measures Quality Measures sepsis Current suspected stage: sepsis (Resolved) Possible source: unknown Blood cultures ordered: yes Antibiotic ordered: Yes Assessment & Plan Assessment Current Active Medications: Generic Name Dose Route Start Last Admin Trade Name Freq PRN Reason Stop Dose Admin Acetaminophen 650 mg 07/28/24 09:36 Acetaminophen 325 Mg Tablet PO 08/26/24 20:36 Q6H PRN Fever >100.3 Aspirin 81 mg 07/28/24 09:00 07/31/24 08:12 Aspirin Ec 81 Mg Tabec PO 08/27/24 08:59 81 mg QDAY ANTONIA Administration Carvedilol 25 mg 07/30/24 21:00 07/31/24 08:13 Carvedilol 12.5 Mg Tablet PO 08/29/24 20:59 25 mg BID ANTONIA Administration Velphoro ( 0 ea 07/29/24 08:00 07/31/24 12:49 Sucroferric PO 08/28/24 07:59 2 chew Oxyhydroxide) 500 Mg TIDWM ANTONIA Administration Chewable Tablets Dextrose 25 ml 07/27/24 22:52 07/30/24 08:31 Dextrose 50%-Water Inj 50 Ml Syringe IV 08/26/24 22:51 25 ml Q15MIN PRN Administration BG 50-70 responsive npo pt Dextrose 50 ml 07/27/24 22:52 07/28/24 07:53 Dextrose 50%-Water Inj 50 Ml Syringe IV 08/26/24 22:51 50 ml Q15MIN PRN Administration BG <50 OR BG <70 & pt unresponsive Glucagon 1 mg 07/27/24 22:52 Glucagon Inj 1 Mg Vial IM Q15MIN PRN BG <70, and no IV access Heparin Sodium (Porcine) 4,000 unit 07/30/24 09:39 07/30/24 12:09 Heparin Sod Inj 1000 Unit/Ml Vial 10 Ml INDWELLCAT 08/13/24 09:38 4,000 unit X1 PRN Administration DIALYSIS Piperacillin/Tazobactam/Dextrose 50 mls @ 12.5 mls/hr 07/28/24 09:00 07/31/24 09:00 Zosyn IV 08/04/24 08:59 Not Given Q12HR ANTONIA Heparin Sodium/Dextrose 25,000 unit in 250 mls @ 13.749 mls/hr 07/29/24 00:30 07/31/24 10:53 Heparin In D5w Ivpb IV 08/12/24 00:29 Not Given .[id number] ANTONIA Protocol 18 UNITS/KG/HR Albumin Human 25 gm in 100 mls @ 100 mls/hr 07/30/24 10:50 07/30/24 10:52 Albuminar-25 Ivpb IV 100 mls/hr PRN PRN Administration DIALYSIS Losartan Potassium 100 mg 07/31/24 09:00 07/31/24 08:12 Losartan Potassium 25 Mg Tablet PO 08/30/24 08:59 100 mg QDAY ANTONIA Administration Midodrine 5 mg 07/28/24 01:33 Midodrine 5 Mg Tablet PO 08/27/24 01:44 TID PRN if MAP <65 Ondansetron HCl 4 mg 07/27/24 20:37 Ondansetron Inj 2 Mg/Ml Inj 2 Ml IV 08/26/24 20:36 Q6H PRN NAUSEA OR VOMITING Protocol Sevelamer Carbonate 800 mg 07/28/24 08:00 07/31/24 12:49 Sevelamer Carbonate 800 Mg Tablet PO 08/27/24 07:59 800 mg TIDWMEAL ANTONIA Administration Sodium Bicarbonate 1,300 mg 07/28/24 09:00 07/31/24 08:13 Sodium Bicarbonate 650 Mg Tablet PO 08/27/24 08:59 1,300 mg BID ANTONIA Administration Plan 59 y/o M with past medical history of developmental delay, hypertension, polycystic kidney disease, s/p renal transplant on 12/02/2017 at [facility] [place], ESRD on HD since aug 2023 (), HFrEF 35 to 40%, bradycardia s/p ICD placement in 2011, s/p replacement of single-chamber AICD on 05/05/2024 for depleted battery, diverticulosis was brought to the hospital with a chief complaints of generalized weakness since 1 day and admitted for sepsis secondary to possible catheter related bloodstream infection. #Sepsis 2/2 possible catheter related bloodstream infection, sepsis resolved Presented to the hospital with generalized weakness. At the time of presentation to the ED, found to have a blood glucose of 20 and also had recurrent episodes of hypoglycemia. Initial vitals are stable but later found to have a febrile episode of 102.1 ?F in the ED. On examination, patient appears dehydrated. On auscultation no crackles/wheeze heard. Labs showed WBC 15,000, Hb 12.8, INR 1.5, BUN 28, creatinine 6.4, lactate 3.4, procalcitonin 81.08 SIRS /: Temperature 102.1, heart rate 112, WBC 15,000. Chest x-ray did not show infiltrates. Left tunneled dialysis catheter possible source. Chest x-ray did not show any infiltrates. EKG done showed sinus rhythm with multiple ectopics. Received a dose of vancomycin and Zosyn, 1 L NS in the ED. given additional 1.5 L lactated ringer. Blood culture positive for ESBL E. coli 07/04. Vancomycin was continued. Patient has right upper extremity DVT, potential source of fever/tachycardia/leukocytosis. Cocci negative. -Blood cultures were sent, follow-up with results -Midodrine 5mg as needed up to 3 times daily -Vancomycin (07/27?07/29) -Zosyn (07/27-) -consider replacing the catheter -Monitor blood pressures -ID consult placed, follow-up #Right subclavian vein DVT Patient developed swelling of right arm. Ultrasound was ordered, confirmed right subclavian vein DVT. Patient initiated on heparin drip. -Heparin drip (started 07/29) -Warm compresses #Hyponatremia Patient sodium has been downtrending, 130 as of 07/30. Nephrology on board -Nephrology recs appreciated -Fluid restrict: 1800 cc #Hypoglycemia Likely due to sepsis. Blood glucose at the time of admission is 20 and later there are multiple episodes of hypoglycemia. Patient is given D50 in the ED later started on D10. D10 is discontinued and patient was given oral diet -Bedside glucose monitoring ACHS #ESRD on HD [//MON] #Polycystic kidney disease status post renal transplant which is failed hence back on hemodialysis Patient is on HD since 1 year and last dialysis was on the day of admission. Following up with Dr. Lerma, per patient's sister, also sister endorsed that patient is having fistula repair scheduled in August 2024. On examination, patient had fistula in both upper extremities but without any thrill. At the time of admission BUN is 28, creatinine 6.4. Patient is getting dialysis through left tunneled dialysis catheter -Dr. Muse is consulted, appreciate recommendations -Plan for dialysis as per patient's usual schedule -Will continue Velphoro 500 Mg p.o. 3 times daily -Will continue sevelamer 800 Mg p.o. 3 times daily -Will continue sodium bicarbonate 1300 Mg p.o. 2 times daily #Bradycardia s/p ICD in 2011 #History of single-chamber AICD on 05/2024 #History of HFrEF, EF 35 to 40% Per patient's sister, patient had episode of bradycardia for which ICD was placed in 2011. Recently on 05/2024, as patient is having shortness of breath and also found to have battery depletion, ICD is replaced. EKG showed normal sinus rhythm with multiple ectopics. Echo done on 04/2024 showed moderate LV systolic dysfunction with global hypokinesis, Estimated EF 35-40%. Moderate PAH. Pacing wire present. -Text Transcriber is consulted, appreciate recommendations -Resuming home Coreg and losartan -Telemetry #Elevated troponins, likely type II -resolved likely due to underlying sepsis with underlying ESRD. Lactate at the time of admission is 3.4, downtrending. Troponin is 1.881, down trended -Telemetry #Mild iron deficiency anemia #Mild thrombocytopenia Likely due to ESRD. Hemoglobin at the time of admission is 12.8, MCV 109, MCH 29.4. -Recommended outpatient workup to rule out iron deficiency and replete the stores accordingly #History of hypertension Patient is on carvedilol, hydralazine, losartan, nifedipine as home medication. -Resume home Coreg and losartan DVT prophylaxis: Heparin GI prophylaxis: None Diet: Renal Lines:Tunnelled dialysis cat, PIV Code status: Full Code Plan of care discussed with senior resident Dr. Paniagua PGY?[address] Ashford. En Campbell MD PGY-1 Attending Provider Attestation/Addendum I attest that I was physically present for the evaluation, physical examination, lab and imaging review of the patient with the residents. I discussed the case with the residents and agree with the findings and plans of care as documented above. At bedside today, patient appears comfortable. Denies any pain or new complaints. Saturating well on room air. Noted right upper extremity swelling, or nodule around the fistula site. Blood culture grew ESBL E. coli on one of the bottles but the other bottle has been negative for more than 48 hours. We will continue with IV antibiotics. Awaiting ID recommendations regarding line removal, if not needed we will switch his heparin drip to oral Eliquis for his right subclavian DVT. Nephrology following, patient has been receiving hemodialysis as scheduled. Resuming home Coreg and losartan, we will closely evaluate his blood pressure, if tolerated well, plan to add more GDMT. Colby Ashford MD
[2024-07-31 14:04] LABS: Partial Thromboplastin Time 39.1 Seconds (22.0-36.0)
[2024-07-31] MEDS: HEPARIN SOD INJ 5000 UNIT/ML VIAL 3100 UNIT IV (15:52)
--- NOTE | 2024-07-31 16:46 | PD.IDPROG ---
Subjective Subjective Interval history: nice man I saw yrs ago. back on hd now. he is not a good historian. bc were done 3 mins apart and 1/2 pos for esbl e coli. sadly, zosyn not appropriate for hd rx afebrile on zosyn Exam Vital Signs Temp Pulse Resp BP Pulse Ox O2 Del Method O2 Flow Rate 97.3 F 75 18 116/90 H 99 Room Air 2 07/31/24 12:00 07/31/24 12:00 07/31/24 12:00 07/31/24 12:00 07/31/24 12:00 07/31/24 12:00 07/31/24 04:00 Narrative Exam poor historian. [place] man. looks his age Objective - Internal Medicine Labs 07/31/24 06:20 07/31/24 06:20 Labs: Laboratory Results - last 24 hr 07/30/24 07/31/24 07/31/24 20:44 06:20 13:38 WBC 3.6 L RBC 3.75 L Hgb 11.0 L Hct 33.8 L MCV 90 MCH 29.3 MCHC 32.5 RDW Std Deviation 53.0 H Plt Count 106 L Neut % (Auto) 67 Lymph % (Auto) 13 [place] % (Auto) 14 H Eos % (Auto) 4 Baso % (Auto) 1 Neut # (Auto) 2.4 Lymph # (Auto) 0.5 L [place] # (Auto) 0.5 Eos # (Auto) 0.2 Baso # (Auto) 0.0 Immature Gran # (Auto) 0.04 H Absolute Nucleated RBC 0.00 Immature Gran % 1 H Nucleated RBC % 0 PT 11.3 INR 1.0 APTT > 139.0 H* D 40.2 H D 39.1 H Sodium 133 L Potassium 4.5 D Chloride 96 L Carbon Dioxide 27.4 Anion Gap 10 BUN 41 H Creatinine 7.6 H* D Estim Creat Clear Calc 11.2 L eGFR 8 L* BUN/Creatinine Ratio 5 L Glucose 73 L Calculated Osmolality 275 Calcium 8.5 Corrected Calcium 9.1 Phosphorus 4.8 Magnesium 2.1 Total Bilirubin 0.4 AST < 8 ALT 10 Alkaline Phosphatase 66 D Total Protein 5.9 Albumin 3.3 L Globulin 2.6 Albumin/Globulin Ratio 1.3 ABG Interpretation ABG results: 07/27/24 10:52 VBG pH 7.21 L VBG pCO2 52 VBG pO2 38 VBG Base Excess -7 L Assessment & Plan A&P Narrative esbl e coli bacteremia and fever ckd 5. failed txp from 2018 at [facility] mr/dd gent with hd for 2 weeks from first neg bc, be unlikely with gnr, so get reshma only if later bc after gent pos for gnr. home ok at your discretion. Time Spent With Patient Time: Total time spent is greater than 50% in coordination of care (as documented) at patient's floor/unit and/or counseling patient:
--- NOTE | 2024-07-31 16:51 | ESCONSULT_ITS ---
<Statement entered by Marcin Montaño MD - 08/01/24 06:53> pt seen with resident. all findings confirmed HPI Data of Consult Requesting Physician: Alok Kelly MD Admitting Provider: Jabier Spencer DO Attending Provider: Alok Kelly MD Primary Care Provider: Elsy Connell MD Consult Narrative History of present illness: 59-year-old man with past medical history of developmental delay, hypertension, polycystic kidney disease , HFpEF, s/p AICD, s/p renal transplant, ESRD on hemodialysis, who was admitted to [facility] secondary to sepsis in the setting of hemodialysis catheter. Infectious disease was consulted. Patient is poor historian for which history was taken per chart review. During dialysis session patient was presenting shortness of breath and tremulousness for which he was brought to the ED and was found to be hypoglycemic and febrile. Patient denied chest pain, palpitations, abdominal pain or any other associated symptom at the moment. Pertinent labs:Leukopenia 3.6, cultures grow ESBL E. coli, cocci serology was negative, hepatitis panel negative, COVID 19, RSV, influenza were negative Imaging: Chest x-ray unremarkable Past medical history:developmental delay, hypertension, polycystic kidney disease , s/p renal transplant, ESRD on hemodialysis, HFpEF Past surgical history: Renal transplantation (failed), s/p AICD implantation Family history: Unknown Social history: Unknown Travel history: Unknown Allergies: No known allergies Immunization: Unknown cc:: cc: Alok Kelly MD Exam Vital Signs Temp Pulse Resp BP Pulse Ox O2 Del Method O2 Flow Rate 97.3 F 75 18 116/90 H 99 Room Air 2 07/31/24 12:07/31/24 12:07/31/24 12:07/31/24 12:07/31/24 12:07/31/24 12:07/31/24 04:00 Narrative Exam General: No acute distress, alert and interactive HEENT: NC/AT, PERRL, EOMI, Good conjugate gaze, moist mucous membranes, oropharynx clear. Neck: Supple, No masses, No adenopathy, carotid pulse 2+ bilaterally without bruits, No JVD, normal range of motion. Chest: Symmetrical, atraumatic, and with equal expansion , Nontender on palpation no deformity and no crepitus, left dialysis catheter in place CVS: S1 and S2 present, Regular rate and rhythm, No murmurs, rubs or gallops perceived during auscultation. Lungs: Normal respiratory effort, CTAB, no wheezing, rhonchi or rales perceived during auscultation, No intercostal or subcostal retraction. Abdomen : Soft, no tenderness to palpation, no guarding ,no rebound, +BS, no organomegaly. Extremities: No edema, warm well perfused, normal tone and ROM, strength and sensation intact, cap refill less than 2, +2 dp equal bilaterally, able to move all 4 extremities spontaneously. Skin: Intact, no rashes, no lesions, no erythema or jaundice noted Neuro: Difficult to assess the patient mentation baseline Psych: Appropriate mood and affect. Results Labs 07/31/24 06:20 07/31/24 06:20 Labs: Short CBC 07/31/24 Range/Units 06:20 WBC 3.6 L (3.8-10.6) Thou/mm3 Hgb 11.0 L (13.5-16.0) g/dL Hct 33.8 L (41.0-53.0) % Plt Count 106 L (140-440) Thou/mm3 BMP 07/31/24 06:20 Sodium 133 L Potassium 4.5 D Chloride 96 L Carbon Dioxide 27.4 BUN 41 H Creatinine 7.6 H* D Glucose 73 L Calcium 8.5 Liver Function 07/31/24 Range/Units 06:20 Total Bilirubin 0.4 (0.3-1.2) mg/dL AST < 8 (0-34) U/L ALT 10 (10-49) U/L Alkaline Phosphatase 66 D (46-116) U/L Albumin 3.3 L (3.4-4.8) gm/dL ABG Interpretation ABG results: 07/27/24 10:52 VBG pH 7.21 L VBG pCO2 52 VBG pO2 38 VBG Base Excess -7 L Quality Measures Quality Measures sepsis Current suspected stage: ruled out Possible source: unknown Blood cultures ordered: yes Antibiotic ordered: Yes Medications Home Medications and Allergies Home Medications ?Medication ?Instructions ?Recorded ?Confirmed ?Type sodium bicarbonate 650 mg tablet 1,300 mg PO BID 10/0107/28/24 History doxazosin 4 mg tablet 8 mg PO HS 12/16/23 07/28/24 History sevelamer carbonate 800 mg tablet 800 mg PO TIDWMEAL 0 12/16/23 07/28/24 History losartan 100 mg tablet 100 mg PO QDAY 04/29/2407/04 History sucroferric oxyhydroxide 500 mg 1,000 mg PO TID 07/28/24 History chewable tablet (Velphoro) Allergies Allergy/AdvReac Type Severity Reaction Status Date / Time No Known Allergies Allergy Verified 05/03/24 10:09 Visit Medications Acetaminophen (Acetaminophen 325 Mg Tablet) 650 mg PO Q6H PRN PRN Reason: Fever >100.3 Stop: 08/26/24 20:36 Aspirin (Aspirin Ec 81 Mg Tabec) 81 mg PO QDAY [facility] Stop: 08/27/24 08:59 Last Admin: 07/31/24 08:12 Dose: 81 mg Carvedilol (Carvedilol 12.5 Mg Tablet) 25 mg PO BID [facility] Stop: 08/29/24 20:59 Last Admin: 07/31/24 08:13 Dose: 25 mg Velphoro ( Sucroferric Oxyhydroxide) 500 Mg Chewable Tablets 0 ea PO TIDWM [facility] Stop: 08/28/24 07:59 Last Admin: 07/31/24 12:49 Dose: 2 chew Dextrose (Dextrose 50%-Water Inj 50 Ml Syringe) 25 ml IV Q15MIN PRN PRN Reason: BG 50-70 responsive npo pt Stop: 08/26/24 22:51 Last Admin: 07/30/24 08:31 Dose: 25 ml Dextrose (Dextrose 50%-Water Inj 50 Ml Syringe) 50 ml IV Q15MIN PRN PRN Reason: BG <50 OR BG <70 & pt unresponsive Stop: 08/26/24 22:51 Last Admin: 07/28/24 07:53 Dose: 50 ml Glucagon (Glucagon Inj 1 Mg Vial) 1 mg IM Q15MIN PRN PRN Reason: BG <70, and no IV access Heparin Sodium (Porcine) (Heparin Sod Inj 1000 Unit/Ml Vial 10 Ml) 4,000 unit INDWELLCAT X1 PRN PRN Reason: DIALYSIS Stop: 08/13/24 09:38 Last Admin: 07/30/24 12:09 Dose: 4,000 unit Heparin Sodium/Dextrose (Heparin In D5w Ivpb) 25,000 unit in 250 mls @ 13.749 mls/hr IV .[id number] [facility]; Protocol Stop: 08/12/24 00:29 Last Titration: 07/31/24 15:19 Dose: 18 units/kg/hr, 13.749 mls/hr Albumin Human (Albuminar-25 Ivpb) 25 gm in 100 mls @ 100 mls/hr IV PRN PRN PRN Reason: DIALYSIS Last Admin: 07/30/24 10:52 Dose: 100 mls/hr Gentamicin Sulfate/Sodium Chloride (Gentamicin/Ns 120 Mg Ivpb) 120 mg in 100 mls @ 200 mls/hr IV X1 ONE Stop: 07/31/24 17:14 Losartan Potassium (Losartan Potassium 25 Mg Tablet) 100 mg PO QDAY [facility] Stop: 08/30/24 08:59 Last Admin: 07/31/24 08:12 Dose: 100 mg Midodrine (Midodrine 5 Mg Tablet) 5 mg PO TID PRN PRN Reason: if MAP <65 Stop: 08/27/24 01:44 Ondansetron HCl (Ondansetron Inj 2 Mg/Ml Inj 2 Ml) 4 mg IV Q6H PRN; Protocol PRN Reason: NAUSEA OR VOMITING Stop: 08/26/24 20:36 Pharmacy Consult (Pharmacy To Dose Gentamicin) 1 each IV QDAY [facility] Stop: 08/31/24 08:59 Sevelamer Carbonate (Sevelamer Carbonate 800 Mg Tablet) 800 mg PO TIDWMEAL [facility] Stop: 08/27/24 07:59 Last Admin: 07/31/24 12:49 Dose: 800 mg Sodium Bicarbonate (Sodium Bicarbonate 650 Mg Tablet) 1,300 mg PO BID [facility] Stop: 08/27/24 08:59 Last Admin: 07/31/24 08:13 Dose: 1,300 mg Discontinued Medications Acetaminophen (Acetaminophen 325 Mg Tablet) 650 mg PO Q6H PRN PRN Reason: Fever >101.5 Stop: 08/26/24 20:36 Last Admin: 07/27/24 20:54 Dose: 650 mg Amlodipine Besylate (Amlodipine Besylate 2.5 Mg Tablet) 2.5 mg PO QDAY [facility] Stop: 08/29/24 14:14 Last Admin: 07/30/24 16:36 Dose: Not Given Velphoro ( Sucroferric Oxyhydroxide) 500 Mg Chewable Tablets 0 ea PO TIDWM [facility] Stop: 08/27/24 14:29 Last Admin: 07/28/24 14:24 Dose: 1 chew Dextrose (Dextrose 50%-Water Inj 50 Ml Syringe) 50 ml IV X1 ONE Stop: 07/27/24 10:42 Last Admin: 07/27/24 10:42 Dose: 50 ml Dextrose (Dextrose 50%-Water Inj 50 Ml Syringe) 50 ml IV X1 ONE Stop: 07/27/24 20:43 Last Admin: 07/27/24 20:57 Dose: 50 ml Dextrose (Dextrose 50%-Water Inj 50 Ml Syringe) 50 ml IV X1 ONE Stop: 07/28/24 03:48 Last Admin: 07/28/24 04:01 Dose: 50 ml Gabapentin (Gabapentin 100 Mg Capsule) 100 mg PO X1 ONE Stop: 07/29/24 22:53 Last Admin: 07/29/24 23:54 Dose: Not Given Heparin Sodium (Porcine) (Heparin Sod Inj 5000 Unit/Ml Vial) 5,000 unit SC Q8HR [facility] Stop: 07/29/24 00:24 Last Admin: 07/28/24 20:15 Dose: 5,000 unit Heparin Sodium (Porcine) (Heparin Sod Inj 5000 Unit/Ml Vial) 6,100 unit 80 unit/kg (6100 unit) IV X1 ONE; Protocol Stop: 07/29/24 00:25 Last Admin: 07/29/24 01:50 Dose: 6,100 unit Heparin Sodium (Porcine) (Heparin Sod Inj 5000 Unit/Ml Vial) 3,050 unit 40 unit/kg (3050 unit) IV X1 ONE; Protocol Stop: 07/29/24 00:25 Last Admin: 07/29/24 23:54 Dose: Not Given Heparin Sodium (Porcine) (Heparin Sod Inj 1000 Unit/Ml Vial) 4,000 unit IVP X1 ONE Stop: 07/30/24 08:43 Last Admin: 07/30/24 08:59 Dose: Not Given Heparin Sodium (Porcine) (Heparin Sod Inj 5000 Unit/Ml Vial) 4,000 unit IVP X1 ONE Stop: 07/30/24 09:01 Last Admin: 07/30/24 09:04 Dose: 4,000 unit Heparin Sodium (Porcine) (Heparin Sod Inj 1000 Unit/Ml Vial 10 Ml) 1,500 unit IV X1 ONE Stop: 07/30/24 10:01 Last Admin: 07/30/24 09:37 Dose: 1,500 unit Heparin Sodium (Porcine) (Heparin Sod Inj 5000 Unit/Ml Vial) 3,100 unit IVP X1 ONE Stop: 07/31/24 08:30 Last Admin: 07/31/24 08:44 Dose: 3,100 unit Heparin Sodium (Porcine) (Heparin Sod Inj 5000 Unit/Ml Vial) 3,100 unit IV X1 ONE Stop: 07/31/24 15:31 Last Admin: 07/31/24 15:52 Dose: 3,100 unit Vancomycin HCl 1,000 mg/ (Sodium Chloride) 250 mls @ 150 mls/hr IV X1 ONE Stop: 07/27/24 18:04 Last Infusion: 07/27/24 19:50 Dose: Infused Piperacillin/Tazobactam/Dextrose (Zosyn) 3.375 gm in 50 mls @ 100 mls/hr IV X1 ONE Stop: 07/27/24 16:54 Last Infusion: 07/27/24 19:50 Dose: Infused Dextrose (D10w 1000 Ml) 1,000 mls @ 100 mls/hr IV .Q10H [facility] Stop: 07/28/24 02:29 Last Admin: 07/28/24 01:25 Dose: Not Given Sodium Chloride (Ns) 500 mls @ 999 mls/hr IV .Q31M ONE Stop: 07/27/24 17:03 Last Infusion: 07/27/24 19:50 Dose: Infused Sodium Chloride (Ns) 500 mls @ 999 mls/hr IV .Q31M ONE Stop: 07/27/24 20:33 Last Infusion: 07/27/24 21:30 Dose: Infused Lactated Ringer's (Lactated Ringers) 500 mls @ 999 mls/hr IV .Q31M ONE Stop: 07/27/24 21:13 Last Admin: 07/27/24 21:14 Dose: Not Given Lactated Ringer's (Lactated Ringers) 1,000 mls @ 999 mls/hr IV .Q1H1M ONE Stop: 07/27/24 21:43 Last Infusion: 07/27/24 22:15 Dose: Infused Piperacillin/Tazobactam/Dextrose (Zosyn) 50 mls @ 12.5 mls/hr IV Q12HR [facility] Stop: 08/04/24 08:59 Last Admin: 07/31/24 09:00 Dose: Not Given Lactated Ringer's (Lactated Ringers) 500 mls @ 999 mls/hr IV .Q31M [facility] Stop: 07/27/24 22:48 Last Infusion: 07/27/24 23:11 Dose: Infused Sodium Chloride (Ns) 250 mls @ 999 mls/hr IV .Q16M ONE Stop: 07/28/24 10:51 Last Infusion: 07/28/24 18:49 Dose: Infused Vancomycin/Sodium Chloride (Vancomycin/Ns 1 Gm Ivpb) 200 mls @ 120 mls/hr IV X1 ONE Stop: 07/29/24 11:39 Last Admin: 07/29/24 10:37 Dose: Not Given Calcium Gluconate/Sodium Chloride (Calcium Gluc/Ns 1000mg Ivpb) 1,000 mg in 50 mls @ 50 mls/hr IV X1 ONE Stop: 07/29/24 08:44 Last Admin: 07/29/24 09:33 Dose: Not Given Midodrine (Midodrine 5 Mg Tablet) 10 mg PO X1 ONE Stop: 07/27/24 22:19 Last Admin: 07/27/24 22:30 Dose: 10 mg Home Medication- Please Speak With Patient Caregiver To Have Rx Brought To [facility] 500 mg PO TID [facility] Stop: 08/27/24 05:59 Last Admin: 07/28/24 15:19 Dose: Not Given Pharmacy Consult (Vancomycin Pharmacy To Dose 1 Each Each) 1 each IV QDAY PRN PRN Reason: CONSULT Stop: 08/27/24 08:59 Phenyleph/Shark Oil/Min Oil/Petrol (Preparation H Oint 30 Gm Tube) 1 gm MT X1 ONE Stop: 07/30/24 20:07 Last Admin: 07/30/24 20:35 Dose: 1 applicatio Assessment & Plan Plan #ESBL bacteremia Leukopenia 3.6, cultures grow ESBL E. coli, cocci serology was negative, hepatitis panel negative, COVID 19, RSV, influenza were negative We will recommend: ? Discontinue Zosyn ? Started gentamicin pharmacy to dose ? Continue gentamicin for 14 days starting from his first negative blood culture ? Repeat blood cultures tomorrow a.m. Patient discussed with my attending Dr Sabra Garland MD PGY-3 Disclaimer: Despite multiple revisions, due to the dictation software being used, the document bellow may not be free of grammatical errors including phonetic/typographic errors. However, this does not deter from our commitment to providing health care in the patient's best interest in mind.
[2024-07-31] MEDS: GENTAMICIN/NS 120 MG IVPB 120 MG/100 ML BAG 200 MG IV (17:52)
--- NOTE | 2024-07-31 19:19 | ESCONSULT_ITS ---
RE: JANET CHRISTIANSON : 1965 DATE OF CONSULTATION: 07/31/2024 REFERRING PHYSICIAN: Dr. Spencer. REASON FOR CONSULTATION: Bacteremia with ESBL E. coli. HISTORY OF PRESENT ILLNESS: The patient is an unfortunate 59-year-old man. He is a poor historian. So, history is obtained primarily from the record. He is awake and alert, but cannot offer any kind of a good history. So, we obtained history mostly from the record. He had a renal transplant in 2018 at [facility]. It failed at some point a couple of years ago. He has polycystic kidney disease according to record. He has also history of preserved ejection fraction and heart failure and metabolic acidosis, for which he is on medications. CURRENT MEDICATIONS: He is also on antihypertensive t.i.d. and phosphorus med t.i.d. PAST SURGICAL HISTORY: Include dialysis access procedures, renal txp and presumably removal. He also had a pacemaker placement in the past due to relative bradycardia. ALLERGIES: NONE NOTED. IMMUNIZATIONS: Unavailable. FAMILY HISTORY: Noncontributory. SOCIAL HISTORY: Similarly limited. PHYSICAL EXAMINATION: Pleasant gentleman who is not ill-appearing. He had a brief fever on admission, but that seems to have quickly abated. his coci test is positive. He appears to have improved on Zosyn, which is appropriate, but is not a very good med to give in dialysis. Repeat blood sugar survey had to be obtained. I will get some tomorrow morning. RECOMMENDATIONS: He will probably go home tomorrow on gentamicin with pharmacy dosing. I have taken the liberty to stopping the Zosyn and changing him to gentamicin. Hopefully that will allow him to go home to finish treatment as an outpatient. Please follow advice in the record. The gentamicin will do for 14 days from his first negative blood culture hence we are repeating the blood cultures tomorrow. if those bc are neg tomorrow, rx will be through 08/14/2024 routine dialysis labs are probably sufficient for monitoring. You can check a CBC, renal panel, sed rate once a week if you would like, but the duration of treatment is so short, it is probably not prudent to bother with much in the way of labs. DT: 16:56:42 TT: 17:24:00 Ref: [id number] - TID: [id number] MTDD
[2024-07-31] MEDS: Heparin/D5w 25K 250 ML Ivpb 25,000 UNIT/250 ML BAG 13.749 UNIT IV (20:32)
[2024-08-01] VITALS (26 sets, daily range): BP systolic 94–160; BP diastolic 54–108; PULSE 72–105; RESP 12–97; TEMP 36–36.8; O2SAT 99–100; BMI 23.3
[2024-08-01 05:41] LABS: Basophils % (Auto) 1 % (0-2.5); Eosinophils # (Auto) 0.2 Thou/mm3 (0.0-0.5); Eosinophils % (Auto) 4 % (0-10); Hematocrit 37.3 % (41.0-53.0); Hemoglobin 11.8 g/dL (13.5-16.0); Immature Granulocytes % (Auto) 2 % (0-0); Immature Granulocytes Auto 0.07 Thou/mm3 (0.00-0.00); Lymphocytes # (Auto) 0.8 Thou/mm3 (1.0-4.8); Lymphocytes % (Auto) 19 % (10-50); Mean Corpuscular HGB Conc 31.6 g/dl (31.0-37.0); Mean Corpuscular Hemoglobin 28.9 pg (25.0-35.0); Mean Corpuscular Volume 91 fL (80-100); Monocytes # (Auto) 0.4 Thou/mm3 (0.0-0.8); Monocytes % (Auto) 11 % (0-12); Neutrophils # (Auto) 2.6 Thou/mm3 (1.8-7.7); Neutrophils % (Auto) 64 % (37-80); Nucleated Red Blood Cell % 0 /100 WBC (0); Platelet Count 112 Thou/mm3 (140-440); RDW Standard Deviation 53.5 fL (35.1-43.9); Red Blood Count 4.09 Miln/mm3 (4.50-5.90); White Blood Count 4.1 Thou/mm3 (3.8-10.6)
[2024-08-01 06:02] LABS: Partial Thromboplastin Time 46.7 Seconds (22.0-36.0)
[2024-08-01 06:36] LABS: Alanine Aminotransferase 11 U/L (10-49); Albumin, Serum 3.2 gm/dL (3.4-4.8); Albumin/Globulin Ratio 1.1 (1.2-2.2); Alkaline Phosphatase 73 U/L (46-116); Anion Gap 11 (7-16); BUN/Creatinine Ratio 6 Ratio (12-20); Bilirubin,Total 0.3 mg/dL (0.3-1.2); Blood Urea Nitrogen 52 mg/dL (9-23); Calcium 8.9 mg/dL (8.3-10.6); Calcium (Corrected) 9.5 mg/dL (8.5-10.1); Carbon Dioxide 27.2 mMol/L (20.0-31.0); Chloride 95 mMol/L (98-107); Creatinine (Component) 8.6 mg/dL (0.6-1.3); Estimated Creatinine Clearance 9.9 mL/min (>60); Glucose 70 mg/dL (74-106); Magnesium 2.2 mg/dL (1.6-2.6); Osmolality,Calculated 278 (275-295); Phosphorous 4.7 mg/dL (2.4-5.1); Potassium 4.5 mMol/L (3.4-5.1); Sodium 133 mMol/L (136-145); Total Protein 6.2 gm/dL (5.7-8.2); eGFR 6 See Note
[2024-08-01 06:53] LABS: Aspartate Amino Transferase 10 U/L (0-34)
[2024-08-01] MEDS: HEPARIN SOD INJ 5000 UNIT/ML VIAL 3200 UNIT IVP (07:41)
--- NOTE | 2024-08-01 07:47 | PC.NURSE ---
patient to hemodialysis.
--- NOTE | 2024-08-01 08:21 | PD.RESPRO ---
Documentation for date of: 08/01/24 Subjective Subjective Interval history: 07/29/2024: Pt examined at bedside today. No acute overnights on telemetry, patient is rate controlled in the 70s. He reports he is doing fine. By expensing any chest pain or palpitations. Denies having any shortness of breath. He was found to have a DVT in his right subclavian vein no started on heparin drip. Patient's BUN/creatinine 51 8.9, potassium 4.6, potassium 2.1, phosphorus 5. Dialysis scheduled for Monday. Patient's blood pressure has been soft, has not been able to resume GDMT therapy at this time. Will continue with medical management, no other complaints at this time. 07/30/2024: Pt examined at bedside today. No acute overnight events on telemetry. He was seen today after dialysis. He reports he is doing well and is not experiencing any chest pain or palpitations, nor experiencing any SOB. He is still continuing heparin drip for DVT in his R subclavian vein. Pt's BUN/Cr 61 and 10.2 respectively, potassium 5, phos 4.8 and mg 2.3. During diaylsis they were able to remove 2L today. He was found to have ESBL E coli, will continue with Zoysn. We recommend to continue with GDMT therapy as he tolerates as he has been a bit low throughout this admission. 07/31/2024: No acute overnight events on telemetry, rate seems to be in the 80s and 90s. Reports he is doing well, feels a bit short of breath but no other complaints. Denies having chest pain or palpitations. He is aware that he has an infection in his blood. His BUN/creatinine was 41 and 7.6 respectively, potassium 4.5, magnesium 2.1, phosphorus 4.8. White count 3.6, hemoglobin 11.0. 08/01/2024: Pt examined at bedside dialysis today. Telemetry reviewed, seems to be rate controlled in 90s with occassional PVCs. Patient reports that he feels a bit weak during dialysis but he feels okay right now. Denies any chest pain or palpitations at this time continuing with current management. Blood pressure has been 120 systolic and is tolerating Coreg and losartan. BUN/creatinine 5020.6 respectively, potassium 4.5, magnesium 2.2, phosphorus 0.7, white count 4.1, hemoglobin 9.8. Will continue current management. Patient was given 120 mg of gentamicin and will continue be renally dosed. Had dialysis 2.5 L removed. Exam Vital Signs Temp Pulse Resp BP Pulse Ox O2 Del Method O2 Flow Rate 97.7 F 88 18 160/82 H 100 Nasal Cannula 1 08/01/24 08:09 08/01/24 08:18 08/01/24 08:09 08/01/24 08:18 08/01/24 08:09 08/01/24 04:00 08/01/24 08:09 Narrative Exam General: AAOx3, NAD, pleasant male, developmentally delayed HEENT: Moist mucous membranes, conjunctiva clear, EOMI, PERRLA, poor dentition Cardiovascular: Pansystolic murmur heard in left lower sternal border, RRR, L sided TDC present Pulmonary: CTAB bilat no cough, no wheezing GI: No tenderness to light or deep palpitation, no guarding, rigidity, rebound tenderness or distension Extremities: No presence of trace or pitting edema in lower extremities bilaterally, dorsalis pedis pulses +2 bilaterally, AV fistula in L arm Neuro: AAOx3, no focal motor or sensory deficits in the UE or LE bilat Psych: Cooperative Objective Labs 08/01/24 04:41 08/01/24 04:41 Labs: Laboratory Results - last 24 hr 07/31/24 07/31/24 08/01/24 06:20 13:38 04:41 WBC 4.1 RBC 4.09 L Hgb 11.8 L Hct 37.3 L MCV 91 MCH 28.9 MCHC 31.6 RDW Std Deviation 53.5 H Plt Count 112 L Neut % (Auto) 64 Lymph % (Auto) 19 [place] % (Auto) 11 Eos % (Auto) 4 Baso % (Auto) 1 Neut # (Auto) 2.6 Lymph # (Auto) 0.8 L [place] # (Auto) 0.4 Eos # (Auto) 0.2 Baso # (Auto) 0.0 Immature Gran # (Auto) 0.07 H Absolute Nucleated RBC 0.00 Immature Gran % 2 H Nucleated RBC % 0 PT 11.3 INR 1.0 APTT 40.2 H D 39.1 H 46.7 H Sodium 133 L Potassium 4.5 Chloride 95 L Carbon Dioxide 27.2 Anion Gap 11 BUN 52 H Creatinine 8.6 H* D Estim Creat Clear Calc 9.9 L eGFR 6 L* BUN/Creatinine Ratio 6 L Glucose 70 L Calculated Osmolality 278 Calcium 8.9 Corrected Calcium 9.5 Phosphorus 4.7 Magnesium 2.2 Total Bilirubin 0.3 AST 10 ALT 11 Alkaline Phosphatase 73 Total Protein 6.2 Albumin 3.2 L Globulin 3.0 Albumin/Globulin Ratio 1.1 L ABG Interpretation ABG results: 07/27/24 10:52 VBG pH 7.21 L VBG pCO2 52 VBG pO2 38 VBG Base Excess -7 L Quality Measures Quality Measures sepsis Current suspected stage: sepsis Possible source: unknown Blood cultures ordered: yes Antibiotic ordered: Yes Assessment & Plan Assessment Current Active Medications: Generic Name Dose Route Start Last Admin Trade Name Freq PRN Reason Stop Dose Admin Acetaminophen 650 mg 07/28/24 09:36 Acetaminophen 325 Mg Tablet PO 08/26/24 20:36 Q6H PRN Fever >100.3 Aspirin 81 mg 07/28/24 09:00 07/31/24 08:12 Aspirin Ec 81 Mg Tabec PO 08/27/24 08:59 81 mg QDAY ANTONIA Administration Carvedilol 25 mg 07/30/24 21:00 07/31/24 20:31 Carvedilol 12.5 Mg Tablet PO 08/29/24 20:59 25 mg BID ANTONIA Administration Velphoro ( 0 ea 07/29/24 08:00 07/31/24 17:55 Sucroferric PO 08/28/24 07:59 2 chew Oxyhydroxide) 500 Mg TIDWM ANTONIA Administration Chewable Tablets Dextrose 25 ml 07/27/24 22:52 07/30/24 08:31 Dextrose 50%-Water Inj 50 Ml Syringe IV 08/26/24 22:51 25 ml Q15MIN PRN Administration BG 50-70 responsive npo pt Dextrose 50 ml 07/27/24 22:52 07/28/24 07:53 Dextrose 50%-Water Inj 50 Ml Syringe IV 08/26/24 22:51 50 ml Q15MIN PRN Administration BG <50 OR BG <70 & pt unresponsive Glucagon 1 mg 07/27/24 22:52 Glucagon Inj 1 Mg Vial IM Q15MIN PRN BG <70, and no IV access Heparin Sodium (Porcine) 4,000 unit 07/30/24 09:39 07/30/24 12:09 Heparin Sod Inj 1000 Unit/Ml Vial 10 Ml INDWELLCAT 08/13/24 09:38 4,000 unit X1 PRN Administration DIALYSIS Heparin Sodium/Dextrose 25,000 unit in 250 mls @ 13.749 mls/hr 07/29/24 00:30 08/01/24 07:28 Heparin In D5w Ivpb IV 08/12/24 00:29 26.18 units/kg/hr .[id number] ANTONIA 20 mls/hr Titration Protocol 18 UNITS/KG/HR Albumin Human 25 gm in 100 mls @ 100 mls/hr 07/30/24 10:50 07/30/24 10:52 Albuminar-25 Ivpb IV 100 mls/hr PRN PRN Administration DIALYSIS Gentamicin Sulfate 160 mg/ 104 mls @ 208 mls/hr 08/01/24 18:00 Sodium Chloride IV 08/08/24 17:59 TUTHSA ANTONIA Protocol Losartan Potassium 100 mg 07/31/24 09:00 07/31/24 08:12 Losartan Potassium 25 Mg Tablet PO 08/30/24 08:59 100 mg QDAY ANTONIA Administration Midodrine 5 mg 07/28/24 01:33 Midodrine 5 Mg Tablet PO 08/27/24 01:44 TID PRN if MAP <65 Ondansetron HCl 4 mg 07/27/24 20:37 Ondansetron Inj 2 Mg/Ml Inj 2 Ml IV 08/26/24 20:36 Q6H PRN NAUSEA OR VOMITING Protocol Pharmacy Consult 1 each 08/01/24 09:00 Pharmacy To Dose Gentamicin IV 08/31/24 08:59 QDAY ANTONIA Sevelamer Carbonate 800 mg 07/28/24 08:00 07/31/24 17:54 Sevelamer Carbonate 800 Mg Tablet PO 08/27/24 07:59 800 mg TIDWMEAL ANTONIA Administration Sodium Bicarbonate 1,300 mg 07/28/24 09:00 07/31/24 20:32 Sodium Bicarbonate 650 Mg Tablet PO 08/27/24 08:59 1,300 mg BID ANTONIA Administration Plan Assessment Casey is a 59 y/o male with PMHx of essential HTN, CAD, HFrEF with systolic dysfunction and wall motion abnormalities (EF 35-40%), single-lead AICD ([employer] s/p replacement by Dr. Zamudio in May 2024), ESRD on HD () renal transplant [address] [facility], developmental delay, chronic anemia secondary to ESRD, internal hemorrhoids, diverticulosis and esophageal ulcers #History of mild to moderate CAD with 40 to 50% stenosis of RCA #NSTEMI type II, likely related to demand ischemia, resolved #History of HFrEF with systolic dysfunction and wall motion normalities, EF 35 to 40% #Nonischemic cardiomyopathy #Hx of AICD replacement (05/2024) Troponins have down trended from 1.88 till 1.81 Echo in April 2024 showed Normal LV size. Moderate LVH. Moderate LV systolic dysfunction with global hypokinesis, Estimated EF 35-40%. Mild RV dilatation. Normal RV function. Estimated RVSP 49mmHg. RAP 15. Moderate PAH. Pacing wire present. Moderate AV sclerosis without sclerosis. Vmax 2.3 m/s and Mean PG of 10 mm hg. Mild MR. Moderate TR. Moderate PAH. There is anterior trivial pericardial effusion. No evidence of cardiac tamponde. Last cardiac cath done in 2011, do not have reports at this time, based of history Pt tolerated dialysis today Plan: ? Continue with ASA ? Currently on Coreg 25 mg twice daily and losartan 100 mg ? Keep magnesium and potassium above 2 and 4 respectively ? Continue with dialysis schedule #History of hypertension Has Coreg, hydralazine, losartan and nifedipine as his blood pressure medicines at home Plan: ? Coreg and losartan as above #Sepsis 2/2 likely to catheter related bloodstream infection #Acute hypoxic respiratory failure Had 4 out of 4 SIRS criteria, source at this time believed to be dialysis catheter Patient started on broad-spectrum antibiotics and has received fluid bolus (2.5 L) in ED Blood cultures show ESBL E coli It appears that gentamicin was dosed 1.5 mg/kg Plan: ? Management by primary team ? Gentamicin started by infectious disease team, given 120 mg yesterday ? Renally dosed gentamicin #Hypoglycemia #ESRD on HD [] #Polycystic kidney disease status post renal transplant which is failed hence back on hemodialysis #Mild iron deficiency anemia #Mild thrombocytopenia Above management primary hospitalist team Patient seen and care discussed with my attending physician, Dr. Lori Garcia, PGY-1 Attending Provider Attestation/Addendum I have personally seen and examined the patient separately on the above date of service and discussed the plan of care with the resident. I reviewed the resident Dr. Mitchell consultation progress note and agree with the resident findings and plan in the note above and have also edited the documentation to reflect my findings and plan. Lewis Sandoval M.D. Interventional Cardiology
--- NOTE | 2024-08-01 08:34 | ESPR_ITS ---
Documentation for date of: 08/01/24 Subjective Subjective Interval history: Casey Montogmery is a 59-year-old -[place] gentleman with past medical history of developmental delay, hypertension, polycystic kidney disease, s/p renal transplant on 12/02/2017 at [facility] that failed and now back on HD since 08/2023 () under Dr. Lerma, HFpEF (EF 55 to 60%), bradycardia s/p ICD placement in 2011, s/p replacement of single-chamber AICD on 05/05/2024 for depleted battery, and diverticulosis who was sent from dialysis unit with a chief complaint of significant weakness and sleep problems. In ED patient was noted to have hypoglycemia with a glucose of 20. D50 was given. Also noted to have fever. Patient has AV fistula which is nonfunctioning and is currently receiving dialysis through right IJ PermCath. In ED, vital signs showed BP 117/76, HR 71, T 97.8 F, on 2 L NC. WBC 15, hemoglobin 12.8, platelets 134, BUN 28, creatinine 6.4, lactic acid 3.4, troponin 1.88, BNP 751, Pro-Oswald 81. CXR showed no pneumonia. EKG showed ectopy. Given 500 cc NS bolus, Zosyn, and vancomycin. Admitted for sepsis possibly due to catheter-related blood stream infection. Nephrology consulted for ESRD on HD (). 07/29: Patient currently seen in telemetry. Still having some cough. Denies any chest pain. Does have some shortness of breath. Medications/labs reviewed. WBC 5.5, hemoglobin 11.2, platelets 106. Sodium 132, potassium 4.6, bicarbonate 25, BUN 51, creatinine 8.9, calcium 8.3, phosphorus 5, LFTs normal, albumin 3, venous Doppler lower extremity positive for DVT on the right arm. Patient has left IJ dialysis catheter. 07/30: Patient seen and examined while undergoing dialysis, tolerating well. No acute overnight events reported does not currently have any complaints. Hemoglobin stable at 11.7, WBC within normal limits, platelets 110. Na noted to downtrend throughout hospital stay, currently down to 130. BUN 61 and creatinine 10.2 (prior to dialysis), calcium/magnesium/phosphorus within normal limits. 07/31: Seen and examined at bedside in telemetry, resting comfortably. No acute overnight events reported. Blood cultures positive for E. coli in 1/2 bottles, still pending final culture results of second bottle. No spikes fevers and WBC 3.6. Continues to be on heparin drip for DVT in right subclavian vein, which swelling appears to be improved. Na 133, K wnl, BUN 41, Cr 7.6. Ca/Mg/Phos wnl. Recommend soft fluid restriction of 2 L/day. 08/01: Seen and examined at bedside in telemetry, resting comfortably. No acute overnight events reported. Infectious disease on board and ordered repeat blood cultures today. Also currently on gentamicin with pharmacy dosing for 14 days from first negative blood culture. Otherwise, will plan for hemodialysis today. Exam Vital Signs Temp Pulse Resp BP Pulse Ox O2 Del Method O2 Flow Rate 97.7 F 83 18 155/76 H 100 Nasal Cannula 1 08/01/24 08:09 08/01/24 08:30 08/01/24 08:09 08/01/24 08:30 08/01/24 08:09 08/01/24 04:00 08/01/24 08:09 Narrative Exam General: AOx3, no acute distress, lying comfortably in bed HEENT: NC/AT, mucous membranes moist, bilateral sclera anicteric Cardiovascular: regular rate and rhythm, S1/S2 present, no murmurs appreciated Pulmonary: bilateral wheezing appreciated on auscultation Abdominal: soft, non-tender, non-distended, no rebound/guarding, normal bowel sounds present Musculoskeletal: swelling in RUE, no lower extremity edema Skin: warm and dry, intact, no rashes Objective Labs 08/01/24 04:41 08/01/24 04:41 Labs: Laboratory Results - last 24 hr 07/31/24 08/01/24 13:38 04:41 WBC 4.1 RBC 4.09 L Hgb 11.8 L Hct 37.3 L MCV 91 MCH 28.9 MCHC 31.6 RDW Std Deviation 53.5 H Plt Count 112 L Neut % (Auto) 64 Lymph % (Auto) 19 [place] % (Auto) 11 Eos % (Auto) 4 Baso % (Auto) 1 Neut # (Auto) 2.6 Lymph # (Auto) 0.[address] [place] # (Auto) 0.4 Eos # (Auto) 0.2 Baso # (Auto) 0.0 Immature Gran # (Auto) 0.07 H Absolute Nucleated RBC 0.00 Immature Gran % 2 H Nucleated RBC % 0 APTT 39.1 H 46.7 H Sodium 133 L Potassium 4.5 Chloride 95 L Carbon Dioxide 27.2 Anion Gap 11 BUN 52 H Creatinine 8.6 H* D Estim Creat Clear Calc 9.9 L eGFR 6 L* BUN/Creatinine Ratio 6 L Glucose 70 L Calculated Osmolality 278 Calcium 8.9 Corrected Calcium 9.5 Phosphorus 4.7 Magnesium 2.2 Total Bilirubin 0.3 AST 10 ALT 11 Alkaline Phosphatase 73 Total Protein 6.2 Albumin 3.2 L Globulin 3.0 Albumin/Globulin Ratio 1.1 L ABG Interpretation ABG results: 07/27/24 10:52 VBG pH 7.21 L VBG pCO2 52 VBG pO2 38 VBG Base Excess -7 L Quality Measures Quality Measures sepsis Current suspected stage: ruled out Possible source: unknown Blood cultures ordered: yes Antibiotic ordered: Yes Assessment & Plan Assessment Current Active Medications: Generic Name Dose Route Start Last Admin Trade Name Freq PRN Reason Stop Dose Admin Acetaminophen 650 mg 07/28/24 09:36 Acetaminophen 325 Mg Tablet PO 08/26/24 20:36 Q6H PRN Fever >100.3 Apixaban 10 mg 08/01/24 09:00 Apixaban 2.5 Mg Tablet PO 08/07/24 21:01 BID ANTONIA Aspirin 81 mg 07/28/24 09:00 07/31/24 08:12 Aspirin Ec 81 Mg Tabec PO 08/27/24 08:59 81 mg QDAY ANTONIA Administration Carvedilol 25 mg 07/30/24 21:00 07/31/24 20:31 Carvedilol 12.5 Mg Tablet PO 08/29/24 20:59 25 mg BID ANTONIA Administration Velphoro ( 0 ea 07/29/24 08:00 07/31/24 17:55 Sucroferric PO 08/28/24 07:59 2 chew Oxyhydroxide) 500 Mg TIDWM ANTONIA Administration Chewable Tablets Dextrose 25 ml 07/27/24 22:52 07/30/24 08:31 Dextrose 50%-Water Inj 50 Ml Syringe IV 08/26/24 22:51 25 ml Q15MIN PRN Administration BG 50-70 responsive npo pt Dextrose 50 ml 07/27/24 22:52 07/28/24 07:53 Dextrose 50%-Water Inj 50 Ml Syringe IV 08/26/24 22:51 50 ml Q15MIN PRN Administration BG <50 OR BG <70 & pt unresponsive Glucagon 1 mg 07/27/24 22:52 Glucagon Inj 1 Mg Vial IM Q15MIN PRN BG <70, and no IV access Albumin Human 25 gm in 100 mls @ 100 mls/hr 07/30/24 10:50 07/30/24 10:52 Albuminar-25 Ivpb IV 100 mls/hr PRN PRN Administration DIALYSIS Gentamicin Sulfate 160 mg/ 104 mls @ 208 mls/hr 08/01/24 18:00 Sodium Chloride IV 08/08/24 17:59 TUTHSA ANTONIA Protocol Losartan Potassium 100 mg 07/31/24 09:00 07/31/24 08:12 Losartan Potassium 25 Mg Tablet PO 08/30/24 08:59 100 mg QDAY ANTONIA Administration Midodrine 5 mg 07/28/24 01:33 Midodrine 5 Mg Tablet PO 08/27/24 01:44 TID PRN if MAP <65 Ondansetron HCl 4 mg 07/27/24 20:37 Ondansetron Inj 2 Mg/Ml Inj 2 Ml IV 08/26/24 20:36 Q6H PRN NAUSEA OR VOMITING Protocol Pharmacy Consult 1 each 08/01/24 09:00 Pharmacy To Dose Gentamicin IV 08/31/24 08:59 QDAY ANTONIA Sevelamer Carbonate 800 mg 07/28/24 08:00 07/31/24 17:54 Sevelamer Carbonate 800 Mg Tablet PO 08/27/24 07:59 800 mg TIDWMEAL ANTONIA Administration Sodium Bicarbonate 1,300 mg 07/28/24 09:00 07/31/24 20:32 Sodium Bicarbonate 650 Mg Tablet PO 08/27/24 08:59 1,300 mg BID ANTONIA Administration Plan Casey Montgomery is a 59-year-old -[place] gentleman with past medical history of developmental delay, hypertension, polycystic kidney disease, s/p renal transplant on 12/02/2017 at [facility] that failed and now back on HD since 08/2023 () under Dr. Lerma, HFpEF (EF 55 to 60%), bradycardia s/p ICD placement in 2011, s/p replacement of single-chamber AICD on 05/05/2024 for depleted battery, and diverticulosis who was admitted for sepsis possibly due to catheter-related blood stream infection. Nephrology consulted for ESRD on HD (/). #ESRD (/) secondary to failed transplant Has been on dialysis for 1 year under the care of Dr. Lerma. Underwent dialysis yesterday and tolerated well. ? Continue outpatient dialysis regimen of //Mon ? Renally dose medications ? Avoid nephrotoxic agents ? Hold off on removing dialysis catheter while pending official culture results #Hyponatremia, likely secondary to renal failure/ESRD Serum osm within normal limits, but glucose also within normal limits and unlikely pseudohyponatremia/artifact (i.e. hyperlipidemia, hyperproteinemia). Thus, most likely etiology would be renal failure. Improving on fluid restriction only. Patient states that he does not make urine and so will not be able to do urine studies. Na remaining stable around 133 and recommend to continue current management. ? dialysis as above ? fluid restriction of 2 L/day, consider salt tablets if Na continues to downtrend #Sepsis, rule out catheter-related blood stream infection - blood cultures positive for GNR on Zosyn #Renal osteodystrophy #Right upper extremity DVT - on heparin drip #Essential hyertension - resume home blood pressure medications #Thrombocytopenia - possibly medication induced (BL platelets are 115) #Elevated troponin, secondary to underlying stress ? Continue management per primary team ----- Plan discussed with attending physician Dr. Micha Hua MD PGY-1 Internal Medicine Attending Provider Attestation/Addendum Patient seen and examined with resident physician Dr. De. Note reviewed, agree with findings and recommendations. Patient currently on oxygen. Did receive dialysis yesterday. Blood cultures positive for E. coli. Doubt catheter related bacteremia. No need to remove the catheter at this point. Repeat cultures ordered. On antibiotics. Noted Dr. Montaño recommended gentamicin 160 mg with dialysis for 2 weeks. Patient currently seen on dialysis. Tolerating dialysis without any problems. Hemodialysis for 3 hours, 2K, ultrafiltration 2-3 L, Epogen 6000, no heparin ordered. Plan of care discussed with the dialysis nurse. Please see dialysis flowsheet for further details.
--- NOTE | 2024-08-01 09:45 | PC.NURSE ---
bp trending down pt denies all s/s of hypotension will admin prn albumin per md orders and cont. to monitor
[2024-08-01] MEDS: ALBUMIN HUMAN 25% IVPB 25 GM/100 ML BTL IV (09:46)
[2024-08-01] MEDS: HEPARIN SOD INJ 1000 UNIT/ML VIAL 10 ML 4000 UNIT INDWELLCAT (11:50)
[2024-08-01] MEDS: ASPIRIN EC 81 MG TABEC PO (12:41)
[2024-08-01] MEDS: SEVELAMER CARBONATE 800 MG TABLET PO ×2 (12:42→17:10)
[2024-08-01] MEDS: LOSARTAN POTASSIUM 25 MG TABLET 100 MG PO (12:49)
--- NOTE | 2024-08-01 13:22 | ESPR_ITS ---
<Statement entered by Von Paniagua MD - 08/01/24 14:56> Patient was seen and examined at the bedside. Patient appears to be doing well and right upper extremity swelling has improved. ID specialist recommended to continue gentamicin once daily for total 14 days from first negative blood culture. Weekly CBC and renal panel recommended. We switched heparin drip to Eliquis. PT recommended home health orders. Will likely discharge him tomorrow once repeat blood cultures came negative. Recruitment And Outreach Assistant was updated regarding requirement of gentamicin due to E. coli bacteria and blood. Patient underwent dialysis per schedule. Home nifedipine was held given soft blood pressure during hospital stay. All labs and orders were reviewed. I saw and examined the patient, and I agree with current management stated by Dr Adrian MD,PGY1. Plan of care was discussed with the attending physician and resident physician. Disclaimer: Despite multiple revisions, due to the dictation software being used, the document bellow may not be free of grammatical errors including phonetic/typographic errors. However, this does not deter from our commitment to providing health care in the patient's best interest in mind. Dr. Arcelia MD, PGY 2 Documentation for date of: 08/01/24 Subjective Subjective Interval history: No overnight events. Patient seen and examined during dialysis. Patient resting comfortably, slightly lethargic. Denies fever, chills, shortness of breath, chest pain, arm pain. Transition to high-dose Eliquis. Repeat blood cultures drawn today and patient switched to gentamicin as per ID recs. Exam Vital Signs Temp Pulse Resp BP Pulse Ox O2 Del Method O2 Flow Rate 97.1 F 99 16 133/93 H 100 Nasal Cannula 1 08/01/24 13:00 08/01/24 13:08/01/24 13:08/01/24 13:00 08/01/24 11:45 08/01/24 04:00 08/01/24 11:45 Narrative Exam General: Awake. Lying comfortably on the bed HEENT: Normocephalic, atraumatic, mucous membranes moist. Heart: Regular rate and rhythm Lungs: Lungs clear to auscultation bilaterally. Abdomen: Soft, nondistended, nontender, positive bowel sounds. ?No guarding or rebound tenderness. Neurologic: Alert and oriented x3, no gross neurological deficit, and patient able to move all 4 extremities. Extremities: No edema. Fistulas in both upper extremities. Right upper extremity swollen, nonpitting, improved. Skin: No rash or ecchymoses. Objective Labs 08/01/24 04:41 08/01/24 04:41 Labs: Laboratory Results - last 24 hr 07/31/24 08/01/24 13:38 04:41 WBC 4.1 RBC 4.09 L Hgb 11.8 L Hct 37.3 L MCV 91 MCH 28.9 MCHC 31.6 RDW Std Deviation 53.5 H Plt Count 112 L Neut % (Auto) 64 Lymph % (Auto) 19 [place] % (Auto) 11 Eos % (Auto) 4 Baso % (Auto) 1 Neut # (Auto) 2.6 Lymph # (Auto) 0.8 L [place] # (Auto) 0.4 Eos # (Auto) 0.2 Baso # (Auto) 0.0 Immature Gran # (Auto) 0.07 H Absolute Nucleated RBC 0.00 Immature Gran % 2 H Nucleated RBC % 0 APTT 39.1 H 46.7 H Sodium 133 L Potassium 4.5 Chloride 95 L Carbon Dioxide 27.2 Anion Gap 11 BUN 52 H Creatinine 8.6 H* D Estim Creat Clear Calc 9.9 L eGFR 6 L* BUN/Creatinine Ratio 6 L Glucose 70 L Calculated Osmolality 278 Calcium 8.9 Corrected Calcium 9.5 Phosphorus 4.7 Magnesium 2.2 Total Bilirubin 0.3 AST 10 ALT 11 Alkaline Phosphatase 73 Total Protein 6.2 Albumin 3.2 L Globulin 3.0 Albumin/Globulin Ratio 1.1 L ABG Interpretation ABG results: 07/27/24 10:52 VBG pH 7.21 L VBG pCO2 52 VBG pO2 38 VBG Base Excess -7 L Quality Measures Quality Measures sepsis Current suspected stage: sepsis (Resolved) Possible source: unknown Blood cultures ordered: yes Antibiotic ordered: Yes Assessment & Plan Assessment Current Active Medications: Generic Name Dose Route Start Last Admin Trade Name Freq PRN Reason Stop Dose Admin Acetaminophen 650 mg 07/28/24 09:36 Acetaminophen 325 Mg Tablet PO 08/26/24 20:36 Q6H PRN Fever >100.3 Apixaban 10 mg 08/01/24 09:00 08/01/24 11:06 Apixaban 2.5 Mg Tablet PO 08/07/24 21:01 Not Given BID ANTONIA Aspirin 81 mg 07/28/24 09:00 08/01/24 12:41 Aspirin Ec 81 Mg Tabec PO 08/27/24 08:59 81 mg QDAY ANTONIA Administration Carvedilol 25 mg 07/30/24 21:00 08/01/24 11:06 Carvedilol 12.5 Mg Tablet PO 08/29/24 20:59 Not Given BID ANTONIA Velphoro ( 0 ea 07/29/24 08:00 08/01/24 11:06 Sucroferric PO 08/28/24 07:59 Not Given Oxyhydroxide) 500 Mg TIDWM [facility] Chewable Tablets Dextrose 25 ml 07/27/24 22:52 07/30/24 08:31 Dextrose 50%-Water Inj 50 Ml Syringe IV 08/26/24 22:51 25 ml Q15MIN PRN Administration BG 50-70 responsive npo pt Dextrose 50 ml 07/27/24 22:52 07/28/24 07:53 Dextrose 50%-Water Inj 50 Ml Syringe IV 08/26/24 22:51 50 ml Q15MIN PRN Administration BG <50 OR BG <70 & pt unresponsive Glucagon 1 mg 07/27/24 22:52 Glucagon Inj 1 Mg Vial IM Q15MIN PRN BG <70, and no IV access Heparin Sodium (Porcine) 4,000 unit 08/01/24 11:29 08/01/24 11:50 Heparin Sod Inj 1000 Unit/Ml Vial 10 Ml INDWELLCAT 08/15/24 11:28 4,000 unit PRN PRN Administration DIALYSIS Albumin Human 25 gm in 100 mls @ 100 mls/hr 07/30/24 10:50 08/01/24 09:46 Albuminar-25 Ivpb IV 100 mls/hr PRN PRN Administration DIALYSIS Gentamicin Sulfate 160 mg/ 104 mls @ 208 mls/hr 08/01/24 14:00 Sodium Chloride IV 08/08/24 13:59 TUTHSA [facility] Protocol Losartan Potassium 100 mg 07/31/24 09:00 08/01/24 12:49 Losartan Potassium 25 Mg Tablet PO 08/30/24 08:59 100 mg QDAY ANTONIA Administration Midodrine 5 mg 07/28/24 01:33 Midodrine 5 Mg Tablet PO 08/27/24 01:44 TID PRN if MAP <65 Ondansetron HCl 4 mg 07/27/24 20:37 Ondansetron Inj 2 Mg/Ml Inj 2 Ml IV 08/26/24 20:36 Q6H PRN NAUSEA OR VOMITING Protocol Pharmacy Consult 1 each 08/01/24 09:00 08/01/24 12:54 Pharmacy To Dose Gentamicin IV 08/31/24 08:59 Not Given QDAY ANTONIA Sevelamer Carbonate 800 mg 07/28/24 08:00 08/01/24 12:42 Sevelamer Carbonate 800 Mg Tablet PO 08/27/24 07:59 800 mg TIDWMEAL ANTONIA Administration Sodium Bicarbonate 1,300 mg 07/28/24 09:00 08/01/24 11:06 Sodium Bicarbonate 650 Mg Tablet PO 08/27/24 08:59 Not Given BID ANTONIA Plan 59 y/o M with past medical history of developmental delay, hypertension, polycystic kidney disease, s/p renal transplant on 12/02/2017 at [facility], ESRD on HD since aug 2023 (//MON), HFrEF 35 to 40%, bradycardia s/p ICD placement in 2011, s/p replacement of single-chamber AICD on 05/05/2024 for depleted battery, diverticulosis was brought to the hospital with a chief complaints of generalized weakness since 1 day and admitted for sepsis secondary to possible catheter related bloodstream infection. #Sepsis, resolved #ESBL bacteremia Presented to the hospital with generalized weakness. At the time of presentation to the ED, found to have a blood glucose of 20 and also had recurrent episodes of hypoglycemia. Initial vitals are stable but later found to have a febrile episode of 102.1 ?F in the ED. On examination, patient appears dehydrated. On auscultation no crackles/wheeze heard. Labs showed WBC 15,000, Hb 12.8, INR 1.5, BUN 28, creatinine 6.4, lactate 3.4, procalcitonin 81.08 SIRS 3/4: Temperature 102.1, heart rate 112, WBC 15,000. Chest x-ray did not show infiltrates. Left tunneled dialysis catheter possible source. Chest x-ray did not show any infiltrates. EKG done showed sinus rhythm with multiple ectopics. Received a dose of vancomycin and Zosyn, 1 L NS in the ED. given additional 1.5 L lactated ringer. Blood culture positive for ESBL E. coli /. Vancomycin was continued. Patient has right upper extremity DVT, potential source of fever/tachycardia/leukocytosis. Cocci negative. Per ID consult, repeat blood cultures drawn, patient antibiotics changed to gentamicin. -Repeat blood cultures pending, follow-up -Midodrine 5mg as needed up to 3 times daily -Gentamycin pharmacy dosing, 14 days from first negative blood culture -Monitor blood pressures -ID consult placed, appreciate recs #Right subclavian vein DVT Patient developed swelling of right arm. Ultrasound was ordered, confirmed right subclavian vein DVT. Patient initiated on heparin drip. -High-dose anticoagulation (started 07/29), Eliquis 10 mg twice daily -Warm compresses #Hyponatremia Patient sodium has been downtrending, 130 as of 07/30. Nephrology on board -Nephrology recs appreciated -Fluid restrict: 1800 cc #Hypoglycemia Likely due to sepsis. Blood glucose at the time of admission is 20 and later there are multiple episodes of hypoglycemia. Patient is given D50 in the ED later started on D10. D10 is discontinued and patient was given oral diet -Bedside glucose monitoring ACHS #ESRD on HD [/MON] #Polycystic kidney disease status post renal transplant which is failed hence back on hemodialysis Patient is on HD since 1 year and last dialysis was on the day of admission. Following up with Dr. Lerma, per patient's sister, also sister endorsed that patient is having fistula repair scheduled in August 2024. On examination, patient had fistula in both upper extremities but without any thrill. At the time of admission BUN is 28, creatinine 6.4. Patient is getting dialysis through left tunneled dialysis catheter -Dr. Muse is consulted, appreciate recommendations -Plan for dialysis as per patient's usual schedule -Will continue Velphoro 500 Mg p.o. 3 times daily -Will continue sevelamer 800 Mg p.o. 3 times daily -Will continue sodium bicarbonate 1300 Mg p.o. 2 times daily #Bradycardia s/p ICD in 2011 #History of single-chamber AICD on 05/2024 #History of HFrEF, EF 35 to 40% Per patient's sister, patient had episode of bradycardia for which ICD was placed in 2011. Recently on 05/2024, as patient is having shortness of breath and also found to have battery depletion, ICD is replaced. EKG showed normal sinus rhythm with multiple ectopics. Echo done on 04/2024 showed moderate LV systolic dysfunction with global hypokinesis, Estimated EF 35-40%. Moderate PAH. Pacing wire present. -Gospel Singer is consulted, appreciate recommendations -Resuming home Coreg and losartan -Telemetry #Elevated troponins, likely type II -resolved likely due to underlying sepsis with underlying ESRD. Lactate at the time of admission is 3.4, downtrending. Troponin is 1.881, down trended -Telemetry #Mild iron deficiency anemia #Mild thrombocytopenia Likely due to ESRD. Hemoglobin at the time of admission is 12.8, MCV 109, MCH 29.4. -Recommended outpatient workup to rule out iron deficiency and replete the stores accordingly #History of hypertension Patient is on carvedilol, hydralazine, losartan, nifedipine as home medication. -Resume home Coreg and losartan DVT prophylaxis: Heparin GI prophylaxis: None Diet: Renal Lines:Tunnelled dialysis cat, PIV Code status: Full Code Plan of care discussed with senior resident Dr. Paniagua PGY?[address] Ashford. En Campbell MD PGY-1 Attending Provider Attestation/Addendum I attest that I was physically present for the evaluation, physical examination, lab and imaging review of the patient with the residents. I discussed the case with the residents and agree with the findings and plans of care as documented above. At bedside today, patient appears comfortable. Denies any new complaints. His right upper extremity swelling has been improving. Antibiotics switched to IV gentamicin as recommended by ID. We will also switch heparin drip to Eliquis. Patient was evaluated by physical therapy, recommended continuation of PT. We will obtain home health orders for IV antibiotics and physical therapy. One of the blood culture grew ESBL E. coli, repeat blood cultures obtained today. We will plan for discharge if patient's blood culture continue to remain negative for 48 hours. Plan to complete antibiotics for 14 more days after the negative culture. Colby Ashford MD
--- NOTE | 2024-08-01 16:36 | PC.PT ---
PT eval only. Patient is xI with bed mobility, transfers, and ambulation while using O2. Patient is safe to ambulate to the bathroom and in the romano with O2 and 1 staff assist. RN notified.
--- NOTE | 2024-08-01 19:05 | PC.NURSE ---
patient's o2sats on room air-84% with ambulation, o2sats at 2 liters -96% @ rest
[2024-08-01] MEDS: SODIUM BICARBONATE 650 MG TABLET 1300 MG PO (20:03)
[2024-08-01] MEDS: carVEDILOL 12.5 MG TABLET 25 MG PO (20:03)
[2024-08-01] MEDS: APIXABAN 2.5 MG TABLET 10 MG PO (20:03)
[2024-08-02] VITALS (12 sets, daily range): BP systolic 115–147; BP diastolic 34–94; PULSE 75–104; RESP 14–19; TEMP 36.1–36.4; O2SAT 98–100; BMI 22.5
[2024-08-02 06:52] LABS: Basophils % (Auto) 1 % (0-2.5); Eosinophils # (Auto) 0.1 Thou/mm3 (0.0-0.5); Eosinophils % (Auto) 3 % (0-10); Hematocrit 36.5 % (41.0-53.0); Hemoglobin 11.6 g/dL (13.5-16.0); Immature Granulocytes % (Auto) 1 % (0-0); Immature Granulocytes Auto 0.05 Thou/mm3 (0.00-0.00); Lymphocytes # (Auto) 0.7 Thou/mm3 (1.0-4.8); Lymphocytes % (Auto) 18 % (10-50); Mean Corpuscular HGB Conc 31.8 g/dl (31.0-37.0); Mean Corpuscular Hemoglobin 29.2 pg (25.0-35.0); Mean Corpuscular Volume 92 fL (80-100); Monocytes # (Auto) 0.4 Thou/mm3 (0.0-0.8); Monocytes % (Auto) 9 % (0-12); Neutrophils # (Auto) 2.6 Thou/mm3 (1.8-7.7); Neutrophils % (Auto) 68 % (37-80); Nucleated Red Blood Cell % 0 /100 WBC (0); Platelet Count 126 Thou/mm3 (140-440); RDW Standard Deviation 53.1 fL (35.1-43.9); Red Blood Count 3.97 Miln/mm3 (4.50-5.90); White Blood Count 3.9 Thou/mm3 (3.8-10.6)
[2024-08-02 07:16] LABS: Alanine Aminotransferase 10 U/L (10-49); Albumin, Serum 3.3 gm/dL (3.4-4.8); Albumin/Globulin Ratio 1.1 (1.2-2.2); Alkaline Phosphatase 59 U/L (46-116); Anion Gap 9 (7-16); BUN/Creatinine Ratio 5 Ratio (12-20); Bilirubin,Total 0.3 mg/dL (0.3-1.2); Blood Urea Nitrogen 39 mg/dL (9-23); Calcium 9.2 mg/dL (8.3-10.6); Calcium (Corrected) 9.8 mg/dL (8.5-10.1); Carbon Dioxide 29.1 mMol/L (20.0-31.0); Chloride 98 mMol/L (98-107); Creatinine (Component) 7.1 mg/dL (0.6-1.3); Estimated Creatinine Clearance 11.9 mL/min (>60); Globulin 2.9 gm/dL (2.3-3.5); Glucose 66 mg/dL (74-106); Magnesium 2.1 mg/dL (1.6-2.6); Osmolality,Calculated 279 (275-295); Phosphorous 5.2 mg/dL (2.4-5.1); Potassium 4.5 mMol/L (3.4-5.1); Sodium 136 mMol/L (136-145); Total Protein 6.2 gm/dL (5.7-8.2); eGFR 8 See Note
[2024-08-02 07:26] LABS: Aspartate Amino Transferase < 10 U/L (0-34)
--- NOTE | 2024-08-02 08:25 | PD.RESPRO ---
Documentation for date of: 08/02/24 Subjective Subjective Interval history: Casey Montgomery is a 59-year-old -[place] gentleman with past medical history of developmental delay, hypertension, polycystic kidney disease, s/p renal transplant on 12/02/2017 at [facility] that failed and now back on HD since 08/2023 () under Dr. Lerma, HFpEF (EF 55 to 60%), bradycardia s/p ICD placement in 2011, s/p replacement of single-chamber AICD on 05/05/2024 for depleted battery, and diverticulosis who was sent from dialysis unit with a chief complaint of significant weakness and sleep problems. In ED patient was noted to have hypoglycemia with a glucose of 20. D50 was given. Also noted to have fever. Patient has AV fistula which is nonfunctioning and is currently receiving dialysis through right IJ PermCath. In ED, vital signs showed BP 117/76, HR 71, T 97.8 F, on 2 L NC. WBC 15, hemoglobin 12.8, platelets 134, BUN 28, creatinine 6.4, lactic acid 3.4, troponin 1.88, BNP 751, Pro-Oswald 81. CXR showed no pneumonia. EKG showed ectopy. Given 500 cc NS bolus, Zosyn, and vancomycin. Admitted for sepsis possibly due to catheter-related blood stream infection. Nephrology consulted for ESRD on HD (). 07/29: Patient currently seen in telemetry. Still having some cough. Denies any chest pain. Does have some shortness of breath. Medications/labs reviewed. WBC 5.5, hemoglobin 11.2, platelets 106. Sodium 132, potassium 4.6, bicarbonate 25, BUN 51, creatinine 8.9, calcium 8.3, phosphorus 5, LFTs normal, albumin 3, venous Doppler lower extremity positive for DVT on the right arm. Patient has left IJ dialysis catheter. 07/30: Patient seen and examined while undergoing dialysis, tolerating well. No acute overnight events reported does not currently have any complaints. Hemoglobin stable at 11.7, WBC within normal limits, platelets 110. Na noted to downtrend throughout hospital stay, currently down to 130. BUN 61 and creatinine 10.2 (prior to dialysis), calcium/magnesium/phosphorus within normal limits. 07/31: Seen and examined at bedside in telemetry, resting comfortably. No acute overnight events reported. Blood cultures positive for E. coli in 1/2 bottles, still pending final culture results of second bottle. No spikes fevers and WBC 3.6. Continues to be on heparin drip for DVT in right subclavian vein, which swelling appears to be improved. Na 133, K wnl, BUN 41, Cr 7.6. Ca/Mg/Phos wnl. Recommend soft fluid restriction of 2 L/day. 08/01: Seen and examined at bedside in telemetry, resting comfortably. No acute overnight events reported. Infectious disease on board and ordered repeat blood cultures today. Also currently on gentamicin with pharmacy dosing for 14 days from first negative blood culture. Otherwise, will plan for hemodialysis today. 08/02: Seen and examined at bedside in telemetry, resting comfortably in bed. No acute overnight events reported. Still pending results for repeat blood cultures taken yesterday. No hemodialysis today. Emphasized importance of remaining complaint with outpatient medications as well. Exam Vital Signs Temp Pulse Resp BP Pulse Ox O2 Del Method O2 Flow Rate 97.5 F 94 19 147/73 H 100 Nasal Cannula 1 08/02/24 07:31 08/02/24 07:31 08/02/24 07:31 08/02/24 07:31 08/02/24 07:31 08/02/24 07:08/02/24 07:31 Narrative Exam General: AOx3, no acute distress, lying comfortably in bed HEENT: NC/AT, mucous membranes moist, bilateral sclera anicteric Cardiovascular: regular rate and rhythm, S1/S2 present, no murmurs appreciated Pulmonary: clear to auscultation bilaterally Abdominal: soft, non-tender, non-distended, no rebound/guarding, normal bowel sounds present Musculoskeletal: swelling in RUE, no lower extremity edema Skin: warm and dry, intact, no rashes Objective Labs 08/03/24 05:08 08/03/24 05:08 Labs: Laboratory Results - last 24 hr 08/02/24 05:42 WBC 3.9 RBC 3.97 L Hgb 11.6 L Hct 36.5 L MCV 92 MCH 29.2 MCHC 31.8 RDW Std Deviation 53.1 H Plt Count 126 L Neut % (Auto) 68 Lymph % (Auto) 18 Turner % (Auto) 9 Eos % (Auto) 3 Baso % (Auto) 1 Neut # (Auto) 2.6 Lymph # (Auto) 0.7 L Turner # (Auto) 0.4 Eos # (Auto) 0.1 Baso # (Auto) 0.0 Immature Gran # (Auto) 0.05 H Absolute Nucleated RBC 0.00 Immature Gran % 1 H Nucleated RBC % 0 Sodium 136 Potassium 4.5 Chloride 98 Carbon Dioxide 29.1 Anion Gap 9 BUN 39 H Creatinine 7.1 H* D Estim Creat Clear Calc 11.9 L eGFR 8 L* BUN/Creatinine Ratio 5 L Glucose 66 L Calculated Osmolality 279 Calcium 9.2 Corrected Calcium 9.8 Phosphorus 5.2 H Magnesium 2.1 Total Bilirubin 0.3 AST < 10 ALT 10 Alkaline Phosphatase 59 Total Protein 6.2 Albumin 3.3 L Globulin 2.9 Albumin/Globulin Ratio 1.1 L ABG Interpretation ABG results: 07/27/24 10:52 VBG pH 7.21 L VBG pCO2 52 VBG pO2 38 VBG Base Excess -7 L Quality Measures Quality Measures sepsis Current suspected stage: ruled out Possible source: unknown Blood cultures ordered: yes Antibiotic ordered: Yes Assessment & Plan Assessment Current Active Medications: Generic Name Dose Route Start Last Admin Trade Name Freq PRN Reason Stop Dose Admin Acetaminophen 650 mg 07/28/24 09:36 Acetaminophen 325 Mg Tablet PO 08/26/24 20:36 Q6H PRN Fever >100.3 Apixaban 10 mg 08/01/24 09:00 08/01/24 20:03 Apixaban 2.5 Mg Tablet PO 08/07/24 21:01 10 mg BID ANTONIA Administration Aspirin 81 mg 07/28/24 09:00 08/01/24 12:41 Aspirin Ec 81 Mg Tabec PO 08/27/24 08:59 81 mg QDAY ANTONIA Administration Carvedilol 25 mg 07/30/24 21:00 08/01/24 20:03 Carvedilol 12.5 Mg Tablet PO 08/29/24 20:59 25 mg BID ANTONIA Administration Dextrose 25 ml 07/27/24 22:52 07/30/24 08:31 Dextrose 50%-Water Inj 50 Ml Syringe IV 08/26/24 22:51 25 ml Q15MIN PRN Administration BG 50-70 responsive npo pt Dextrose 50 ml 07/27/24 22:52 07/28/24 07:53 Dextrose 50%-Water Inj 50 Ml Syringe IV 08/26/24 22:51 50 ml Q15MIN PRN Administration BG <50 OR BG <70 & pt unresponsive Glucagon 1 mg 07/27/24 22:52 Glucagon Inj 1 Mg Vial IM Q15MIN PRN BG <70, and no IV access Heparin Sodium (Porcine) 4,000 unit 08/01/24 11:29 08/01/24 11:50 Heparin Sod Inj 1000 Unit/Ml Vial 10 Ml INDWELLCAT 08/15/24 11:28 4,000 unit PRN PRN Administration DIALYSIS Albumin Human 25 gm in 100 mls @ 100 mls/hr 07/30/24 10:50 08/01/24 09:46 Albuminar-25 Ivpb IV 100 mls/hr PRN PRN Administration DIALYSIS Gentamicin Sulfate 160 mg/ 104 mls @ 208 mls/hr 08/01/24 14:00 08/01/24 14:20 Sodium Chloride IV 08/08/24 13:59 208 mls/hr TUTHSA ANTONIA Administration Protocol Losartan Potassium 100 mg 07/31/24 09:00 08/01/24 12:49 Losartan Potassium 25 Mg Tablet PO 08/30/24 08:59 100 mg QDAY ANTONIA Administration Midodrine 5 mg 07/28/24 01:33 Midodrine 5 Mg Tablet PO 08/27/24 01:44 TID PRN if MAP <65 Ondansetron HCl 4 mg 07/27/24 20:37 Ondansetron Inj 2 Mg/Ml Inj 2 Ml IV 08/26/24 20:36 Q6H PRN NAUSEA OR VOMITING Protocol Pharmacy Consult 1 each 08/01/24 09:00 08/01/24 12:54 Pharmacy To Dose Gentamicin IV 08/31/24 08:59 Not Given QDAY ANTONIA Sevelamer Carbonate 800 mg 07/28/24 08:00 08/01/24 17:10 Sevelamer Carbonate 800 Mg Tablet PO 08/27/24 07:59 800 mg TIDWMEAL ANTONIA Administration Sodium Bicarbonate 1,300 mg 07/28/24 09:00 08/01/24 20:03 Sodium Bicarbonate 650 Mg Tablet PO 08/27/24 08:59 1,300 mg BID ANTONIA Administration Plan Casey Montgomery is a 59-year-old -[place] gentleman with past medical history of developmental delay, hypertension, polycystic kidney disease, s/p renal transplant on 12/02/2017 at [facility] that failed and now back on HD since 08/2023 () under Dr. Lerma, HFpEF (EF 55 to 60%), bradycardia s/p ICD placement in 2011, s/p replacement of single-chamber AICD on 05/05/2024 for depleted battery, and diverticulosis who was admitted for sepsis possibly due to catheter-related blood stream infection. Nephrology consulted for ESRD on HD (). #ESRD () secondary to failed transplant Has been on dialysis for 1 year under the care of Dr. Lerma. Underwent dialysis yesterday and tolerated well. ? Continue outpatient dialysis regimen of ? Renally dose medications ? Avoid nephrotoxic agents ? Hold off on removing dialysis catheter while pending blood culture results #Hyponatremia, likely secondary to renal failure/ESRD Serum osm within normal limits, but glucose also within normal limits and unlikely pseudohyponatremia/artifact (i.e. hyperlipidemia, hyperproteinemia). Thus, most likely etiology would be renal failure. Improving on fluid restriction only. Patient states that he does not make urine and so will not be able to do urine studies. Na improvig to 136 and recommend to continue current management. ? dialysis as above ? fluid restriction of 2 L/day, consider salt tablets if Na continues to downtrend #Sepsis, rule out catheter-related blood stream infection - blood cultures positive for GNR on Zosyn #Renal osteodystrophy #Right upper extremity DVT - on heparin drip #Essential hyertension - resume home blood pressure medications #Thrombocytopenia - possibly medication induced (BL platelets are 115) #Elevated troponin, secondary to underlying stress ? Continue management per primary team ----- Plan discussed with attending physician Dr. Micha Hua MD PGY-1 Internal Medicine Attending Provider Attestation/Addendum Patient seen and examined with resident physician Dr. De. Note reviewed, agree with findings and recommendations. Dialysis scheduled for tomorrow. Discharge planning per primary team. Did discuss with the dialysis unit to give 160 mg of gentamicin for [address] Montaño's recommendations. Pending final cultures.
[2024-08-02] MEDS: ASPIRIN EC 81 MG TABEC PO (08:55)
[2024-08-02] MEDS: carVEDILOL 12.5 MG TABLET 25 MG PO ×2 (08:56→20:48)
[2024-08-02] MEDS: LOSARTAN POTASSIUM 25 MG TABLET 100 MG PO (08:56)
[2024-08-02] MEDS: APIXABAN 2.5 MG TABLET 10 MG PO ×2 (08:57→20:48)
[2024-08-02] MEDS: SEVELAMER CARBONATE 800 MG TABLET PO ×3 (08:57→16:49)
[2024-08-02] MEDS: SODIUM BICARBONATE 650 MG TABLET 1300 MG PO ×2 (08:57→20:47)
--- NOTE | 2024-08-02 09:50 | ESPR_ITS ---
Subjective Subjective Interval history: jami rx. usually aminoglycosides are dialyzed off fully so redosing after hd is ok. thru 08/14 as long as current bc from 08/01 are neg at 48h (tomorrow am). Exam Vital Signs Temp Pulse Resp BP Pulse Ox O2 Del Method O2 Flow Rate 97.5 F 94 18 141/73 H 100 Nasal Cannula 1 08/02/24 08:00 08/02/24 08:56 08/02/24 08:00 08/02/24 08:56 08/02/24 08:00 08/02/24 07:31 08/02/24 09:00 Narrative Exam limited eval today Objective - Internal Medicine Labs 08/02/24 05:42 08/02/24 05:42 Labs: Laboratory Results - last 24 hr 08/02/24 05:42 WBC 3.9 RBC 3.97 L Hgb 11.6 L Hct 36.5 L MCV 92 MCH 29.2 MCHC 31.8 RDW Std Deviation 53.1 H Plt Count 126 L Neut % (Auto) 68 Lymph % (Auto) 18 Crane % (Auto) 9 Eos % (Auto) 3 Baso % (Auto) 1 Neut # (Auto) 2.6 Lymph # (Auto) 0.7 L Crane # (Auto) 0.4 Eos # (Auto) 0.1 Baso # (Auto) 0.0 Immature Gran # (Auto) 0.05 H Absolute Nucleated RBC 0.00 Immature Gran % 1 H Nucleated RBC % 0 Sodium 136 Potassium 4.5 Chloride 98 Carbon Dioxide 29.1 Anion Gap 9 BUN 39 H Creatinine 7.1 H* D Estim Creat Clear Calc 11.9 L eGFR 8 L* BUN/Creatinine Ratio 5 L Glucose 66 L Calculated Osmolality 279 Calcium 9.2 Corrected Calcium 9.8 Phosphorus 5.2 H Magnesium 2.1 Total Bilirubin 0.3 AST < 10 ALT 10 Alkaline Phosphatase 59 Total Protein 6.2 Albumin 3.3 L Globulin 2.9 Albumin/Globulin Ratio 1.1 L ABG Interpretation ABG results: 07/27/24 10:52 VBG pH 7.21 L VBG pCO2 52 VBG pO2 38 VBG Base Excess -7 L Assessment & Plan A&P Narrative esbl e coli bacteremia and fever ckd 5. failed txp from 2018 at [facility] mr/dd gent with hd for 2 weeks from first neg bc (thru 2/12 if bc remains neg from 08/01/24), get reshma only if later bc after gent pos for gnr. home ok at your discretion. ideally one waits for bc 08/01 to be neg at 48h. ok to not remove cvl unless f/u bc pos with same germ as before. I can see monday if he remains in house at that time. Time Spent With Patient Time: Total time spent is greater than 50% in coordination of care (as documented) at patient's floor/unit and/or counseling patient:
--- NOTE | 2024-08-02 10:33 | PC.CC ---
Addendum entered by Emir Johnston RN 08/02/24 14:26: [address] Torres that dialysis center will accommodate IV antibiotics for the patient at dialysis. Need new HH orders for RN/PT if there is a need. Addendum entered by Emir Johnston RN 08/02/24 14:22: 1216 MARISSA bowles informed that dialysis center is able to accommodate IV antibiotics for the patient at dialysis. Original Note: 1035 called and informed MARISSA Davies. She stated she will coordinate with dialysis center. 1033 received orders for home health for iv abx which is Gentamycin 160 mg iv three times a week after dialysis. I called Dr. Laura and informed dialysis pt can get IV abx during dialysis. I informed him that I will notify geriatric social work professor to coordinate that with dialysis center.
--- NOTE | 2024-08-02 11:11 | PC.SS ---
Addendum entered by ALEJA Avalos 08/02/24 14:55: Rounding note: patient to d/c tomorrow. [facility] informed. Addendum entered by ALEJA Avalos 08/02/24 12:22: Received call from [facility], they informed they received clinicals and state they are able to accommodate IV antibiotics for the patient at dialysis. Attending Dr. Torres notified. Original Note: SS follow up: recommendation for IV abx with dialysis. Patient follows at [facility]. Clinicals were faxed to dialysis to review if able to accommodate IV abx. Pending response.
--- NOTE | 2024-08-02 12:07 | XR_ITS ---
Examination: AP chest single view TECHNIQUE: Sitting AP portable chest single view Exam date and time: August 02, 2024 1216 hours INDICATIONS: Wheezing today. FINDINGS: Moderate enlargement left ventricle Unipolar ventricular cardiac lead satisfactory position Left internal jugular dialysis catheter tip satisfactory position No lobar pneumonia or pulmonary edema Left axillary vascular stent IMPRESSION: No lobar pneumonia or pulmonary edema
[2024-08-02] MEDS: ALBUTEROL/IPRATROPIUM (Duoneb) RT SOL 3 ML NEBU INH ×2 (12:53→20:20)
--- NOTE | 2024-08-02 13:54 | ESPR_ITS ---
<Statement entered by Von Paniagua MD - 08/02/24 17:00> Patient was seen and examined at the bedside.No acute overnight events were reported. Patient has been improving every day however was mildly tachypneic. PT reported that patient was desatting yesterday while ambulating with assistance. Patient might need oxygen at home. Blood cultures coming negative for 24 hours. Will likely await for final cultures and discharge him to home with home health. Patient will continue gentamicin for 14 days during dialysis and home health orders are set up.Patient will get scheduled dialysis tomorrow. All labs and orders were reviewed. Anticipating discharge tomorrow to home. I saw and examined the patient, and I agree with current management stated by Dr Adrian MD,PGY1. Plan of care was discussed with the attending physician and resident physician. Disclaimer: Despite multiple revisions, due to the dictation software being used, the document bellow may not be free of grammatical errors including phonetic/typographic errors. However, this does not deter from our commitment to providing health care in the patient's best interest in mind. Dr. Arcelia MD, PGY 2 Documentation for date of: 08/02/24 Subjective Subjective Interval history: No overnight events. Patient seen and examined at bedside. Patient was eventually, mildly lethargic. Denies arm pain, but states he is short of breath. Patient sounded wheezy on exam. Chest x-ray unremarkable, patient received DuoNeb therapy. Patient saturating well on room air, but desaturated when ambulating. Resume patient's home nifedipine on nondialysis days starting Monday. Pending repeat blood cultures. Exam Vital Signs Temp Pulse Resp BP Pulse Ox O2 Del Method O2 Flow Rate 97.4 F 75 18 115/77 99 Nasal Cannula 1 08/02/24 12:03 08/02/24 12:57 08/02/24 12:57 08/02/24 12:03 08/02/24 12:57 08/02/24 12:03 08/02/24 12:57 Narrative Exam General: Awake. Lying comfortably on the bed HEENT: Normocephalic, atraumatic, mucous membranes moist. Heart: Regular rate and rhythm Lungs: Diffuse wheezing. Abdomen: Soft, nondistended, nontender, positive bowel sounds. ?No guarding or rebound tenderness. Neurologic: Alert and oriented x3, no gross neurological deficit, and patient able to move all 4 extremities. Extremities: No edema. Fistulas in both upper extremities. Right upper extremity swollen, nonpitting, improved. Skin: No rash or ecchymoses. Objective Labs 08/02/24 05:42 08/02/24 05:42 Labs: Laboratory Results - last 24 hr 08/02/24 05:42 WBC 3.9 RBC 3.97 L Hgb 11.6 L Hct 36.5 L MCV 92 MCH 29.2 MCHC 31.8 RDW Std Deviation 53.1 H Plt Count 126 L Neut % (Auto) 68 Lymph % (Auto) 18 Castro % (Auto) 9 Eos % (Auto) 3 Baso % (Auto) 1 Neut # (Auto) 2.6 Lymph # (Auto) 0.7 L Castro # (Auto) 0.4 Eos # (Auto) 0.1 Baso # (Auto) 0.0 Immature Gran # (Auto) 0.05 H Absolute Nucleated RBC 0.00 Immature Gran % 1 H Nucleated RBC % 0 Sodium 136 Potassium 4.5 Chloride 98 Carbon Dioxide 29.1 Anion Gap 9 BUN 39 H Creatinine 7.1 H* D Estim Creat Clear Calc 11.9 L eGFR 8 L* BUN/Creatinine Ratio 5 L Glucose 66 L Calculated Osmolality 279 Calcium 9.2 Corrected Calcium 9.8 Phosphorus 5.2 H Magnesium 2.1 Total Bilirubin 0.3 AST < 10 ALT 10 Alkaline Phosphatase 59 Total Protein 6.2 Albumin 3.3 L Globulin 2.9 Albumin/Globulin Ratio 1.1 L ABG Interpretation ABG results: 07/27/24 10:52 VBG pH 7.21 L VBG pCO2 52 VBG pO2 38 VBG Base Excess -7 L Quality Measures Quality Measures sepsis Current suspected stage: sepsis (Resolved) Possible source: unknown Blood cultures ordered: yes Antibiotic ordered: Yes Assessment & Plan Assessment Current Active Medications: Generic Name Dose Route Start Last Admin Trade Name Freq PRN Reason Stop Dose Admin Acetaminophen 650 mg 07/28/24 09:36 Acetaminophen 325 Mg Tablet PO 08/26/24 20:36 Q6H PRN Fever >100.3 Apixaban 10 mg 08/01/24 09:00 08/02/24 08:57 Apixaban 2.5 Mg Tablet PO 08/07/24 21:01 10 mg BID ANTONIA Administration Aspirin 81 mg 07/28/24 09:00 08/02/24 08:55 Aspirin Ec 81 Mg Tabec PO 08/27/24 08:59 81 mg QDAY ANTONIA Administration Carvedilol 25 mg 07/30/24 21:00 08/02/24 08:56 Carvedilol 12.5 Mg Tablet PO 08/29/24 20:59 25 mg BID ANTONIA Administration Dextrose 25 ml 07/27/24 22:52 07/30/24 08:31 Dextrose 50%-Water Inj 50 Ml Syringe IV 08/26/24 22:51 25 ml Q15MIN PRN Administration BG 50-70 responsive npo pt Dextrose 50 ml 07/27/24 22:52 07/28/24 07:53 Dextrose 50%-Water Inj 50 Ml Syringe IV 08/26/24 22:51 50 ml Q15MIN PRN Administration BG <50 OR BG <70 & pt unresponsive Glucagon 1 mg 07/27/24 22:52 Glucagon Inj 1 Mg Vial IM Q15MIN PRN BG <70, and no IV access Heparin Sodium (Porcine) 4,000 unit 08/01/24 11:29 08/01/24 11:50 Heparin Sod Inj 1000 Unit/Ml Vial 10 Ml INDWELLCAT 08/15/24 11:28 4,000 unit PRN PRN Administration DIALYSIS Albumin Human 25 gm in 100 mls @ 100 mls/hr 07/30/24 10:50 08/01/24 09:46 Albuminar-25 Ivpb IV 100 mls/hr PRN PRN Administration DIALYSIS Gentamicin Sulfate 160 mg/ 104 mls @ 208 mls/hr 08/01/24 14:00 08/01/24 14:20 Sodium Chloride IV 08/08/24 13:59 208 mls/hr TUTHSA ANTONIA Administration Protocol Losartan Potassium 100 mg 07/31/24 09:00 08/02/24 08:56 Losartan Potassium 25 Mg Tablet PO 08/30/24 08:59 100 mg QDAY ANTONIA Administration Midodrine 5 mg 07/28/24 01:33 Midodrine 5 Mg Tablet PO 08/27/24 01:44 TID PRN if MAP <65 Ondansetron HCl 4 mg 07/27/24 20:37 Ondansetron Inj 2 Mg/Ml Inj 2 Ml IV 08/26/24 20:36 Q6H PRN NAUSEA OR VOMITING Protocol Pharmacy Consult 1 each 08/01/24 09:00 08/01/24 12:54 Pharmacy To Dose Gentamicin IV 08/31/24 08:59 Not Given QDAY ANTONIA Sevelamer Carbonate 800 mg 07/28/24 08:00 08/02/24 12:36 Sevelamer Carbonate 800 Mg Tablet PO 08/27/24 07:59 800 mg TIDWMEAL ANTONIA Administration Sodium Bicarbonate 1,300 mg 07/28/24 09:00 08/02/24 08:57 Sodium Bicarbonate 650 Mg Tablet PO 08/27/24 08:59 1,300 mg BID ANTONIA Administration Plan 59 y/o M with past medical history of developmental delay, hypertension, polycystic kidney disease, s/p renal transplant on 12/02/2017 at [facility], ESRD on HD since aug 2023 (), HFrEF 35 to 40%, bradycardia s/p ICD placement in 2011, s/p replacement of single-chamber AICD on 05/05/2024 for depleted battery, diverticulosis was brought to the hospital with a chief complaints of generalized weakness since 1 day and admitted for sepsis secondary to possible catheter related bloodstream infection. #Sepsis, resolved #ESBL bacteremia Presented to the hospital with generalized weakness. At the time of presentation to the ED, found to have a blood glucose of 20 and also had recurrent episodes of hypoglycemia. Initial vitals are stable but later found to have a febrile episode of 102.1 ?F in the ED. On examination, patient appears dehydrated. On auscultation no crackles/wheeze heard. Labs showed WBC 15,000, Hb 12.8, INR 1.5, BUN 28, creatinine 6.4, lactate 3.4, procalcitonin 81.08 SIRS 3/4: Temperature 102.1, heart rate 112, WBC 15,000. Chest x-ray did not show infiltrates. Left tunneled dialysis catheter possible source. Chest x-ray did not show any infiltrates. EKG done showed sinus rhythm with multiple ectopics. Received a dose of vancomycin and Zosyn, 1 L NS in the ED. given additional 1.5 L lactated ringer. Blood culture positive for ESBL E. coli 07/04. Vancomycin was continued. Patient has right upper extremity DVT, potential source of fever/tachycardia/leukocytosis. Cocci negative. Per ID consult, repeat blood cultures drawn, patient antibiotics changed to gentamicin. -Repeat blood cultures pending, follow-up -Midodrine 5mg as needed up to 3 times daily -Gentamycin pharmacy dosing, 14 days from first negative blood culture -Monitor blood pressures -ID consult placed, appreciate recs #Right subclavian vein DVT Patient developed swelling of right arm. Ultrasound was ordered, confirmed right subclavian vein DVT. Patient initiated on heparin drip. -High-dose anticoagulation (started 07/29), Eliquis 10 mg twice daily x 5 days -Warm compresses #Hyponatremia, resolving Patient sodium has been downtrending, 130 as of 07/30. Nephrology on board -Nephrology recs appreciated -Fluid restrict: 1800 cc #Hypoglycemia Likely due to sepsis. Blood glucose at the time of admission is 20 and later there are multiple episodes of hypoglycemia. Patient is given D50 in the ED later started on D10. D10 is discontinued and patient was given oral diet -Bedside glucose monitoring ACHS #ESRD on HD [//MON] #Polycystic kidney disease status post renal transplant which is failed hence back on hemodialysis Patient is on HD since 1 year and last dialysis was on the day of admission. Following up with Dr. Lerma, per patient's sister, also sister endorsed that patient is having fistula repair scheduled in August 2024. On examination, patient had fistula in both upper extremities but without any thrill. At the time of admission BUN is 28, creatinine 6.4. Patient is getting dialysis through left tunneled dialysis catheter -Dr. Muse is consulted, appreciate recommendations -Plan for dialysis as per patient's usual schedule -Will continue Velphoro 500 Mg p.o. 3 times daily -Will continue sevelamer 800 Mg p.o. 3 times daily -Will continue sodium bicarbonate 1300 Mg p.o. 2 times daily #Bradycardia s/p ICD in 2011 #History of single-chamber AICD on 05/2024 #History of HFrEF, EF 35 to 40% Per patient's sister, patient had episode of bradycardia for which ICD was placed in 2011. Recently on 05/2024, as patient is having shortness of breath and also found to have battery depletion, ICD is replaced. EKG showed normal sinus rhythm with multiple ectopics. Echo done on 04/2024 showed moderate LV systolic dysfunction with global hypokinesis, Estimated EF 35-40%. Moderate PAH. Pacing wire present. -Chief Console Operator is consulted, appreciate recommendations -Resuming home Coreg and losartan -Resuming home nifedipine on nondialysis days -Telemetry #Elevated troponins, likely type II -resolved likely due to underlying sepsis with underlying ESRD. Lactate at the time of admission is 3.4, downtrending. Troponin is 1.881, down trended -Telemetry #Mild iron deficiency anemia #Mild thrombocytopenia Likely due to ESRD. Hemoglobin at the time of admission is 12.8, MCV 109, MCH 29.4. -Recommended outpatient workup to rule out iron deficiency and replete the stores accordingly #History of hypertension Patient is on carvedilol, hydralazine, losartan, nifedipine as home medication. -Resume home Coreg and losartan DVT prophylaxis: Heparin GI prophylaxis: None Diet: Renal Lines:Tunnelled dialysis cat, PIV Code status: Full Code Plan of care discussed with senior resident Dr. Paniagua PGY?[address] Torres. En Campbell MD PGY-1 Attending Provider Attestation/Addendum I have examined the patient, reviewed labs and imaging findings, discussed the case with the resident(s), and reviewed entered orders. I agree with the plan of care as outlined in this note, with additional summaries/recommendations: Patient doing well this morning at bedside. Still pending final speciation of blood cultures which did result in AM. If negative, can DC with 14 days of gentamicin since last negative blood culture. Some wheezing this a.m., chest x- ray taken and normal, given DuoNeb x 1 with some improvement. Alvarez Torres MD
[2024-08-03] VITALS (26 sets, daily range): BP systolic 112–144; BP diastolic 59–101; PULSE 60–104; RESP 11–20; TEMP 36.1–37; O2SAT 97–100
--- NOTE | 2024-08-03 01:05 | ESPR_ITS ---
RE: JANET CHRISTIANSON : 1965 DATE OF SERVICE: 08/02/2024 I am covering for Dr. Sandoval. SUBJECTIVE: The patient is a 59-year-old male who presented to the hospital with a past medical history of hypertension, CAD HFrEF, systolic dysfunction, ejection fraction 35% to 40% and ICD implantation who has ICD implant replacement in 2023, ESRD, and renal transplant, came to the hospital with multiple medical problems including shortness of breath and possible sepsis. He did have a troponin elevation of 1.8, slight elevation of troponin, possibly type 2 troponin elevation. He continues to have no chest pain or shortness of breath. He is clinically stable, not complaining of anginal symptoms so far, not complaining of any other issues so far. OBJECTIVE: Vital Signs: His blood pressure of 116/70, pulse rate is 92, respirations 18, temperature normal, oxygen saturation is good on the room air, 100%. HEENT: Head is atraumatic. Neck: Supple. Lungs: Decreased breath sounds. No rales. Heart: S1, S2 regular. Abdomen: Abdomen is thin and soft. Extremities: Mild edema. Rest of the exam is unremarkable. IMPRESSION: 1. Chronic kidney disease and hemodialysis. 2. Status post ICD implantation. 3. Congestive heart failure with reduced ejection fraction, HFrEF, well compensated. 4. Sepsis bacteremia, improving. 5. Right subclavian vein DVT on Eliquis. 6. Electrolyte imbalance, resolved. 7. Troponin elevation, possibly type 2 troponin, not due to myocardial infarction, possibly due to underlying sepsis and renal disease, not requiring intervention. RECOMMENDATIONS: 1. Continue to monitor the patient for any changes. 2. If there is no chest pain, no need for any angiogram, though troponin levels are elevated. The patient has history of ICD implantation with no issues. DT: 23:54:47 TT: 01:03:00 Ref: [id number] - TID: [id number]
[2024-08-03 06:21] LABS: Basophils % (Auto) 1 % (0-2.5); Eosinophils # (Auto) 0.2 Thou/mm3 (0.0-0.5); Eosinophils % (Auto) 3 % (0-10); Hematocrit 33.6 % (41.0-53.0); Hemoglobin 10.9 g/dL (13.5-16.0); Immature Granulocytes % (Auto) 1 % (0-0); Immature Granulocytes Auto 0.06 Thou/mm3 (0.00-0.00); Lymphocytes # (Auto) 0.6 Thou/mm3 (1.0-4.8); Lymphocytes % (Auto) 12 % (10-50); Mean Corpuscular HGB Conc 32.4 g/dl (31.0-37.0); Mean Corpuscular Hemoglobin 29.5 pg (25.0-35.0); Mean Corpuscular Volume 91 fL (80-100); Monocytes # (Auto) 0.4 Thou/mm3 (0.0-0.8); Monocytes % (Auto) 8 % (0-12); Neutrophils % (Auto) 75 % (37-80); Nucleated Red Blood Cell % 0 /100 WBC (0); Platelet Count 143 Thou/mm3 (140-440); RDW Standard Deviation 52.3 fL (35.1-43.9); Red Blood Count 3.69 Miln/mm3 (4.50-5.90); White Blood Count 5.3 Thou/mm3 (3.8-10.6)
[2024-08-03 07:00] LABS: Albumin, Serum 3.2 gm/dL (3.4-4.8); Albumin/Globulin Ratio 1.1 (1.2-2.2); Alkaline Phosphatase 54 U/L (46-116); Anion Gap 10 (7-16); Aspartate Amino Transferase < 8 U/L (0-34); BUN/Creatinine Ratio 7 Ratio (12-20); Bilirubin,Total 0.2 mg/dL (0.3-1.2); Blood Urea Nitrogen 58 mg/dL (9-23); Calcium 9.3 mg/dL (8.3-10.6); Calcium (Corrected) 9.9 mg/dL (8.5-10.1); Carbon Dioxide 27.7 mMol/L (20.0-31.0); Chloride 97 mMol/L (98-107); Creatinine (Component) 8.9 mg/dL (0.6-1.3); Estimated Creatinine Clearance 9.5 mL/min (>60); Globulin 2.8 gm/dL (2.3-3.5); Glucose 74 mg/dL (74-106); Magnesium 2.3 mg/dL (1.6-2.6); Osmolality,Calculated 285 (275-295); Phosphorous 6.2 mg/dL (2.4-5.1); Potassium 4.8 mMol/L (3.4-5.1); Sodium 135 mMol/L (136-145); eGFR 6 See Note
[2024-08-03 07:05] LABS: Alanine Aminotransferase 10 U/L (10-49)
--- NOTE | 2024-08-03 07:42 | PC.NURSE ---
Multiple arterial alarms, lines reversed.
--- NOTE | 2024-08-03 10:11 | ESPR_ITS ---
Documentation for date of: 08/03/24 Subjective Subjective Interval history: Informant sister- aj on the phone Patient currently seen in telemetry. Mr. Montgomery is a 59-year-old -[place] gentleman with past medical history of developmental delay, hypertension, polycystic kidney disease, s/p renal transplant on 12/02/2017 at [facility]- failed, back on HD since aug 2023 [T//MON]- under DR. LERMA, HFpEF 55 to 60%, bradycardia s/p ICD placement in 2011, s/p replacement of single-chamber AICD on 05/05/2024 for depleted battery, diverticulosis was sent from the dialysis unit with a chief complaint of significant weakness and sleep problems. In the emergency department patient was noted to have hypoglycemia with a glucose of 20. D50 was given. Also noted to have fever. Patient has a AV fistula which is nonfunctioning and is currently receiving dialysis through right IJ PermCath. In the emergency department vital signs blood pressure 117/76, heart rate 71, temp 97.8. On 2 L. WBC 15,000, hemoglobin 12.8, platelets 134, BUN 28, creatinine 6.4, lactic acid 3.4, troponin 1.88, BNP 751, Pro-Oswald 81. Chest x- ray showed no pneumonia. EKG showed ectopy. Patient was given antibiotics and admitted to the hospital for sepsis-question catheter related bacteremia. He did receive a 500 cc normal saline bolus, Zosyn, vancomycin. Nephrology consultation requested for need for dialysis. Patient is a Monday, , Monday schedule and did complete dialysis today for cystoscopy. 07/29/2024 patient currently seen in telemetry. Still having some cough. Denies any chest pain. Does have some shortness of breath. Medications/labs reviewed. WBC 5.5, hemoglobin 11.2, platelets 106. Sodium 132, potassium 4.6, bicarbonate 25, BUN 51, creatinine 0.9, calcium 8.3, phosphorus 5, LFTs normal, albumin 3, venous Doppler lower extremity positive for DVT on the right arm. Patient has left IJ dialysis catheter. 08/03/2024 patient currently seen on dialysis. Resting comfortably. Cough and shortness of breath is much better. Labs, medications reviewed. Repeat blood cultures negative. Patient will be going home with outpatient dialysis gentamicin for [address] Montaño's recommendations. Spoke to primary team. Review of Systems Review of Systems Narrative Review of Systems: Patient denies any chest pain, shortness of breath. Does have some cough although much better. Denies any nausea, vomiting. Exam Vital Signs Temp Pulse Resp BP Pulse Ox O2 Del Method O2 Flow Rate 36.1 C 75 11 L 118/71 100 Nasal Cannula 2 08/03/24 08:00 08/03/24 10:00 08/03/24 08:00 08/03/24 10:00 08/03/24 08:00 08/03/24 08:00 08/03/24 08:00 Narrative Exam GENERAL APPEARANCE: Patient seems to be comfortable, adequately hydrated and nourished. Currently seen in dialysis HEENT: EOMI, PERRSKYLER NECK: Neck supple, no JVD or bruit CARDIOVASCULAR: Heart regular, no murmurs LUNGS/CHEST: Few rhonchi bilaterally ABDOMEN: Soft, nontender, nondistended. No masses. Normal bowel sounds. EXTREMITIES: No edema, clubbing or cyanosis. SKIN: IJ PermCath. Left AV fistula with no thrill. Right arm swelling is better MUSCULOSKELETAL: Musculoskeletal exam normal PSYCHIATRIC: Normal mood, affect LYMPHATICS: No lymphadenopathy noted NEUROLOGICAL : No neurological deficits Objective Labs 08/03/24 05:08 08/03/24 05:08 Labs: Laboratory Results - last 24 hr 08/03/24 05:08 WBC 5.3 RBC 3.69 L Hgb 10.9 L Hct 33.6 L MCV 91 MCH 29.5 MCHC 32.4 RDW Std Deviation 52.3 H Plt Count 143 Neut % (Auto) 75 Lymph % (Auto) 12 Russell % (Auto) 8 Eos % (Auto) 3 Baso % (Auto) 1 Neut # (Auto) 4.0 Lymph # (Auto) 0.6 L Russell # (Auto) 0.4 Eos # (Auto) 0.2 Baso # (Auto) 0.0 Immature Gran # (Auto) 0.06 H Absolute Nucleated RBC 0.00 Immature Gran % 1 H Nucleated RBC % 0 Sodium 135 L Potassium 4.8 Chloride 97 L Carbon Dioxide 27.7 Anion Gap 10 BUN 58 H Creatinine 8.9 H* D Estim Creat Clear Calc 9.5 L eGFR 6 L* BUN/Creatinine Ratio 7 L Glucose 74 Calculated Osmolality 285 Calcium 9.3 Corrected Calcium 9.9 Phosphorus 6.2 H Magnesium 2.3 Total Bilirubin 0.2 L AST < 8 ALT 10 Alkaline Phosphatase 54 Total Protein 6.0 Albumin 3.2 L Globulin 2.8 Albumin/Globulin Ratio 1.1 L ABG Interpretation ABG results: 07/27/24 10:52 VBG pH 7.21 L VBG pCO2 52 VBG pO2 38 VBG Base Excess -7 L Assessment & Plan Additional Assessment & Plan Additional Plan: # ESRD-secondary to failed transplant and has been on dialysis for 1 year. Under the care of Dr. Lerma. Patient currently seen on dialysis. Tolerating dialysis without any problems. Hemodialysis for 3 hours, 2K, ultrafiltration 2-3 L, Epogen 6000, no heparin ordered. Plan of care discussed with the dialysis nurse. Please see dialysis flowsheet for further details. # Sepsis-rule out catheter related bacteremia. Blood cultures positive for E. coli. Patient will be discharged on IV antibiotics in the outpatient setting. # Renal osteodystrophy # Right upper extremity DVT-on heparin drip # Essential hyertension -resume home blood pressure medications # Thrombocytopenia - possibly medication induced. His baseline platelets are 115. # Elevated troponin-secondary to underlying stress. Denies any chest pain. Plan of care discussed with Alvarez
[2024-08-03] MEDS: HEPARIN SOD INJ 1000 UNIT/ML VIAL 10 ML 4000 UNIT INDWELLCAT (10:59)
[2024-08-03] MEDS: ASPIRIN EC 81 MG TABEC PO (11:10)
[2024-08-03] MEDS: SODIUM BICARBONATE 650 MG TABLET 1300 MG PO ×2 (11:10→20:25)
[2024-08-03] MEDS: APIXABAN 2.5 MG TABLET 10 MG PO ×2 (11:10→20:25)
[2024-08-03] MEDS: carVEDILOL 12.5 MG TABLET 25 MG PO ×2 (11:11→17:07)
[2024-08-03] MEDS: EPOETIN ALFA-EPBX INJ 10,000 UNIT/ML VIAL (ESRD) 10000 UNIT SC (11:21)
--- NOTE | 2024-08-03 11:57 | PD.RESPRO ---
Documentation for date of: 08/03/24 Subjective Subjective Interval history: Patient seen after dialysis. Has expiratory wheezing. Saturating 100% on 2L NC. Will hold discharge due to wheezing. Exam Vital Signs Temp Pulse Resp BP Pulse Ox O2 Del Method O2 Flow Rate 98.1 F 89 18 119/79 99 Nasal Cannula 2 08/03/24 10:41 08/03/24 11:11 08/03/24 10:41 08/03/24 11:11 08/03/24 10:41 08/03/24 08:00 08/03/24 10:41 Narrative Exam Constitutional: Mild acute distress. HEENT: NCAT. Vision grossly intact. Mucous membranes moist. Respiratory: Intermittent loud bilateral expiratory wheezing with coughing. Cardiac: RRR. Normal S1, S2. Abdomen: Soft, non-distended, non-tender. MSK: No B/L LE edema. Skin: Warm, dry, intact. Neuro: Motor and sensation grossly intact. Psychiatric: Appropriate mood and affect. Objective Labs 08/03/24 05:08 08/03/24 05:08 Labs: Laboratory Results - last 24 hr 08/03/24 05:08 WBC 5.3 RBC 3.69 L Hgb 10.9 L Hct 33.6 L MCV 91 MCH 29.5 MCHC 32.4 RDW Std Deviation 52.3 H Plt Count 143 Neut % (Auto) 75 Lymph % (Auto) 12 [place] % (Auto) 8 Eos % (Auto) 3 Baso % (Auto) 1 Neut # (Auto) 4.0 Lymph # (Auto) 0.6 L [place] # (Auto) 0.4 Eos # (Auto) 0.2 Baso # (Auto) 0.0 Immature Gran # (Auto) 0.06 H Absolute Nucleated RBC 0.00 Immature Gran % 1 H Nucleated RBC % 0 Sodium 135 L Potassium 4.8 Chloride 97 L Carbon Dioxide 27.7 Anion Gap 10 BUN 58 H Creatinine 8.9 H* D Estim Creat Clear Calc 9.5 L eGFR 6 L* BUN/Creatinine Ratio 7 L Glucose 74 Calculated Osmolality 285 Calcium 9.3 Corrected Calcium 9.9 Phosphorus 6.2 H Magnesium 2.3 Total Bilirubin 0.2 L AST < 8 ALT 10 Alkaline Phosphatase 54 Total Protein 6.0 Albumin 3.2 L Globulin 2.8 Albumin/Globulin Ratio 1.1 L ABG Interpretation ABG results: 07/27/24 10:52 VBG pH 7.21 L VBG pCO2 52 VBG pO2 38 VBG Base Excess -7 L Quality Measures Quality Measures sepsis Current suspected stage: sepsis Possible source: unknown Blood cultures ordered: yes Antibiotic ordered: Yes Assessment & Plan Assessment Current Active Medications: Generic Name Dose Route Start Last Admin Trade Name Freq PRN Reason Stop Dose Admin Acetaminophen 650 mg 07/28/24 09:36 Acetaminophen 325 Mg Tablet PO 08/26/24 20:36 Q6H PRN Fever >100.3 Albuterol/Ipratropium 3 ml 08/02/24 20:05 08/02/24 20:20 Albuterol/Ipratropium (Duoneb) Rt Kadie 3 Ml Nebu INH 09/01/24 22:59 3 ml Q4HRRT PRN Administration wheezing Apixaban 10 mg 08/01/24 09:00 08/03/24 11:10 Apixaban 2.5 Mg Tablet PO 08/07/24 21:01 10 mg BID ANTONIA Administration Aspirin 81 mg 07/28/24 09:00 08/03/24 11:10 Aspirin Ec 81 Mg Tabec PO 08/27/24 08:59 81 mg QDAY ANTONIA Administration Carvedilol 25 mg 08/03/24 09:15 08/03/24 11:11 Carvedilol 12.5 Mg Tablet PO 09/02/24 09:14 25 mg BIDWM ANTONIA Administration Dextrose 25 ml 07/27/24 22:52 07/30/24 08:31 Dextrose 50%-Water Inj 50 Ml Syringe IV 08/26/24 22:51 25 ml Q15MIN PRN Administration BG 50-70 responsive npo pt Dextrose 50 ml 07/27/24 22:52 07/28/24 07:53 Dextrose 50%-Water Inj 50 Ml Syringe IV 08/26/24 22:51 50 ml Q15MIN PRN Administration BG <50 OR BG <70 & pt unresponsive Glucagon 1 mg 07/27/24 22:52 Glucagon Inj 1 Mg Vial IM Q15MIN PRN BG <70, and no IV access Heparin Sodium (Porcine) 4,000 unit 08/01/24 11:29 08/03/24 10:59 Heparin Sod Inj 1000 Unit/Ml Vial 10 Ml INDWELLCAT 08/15/24 11:28 4,000 unit PRN PRN Administration DIALYSIS Albumin Human 25 gm in 100 mls @ 100 mls/hr 07/30/24 10:50 08/01/24 09:46 Albuminar-25 Ivpb IV 100 mls/hr PRN PRN Administration DIALYSIS Gentamicin Sulfate 160 mg/ 104 mls @ 208 mls/hr 08/03/24 18:00 Sodium Chloride IV 08/10/24 17:59 [id number] [facility] Protocol Losartan Potassium 100 mg 08/03/24 09:04 Losartan Potassium 25 Mg Tablet PO 08/30/24 08:59 QDAY [facility] Midodrine 5 mg 07/28/24 01:33 Midodrine 5 Mg Tablet PO 08/27/24 01:44 TID PRN if MAP <65 Nifedipine 30 mg 08/04/24 09:00 Nifedipine Xl 30 Mg Tabcr PO 09/03/24 08:59 QDAY [facility] Ondansetron HCl 4 mg 07/27/24 20:37 Ondansetron Inj 2 Mg/Ml Inj 2 Ml IV 08/26/24 20:36 Q6H PRN NAUSEA OR VOMITING Protocol Pharmacy Consult 1 each 08/02/24 14:17 Pharmacy To Dose Gentamicin IV 08/31/24 08:59 QDAY PRN CONSULT Sevelamer Carbonate 800 mg 07/28/24 08:00 08/03/24 11:10 Sevelamer Carbonate 800 Mg Tablet PO 08/27/24 07:59 Not Given TIDWMEAL [facility] Sodium Bicarbonate 1,300 mg 07/28/24 09:00 08/03/24 11:10 Sodium Bicarbonate 650 Mg Tablet PO 08/27/24 08:59 1,300 mg BID [facility] Administration Plan 59 y/o M with past medical history of developmental delay, hypertension, polycystic kidney disease, s/p renal transplant on 12/02/2017 at [facility], ESRD on HD since Aug 2023 (//MON), HFrEF 35 to 40%, bradycardia s/p ICD placement in 2011, s/p replacement of single-chamber AICD on 05/05/2024 for depleted battery, diverticulosis was brought to the hospital with a chief complaints of generalized weakness x 1 day and admitted for sepsis secondary to possible catheter related bloodstream infection. #Acute hypoxic respiratory failure Wheezing, unclear etiology. Distant smoker. CXR 08/02 not significant for pulmonary edema - Duonebs Q4HR scheduled + prn - Trial prednisone 20mg Qday x 5 days - Wean O2 as tolerated #Sepsis, resolved #ESBL bacteremia Presented to the hospital with generalized weakness at met SIRS criteria. CXR negative, suspect left tunneled dialysis catheter possible source of infection. Was started on broad spectrum IV antibiotics. Blood culture positive for ESBL E. coli, ID consulted and antibiotics narrowed to gentamycin for 14 days since first negative blood culture (08/01). - Gentamycin (08/02-08/15), renally dosed - ID Dr. Montaño following, appreciate reccs #Right subclavian vein DVT Confirmed on ultrasound. Transitioned from heparin drip to eliqui -High-dose anticoagulation (started 07/29), Eliquis 10 mg twice daily x 5 days -Warm compresses #ESRD on HD [] #Polycystic kidney disease status post renal transplant which is failed hence back on hemodialysis Patient is on HD since 1 year and last dialysis was on the day of admission. Following up with Dr. Lerma, per patient's sister, also sister endorsed that patient is having fistula repair scheduled in August 2024. On examination, patient had fistula in both upper extremities but without any thrill. At the time of admission BUN is 28, creatinine 6.4. Patient is getting dialysis through left tunneled dialysis catheter -Dr. Muse is consulted, appreciate recommendations -Plan for dialysis as per patient's usual schedule - Fluid restrict 1800cc -Will continue Velphoro 500 Mg p.o. 3 times daily -Will continue sevelamer 800 Mg p.o. 3 times daily -Will continue sodium bicarbonate 1300 Mg p.o. 2 times daily #Bradycardia s/p ICD in 2011 #History of single-chamber AICD on 05/2024 #History of HFrEF, EF 35 to 40% Per patient's sister, patient had episode of bradycardia for which ICD was placed in 2011. Recently on 05/2024, as patient is having shortness of breath and also found to have battery depletion, ICD is replaced. EKG showed normal sinus rhythm with multiple ectopics. Echo done on 04/2024 showed moderate LV systolic dysfunction with global hypokinesis, Estimated EF 35-40%. Moderate PAH. Pacing wire present. -Circuit Court Judge is consulted, appreciate recommendations -Continue home Coreg and losartan -Continue home nifedipine on nondialysis days -Midodrine 5mg po TID #Mild iron deficiency anemia #Mild thrombocytopenia Likely due to ESRD. Hemoglobin at the time of admission is 12.8, MCV 109, MCH 29.4. -Recommended outpatient workup to rule out iron deficiency and replete the stores accordingly #History of hypertension Patient is on carvedilol, hydralazine, losartan, nifedipine as home medication. -Resume home Coreg and losartan #Hyponatremia, resolved #Hypoglycemia secondary to sepsis, resolved #Elevated troponins, likely type II -resolved DVT prophylaxis: Heparin GI prophylaxis: None Diet: Renal Lines:Tunnelled dialysis cat, PIV Code status: Full Code I have reviewed and discussed the patient's care with my attending, Dr. Brian Castillo MD PGY-3 Attending Provider Attestation/Addendum I have examined the patient, reviewed labs and imaging findings, discussed the case with the resident(s), and reviewed entered orders. I agree with the plan of care as outlined in this note, with these additional summaries/recommendations: Patient seen and examined at bedside today. Given a one-time dose of DuoNeb yesterday after diffuse wheezing noted on exam. Some improvement however today after dialysis patient appeared tachypneic and short of breath with diffuse wheezing throughout. Because of former history of smoking and no signs to suggest a cardiac etiology for wheeze, will initiate patient on DuoNebs and steroids and attempt to titrate O2 as able. Alvarez Torres MD
--- NOTE | 2024-08-03 12:44 | PC.NURSE ---
Addendum entered by Jenifer Lopez RN 08/04/24 11:55: Patient on 2l NC Original Note: Patient O2 saturation 71% on room air. Patient becomes short of breath and and O2 Saturation drops to 71% with ambulation.
[2024-08-03] MEDS: SEVELAMER CARBONATE 800 MG TABLET PO ×2 (13:00→17:08)
[2024-08-03] MEDS: predniSONE 20 MG TABLET PO (13:00)
[2024-08-03] MEDS: ALBUTEROL/IPRATROPIUM (Duoneb) RT SOL 3 ML NEBU INH ×4 (13:17→22:25)
[2024-08-03 15:52] LABS: Gentamicin, Random 2.4 mcg/mL (4.0-10.0)
[2024-08-03] MEDS: GENTAMICIN/NS 120 MG IVPB 120 MG/100 ML BAG 200 MG IV (19:00)
[2024-08-04] VITALS (14 sets, daily range): BP systolic 111–148; BP diastolic 73–98; PULSE 63–96; RESP 13–97; TEMP 36.3–36.9; O2SAT 97–100; BMI 22.7
[2024-08-04] MEDS: ALBUTEROL/IPRATROPIUM (Duoneb) RT SOL 3 ML NEBU INH ×3 (02:45→10:01)
--- NOTE | 2024-08-04 03:20 | ESPR_ITS ---
RE: JANET CHRISTIANSON : 1965 DATE OF SERVICE: 08/03/2024 SUBJECTIVE: Janet Christianson admitted to the hospital with history of HFrEF, congestive heart failure, ICD implantation, CKD on hemodialysis, admitted to the hospital, mild troponin elevation. His hypotension resolved. He is not having any chest pain or shortness of breath. Clinically, he is somewhat sleepy and lethargic, not having any chest pain or shortness of breath, not offering any complaints. OBJECTIVE: Vital Signs: Remained stable. Blood pressure is 119/79. Pulse rate is 89, respiratory rate is 18, temperature is normal. Neck: Supple. No JVD. Chest: Symmetrical. Lungs: Decreased breath sounds. Expiratory wheezes. Heart: Regular and distant. Abdomen: Soft. Extremities: Mild edema. Rest of the exam unremarkable. LABORATORY DATA: Lab data showed the CBC, white count is normal, hemoglobin 10.9. IMPRESSION: 1. Acute hypoxic respiratory failure, improved. 2. Bacteremia, receiving IV antibiotics. 3. Right subclavian deep vein thrombosis. 4. End stage renal disease, on hemodialysis. 5. History of implantable cardioverter-defibrillator implantation and generator removal, replaced recently, stable. 6. HFrEF, ejection fraction 35 to 40%, stable. 7. Troponin level elevation, possibly type II troponin. RECOMMENDATIONS: Continue to monitor the patient for any further change in cardiac status, but at this time, he is stable. No further evaluation necessary or intervention. No need for angiogram. DT: 00:11:39 TT: 02:51:00 Ref: [id number] - TID: [id number]
[2024-08-04 05:59] LABS: Basophils % (Auto) 0 % (0-2.5); Eosinophils % (Auto) 0 % (0-10); Hematocrit 33.8 % (41.0-53.0); Immature Granulocytes % (Auto) 1 % (0-0); Immature Granulocytes Auto 0.06 Thou/mm3 (0.00-0.00); Lymphocytes # (Auto) 0.6 Thou/mm3 (1.0-4.8); Lymphocytes % (Auto) 8 % (10-50); Mean Corpuscular HGB Conc 32.5 g/dl (31.0-37.0); Mean Corpuscular Hemoglobin 29.6 pg (25.0-35.0); Mean Corpuscular Volume 91 fL (80-100); Monocytes # (Auto) 0.3 Thou/mm3 (0.0-0.8); Monocytes % (Auto) 4 % (0-12); Neutrophils % (Auto) 87 % (37-80); Nucleated Red Blood Cell % 0 /100 WBC (0); Platelet Count 156 Thou/mm3 (140-440); RDW Standard Deviation 50.7 fL (35.1-43.9); Red Blood Count 3.72 Miln/mm3 (4.50-5.90); White Blood Count 6.9 Thou/mm3 (3.8-10.6)
[2024-08-04 06:36] LABS: Alanine Aminotransferase 12 U/L (10-49); Albumin, Serum 3.2 gm/dL (3.4-4.8); Alkaline Phosphatase 60 U/L (46-116); Anion Gap 11 (7-16); Aspartate Amino Transferase 10 U/L (0-34); BUN/Creatinine Ratio 7 Ratio (12-20); Bilirubin,Total 0.3 mg/dL (0.3-1.2); Blood Urea Nitrogen 52 mg/dL (9-23); Calcium 9.4 mg/dL (8.3-10.6); Carbon Dioxide 26.2 mMol/L (20.0-31.0); Chloride 96 mMol/L (98-107); Creatinine (Component) 7.3 mg/dL (0.6-1.3); Estimated Creatinine Clearance 11.6 mL/min (>60); Globulin 3.1 gm/dL (2.3-3.5); Glucose 120 mg/dL (74-106); Magnesium 2.3 mg/dL (1.6-2.6); Osmolality,Calculated 281 (275-295); Phosphorous 4.6 mg/dL (2.4-5.1); Potassium 4.7 mMol/L (3.4-5.1); Sodium 133 mMol/L (136-145); Total Protein 6.3 gm/dL (5.7-8.2); eGFR 8 See Note
[2024-08-04] MEDS: ASPIRIN EC 81 MG TABEC PO (08:11)
[2024-08-04] MEDS: LOSARTAN POTASSIUM 25 MG TABLET 100 MG PO (08:11)
[2024-08-04] MEDS: predniSONE 20 MG TABLET PO (08:11)
[2024-08-04] MEDS: SEVELAMER CARBONATE 800 MG TABLET PO ×2 (08:11→12:17)
[2024-08-04] MEDS: APIXABAN 2.5 MG TABLET 10 MG PO (08:12)
[2024-08-04] MEDS: NIFEdipine XL 30 MG TABCR PO (08:12)
[2024-08-04] MEDS: SODIUM BICARBONATE 650 MG TABLET 1300 MG PO (08:12)
[2024-08-04] MEDS: carVEDILOL 12.5 MG TABLET 25 MG PO (08:13)
--- NOTE | 2024-08-04 12:49 | ESPR_ITS ---
Documentation for date of: 08/04/24 Subjective Subjective Interval history: Informant sister- aj on the phone Patient currently seen in telemetry. Mr. Montgomery is a 59-year-old -Citizen Of [place] gentleman with past medical history of developmental delay, hypertension, polycystic kidney disease, s/p renal transplant on 12/02/2017 at [facility]- failed, back on HD since aug 2023 [T//MON]- under DR. LERMA, HFpEF 55 to 60%, bradycardia s/p ICD placement in 2011, s/p replacement of single-chamber AICD on 05/05/2024 for depleted battery, diverticulosis was sent from the dialysis unit with a chief complaint of significant weakness and sleep problems. In the emergency department patient was noted to have hypoglycemia with a glucose of 20. D50 was given. Also noted to have fever. Patient has a AV fistula which is nonfunctioning and is currently receiving dialysis through right IJ PermCath. In the emergency department vital signs blood pressure 117/76, heart rate 71, temp 97.8. On 2 L. WBC 15,000, hemoglobin 12.8, platelets 134, BUN 28, creatinine 6.4, lactic acid 3.4, troponin 1.88, BNP 751, Pro-Oswald 81. Chest x- ray showed no pneumonia. EKG showed ectopy. Patient was given antibiotics and admitted to the hospital for sepsis-question catheter related bacteremia. He did receive a 500 cc normal saline bolus, Zosyn, vancomycin. Nephrology consultation requested for need for dialysis. Patient is a Monday, , Monday schedule and did complete dialysis today for cystoscopy. 07/29/2024 patient currently seen in telemetry. Still having some cough. Denies any chest pain. Does have some shortness of breath. Medications/labs reviewed. WBC 5.5, hemoglobin 11.2, platelets 106. Sodium 132, potassium 4.6, bicarbonate 25, BUN 51, creatinine 0.9, calcium 8.3, phosphorus 5, LFTs normal, albumin 3, venous Doppler lower extremity positive for DVT on the right arm. Patient has left IJ dialysis catheter. 08/04/2024 patient currently seen in telemetry. Family at bedside. Did receive dialysis yesterday. Resting comfortably. Cough and shortness of breath is much better. Labs, medications reviewed. Repeat blood cultures negative. Patient will be going home with outpatient dialysis gentamicin for [address] Montaño's recommendations Next dialysis scheduled for Monday. Review of Systems Review of Systems Narrative Review of Systems: Patient denies any chest pain, shortness of breath. Does have some cough although much better. Denies any nausea, vomiting. Exam Vital Signs Temp Pulse Resp BP Pulse Ox O2 Del Method O2 Flow Rate 36.5 C 84 18 111/73 100 Nasal Cannula 2 08/04/24 15:54 08/04/24 15:54 08/04/24 15:54 08/04/24 15:54 08/04/24 15:54 08/04/24 15:54 08/04/24 15:54 Narrative Exam GENERAL APPEARANCE: Patient seems to be comfortable, adequately hydrated and nourished. Currently seen in telemetry HEENT: EOMI, PERRSKYLER NECK: Neck supple, no JVD or bruit CARDIOVASCULAR: Heart regular, no murmurs LUNGS/CHEST: Few rhonchi bilaterally ABDOMEN: Soft, nontender, nondistended. No masses. Normal bowel sounds. EXTREMITIES: No edema, clubbing or cyanosis. SKIN: IJ PermCath. Left AV fistula with no thrill. Right arm swelling is better MUSCULOSKELETAL: Musculoskeletal exam normal PSYCHIATRIC: Normal mood, affect LYMPHATICS: No lymphadenopathy noted NEUROLOGICAL : No neurological deficits Objective Labs 08/04/24 05:20 08/04/24 05:20 Labs: Laboratory Results - last 24 hr 08/04/24 05:20 WBC 6.9 RBC 3.72 L Hgb 11.0 L Hct 33.8 L MCV 91 MCH 29.6 MCHC 32.5 RDW Std Deviation 50.7 H Plt Count 156 Neut % (Auto) 87 H Lymph % (Auto) 8 L [place] % (Auto) 4 Eos % (Auto) 0 Baso % (Auto) 0 Neut # (Auto) 6.0 Lymph # (Auto) 0.6 L [place] # (Auto) 0.3 Eos # (Auto) 0.0 Baso # (Auto) 0.0 Immature Gran # (Auto) 0.06 H Absolute Nucleated RBC 0.00 Immature Gran % 1 H Nucleated RBC % 0 Sodium 133 L Potassium 4.7 Chloride 96 L Carbon Dioxide 26.2 Anion Gap 11 BUN 52 H Creatinine 7.3 H* D Estim Creat Clear Calc 11.6 L eGFR 8 L* BUN/Creatinine Ratio 7 L Glucose 120 H D Calculated Osmolality 281 Calcium 9.4 Corrected Calcium 10.0 Phosphorus 4.6 Magnesium 2.3 Total Bilirubin 0.3 AST 10 ALT 12 Alkaline Phosphatase 60 Total Protein 6.3 Albumin 3.2 L Globulin 3.1 Albumin/Globulin Ratio 1.0 L ABG Interpretation ABG results: 07/27/24 10:52 VBG pH 7.21 L VBG pCO2 52 VBG pO2 38 VBG Base Excess -7 L Assessment & Plan Additional Assessment & Plan Additional Plan: # ESRD-secondary to failed transplant and has been on dialysis for 1 year. Under the care of Dr. Lerma. next dialysis scheduled for Monday. # Sepsis-rule out catheter related bacteremia. Blood cultures positive for E. coli. Patient will be discharged on IV antibiotics during dialysis in the outpatient setting. # Renal osteodystrophy # Right upper extremity DVT-on heparin drip # Essential hyertension -resume home blood pressure medications # Thrombocytopenia - possibly medication induced. His baseline platelets are 115. # Elevated troponin-secondary to underlying stress. Denies any chest pain. Plan of care discussed with Alvarez
--- NOTE | 2024-08-04 13:07 | PC.SS ---
COACH BUILDER submitted O2 via [employer], contacted cely bueno [facility]
--- NOTE | 2024-08-04 13:19 | ESDS_ITS ---
<Statement entered by Alvarez Torres MD - 08/04/24 16:26> I have examined the patient, reviewed labs and imaging findings, discussed the case with the resident(s), and reviewed entered orders. I agree with the plan of care as outlined in this note, with these additional summaries/recommendations: Patient breathing appears to be improving. After discussion with the sister, patient's breathing problems appear to be relatively new and was recently prescribed inhaler by Dr. Coughlin. Will send patient with 4 days of additional p.o. steroids and Advair to be scheduled twice daily with albuterol inhaler as needed. Recommend follow-up with primary care provider for prescription for nebulizer. Patient will open to be sent home with home O2. Will also be set up to receive gentamicin for full course for ESBL bacteremia. Follow-up with primary care within 1 week Alvarez Torres MD Planned Discharge Date 08/04/24 DS: Providers Provider Date of admission: 07/27/24 20:37 Primary care physician: Elsy Connell MD Admitting Provider: Jabier Spencer DO Attending Provider on Admission: Alok Kelly MD Consults: 07/27/24 21:05 Consult to Cardiology Routine Comment: s/p pacemaker with multiple ectopics Consulting Provider: Lewis Sandoval 07/27/24 21:12 Consult to Nephrology Routine Comment: ESRD, CRBSI Consulting Provider: Mckenna Muse 07/30/24 10:21 Consult to Infectious Diseases Routine Comment: Consulting Provider: Marcin Montaño Attending Provider on DC: Alvarez Torres MD Discharging Provider: Alvarez Torres MD DS: Diagnosis Problem List Completed Was Problem List Reviewed/Reconciled?: Yes Hospital Course Hospital Course Hospital course: A 59-year-old male with past medical history of developmental delay, hypertension, polycystic kidney disease, s/p renal transplant on 12/02/2017 at [facility], ESRD on HD since aug 2023 [T//MON], HFpEF 55 to 60%, bradycardia s/p ICD placement in 2011, s/p replacement of single-chamber AICD on 05/05/2024 for depleted battery, diverticulosis was brought to the hospital on 07/27/2024 due to sepsis with elevated troponins as well. In the ED patient came in with complaints of fever, tachycardia, and shortness of breath. Initially patient was tachycardic, febrile, tachypneic, and normotensive. Initial labs were relevant for leukocytosis (15), low hemoglobin (12.8), azotemia (BUN 28 and creatinine 6.4), lactic acidosis (3.4), elevated troponins (1.881 and then down trended), and elevated procalcitonin 81.08. Initial imaging included chest x-r ay which was unremarkable, EKG which showed sinus tachycardia with frequent PACs, and venous Doppler which was positive for right subclavian DVT. Patient's initial blood cultures grew ESBL. Repeat blood cultures on 08/01/2024 were negative after 48 hours. Cardiology was consulted given elevated troponins and stated this was mostly in the setting of sepsis. Nephrology was also consulted given patient is ESRD and continue patient's hemodialysis during hospital stay. For patient's DVT patient was placed on heparin drip from 07/29/2024 until 08/01/2024 where he was bridged to Eliquis 10 mg twice daily. For patient's sepsis he was treated with vancomycin as well as Zosyn, until it was switched by ID. ID was consulted and recommended gentamicin for 2 weeks from first negative blood cultures, which would be the blood cultures from 08/01/2024. Patient will remain on gentamicin IV 3 times a week on hemodialysis days until August 15, 2024. Patient remained stable throughout the hospital stay, but his discharge was delayed by 1 day given that patient required oxygen as he had some wheezing as well. The next day patient did not require any oxygen and was saturating well on room air. At the time of discharge was stable enough to be discharged home with home health. Discharge plan: You have been started on prednisone 40 mg qday for 4 more days. You have been started on Eliquis: Do not take the 10mg tablets as you have completed the 7 day course of 10mg BID during hospital stay Take 5mg BID for 3 months for DVT treatment Continue your inhaler Advair as prescribed Please use your rescuer inhaler as needed Continue all other home medications as precribed Patient needs to be on IV Gentamicin 160 mg Three times a week, after dialysis on Monday/ and Monday until 08/15/24 to complete antibiotic course for ESBL Bacteremia Weekly cbc and renal panel qweekly until complete antibiotic course Please come back to the ER if symptoms persist or worsen Problem list: #Sepsis, resolved #ESBL bacteremia #Right subclavian vein DVT #Acute hypoxic respiratory failure #ESRD on HD [/MON] #Polycystic kidney disease #Bradycardia s/p ICD in 2011 #History of single-chamber AICD on 05/2024 #History of HFrEF, EF 35 to 40% #Mild iron deficiency anemia #Mild thrombocytopenia #Hyponatremia, resolved #Hypoglycemia secondary to sepsis, resolved #Elevated troponins, likely type II -resolved #History of hypertension Case disclosed with Attending Dr. Brian Adkins PGY1 Status at Discharge Overall status at discharge: patient is progressing back to baseline Time Spent with Patient Time attestation: Total time spent providing and/or coordinating discharge services:>35 min Home Health Home Health Referral Orders: 08/04/24 13:02 Home Health Referral Routine Reason For Exam: PT, oxygen Home-Bound The patient must either because of illness or injury, need the aid of supportive devices such as crutches, canes, wheelchairs, and walkers; the use of special transportation; or the assistance of another person in order to leave their place of residence; OR have a condition such that leaving his or her home is medically contraindicated. In addition, the patient also meets the following criteria: patient is normally unable to leave the home and leaving home requires considerable taxing effort. Addendum to Home Health Certification Practitioner's Certification: I certify that the patient has been under my care in the hospital and the care of attending physician (see below). We had a [id number]-[id number] encounter on (see date below). My clinical findings indicate that the patient is home bound per the above criteria and the Home Health Services noted in these orders are medically necessary. The primary reason for the [id number] encounter is related to the fact that the patient requires home health services. Date Certifying [id number] Physician Encounter: 07/27/24 Physician's Name who will Assume Oversight for Services: Elsy Connell Physician's Phone No.who will Assume Oversight for Service: APARTMENT LEASING CONSULTANT - Community Resources: No PT to Evaluate: Yes PT to evaluate and provide a treatmnet plan to increase patient's mobility and strength. Wound Care: No IV Therapy: No RN Safety Evaluation: Yes RN to evaluate and create a plan of care that will produce positive outcomes. Palliative Treatment: No Palliative treatment and evaluate the need for hospice. Home Health Aide - Personal Care: No Home Health Aide to assist with any ADL's. Exam Vital Signs Temp Pulse Resp BP Pulse Ox O2 Del Method O2 Flow Rate 97.3 F 75 24 H 124/88 H 100 Nasal Cannula 2 08/04/24 12:00 08/04/24 12:08/04/24 12:08/04/24 12:08/04/24 12:08/04/24 12:08/04/24 12:00 Narrative Exam General: A/O x3, no acute distress, well-nourished, well-developed Eyes: PERRL, EOMI. Anicteric, vision grossly intact. Ears: No ear pain, no ear discharge, Hearing grossly intact. Nose: No nasal discharge. Mouth/Throat: Dry mucous membranes, no redness, no lesions. Neck: Neck supple, non-tender, no cervical lymphadenopathy. Lungs: Mild expiratory wheezing, No accessory muscle use. Cardio: Normal S1/S2, regular rhythm, no murmurs, no JVD Abdomen: Soft, non-tender, no palpable masses, peristalsis present, no guarding or rebound. Extremities: Symmetrical, no significant deformities, no peripheral edema , non-tender, peripheral pulses presents. Skin: No rashes, no lesions, warm to touch. Neuro: No focal neurological deficits. motor and sensory intact Psych: Cooperative, appropriate mood and effect. Discharge Plan Plan Patient Disposition: Home w/HOME HEALTH Patient condition on transfer: Stable Care Plan Goals: You have been started on prednisone 40 mg qday for 4 more days. You have been started on Eliquis: Do not take the 10mg tablets as you have completed the 7 day course of 10mg BID during hospital stay Take 5mg BID for 3 months for DVT treatment Continue your inhaler Advair as prescribed Please use your rescuer inhaler as needed Continue all other home medications as precribed Patient needs to be on IV Gentamicin 160 mg Three times a week, after dialysis on Monday/ and Monday until 2/13/25 to complete antibiotic course for ESBL Bacteremia Weekly cbc and renal panel qweekly until complete antibiotic course Please come back to the ER if symptoms persist or worsen Prescriptions/Referrals Prescriptions/Med Rec: New carvedilol 25 mg tablet 25 mg PO BID Qty: 30 0RF Rx Instructions: must administer with a meal/food Eliquis DVT-PE Treat 30D Start 5 mg (74 tabs) tablets,dose pack 5 mg PO BID Qty: 74 0RF Rx Instructions: Skip 3 pills of 10 mg Eliquis and continue starter pack as directed as patient received 3 doses during hospital stay prednisone 20 mg tablet 40 mg PO QDAY Qty: 8 0RF albuterol sulfate 90 mcg/actuation HFA aerosol inhaler 1 inh inhalation Q6H PRN (Reason: shortness of breath or wheezing) Qty: 8.5 2RF fluticasone propion-salmeterol [Advair Diskus] 250-50 mcg/dose blister with device 1 inh inhalation BID Qty: 60 0RF Continued sodium bicarbonate 650 mg Tablet 1,300 mg PO BID doxazosin 4 mg tablet 8 mg PO HS sevelamer carbonate 800 mg tablet 800 mg PO TIDWMEAL Patient Comments: take 1 tablet by mouth three times a day with meals losartan 100 mg Tablet 100 mg PO QDAY Velphoro 500 mg tablet,chewable 1,000 mg PO TID Patient Comments: CHEW AND SWALLOW 2 tablets by mouth three times a day with meals aspirin 81 mg tablet,delayed release (DR/EC) 81 mg PO QDAY Qty: 30 2RF Changed nifedipine 30 mg Tablet Extended Release 24hr 30 mg PO SuMoWeFr@0900 Qty: 36 2RF Held hydralazine 50 mg tablet 50 mg PO TID 30 Days Qty: 90 2RF Hold Instructions: Resume on 08/01/24. Hold until you see your PCP Discontinued carvedilol [Coreg] 12.5 MG tablet 25 mg PO BID Qty: 0 nifedipine 30 mg tablet extended release See Rx Instructions .ROUTE .COMPLEX Qty: 20 0RF Rx Instructions: 30 mg orally every Monday/Monday/Monday/Monday in AM. DO not take during dialysis days fluticasone propion-salmeterol [Advair HFA] 45-21 mcg/actuation HFA aerosol inhaler 2 puff inhalation BID PRN (Reason: shortness of breath or wheezing) Qty: 12 0RF Rx Instructions: administer with spacer Referrals: Elsy Connell MD [Primary Care Provider] - Patient/Caregiver Discharge Instructions Meds to Beds: No Other Discharge Activity Instructions:: You have been started on prednisone 40 mg qday for 4 more days. You have been started on Eliquis: Do not take the 10mg tablets as you have completed the 7 day course of 10mg BID during hospital stay Take 5mg BID for 3 months for DVT treatment Continue your inhaler Advair as prescribed Please use your rescuer inhaler as needed Continue all other home medications as precribed Patient needs to be on IV Gentamicin 160 mg Three times a week, after dialysis on Monday/ and Monday until 08/15/24 to complete antibiotic course for ESBL Bacteremia Weekly cbc and renal panel qweekly until complete antibiotic course Please come back to the ER if symptoms persist or worsen Education Materials: Infec ESBL, Venous Thromboembolism Print Language: Burundian Stand Alone Forms: Renae Award Info., Patient Portal Info Letter Discharge Order Discharge Orders: Discharge (Routine); Ordered 08/04/24 Ordered By: Bryan Adkins Quality Discharge Quality Measures VTE prophylaxis
--- NOTE | 2024-08-05 07:33 | PC.CC ---
Addendum entered by Emir Johnston RN 08/05/24 15:30: Start of care date with [facility] is 08/06/24. Addendum entered by Catina Kerns RN 08/05/24 09:07: Pt booked with [facility] pending [facility] Addendum entered by Catina Kerns RN 08/05/24 08:03: Referrals sent to all HH agencies Original Note: Home Health order received pt placed in [facility] no HH agency specified
== END 2024-08-04 15:46 | disposition home health service (06) | DRG 871 ==
LOC: SERX 16:35 → SERHOLD 21:00 → S2NX 23:53
PROVIDERS: Internal Medicine; Internal Medicine Infectious Disease; Student in an Organized Health Care Education/Training Program; Admitting Provider Student in an Organized Health Care Education/Training Program; Emergency Provider Emergency Medicine; PCP Family Medicine; Visit Provider Student in an Organized Health Care Education/Training Program
DX: A41.51 Sepsis due to Escherichia coli [E. coli] (principal); J96.01 Acute respiratory failure with hypoxia; N18.6 End stage renal disease; I13.2 Hypertensive heart and chronic kidney disease with heart failure and with stage 5 chronic kidney disease, or end stage renal disease; I50.22 Chronic systolic (congestive) heart failure; I42.8 Other cardiomyopathies; I82.B11 Acute embolism and thrombosis of right subclavian vein; E87.1 Hypo-osmolality and hyponatremia; I82.621 Acute embolism and thrombosis of deep veins of right upper extremity; Z16.12 Extended spectrum beta lactamase (ESBL) resistance; Q61.3 Polycystic kidney, unspecified; T86.12 Kidney transplant failure; F17.200 Nicotine dependence, unspecified, uncomplicated; Z99.2 Dependence on renal dialysis; Z95.810 Presence of automatic (implantable) cardiac defibrillator; I25.10 Atherosclerotic heart disease of native coronary artery without angina pectoris; E16.2 Hypoglycemia, unspecified; D69.59 Other secondary thrombocytopenia; D50.9 Iron deficiency anemia, unspecified; N25.0 Renal osteodystrophy; E86.0 Dehydration; R62.50 Unspecified lack of expected normal physiological development in childhood; I25.2 Old myocardial infarction; D63.1 Anemia in chronic kidney disease; B96.20 Unspecified Escherichia coli [E. coli] as the cause of diseases classified elsewhere; Z79.899 Other long term (current) drug therapy; Z87.19 Personal history of other diseases of the digestive system; Z79.01 Long term (current) use of anticoagulants; R00.1 Bradycardia, unspecified
CPT/HCPCS: 36415; 71045; 80053; 80074; 80170; 80202; 81001; 82803; 83605; 83735; 83880; 84100; 84145; 84484; 85025; 85610; 85730; 86331; 86635; 86706; 87040; 87077; 87081; 87186; 87502; 87811; 93005; 93971; 94640; 96361; 96365; 96366; 96368; 97162; 99291; A9270; J0613; J1580; J1643; J1644; J2543; J3371; J7040; J7050; J7120; J7512; P9047; Q5105

== ENCOUNTER 2024-08-16 11:26 | Inpatient (IN) | payer MEDICARE, MEDICAID, SELFPAY ==
[2024-08-16] VITALS (13 sets, daily range): BP systolic 98–134; BP diastolic 61–91; PULSE 75–89; RESP 12–100; TEMP 36.1–36.8; O2SAT 100; BMI 24.5
--- NOTE | 2024-08-16 11:49 | PD.EDRME ---
Rapid Medical Screening Exam RME Arrival date/time: 08/16/24 11:26 59-year-old male with a history of hypertension, type 2 diabetes on dialysis presents to the emergency room with a chief complaint of a low hemoglobin level. Patient was sent to the emergency room for a hemoglobin of 7. Daughter at bedside states the patient is also having black stools. I have greeted and performed a focused initial assessment of this patient. A comprehensive ED assessment and evaluation of the patient, analysis of all test results, and completion of the medical decision making process will be conducted by additional ED providers. Chief Complaint: Recheck/Abnormal Lab/Rx Vital signs reviewed by provider: Yes
[2024-08-16 12:24] LABS: Basophils % (Auto) 1 % (0-2.5); Eosinophils # (Auto) 0.1 Thou/mm3 (0.0-0.5); Eosinophils % (Auto) 3 % (0-10); Immature Granulocytes % (Auto) 0 % (0-0); Immature Granulocytes Auto 0.01 Thou/mm3 (0.00-0.00); Lymphocytes # (Auto) 0.5 Thou/mm3 (1.0-4.8); Lymphocytes % (Auto) 13 % (10-50); Mean Corpuscular HGB Conc 32.5 g/dl (31.0-37.0); Mean Corpuscular Hemoglobin 30.5 pg (25.0-35.0); Mean Corpuscular Volume 94 fL (80-100); Monocytes # (Auto) 0.3 Thou/mm3 (0.0-0.8); Monocytes % (Auto) 9 % (0-12); Neutrophils # (Auto) 2.7 Thou/mm3 (1.8-7.7); Neutrophils % (Auto) 74 % (37-80); Nucleated Red Blood Cell % 0 /100 WBC (0); Platelet Count 107 Thou/mm3 (140-440); RDW Standard Deviation 60.6 fL (35.1-43.9); White Blood Count 3.6 Thou/mm3 (3.8-10.6)
[2024-08-16 12:33] LABS: Hematocrit 19.7 % (41.0-53.0)
[2024-08-16 12:36] LABS: Hemoglobin 6.4 g/dL (13.5-16.0)
--- NOTE | 2024-08-16 12:50 | PD.EDRECHK ---
ED Recheck Abnl Lab Rx-RME/HPI General Chief Complaint: Recheck/Abnormal Lab/Rx Stated Complaint: Hemoglobin 7, black stools X 1 week Time Seen by Provider: 08/16/24 12:46 Arrival date/time: 08/16/24 11:26 RME / HPI RME / HPI narrative: 59-year-old male with a history of hypertension, type 2 diabetes on dialysis presents to the emergency room with a chief complaint of a low hemoglobin level. Patient was sent to the emergency room for a hemoglobin of 7. Daughter at bedside states the patient is also having black stools for 1 week. Denies any other complaints. Patient is taking Eliquis recent diagnosis of right subclavian DVT. Related Data Home Medications ?Medication ?Instructions ?Recorded ?Confirmed sodium bicarbonate 650 mg tablet 1,300 mg PO BID 10/02/19 07/28/24 doxazosin 4 mg tablet 8 mg PO HS 12/16/23 07/28/24 sevelamer carbonate 800 mg tablet 800 mg PO TIDWMEAL 12/16/23 07/28/24 losartan 100 mg tablet 100 mg PO QDAY 04/29/24 07/28/24 sucroferric oxyhydroxide 500 mg 1,000 mg PO TID 04/30/24 07/28/24 chewable tablet (Velphoro) Previous Rx's ?Medication ?Instructions ?Recorded aspirin 81 mg tablet,delayed 81 mg PO QDAY #30 tabs 05/01/24 release hydralazine 50 mg tablet 50 mg PO TID 30 days #90 tabs 05/02/24 Held on 08/01/24. Instructions: Resume on 08/01/24. Hold until you see your PCP apixaban 5 mg (74 tabs) tablets in 5 mg PO BID #74 tabs 08/01/24 a dose pack (Eliquis DVT-PE Treat 30D Start) carvedilol 25 mg tablet 25 mg PO BID #30 tabs 08/01/24 nifedipine 30 mg tablet,extended 30 mg PO SuMoWeFr@0900 #36 tabs 08/02/24 release 24 hr albuterol sulfate 90 mcg/actuation 1 inh inhalation Q6H PRN shortness 08/04/24 aerosol inhaler of breath or wheezing #8.5 grams fluticasone 250 mcg-salmeterol 50 1 inh inhalation BID #60 ea 08/04/24 mcg/dose blistr powdr for inhalation (Advair Diskus) prednisone 20 mg tablet 40 mg (2 x 20 mg) PO QDAY #8 tabs 08/04/24 Allergies Allergy/AdvReac Type Severity Reaction Status Date / Time No Known Allergies Allergy Verified 08/16/24 11:31 Review of Systems Review of Systems Narrative Review of Systems: Review of system reviewed and within normal limits except mentioned in HPI ED Exam Narrative Physical exam: VITAL SIGNS: Reviewed. GENERAL APPEARANCE: Alert and interactive, follows commands, no acute distress, HEAD AND FACE: Non-traumatic. ENT: PERRL, pale conjunctiva, eyelid no trauma, Mucous membrane moist. NECK: Supple, nontender, no nuchal rigidity. CHEST: No tenderness, no crepitus, no paradoxical movement, no retractions. LUNGS: Clear, well ventilated, symmetric, no rales, no wheezing, no ronchi, no stridor, good breath sounds bilaterally. HEART: Regular rate, regular rhythm, no murmur, no gallops. ABDOMEN: Soft, positive bowel sounds, nondistended, no guarding, nontender, no rebound, no masses, RECTAL: Deferred. GENITAL: Deferred. NEUROLOGICAL: Gross motor function intact sensory function intact, Appropriate for age. MUSCULOSKELETAL: low back nontender, full range of motion. EXTREMITIES: Nontender, full range of motion. SKIN: Color pink, dry, no rash, no lacerations, no abrasions, no contusions. LYMPHATICS: Deferred. Course Quality Measures none Orders Category Date Time Status COVID-19 Screening Questionnaire NOW Care 08/16/24 16:18 Active Decision to Admit X1 Care 08/16/24 16:18 Active NPO after Midnight ONCE Care 08/16/24 16:14 Active Occult Blood,Stool (Nursing) ONCE Care 08/16/24 12:52 Active Transfuse,blood/blood products ONCE Care 08/16/24 12:47 Active Consult to Gastroenterology Stat Cons 08/16/24 16:12 Ordered Diet NPO after Midnight Diet 08/17/24 00:01 Active CBC Stat Lab 08/16/24 12:05 Completed CMP [Comprehensive Metabolic Panel] Stat Lab 08/16/24 12:05 Completed PT [Prothrombin Time with INR] Stat Lab 08/16/24 12:05 Completed PTT [Partial Thromboplastin Time] Stat Lab 08/16/24 12:05 Completed Type and Screen Stat Lab 08/16/24 12:05 Results prbc [Red Blood Cells] Stat Lab 08/16/24 12:05 Results Pantoprazole Inj [Protonix Inj] Med 08/16/24 16:12 Discontinued 80 mg IV X1 ONE Vital Signs Vital signs: Vital Signs Temperature 97.7 F 08/16/24 11:49 Pulse Rate 86 08/16/24 11:49 Respiratory Rate 17 08/16/24 11:49 Blood Pressure 98/61 08/16/24 11:49 Pulse Oximetry (%) 100 08/16/24 11:49 Oxygen Delivery Method Room Air 08/16/24 11:49 Recheck / Abnormal Lab / Rx MDM Narrative MDM Narrative:: 59-year-old male with a history of hypertension, type 2 diabetes on dialysis presents to the emergency room with a chief complaint of a low hemoglobin level. Patient was sent to the emergency room for a hemoglobin of 7. Daughter at bedside states the patient is also having black stools for 1 week. Denies any other complaints. Patient is taking Eliquis recent diagnosis of right subclavian DVT. I did the rectal exam, and I notice dark-colored stool, strongly positive for occult blood Patient received 2 units of packed RBC, IV Protonix. I consulted Dr. Finney, discussed the case, and thank you Dr. Finney. Dr. Finney will scope the patient tomorrow morning clear liquid and n.p.o. postmidnight Poke with hospitalist who admitted the patient I tried to call Crystal patient's sister and nobody answered to call Patient data External records reviewed:: [facility] previous records Clinical information provided by:: patient Social determinants that could affect healthcare access:: none Patient has the following chronic illnesses:: End-stage renal disease on hemodialysis, DVT, on Eliquis, hypertension How is presenting disease/condition affected by chronic disease/condition?: caused by Evaluation data The following diagnostics were reviewed and interpreted by me:: lab results and radiology exam(s) Lab and/or radiology exams considered but not ordered:: None Interpretation Summary: Patient's hemoglobin today was noted to be 6.4, hematocrit of 19.7, 12 days ago it was 11. CMP significant for ESRD, potassium is normal. Medications / Prescriptions Medications or Prescriptions considered but not ordered:: None Medication administrations:: Medication Administration History Discontinued Medications Pantoprazole Sodium (Pantoprazole Inj 40 Mg Vial) 80 mg IV X1 ONE Stop: 08/16/24 16:13 Patient received IV fluids, and 2 units of packed RBC Consultations Consultation(s) initiated? (list below): Yes Consultation #1 (Physician, Specialty, Details): I consulted Dr. Finney, GI specialist call, thank you Dr. Finney Diagnosis Recheck Differential Diagnosis: other (Upper GI bleed, severe anemia, ESRD) Most likely diagnosis given after review of the tests above:: Upper GI bleed, severe anemia ESRD Admission Indicated Admission indicated?: indicated Explain why admission is indicated or not indicated:: Needs to be admitted for further management Admission Request Was there a request for admission?: Yes Admission Attestation Admission request attestation: Discussed case with [Dr Carrillo] from Hospitalist service regarding admission. Discussed patients ED course, exam findings, labs, and radiology results. The Hospitalist [agrees] to accept the patient for admission. Disposition Plan Disposition Plan: Admit Discharge Plan Prescriptions/Referrals Prescriptions/Med Rec: No Action sodium bicarbonate 650 mg Tablet 1,300 mg PO BID doxazosin 4 mg tablet 8 mg PO HS sevelamer carbonate 800 mg tablet 800 mg PO TIDWMEAL Patient Comments: take 1 tablet by mouth three times a day with meals losartan 100 mg Tablet 100 mg PO QDAY Velphoro 500 mg tablet,chewable 1,000 mg PO TID Patient Comments: CHEW AND SWALLOW 2 tablets by mouth three times a day with meals aspirin 81 mg tablet,delayed release (DR/EC) 81 mg PO QDAY Qty: 30 2RF hydralazine 50 mg tablet 50 mg PO TID 30 Days Qty: 90 2RF carvedilol 25 mg tablet 25 mg PO BID Qty: 30 0RF Rx Instructions: must administer with a meal/food Eliquis DVT-PE Treat 30D Start 5 mg (74 tabs) tablets,dose pack 5 mg PO BID Qty: 74 0RF Rx Instructions: Skip 3 pills of 10 mg Eliquis and continue starter pack as directed as patient received 3 doses during hospital stay nifedipine 30 mg Tablet Extended Release 24hr 30 mg PO SuMoWeFr@0900 Qty: 36 2RF prednisone 20 mg tablet 40 mg PO QDAY Qty: 8 0RF albuterol sulfate 90 mcg/actuation HFA aerosol inhaler 1 inh inhalation Q6H PRN (Reason: shortness of breath or wheezing) Qty: 8.5 2RF fluticasone propion-salmeterol [Advair Diskus] 250-50 mcg/dose blister with device 1 inh inhalation BID Qty: 60 0RF Referrals: Elsy Connell MD [Primary Care Provider] - In 1 week Problem List Clinical Impression: ESRD (end stage renal disease), Severe anemia, Acute upper GI bleed Patient/Caregiver Discharge Instructions Print Language: Moldovan
[2024-08-16 13:02] LABS: INR 1.2 (0.9-1.3); Partial Thromboplastin Time 35.6 Seconds (22.0-36.0)
[2024-08-16 13:11] LABS: Alanine Aminotransferase 13 U/L (10-49); Albumin, Serum 3.2 gm/dL (3.4-4.8); Albumin/Globulin Ratio 1.3 (1.2-2.2); Alkaline Phosphatase 73 U/L (46-116); Anion Gap 7 (7-16); Aspartate Amino Transferase < 8 U/L (0-34); BUN/Creatinine Ratio 7 Ratio (12-20); Bilirubin,Total 0.3 mg/dL (0.3-1.2); Blood Urea Nitrogen 44 mg/dL (9-23); Calcium 7.9 mg/dL (8.3-10.6); Calcium (Corrected) 8.5 mg/dL (8.5-10.1); Carbon Dioxide 29.1 mMol/L (20.0-31.0); Chloride 104 mMol/L (98-107); Creatinine (Component) 6.6 mg/dL (0.6-1.3); Estimated Creatinine Clearance 12.9 mL/min (>60); Globulin 2.4 gm/dL (2.3-3.5); Glucose 101 mg/dL (74-106); Osmolality,Calculated 290 (275-295); Potassium 4.7 mMol/L (3.4-5.1); Sodium 140 mMol/L (136-145); Total Protein 5.6 gm/dL (5.7-8.2); eGFR 9 See Note
[2024-08-16 17:03] LABS: OBS Developer Lot # 2-24-551749; OBS Performed By MADRG3; OBS QC OK? Yes; Occult Blood, Stool Positive (Negative)
[2024-08-16] MEDS: PANTOPRAZOLE INJ 40 MG VIAL 80 MG IV (18:18)
--- NOTE | 2024-08-16 18:29 | PD.RESPRO ---
Documentation for date of: 08/16/24 Exam Vital Signs Temp Pulse Resp BP Pulse Ox O2 Del Method 98.0 F 77 17 122/70 100 Room Air 08/16/24 16:31 08/16/24 16:31 08/16/24 16:31 08/16/24 16:31 08/16/24 16:31 08/16/24 16:31 Objective Labs 08/16/24 12:05 08/16/24 12:05 Labs: Laboratory Results - last 24 hr 08/16/24 08/16/24 12:05 16:20 WBC 3.6 L RBC 2.10 L Hgb 6.4 L* Hct 19.7 L* MCV 94 MCH 30.5 MCHC 32.5 RDW Std Deviation 60.6 H Plt Count 107 L D Neut % (Auto) 74 Lymph % (Auto) 13 [place] % (Auto) 9 Eos % (Auto) 3 Baso % (Auto) 1 Neut # (Auto) 2.7 Lymph # (Auto) 0.5 L [place] # (Auto) 0.3 Eos # (Auto) 0.1 Baso # (Auto) 0.0 Immature Gran # (Auto) 0.01 H Absolute Nucleated RBC 0.00 Immature Gran % 0 Nucleated RBC % 0 PT 13.0 H INR 1.2 APTT 35.6 D Sodium 140 Potassium 4.7 Chloride 104 Carbon Dioxide 29.1 Anion Gap 7 BUN 44 H Creatinine 6.6 H* Estim Creat Clear Calc 12.9 L eGFR 9 L* BUN/Creatinine Ratio 7 L Glucose 101 Calculated Osmolality 290 Calcium 7.9 L Corrected Calcium 8.5 Total Bilirubin 0.3 AST < 8 ALT 13 Alkaline Phosphatase 73 Total Protein 5.6 L Albumin 3.2 L Globulin 2.4 Albumin/Globulin Ratio 1.3 Stool Occult Blood Positive A Blood Type B Positive Antibody Screen NEGATIVE Crossmatch See Detail Blood Bank Wristband ID Yes Quality Measures Quality Measures none Assessment & Plan Assessment Current Active Medications: Generic Name Dose Route Start Last Admin Trade Name Freq PRN Reason Stop Dose Admin Ondansetron HCl 4 mg 08/16/24 16:33 Ondansetron Inj 2 Mg/Ml Inj 2 Ml IV 09/15/24 16:32 Q6H PRN NAUSEA OR VOMITING Protocol Pantoprazole Sodium 40 mg 08/16/24 21:00 Pantoprazole Inj 40 Mg Vial IV 09/15/24 20:59 BID ANTONIA
--- NOTE | 2024-08-16 18:33 | PD.RESHP ---
Documentation for date of: 08/16/24 HPI History of Present Illness History of present illness: 59-year-old male patient with significant medical history for developmental delay, HTN, polycystic kidney disease SP renal transplant (2018 at [facility]), ESRD (on HD T//MON), HFrEF (35 to 40%), bradycardia SP AICD and diverticulosis was sent to ED from dialysis center for low hemoglobin. Patient was recently discharged from [facility] on 08/04/2024 for bacteremia treatment. During this previous admission patient was also found to have right subclavian vein DVT for which he was prescribed Eliquis. Today patient states that he has had episodes of dark stools. Patient has also been experiencing dizziness, shortness of breath and fatigue. Patient denied chest pain/pressure, palpitations, NVD, headaches, fever, chills or other associate symptoms. In ED patient was found to have a hemoglobin of 6.4 and hematocrit 19.7. FOBT was positive, PT 13, BUN 44, MOBILE PRODUCT MANAGER 6.6. Patient was administered 2 units of PRBC, GI Dr. Finney and nephrology Dr. Muse were consulted. Patient was admitted for further acute GI bleed workup. Medical Hx: Developmental delay, polycystic kidney disease SP transplant HTN, ESRD, hiatal hernia, internal hemorrhoids, diverticulosis, esophageal ulcers, HFrEF, bradycardia SP AICD Surgical Hx: Kidney transplant, fistula for dialysis Medications (need reconciliation):Eliquis, aspirin, hydralazine, Velphoro, sevelamer, carvedilol, doxazosin, losartan, sodium bicarbonate nifedipine Social Hx: Denies using illicit drugs, smoking cigarettes, drinking alcohol Allergies: NKDA CODE STATUS: Full code Review of Systems Review of Systems Systems Reviewed: All systems reviewed, normal except as documented Exam Vital Signs Temp Pulse Resp BP Pulse Ox O2 Del Method 98.0 F 77 17 122/70 100 Room Air 08/16/24 16:31 08/16/24 16:31 08/16/24 16:31 08/16/24 16:31 08/16/24 16:31 08/16/24 16:31 Narrative Exam Constitutional: Mild acute distress. HEENT: NCAT. Vision grossly intact. Mucous membranes moist. Respiratory: Intermittent loud bilateral expiratory wheezing with coughing. Cardiac: RRR. Normal S1, S2. Abdomen: Soft, non-distended, non-tender. MSK: No B/L LE edema. Skin: Warm, dry, intact. Neuro: Motor and sensation grossly intact. Psychiatric: Appropriate mood and affect. Results: Labs 08/18/24 04:57 08/18/24 04:57 Labs: Short CBC 08/16/24 Range/Units 12:05 WBC 3.6 L (3.8-10.6) Thou/mm3 Hgb 6.4 L* (13.5-16.0) g/dL Hct 19.7 L* (41.0-53.0) % Plt Count 107 L D (140-440) Thou/mm3 BMP 08/16/24 12:05 Sodium 140 Potassium 4.7 Chloride 104 Carbon Dioxide 29.1 BUN 44 H Creatinine 6.6 H* Glucose 101 Calcium 7.9 L Liver Function 08/16/24 Range/Units 12:05 Total Bilirubin 0.3 (0.3-1.2) mg/dL AST < 8 (0-34) U/L ALT 13 (10-49) U/L Alkaline Phosphatase 73 (46-116) U/L Albumin 3.2 L (3.4-4.8) gm/dL Quality Measures Quality Measures none Medications Home Medications and Allergies Home Medications ?Medication ?Instructions ?Recorded ?Confirmed ?Type sodium bicarbonate 650 mg tablet 1,300 mg PO BID 10/02/19 08/16/24 History doxazosin 4 mg tablet 8 mg PO HS 12/16/23 08/16/24 History sevelamer carbonate 800 mg tablet 800 mg PO TIDWMEAL 12/16/23 08/16/24 History losartan 100 mg tablet 100 mg PO QDAY 04/29/24 08/16/24 History sucroferric oxyhydroxide 500 mg 1,000 mg PO TID 04/30/24 08/16/24 History chewable tablet (Velphoro) Allergies Allergy/AdvReac Type Severity Reaction Status Date / Time No Known Allergies Allergy Verified 08/16/24 11:31 Visit Medications Ondansetron HCl (Ondansetron Inj 2 Mg/Ml Inj 2 Ml) 4 mg IV Q6H PRN; Protocol PRN Reason: NAUSEA OR VOMITING Stop: 09/15/24 16:32 Pantoprazole Sodium (Pantoprazole Inj 40 Mg Vial) 40 mg IV BID ANTONIA Stop: 09/15/24 20:59 Discontinued Medications Pantoprazole Sodium (Pantoprazole Inj 40 Mg Vial) 80 mg IV X1 ONE Stop: 08/16/24 16:13 Last Admin: 08/16/24 18:18 Dose: 80 mg Assessment & Plan Plan 59-year-old male patient with significant medical history for 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 #Acute GI bleed #History of DVT, on Eliquis #Anemia of chronic disease Patient recently discharged on Eliquis for subclavian DVT On admission patient complaining of dark stools, fatigue, shortness of breath Admission labs significant for hemoglobin of 6.4 FOBT positive Patient received 2 units of PRBC Plan: ? Admit to telemetry ? N.p.o. ? Protonix 40 mg IV twice daily ? GI Dr. Finney consulted, recommendations are greatly appreciated ? Follow-up H&H posttransfusion ? Maintain hemoglobin greater than 7 #ESRD #Hemodialysis on #Polycystic kidney disease #Renal transplant in 2017 at [facility] Patient with history of hemodialysis since August 2023 Patient follows medication technician Dr. Lerma Admission labs significant for BUN 44, MOBILE PRODUCT MANAGER 6.6, EGFR 9 Plan: ? [facility] Induction Dr Muse consulted, recommendations are greatly appreciated ? Renally dose medications ? Avoid nephrotoxic agents ? Patient to undergo scheduled hemodialysis in hospital ? Start home meds Velphoro, sevelamer, sodium bicarb after reconciliation #Bradycardia s/p ICD in 2011 #History of single-chamber AICD on 05/2024 #History of HFrEF, EF 35 to 40% #History of hypertension Per patient's sister, patient had episode of bradycardia for which ICD was placed in 2011. Recently on 05/2024, as patient is having shortness of breath and also found to have battery depletion, ICD is replaced. EKG showed normal sinus rhythm with multiple ectopics. Echo done on 04/2024 showed moderate LV systolic dysfunction with global hypokinesis, Estimated EF 35-40%. Moderate PAH. Pacing wire present. Plan: ? Continue home meds: Coreg, hydralazine, nifedipine and losartan after reconciliation ? Consider as needed hydralazine and labetalol for SBP greater than 170 #History of subclavian DVT Patient with history of DVT and Eliquis On admission patient complaining of dark tarry stools Risks and benefits of withholding Eliquis reviewed with patient Plan: ? Withhold Eliquis in setting of acute GI bleed Health Maintenance Dispo: Patient admitted for acute GI bleed, software engineering project manager consulted Diet: N.p.o. DVT/PPx: SCD in setting of acute GI bleed GI ppx: Protonix IV Lines: PIV Code Status: Full code This patient care was discussed with my attending Dr. Makeda Carrillo MD PGY-2 Disclaimer: Minor errors in manager engine may be present since this note was dictated by speech recognition software. Attending Provider Attestation/Addendum I attest that I was physically present for the evaluation, physical examination, lab and imaging review of the patient with the residents. I discussed the case with the residents and agree with the findings and plans of care as documented above. Colby Ashford MD
[2024-08-16] MEDS: PANTOPRAZOLE INJ 40 MG VIAL IV (21:32)
--- NOTE | 2024-08-16 21:45 | PD.IMCONS ---
HPI Data of Consult Requesting Physician: Colby Ashford MD Primary Care Provider: Elsy Connell MD Consult Narrative Reason for consult: melena hemoglobin hematocrit 6.4 and 19.7 History of present illness: 59 years old male sent from the dialysis center for a low hemoglobin hematocrit and melanotic stools Hemoglobin dropped to 6.4 and hematocrit 19.7 On 08/04/2024 hemoglobin medical 11.0 33.8 and patient was grossly Hemoccult positive Patient has end-stage renal disease on hemodialysis cc:: cc: Colby Ashford MD Meds Home Medications and Allergies Home Medications ?Medication ?Instructions ?Recorded ?Confirmed ?Type sodium bicarbonate 650 mg tablet 1,300 mg PO BID 10/02/19 08/16/24 History doxazosin 4 mg tablet 8 mg PO HS 12/16/23 08/16/24 History sevelamer carbonate 800 mg tablet 800 mg PO TIDWMEAL 12/16/23 08/16/24 History losartan 100 mg tablet 100 mg PO QDAY 04/29/24 08/16/24 History sucroferric oxyhydroxide 500 mg 1,000 mg PO TID 04/30/24 08/16/24 History chewable tablet (Velphoro) Allergies Allergy/AdvReac Type Severity Reaction Status Date / Time No Known Allergies Allergy Verified 08/16/24 11:31 Exam Vital Signs Temp Pulse Resp BP Pulse Ox O2 Del Method O2 Flow Rate 97.5 F 88 16 124/88 H 100 Room Air 2 08/16/24 21:41 08/16/24 21:41 08/16/24 21:41 08/16/24 21:41 08/16/24 21:41 08/16/24 20:33 08/16/24 21:41 Routine Respiratory Exam Comments: Normal to auscultation Routine Abdominal Exam Comments: Soft nontender positive bowel sounds Results Labs 08/19/24 04:34 08/19/24 04:34 Labs: Short CBC 08/16/24 Range/Units 12:05 WBC 3.6 L (3.8-10.6) Thou/mm3 Hgb 6.4 L* (13.5-16.0) g/dL Hct 19.7 L* (41.0-53.0) % Plt Count 107 L D (140-440) Thou/mm3 BMP 08/16/24 12:05 Sodium 140 Potassium 4.7 Chloride 104 Carbon Dioxide 29.1 BUN 44 H Creatinine 6.6 H* Glucose 101 Calcium 7.9 L Liver Function 08/16/24 Range/Units 12:05 Total Bilirubin 0.3 (0.3-1.2) mg/dL AST < 8 (0-34) U/L ALT 13 (10-49) U/L Alkaline Phosphatase 73 (46-116) U/L Albumin 3.2 L (3.4-4.8) gm/dL Assessment and Plan Additional Assessment & Plan Additional Plan: Acute posthemorrhagic anemia Melena etiology uncertain Plan N.p.o. midnight tonight Agree with blood transfusion Consent obtained for fiberoptic esophagogastroduodenoscopy with possible biopsy possible therapeutic intervention under intravenous moderate sedation scheduled for tomorrow IV Protonix Other medical problems include End-stage renal disease on hemodialysis Essential hypertension Thank you very much for the opportunity to participate in the care of this patient
[2024-08-17] VITALS (29 sets, daily range): BP systolic 103–153; BP diastolic 60–101; PULSE 63–98; RESP 14–23; TEMP 36.1–37.1; O2SAT 98–100
[2024-08-17 03:21] LABS: Basophils % (Auto) 1 % (0-2.5); Eosinophils # (Auto) 0.1 Thou/mm3 (0.0-0.5); Eosinophils % (Auto) 2 % (0-10); Hematocrit 24.8 % (41.0-53.0); Immature Granulocytes % (Auto) 0 % (0-0); Immature Granulocytes Auto 0.01 Thou/mm3 (0.00-0.00); Lymphocytes # (Auto) 0.4 Thou/mm3 (1.0-4.8); Lymphocytes % (Auto) 12 % (10-50); Mean Corpuscular HGB Conc 32.7 g/dl (31.0-37.0); Mean Corpuscular Hemoglobin 28.9 pg (25.0-35.0); Mean Corpuscular Volume 89 fL (80-100); Monocytes # (Auto) 0.3 Thou/mm3 (0.0-0.8); Monocytes % (Auto) 9 % (0-12); Neutrophils # (Auto) 2.6 Thou/mm3 (1.8-7.7); Neutrophils % (Auto) 75 % (37-80); Nucleated Red Blood Cell % 0 /100 WBC (0); Platelet Count 103 Thou/mm3 (140-440); RDW Standard Deviation 71.3 fL (35.1-43.9); White Blood Count 3.4 Thou/mm3 (3.8-10.6)
[2024-08-17 03:26] LABS: Hemoglobin 8.1 g/dL (13.5-16.0)
[2024-08-17 04:58] LABS: Alanine Aminotransferase 14 U/L (10-49); Albumin, Serum 3.2 gm/dL (3.4-4.8); Albumin/Globulin Ratio 1.3 (1.2-2.2); Alkaline Phosphatase 75 U/L (46-116); Anion Gap 9 (7-16); Aspartate Amino Transferase 13 U/L (0-34); BUN/Creatinine Ratio 7 Ratio (12-20); Bilirubin,Total 0.4 mg/dL (0.3-1.2); Blood Urea Nitrogen 54 mg/dL (9-23); Calcium 7.8 mg/dL (8.3-10.6); Calcium (Corrected) 8.4 mg/dL (8.5-10.1); Carbon Dioxide 29.5 mMol/L (20.0-31.0); Chloride 104 mMol/L (98-107); Creatinine (Component) 7.5 mg/dL (0.6-1.3); Estimated Creatinine Clearance 11.4 mL/min (>60); Globulin 2.4 gm/dL (2.3-3.5); Glucose 88 mg/dL (74-106); Osmolality,Calculated 296 (275-295); Phosphorous 4.9 mg/dL (2.4-5.1); Potassium 5.1 mMol/L (3.4-5.1); Sodium 142 mMol/L (136-145); Total Protein 5.6 gm/dL (5.7-8.2); eGFR 8 See Note
[2024-08-17] MEDS: PANTOPRAZOLE INJ 40 MG VIAL IV ×2 (08:15→20:26)
--- NOTE | 2024-08-17 12:39 | PD.NEPHCONS ---
History of Present Illness Data of Consult Consult date: 08/17/24 Requesting Physician: Colby Ashford MD Primary Care Provider: Elsy Connell MD Consult Narrative Reason for consult: ESRD, need for dialysis History of present illness: Mr. Montgomery is a 59-year-old -[place] gentleman with past medical history of developmental delay, hypertension, polycystic kidney disease, s/p renal transplant on 12/02/2017 at [facility]- failed, back on HD since aug 2023 [//MON]- under DR. LERMA, HFpEF 55 to 60%, bradycardia s/p ICD placement in 2011, s/p replacement of single-chamber AICD on 05/05/2024 for depleted battery, diverticulosis was at [facility] last month with weakness, hypoglycemia and that time he was diagnosed with right upper extremity DVT. Was sent home on Eliquis. Patient comes with a hemoglobin of 6.4 and a fecal occult positive. 1 unit of blood transfusion was given last night. Dr. Finney was consulted. Protonix was initiated and nephrology consultation was requested as he is you due for dialysis today. Patient has a AV fistula which is nonfunctioning and is currently receiving dialysis through left IJ PermCath. Home medications included Eliquis, aspirin, carvedilol, doxazosin, hydralazine, losartan, nifedipine, Renvela, sodium bicarbonate, Velphoro. Labs, medications have been reviewed. cc:: cc: Colby Ashford MD Review of Systems Review of Systems Narrative Review of Systems: CONSTITUTIONAL: Patient denies any fever, chills. HEENT: Denies any visual disturbances or hearing problems. CARDIOVASCULAR: Patient denies any chest pain, shortness of breath.mild swelling in the right upper extremity PULMONARY: Patient denies any shortness of breath, cough. GASTROINTESTINAL: Patient denies any abdominal pain, constipation, nausea, vomiting, diarrhea. GENITOURINARY: Patient denies any urinary symptoms of burning or frequency or hematuria, denies any form in the urine. SKIN: Denies any rash. IJ catheter noted. Stasis dermatitis noted in the lower extremities MUSCULOSKELETAL: Denies any muscular skeletal problems of joint pains. NEUROLOGICAL: Denies any neurological problems of strokes, seizures or confusion. Denies any memory problems. Patient seems to have developmental delay PSYCHIATRIC: Denies any depression or anxiety. Past Medical History Past Medical History NEUROLOGIC: Negative Neurological Disorders or Seizures CARDIAC: Positive Cardiac Disorders, Heart Murmur, Congestive Heart Failure, Valvular Heart Disease and Hypertension RESPIRATORY: Negative Chronic Obstructive Pulmonary Disease (COPD) or Asthma GASTROINTESTINAL: Positive Gastrointestinal Disorders, Colitis, Diverticulitis and Diverticulosis; Negative Hepatitis GENITOURINARY: Positive Genitourinary Disorders, Renal Disease, Polycystic Kidney Disease and Dialysis REPRODUCTIVE: Negative Fibroids or Testicular Cancer MUSCULOSKELETAL: Negative Musculoskeletal Disorders ENDOCRINE: Negative Endocrine Disorders, Diabetes Mellitus Type 1 or Diabetes Mellitus Type 2 HEMATOLOGIC: Negative Blood Disorders, Anemia, Leukemia, Hemophilia, Thalassemia, Sickle Cell Disease or Clotting Problems OTHER HISTORY: Positive Developmental Delay, Blood Transfusions and Organ Transplant; Negative Hospitalization, Autoimmune Disease, Down Syndrome, Falls, Blood Transfusion Reaction, Anesthesia Reactions, Chemotherapy, Radiation Therapy, MRSA, VRSA, Vancomycin-Resistant Enterococci, Human Immunodeficiency Virus (HIV), Chicken Pox, Measles, Mumps, Rubella (K[place]akh Measles), Pertussis, Clostridium Difficile, Cancer or Testicular Cancer Family History FAMILY HISTORY: Negative Family Cancer Surgical History SURGICAL: Positive Cardiac Surgery, Vascular Surgery, Pacemaker and Organ Transplant; Negative Vasectomy Social History SMOKING STATUS: Former smoker SECOND HAND EXPOSURE: No SUBSTANCE USE: does not use Meds Home Medications and Allergies Home Medications ?Medication ?Instructions ?Recorded ?Confirmed ?Type sodium bicarbonate 650 mg tablet 1,300 mg PO BID 10/02/19 08/16/24 History doxazosin 4 mg tablet 8 mg PO HS 12/16/23 08/16/24 History sevelamer carbonate 800 mg tablet 800 mg PO TIDWMEAL 12/16/23 08/16/24 History losartan 100 mg tablet 100 mg PO QDAY 04/29/24 08/16/24 History sucroferric oxyhydroxide 500 mg 1,000 mg PO TID 04/30/24 08/16/24 History chewable tablet (Velphoro) Allergies Allergy/AdvReac Type Severity Reaction Status Date / Time No Known Allergies Allergy Verified 08/16/24 11:31 Exam Vital Signs Temp Pulse Resp BP Pulse Ox O2 Del Method O2 Flow Rate 36.8 C 97 17 146/99 H 98 Nasal Cannula 2 08/17/24 14:59 08/17/24 16:16 08/17/24 14:59 08/17/24 16:16 08/17/24 14:59 08/17/24 11:55 08/17/24 14:59 Narrative Exam GENERAL APPEARANCE: Patient seems to be comfortable, adequately hydrated and nourished. Currently seen on dialysis. HEENT: EOMI, PERRLA NECK: Neck supple, no JVD or bruit CARDIOVASCULAR: Heart regular, no murmurs LUNGS/CHEST: Chest clear to auscultation. No rales, rhonchi, wheezing ABDOMEN: Soft, nontender, nondistended. No masses. Normal bowel sounds. EXTREMITIES: 1+ edema in the right upper extremity SKIN: Stasis dermatitis of the lower extremity. IJ dialysis catheter noted MUSCULOSKELETAL: Musculoskeletal exam normal PSYCHIATRIC: Normal mood, affect LYMPHATICS: No lymphadenopathy noted NEUROLOGICAL : No neurological deficits seems to be slow in response. Results Labs 08/18/24 04:57 08/18/24 04:57 Labs: Short CBC 08/17/24 Range/Units 02:15 WBC 3.4 L (3.8-10.6) Thou/mm3 Hgb 8.1 L D (13.5-16.0) g/dL Hct 24.8 L (41.0-53.0) % Plt Count 103 L (140-440) Thou/mm3 BMP 08/17/24 02:15 Sodium 142 Potassium 5.1 Chloride 104 Carbon Dioxide 29.5 BUN 54 H Creatinine 7.5 H* D Glucose 88 Calcium 7.8 L Liver Function 08/17/24 Range/Units 02:15 Total Bilirubin 0.4 (0.3-1.2) mg/dL AST 13 (0-34) U/L ALT 14 (10-49) U/L Alkaline Phosphatase 75 (46-116) U/L Albumin 3.2 L (3.4-4.8) gm/dL Assessment & Plan Additional Assessment & Plan Additional Plan: # ESRD-secondary to failed transplant and has been on dialysis for 1 year. Under the care of Dr. Lerma. Patient currently seen on dialysis. Tolerating dialysis without any problems. Hemodialysis for 3 hours, 2K, ultrafiltration 2-3 L, Epogen 6000, no heparin ordered. Plan of care discussed with the dialysis nurse. Please see dialysis flowsheet for further details. # GI bleed probably related to Eliquis. Dr. Finney was consulted. 1 unit of blood transfusion ordered with dialysis today. # Renal osteodystrophy # Right upper extremity DVT-Eliquis on hold # Essential hyertension -resume home blood pressure medications # Thrombocytopenia - possibly medication induced. His baseline platelets are 112 Thank you Colby for allowing me to participate in the care of Mr. Montgomery
--- NOTE | 2024-08-17 15:13 | PC.NURSE ---
On dialysis at this time. Pt awake/alert no complaints. 1 unit PRBC given while on HD. No s/s of reaction or side effect noted. VS stable. Will monitor
[2024-08-17] MEDS: HEPARIN SOD INJ 1000 UNIT/ML VIAL 10 ML 4000 UNIT INDWELLCAT (16:29)
--- NOTE | 2024-08-17 16:40 | ESPR_ITS ---
Documentation for date of: 08/17/24 Subjective Subjective Interval history: Patient admitted overnight for acute GI bleed. Patient received 2 units of PRBC, morning CBC indicative of hemoglobin of 8.1. Patient undergoing hemodialysis by Dr. Dhillon today. We will continue to keep patient n.p.o. as he is to undergo for EGD. On examination, patient breathing comfortably on nasal cannula (patient uses oxygen intermittently at home), denied chest pain or shortness of breath. Exam Vital Signs Temp Pulse Resp BP Pulse Ox O2 Del Method O2 Flow Rate 98.2 F 97 17 146/99 H 98 Nasal Cannula 2 08/17/24 14:59 08/17/24 16:16 08/17/24 14:59 08/17/24 16:16 08/17/24 14:59 08/17/24 11:55 08/17/24 14:59 Narrative Exam Constitutional: Well-developed, no acute distress, breathing comfortably on room air, following directions and answering questions appropriately HEENT: NCAT. Vision grossly intact. Mucous membranes moist. Respiratory: Intermittent loud bilateral expiratory wheezing with coughing. Cardiac: RRR. Normal S1, S2. Abdomen: Soft, non-distended, non-tender. MSK: No B/L LE edema. Skin: Warm, dry, intact. Neuro: Motor and sensation grossly intact. Psychiatric: Appropriate mood and affect. Objective Labs 08/18/24 04:57 08/18/24 04:57 Labs: Laboratory Results - last 24 hr 08/16/24 08/16/24 08/17/24 12:05 16:20 02:15 WBC 3.4 L RBC 2.80 L Hgb 8.1 L D Hct 24.8 L MCV 89 MCH 28.9 MCHC 32.7 RDW Std Deviation 71.3 H Plt Count 103 L Neut % (Auto) 75 Lymph % (Auto) 12 [place] % (Auto) 9 Eos % (Auto) 2 Baso % (Auto) 1 Neut # (Auto) 2.6 Lymph # (Auto) 0.4 L [place] # (Auto) 0.3 Eos # (Auto) 0.1 Baso # (Auto) 0.0 Immature Gran # (Auto) 0.01 H Absolute Nucleated RBC 0.00 Immature Gran % 0 Nucleated RBC % 0 Sodium 142 Potassium 5.1 Chloride 104 Carbon Dioxide 29.5 Anion Gap 9 BUN 54 H Creatinine 7.5 H* D Estim Creat Clear Calc 11.4 L eGFR 8 L* BUN/Creatinine Ratio 7 L Glucose 88 Calculated Osmolality 296 H Calcium 7.8 L Corrected Calcium 8.4 L Phosphorus 4.9 Magnesium 2.0 Total Bilirubin 0.4 AST 13 ALT 14 Alkaline Phosphatase 75 Total Protein 5.6 L Albumin 3.2 L Globulin 2.4 Albumin/Globulin Ratio 1.3 Stool Occult Blood Positive A Blood Type B Positive Antibody Screen NEGATIVE Crossmatch See Detail Blood Bank Wristband ID Yes Quality Measures Quality Measures none Assessment & Plan Assessment Current Active Medications: Generic Name Dose Route Start Last Admin Trade Name Freq PRN Reason Stop Dose Admin Heparin Sodium (Porcine) 4,000 unit 08/17/24 15:36 08/17/24 16:29 Heparin Sod Inj 1000 Unit/Ml Vial 10 Ml INDWELLCAT 08/31/24 15:35 4,000 unit X1 PRN Administration DIALYSIS Ondansetron HCl 4 mg 08/16/24 16:33 Ondansetron Inj 2 Mg/Ml Inj 2 Ml IV 09/15/24 16:32 Q6H PRN NAUSEA OR VOMITING Protocol Pantoprazole Sodium 40 mg 08/16/24 21:00 08/17/24 08:15 Pantoprazole Inj 40 Mg Vial IV 09/15/24 20:59 40 mg BID ANTONIA Administration Plan 59-year-old male patient with significant medical history for 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 #Acute GI bleed #History of DVT, on Eliquis #Anemia of chronic disease Patient recently discharged on Eliquis for subclavian DVT On admission patient complaining of dark stools, fatigue, shortness of breath Admission labs significant for hemoglobin of 6.4 FOBT positive Patient received 2 units of PRBC 08/17/2024 hemoglobin of 8.1 Plan: ? Admit to telemetry ? N.p.o. ? Protonix 40 mg IV twice daily ? GI Dr. Finney on board, recommendations are greatly appreciated ? Patient to undergo EGD today ? Maintain hemoglobin greater than 7 #ESRD #Hemodialysis on #Polycystic kidney disease #Renal transplant in [address] [facility] Patient with history of hemodialysis since August 2023 Patient follows wood boring machine operator Dr. Lerma Admission labs significant for BUN 44, SPOTTER DRIVER 6.6, EGFR 9 Plan: ? Sand Technician Dr Muse consulted, recommendations are greatly appreciated ? Renally dose medications ? Avoid nephrotoxic agents ? Patient to undergo scheduled hemodialysis today ? Start home meds Velphoro, sevelamer, sodium bicarb after reconciliation #Bradycardia s/p ICD in 2011 #History of single-chamber AICD on 05/2024 #History of HFrEF, EF 35 to 40% #History of hypertension Per patient's sister, patient had episode of bradycardia for which ICD was placed in 2011. Recently on 05/2024, as patient is having shortness of breath and also found to have battery depletion, ICD is replaced. EKG showed normal sinus rhythm with multiple ectopics. Echo done on 04/2024 showed moderate LV systolic dysfunction with global hypokinesis, Estimated EF 35-40%. Moderate PAH. Pacing wire present. Plan: ? Continue home meds: Coreg, hydralazine, nifedipine and losartan after reconciliation ? Consider as needed hydralazine and labetalol for SBP greater than 170 #History of subclavian DVT Patient with history of DVT and Eliquis On admission patient complaining of dark tarry stools Risks and benefits of withholding Eliquis reviewed with patient Plan: ? Withhold Eliquis in setting of acute GI bleed Health Maintenance Dispo: Patient admitted for acute GI bleed, transportation dispatch manager consulted Diet: N.p.o. DVT/PPx: SCD in setting of acute GI bleed GI ppx: Protonix IV Lines: PIV Code Status: Full code This patient care was discussed with my attending Dr. Makeda Carrillo MD PGY-2 Disclaimer: Minor errors in insulation blanket maker may be present since this note was dictated by speech recognition software. Attending Provider Attestation/Addendum I attest that I was physically present for the evaluation, physical examination, lab and imaging review of the patient with the residents. I discussed the case with the residents and agree with the findings and plans of care as documented above. Colby Ashford MD
--- NOTE | 2024-08-17 16:53 | PC.NURSE ---
Dialysis nurse Jean-Claude called for report stating that patient was taken for endoscopy. Patient was dialyzed for 2 and half hours with 1.7L fluid removed. Patient also received 1 PRCB during dilaysis. Vital signs post dialysis BP-150/90, HR 86, T- 98.2 F
[2024-08-17] MEDS: NA SU/NAHCO3/KC/PEG (Golytely) 4,000 ML BTL 4000 ML PO (18:02)
--- NOTE | 2024-08-17 18:20 | PC.NURSE ---
Tx discontinue 30 mins early due to pt needs to have colonoscopy. All blood returned. 1 unit prbxc given during HD. No s/s of reaction/side effects noted. Pt awake alert. No c/o pain. Respiration even and unlabored, sating at 100% on O2 at 2L/min via nc. Able to removed 1700 ml of fluid net. Post tx BP 150/90, HR 86, Temp 98.2. Report given to Dalia SMITH
[2024-08-17 23:01] LABS: Hematocrit 31.2 % (41.0-53.0); Hemoglobin 10.2 g/dL (13.5-16.0)
[2024-08-18] VITALS (17 sets, daily range): BP systolic 105–168; BP diastolic 69–120; PULSE 63–93; RESP 10–20; TEMP 36.2–36.7; O2SAT 92–100
[2024-08-18] MEDS: NA SU/NAHCO3/KC/PEG (Golytely) 4,000 ML BTL 4000 ML PO (00:41)
[2024-08-18 06:24] LABS: Basophils % (Auto) 1 % (0-2.5); Eosinophils # (Auto) 0.1 Thou/mm3 (0.0-0.5); Eosinophils % (Auto) 3 % (0-10); Hematocrit 28.4 % (41.0-53.0); Hemoglobin 9.2 g/dL (13.5-16.0); Immature Granulocytes % (Auto) 0 % (0-0); Immature Granulocytes Auto 0.01 Thou/mm3 (0.00-0.00); Lymphocytes # (Auto) 0.5 Thou/mm3 (1.0-4.8); Lymphocytes % (Auto) 10 % (10-50); Mean Corpuscular HGB Conc 32.4 g/dl (31.0-37.0); Mean Corpuscular Hemoglobin 28.6 pg (25.0-35.0); Mean Corpuscular Volume 88 fL (80-100); Monocytes # (Auto) 0.4 Thou/mm3 (0.0-0.8); Monocytes % (Auto) 9 % (0-12); Neutrophils # (Auto) 3.5 Thou/mm3 (1.8-7.7); Neutrophils % (Auto) 77 % (37-80); Nucleated Red Blood Cell % 0 /100 WBC (0); Platelet Count 112 Thou/mm3 (140-440); RDW Standard Deviation 67.5 fL (35.1-43.9); Red Blood Count 3.22 Miln/mm3 (4.50-5.90); White Blood Count 4.6 Thou/mm3 (3.8-10.6)
[2024-08-18 06:47] LABS: Alanine Aminotransferase 12 U/L (10-49); Albumin, Serum 3.3 gm/dL (3.4-4.8); Albumin/Globulin Ratio 1.3 (1.2-2.2); Alkaline Phosphatase 78 U/L (46-116); Anion Gap 8 (7-16); Aspartate Amino Transferase < 10 U/L (0-34); BUN/Creatinine Ratio 6 Ratio (12-20); Bilirubin,Total 0.5 mg/dL (0.3-1.2); Blood Urea Nitrogen 39 mg/dL (9-23); Calcium 8.8 mg/dL (8.3-10.6); Calcium (Corrected) 9.4 mg/dL (8.5-10.1); Carbon Dioxide 28.9 mMol/L (20.0-31.0); Chloride 104 mMol/L (98-107); Creatinine (Component) 6.8 mg/dL (0.6-1.3); Estimated Creatinine Clearance 12.5 mL/min (>60); Globulin 2.5 gm/dL (2.3-3.5); Glucose 70 mg/dL (74-106); Osmolality,Calculated 288 (275-295); Phosphorous 4.9 mg/dL (2.4-5.1); Sodium 141 mMol/L (136-145); Total Protein 5.8 gm/dL (5.7-8.2); eGFR 9 See Note
[2024-08-18] MEDS: PANTOPRAZOLE INJ 40 MG VIAL IV ×2 (08:52→20:13)
--- NOTE | 2024-08-18 10:39 | ESPR_ITS ---
<Statement entered by Taye Carrillo MD - 08/19/24 07:02> I discussed with and supervised the exercise science internship physician involved in the care of this patient. Patient assessment and plan was discussed with entire medicine team, including my attending. I agree with the assessment and plan as documented by exercise science internship doctor. Patient care was discussed with my attending physician Dr. Makeda Carrillo, PGY-2 Documentation for date of: 08/18/24 Subjective Subjective Interval history: Patient was seen and examined at bedside this AM. No acute exents overnight. Patient tolerating diet, adequate urine output and mentation is at baseline. Patient denies any further episodes of melena, hematochezia or hematemesis. Hemoglobin down trended to 9.2 from 10.2. Patient currently undergoing GoLytely bowel prep, for colonoscopy once cleared. EGD completed on 08/17/2024 findings include: Small hiatal hernia, esophagitis, nonerosive gastritis characterized by erythema. Sims's esophagus, distal esophageal biopsies taken. Exam Vital Signs Temp Pulse Resp BP Pulse Ox O2 Del Method O2 Flow Rate 97.9 F 70 16 131/93 H 98 Nasal Cannula 2 08/18/24 08:00 08/18/24 08:00 08/18/24 08:00 08/18/24 08:00 08/18/24 08:00 08/18/24 08:00 08/18/24 08:00 Narrative Exam Constitutional: Well-developed, no acute distress, breathing comfortably on room air, following directions and answering questions appropriately HEENT: NCAT. Vision grossly intact. Mucous membranes moist. Respiratory: Chest wall normal on inspection and lungs clear to auscultation bilaterally. Cardiac: RRR. Normal S1, S2. Abdomen: Soft, non-distended, non-tender. MSK: No B/L LE edema. Skin: Warm, dry, intact. AV fistula noted in left arm, thrill felt. Neuro: Motor and sensation grossly intact. Psychiatric: Appropriate mood and affect. Objective Labs 08/19/24 04:34 08/19/24 04:34 Labs: Laboratory Results - last 24 hr 08/16/24 08/17/24 08/18/24 12:05 22:45 04:57 WBC 4.6 RBC 3.22 L Hgb 10.2 L D 9.2 L Hct 31.2 L 28.4 L MCV 88 MCH 28.6 MCHC 32.4 RDW Std Deviation 67.5 H Plt Count 112 L Neut % (Auto) 77 Lymph % (Auto) 10 [place] % (Auto) 9 Eos % (Auto) 3 Baso % (Auto) 1 Neut # (Auto) 3.5 Lymph # (Auto) 0.5 L [place] # (Auto) 0.4 Eos # (Auto) 0.1 Baso # (Auto) 0.0 Immature Gran # (Auto) 0.01 H Absolute Nucleated RBC 0.00 Immature Gran % 0 Nucleated RBC % 0 Sodium 141 Potassium 5.0 Chloride 104 Carbon Dioxide 28.9 Anion Gap 8 BUN 39 H Creatinine 6.8 H* D Estim Creat Clear Calc 12.5 L eGFR 9 L* BUN/Creatinine Ratio 6 L Glucose 70 L Calculated Osmolality 288 Calcium 8.8 Corrected Calcium 9.4 Phosphorus 4.9 Magnesium 2.0 Total Bilirubin 0.5 AST < 10 ALT 12 Alkaline Phosphatase 78 Total Protein 5.8 Albumin 3.3 L Globulin 2.5 Albumin/Globulin Ratio 1.3 Blood Type B Positive Antibody Screen NEGATIVE Crossmatch See Detail Blood Bank Wristband ID Yes Quality Measures Quality Measures none Assessment & Plan Assessment Current Active Medications: Generic Name Dose Route Start Last Admin Trade Name Freq PRN Reason Stop Dose Admin Heparin Sodium (Porcine) 4,000 unit 08/17/24 15:36 08/17/24 16:29 Heparin Sod Inj 1000 Unit/Ml Vial 10 Ml INDWELLCAT 08/31/24 15:35 4,000 unit X1 PRN Administration DIALYSIS Ondansetron HCl 4 mg 08/16/24 16:33 Ondansetron Inj 2 Mg/Ml Inj 2 Ml IV 09/15/24 16:32 Q6H PRN NAUSEA OR VOMITING Protocol Pantoprazole Sodium 40 mg 08/16/24 21:00 08/18/24 08:52 Pantoprazole Inj 40 Mg Vial IV 09/15/24 20:59 40 mg BID ANTONIA Administration Plan 59-year-old male patient with significant medical history for 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 # Acute blood loss anemia secondary to GI bleed for investigation #Anemia of chronic disease Patient recently discharged on Eliquis for subclavian DVT On admission patient complaining of dark stools, fatigue, shortness of breath Admission labs significant for hemoglobin of 6.4 FOBT positive Patient received 3 units of PRBC Hemoglobin down trended to 9.2 from 10.2. EGD completed on 08/17/2024 findings include: Small hiatal hernia, esophagitis, nonerosive gastritis characterized by erythema. Sims's esophagus, distal esophageal biopsies taken. Plan: - Clear liquid diet ? Protonix 40 mg IV twice daily ? Patient currently undergoing GoLytely bowel prep. For colonoscopy once cleared as per GI recommendations. ? GI Dr. Finney consulted and closely following the case. Recommendations are greatly appreciated #ESRD #Hemodialysis on #Polycystic kidney disease #Renal transplant in 2017 at [facility] Patient with history of hemodialysis since August 2023 Patient follows digital operations analyst Dr. Lerma Admission labs significant for BUN 44, PHARMACY INFORMATICIST 6.6, EGFR 9 Plan: ? Renally dose medications ? Avoid nephrotoxic agents ? Patient to undergo scheduled hemodialysis today ? Continue home meds Velphoro, sevelamer, sodium bicarb ? Yard Supervisor Cotton Gin Dr Muse consulted, recommendations are greatly appreciated #Bradycardia s/p ICD in 2011 #History of single-chamber AICD on 05/2024 #History of HFrEF, EF 35 to 40% #History of hypertension Per patient's sister, patient had episode of bradycardia for which ICD was placed in 2011. Recently on 05/2024, as patient is having shortness of breath and also found to have battery depletion, ICD is replaced. EKG showed normal sinus rhythm with multiple ectopics. Echo done on 04/2024 showed moderate LV systolic dysfunction with global hypokinesis, Estimated EF 35-40%. Moderate PAH. Pacing wire present. Plan: ? Resumed home medication losartan 100 Mg p.o. daily ? Continue home meds: Coreg, hydralazine, nifedipine once source of bleeding identified ? Consider as needed hydralazine and labetalol for SBP greater than 170 #History of subclavian DVT Patient with history of DVT and Eliquis On admission patient complaining of dark tarry stools Risks and benefits of withholding Eliquis reviewed with patient Plan: ? Withhold Eliquis in setting of acute GI bleed Health maintenance: Disposition: Pending colonoscopy once bowel prep completed. GI recommendations Diet: Clear liquid Lines: pIVs GI Prophylaxis: Pantoprazole 40 Mg IV twice daily Thrombo Prophylaxis: SCDs Code status: FULL CODE Plan of care discussed with Attending Dr. Ashford and PGY2 Dr. Lorena Valdez MD PGY 1 Attending Provider Attestation/Addendum I attest that I was physically present for the evaluation, physical examination, lab and imaging review of the patient with the residents. I discussed the case with the residents and agree with the findings and plans of care as documented above. Colby Ashford MD
--- NOTE | 2024-08-18 10:43 | PD.NEPHPROG ---
Documentation for date of: 08/18/24 Subjective Subjective Interval history: Mr. Montgomery is a 59-year-old -[place]aced[place] gentleman with past medical history of developmental delay, hypertension, polycystic kidney disease, s/p renal transplant on 12/02/2017 at [facility]- failed, back on HD since aug 2023 [T//MON]- under DR. LERMA, HFpEF 55 to 60%, bradycardia s/p ICD placement in 2011, s/p replacement of single-chamber AICD on 05/05/2024 for depleted battery, diverticulosis was at [facility] last month with weakness, hypoglycemia and that time he was diagnosed with right upper extremity DVT. Was sent home on Eliquis. Patient comes with a hemoglobin of 6.4 and a fecal occult positive. 1 unit of blood transfusion was given last night. Dr. Finney was consulted. Protonix was initiated and nephrology consultation was requested as he is you due for dialysis today. Patient has a AV fistula which is nonfunctioning and is currently receiving dialysis through left IJ PermCath. Home medications included Eliquis, aspirin, carvedilol, doxazosin, hydralazine, losartan, nifedipine, Renvela, sodium bicarbonate, Velphoro. Labs, medications have been reviewed. 08/18/2024 seen in medical floor. No CP, sob. Going for colonoscopy today. HD TTS Review of Systems Review of Systems Narrative Review of Systems: CONSTITUTIONAL: Patient denies any fever, chills. HEENT: Denies any visual disturbances or hearing problems. CARDIOVASCULAR: Patient denies any chest pain, shortness of breath.mild swelling in the right upper extremity- better PULMONARY: Patient denies any shortness of breath, cough. GASTROINTESTINAL: Patient denies any abdominal pain, constipation, nausea, vomiting, diarrhea. GENITOURINARY: Patient denies any urinary symptoms of burning or frequency or hematuria, denies any form in the urine. SKIN: Denies any rash. IJ catheter noted. Stasis dermatitis noted in the lower extremities MUSCULOSKELETAL: Denies any muscular skeletal problems of joint pains. NEUROLOGICAL: Denies any neurological problems of strokes, seizures or confusion. Denies any memory problems. Patient seems to have developmental delay PSYCHIATRIC: Denies any depression or anxiety. Exam Vital Signs Temp Pulse Resp BP Pulse Ox O2 Del Method O2 Flow Rate 36.6 C 70 16 131/93 H 98 Nasal Cannula 2 08/18/24 08:00 08/18/24 08:00 08/18/24 08:00 08/18/24 08:00 08/18/24 08:00 08/18/24 08:00 08/18/24 08:00 Narrative Exam GENERAL APPEARANCE: Patient seems to be comfortable, adequately hydrated and nourished. NECK: Neck supple, no JVD or bruit CARDIOVASCULAR: Heart regular, no murmurs LUNGS/CHEST: Chest clear to auscultation. No rales, rhonchi, wheezing ABDOMEN: Soft, nontender, nondistended. No masses. Normal bowel sounds. EXTREMITIES: 1+ edema in the right upper extremity SKIN: Stasis dermatitis of the lower extremity. IJ dialysis catheter noted MUSCULOSKELETAL: Musculoskeletal exam normal PSYCHIATRIC: Normal mood, affect LYMPHATICS: No lymphadenopathy noted NEUROLOGICAL : No neurological deficits seems to be slow in response. Objective Labs 08/18/24 04:57 08/18/24 04:57 Labs: Laboratory Results - last 24 hr 08/16/24 08/17/24 08/18/24 12:05 22:45 04:57 WBC 4.6 RBC 3.22 L Hgb 10.2 L D 9.2 L Hct 31.2 L 28.4 L MCV 88 MCH 28.6 MCHC 32.4 RDW Std Deviation 67.5 H Plt Count 112 L Neut % (Auto) 77 Lymph % (Auto) 10 [place] % (Auto) 9 Eos % (Auto) 3 Baso % (Auto) 1 Neut # (Auto) 3.5 Lymph # (Auto) 0.[address] [place] # (Auto) 0.4 Eos # (Auto) 0.1 Baso # (Auto) 0.0 Immature Gran # (Auto) 0.01 H Absolute Nucleated RBC 0.00 Immature Gran % 0 Nucleated RBC % 0 Sodium 141 Potassium 5.0 Chloride 104 Carbon Dioxide 28.9 Anion Gap 8 BUN 39 H Creatinine 6.8 H* D Estim Creat Clear Calc 12.5 L eGFR 9 L* BUN/Creatinine Ratio 6 L Glucose 70 L Calculated Osmolality 288 Calcium 8.8 Corrected Calcium 9.4 Phosphorus 4.9 Magnesium 2.0 Total Bilirubin 0.5 AST < 10 ALT 12 Alkaline Phosphatase 78 Total Protein 5.8 Albumin 3.3 L Globulin 2.5 Albumin/Globulin Ratio 1.3 Blood Type B Positive Antibody Screen NEGATIVE Crossmatch See Detail Blood Bank Wristband ID Yes Assessment & Plan Additional Assessment & Plan Additional Plan: # ESRD-secondary to failed transplant and has been on dialysis for 1 year. Under the care of Dr. Lerma. HD on monday # GI bleed probably related to Eliquis. Dr. Finney was consulted. 2 unit of blood transfusion given. HGB stable. Going for scope # Renal osteodystrophy # Right upper extremity DVT-Eliquis on hold # Essential hyertension -resume home blood pressure medications # Thrombocytopenia - possibly medication induced. His baseline platelets are 112 Thank you Colby for allowing me to participate in the care of Mr. Montgomery
[2024-08-19] VITALS (7 sets, daily range): BP systolic 114–162; BP diastolic 57–99; PULSE 89–100; RESP 10–18; TEMP 36.2–36.8; O2SAT 100; BMI 24.3
[2024-08-19 05:58] LABS: Basophils % (Auto) 1 % (0-2.5); Eosinophils # (Auto) 0.2 Thou/mm3 (0.0-0.5); Eosinophils % (Auto) 3 % (0-10); Hematocrit 26.7 % (41.0-53.0); Immature Granulocytes % (Auto) 0 % (0-0); Immature Granulocytes Auto 0.02 Thou/mm3 (0.00-0.00); Lymphocytes # (Auto) 0.5 Thou/mm3 (1.0-4.8); Lymphocytes % (Auto) 10 % (10-50); Mean Corpuscular Hemoglobin 29.1 pg (25.0-35.0); Mean Corpuscular Volume 88 fL (80-100); Monocytes # (Auto) 0.5 Thou/mm3 (0.0-0.8); Monocytes % (Auto) 10 % (0-12); Neutrophils # (Auto) 3.6 Thou/mm3 (1.8-7.7); Neutrophils % (Auto) 76 % (37-80); Nucleated Red Blood Cell % 0 /100 WBC (0); Platelet Count 122 Thou/mm3 (140-440); RDW Standard Deviation 67.1 fL (35.1-43.9); Red Blood Count 3.02 Miln/mm3 (4.50-5.90); White Blood Count 4.7 Thou/mm3 (3.8-10.6)
[2024-08-19 06:10] LABS: Hemoglobin 8.8 g/dL (13.5-16.0)
[2024-08-19 06:53] LABS: Alanine Aminotransferase 9 U/L (10-49); Albumin/Globulin Ratio 1.3 (1.2-2.2); Alkaline Phosphatase 76 U/L (46-116); Anion Gap 14 (7-16); Bilirubin,Total 0.4 mg/dL (0.3-1.2); Blood Urea Nitrogen 42 mg/dL (9-23); Calcium 8.4 mg/dL (8.3-10.6); Calcium (Corrected) 9.2 mg/dL (8.5-10.1); Carbon Dioxide 25.7 mMol/L (20.0-31.0); Chloride 100 mMol/L (98-107); Globulin 2.4 gm/dL (2.3-3.5); Glucose 64 mg/dL (74-106); Magnesium 2.1 mg/dL (1.6-2.6); Osmolality,Calculated 287 (275-295); Phosphorous 5.5 mg/dL (2.4-5.1); Potassium 4.8 mMol/L (3.4-5.1); Sodium 140 mMol/L (136-145); Total Protein 5.4 gm/dL (5.7-8.2)
[2024-08-19 07:08] LABS: Aspartate Amino Transferase < 8 U/L (0-34); BUN/Creatinine Ratio 5 Ratio (12-20); Creatinine (Component) 8.3 mg/dL (0.6-1.3); Estimated Creatinine Clearance 10.3 mL/min (>60); eGFR 7 See Note
[2024-08-19 08:10] LABS: Path Review Blood Smear Sent to Pathologist
[2024-08-19] MEDS: PANTOPRAZOLE INJ 40 MG VIAL IV (08:32)
[2024-08-19] MEDS: LOSARTAN POTASSIUM 25 MG TABLET 100 MG PO (08:33)
--- NOTE | 2024-08-19 10:00 | ESPR_ITS ---
Documentation for date of: 08/19/24 Subjective Subjective Interval history: Mr. Montgomery is a 59-year-old -[place] gentleman with past medical history of developmental delay, hypertension, polycystic kidney disease, s/p renal transplant on 12/02/2017 at [facility]- failed, back on HD since aug 2023 [T//MON]- under DR. LERMA, HFpEF 55 to 60%, bradycardia s/p ICD placement in 2011, s/p replacement of single-chamber AICD on 05/05/2024 for depleted battery, diverticulosis was at [facility] last month with weakness, hypoglycemia and that time he was diagnosed with right upper extremity DVT. Was sent home on Eliquis. Patient comes with a hemoglobin of 6.4 and a fecal occult positive. 1 unit of blood transfusion was given last night. Dr. Finney was consulted. Protonix was initiated and nephrology consultation was requested as he is you due for dialysis today. Patient has a AV fistula which is nonfunctioning and is currently receiving dialysis through left IJ PermCath. Home medications included Eliquis, aspirin, carvedilol, doxazosin, hydralazine, losartan, nifedipine, Renvela, sodium bicarbonate, Velphoro. Labs, medications have been reviewed. 08/19/2024 seen in medical floor. No CP, sob. Patient had a colonoscopy yesterday. No active bleed. He is going to be discharged today. Follow-up with Dr. Lerma in a.m. for dialysis. Review of Systems Review of Systems Narrative Review of Systems: CONSTITUTIONAL: Patient denies any fever, chills. HEENT: Denies any visual disturbances or hearing problems. CARDIOVASCULAR: Patient denies any chest pain, shortness of breath.mild swelling in the right upper extremity- better PULMONARY: Patient denies any shortness of breath, cough. GASTROINTESTINAL: Patient denies any abdominal pain, constipation, nausea, vomiting, diarrhea. GENITOURINARY: Patient denies any urinary symptoms of burning or frequency or hematuria, denies any form in the urine. SKIN: Denies any rash. IJ catheter noted. Stasis dermatitis noted in the lower extremities MUSCULOSKELETAL: Denies any muscular skeletal problems of joint pains. NEUROLOGICAL: Denies any neurological problems of strokes, seizures or confusion. Denies any memory problems. Patient seems to have developmental delay PSYCHIATRIC: Denies any depression or anxiety. Exam Vital Signs Temp Pulse Resp BP Pulse Ox O2 Del Method O2 Flow Rate 36.8 C 99 10 L 114/82 100 Nasal Cannula 2 08/19/24 08:00 08/19/24 08:33 08/19/24 08:01 08/19/24 08:33 08/19/24 08:01 08/19/24 08:00 08/19/24 08:01 Narrative Exam GENERAL APPEARANCE: Patient seems to be comfortable, adequately hydrated and nourished. NECK: Neck supple, no JVD or bruit CARDIOVASCULAR: Heart regular, no murmurs LUNGS/CHEST: Chest clear to auscultation. No rales, rhonchi, wheezing ABDOMEN: Soft, nontender, nondistended. No masses. Normal bowel sounds. EXTREMITIES: 1+ edema in the right upper extremity SKIN: Stasis dermatitis of the lower extremity. IJ dialysis catheter noted MUSCULOSKELETAL: Musculoskeletal exam normal PSYCHIATRIC: Normal mood, affect LYMPHATICS: No lymphadenopathy noted NEUROLOGICAL : No neurological deficits seems to be slow in response. Objective Labs 08/19/24 04:34 08/19/24 04:34 Labs: Laboratory Results - last 24 hr 08/19/24 04:34 WBC 4.7 RBC 3.02 L Hgb 8.8 L Hct 26.7 L MCV 88 MCH 29.1 MCHC 33.0 RDW Std Deviation 67.1 H Plt Count 122 L Neut % (Auto) 76 Lymph % (Auto) 10 [place] % (Auto) 10 Eos % (Auto) 3 Baso % (Auto) 1 Neut # (Auto) 3.6 Lymph # (Auto) 0.5 L [place] # (Auto) 0.5 Eos # (Auto) 0.2 Baso # (Auto) 0.0 Immature Gran # (Auto) 0.02 H Absolute Nucleated RBC 0.00 Immature Gran % 0 Nucleated RBC % 0 Smear Path Review Sent to Pathologist Sodium 140 Potassium 4.8 Chloride 100 Carbon Dioxide 25.7 Anion Gap 14 BUN 42 H Creatinine 8.3 H* D Estim Creat Clear Calc 10.3 L eGFR 7 L* BUN/Creatinine Ratio 5 L Glucose 64 L Calculated Osmolality 287 Calcium 8.4 Corrected Calcium 9.2 Phosphorus 5.5 H Magnesium 2.1 Total Bilirubin 0.4 AST < 8 ALT 9 L Alkaline Phosphatase 76 Total Protein 5.4 L Albumin 3.0 L Globulin 2.4 Albumin/Globulin Ratio 1.3 Assessment & Plan Additional Assessment & Plan Additional Plan: # ESRD-secondary to failed transplant and has been on dialysis for 1 year. Under the care of Dr. Lerma. HD on monday # GI bleed probably related to Eliquis. Dr. Finney was consulted. 2 unit of blood transfusion given. HGB stable. S/p endoscopy # Renal osteodystrophy # Right upper extremity DVT-Eliquis on hold # Essential hyertension -resume home blood pressure medications # Thrombocytopenia - possibly medication induced. His baseline platelets are 112 Thank you Colby for allowing me to participate in the care of Mr. Montgomery Quality - progress note Quality Measures Quality Measures: VTE prophylaxis Reason for Continued Stay Reason for Continued Stay: further monitoring
[2024-08-19] MEDS: SEVELAMER CARBONATE 800 MG TABLET PO (12:24)
--- NOTE | 2024-08-19 13:15 | ESDS_ITS ---
<Statement entered by Bladimir Mitchell MD - 08/21/24 16:07> Agree with plan and examination finding on the note below. Patient seen and examined at bedside today. Labs and imaging reviewed. Patient care discussed with my attending Dr. Ashford and co-resident Dr. Valdez. Planned Discharge Date 08/19/24 DS: Providers Provider Date of admission: 08/16/24 16:28 Primary care physician: Elsy Connell MD Admitting Provider: Colby Ashford MD Attending Provider on Admission: Colby Ashford MD Consults: 08/16/24 16:12 Consult to Gastroenterology Stat Comment: ugib Consulting Provider: Emmanuel Finney 08/16/24 17:47 Consult to Nephrology Routine Comment: Consulting Provider: Mckenna Muse Attending Provider on DC: Colby Ashford MD Discharging Provider: Catrachito Valdez MD DS: Diagnosis Problem List Completed Was Problem List Reviewed/Reconciled?: Yes Hospital Course Hospital Course Hospital course: 59-year-old male patient with significant medical history for 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 With regards to patient's acute blood loss anemia secondary to GI bleed for investigation he was treated with 3 units PRBC infusion. On admission his hemoglobin was 6.8 and up trended to 10.2 after transfusion. Upon discharge hemoglobin was 8.8. EGD completed on 08/17/2024 findings include: Small hiatal hernia, esophagitis, nonerosive gastritis characterized by erythema. Sims's esophagus, distal esophageal biopsies taken. Colonoscopy completed on 08/18/2024 findings include: Hemorrhoids on perianal exam. A few small elevated diverticula in the sigmoid and descending colon. No evidence of diverticular bleeding. Patient was counseled on high-fiber diet and to increase his water intake. Also counseled if any further episodes of bleeding to follow-up with GI for referral for capsule endoscopy. For patient's subclavian DVT, his Eliquis was held as risk of bleeding was higher than risk of thrombus. After discussion with patient and his sister decision was made to hold Eliquis until he visits his primary care provider. Patient's labs are now returning to his baseline with exception of hemoglobin. Patient is now clinically stable and fit for discharge to home. Discharge diagnoses: 1. Acute blood loss anemia secondary to GI bleed for investigation?resolving 2. Anemia of chronic disease 3. ESRD on hemodialysis T/T/S 4. Polycystic kidney disease s/p renal transplant at [facility] 2017 5. Bradycardia s/p ICD 2011 and AICD 05/2024 6. Heart failure with reduced ejection fraction [35-40%] 7. Primary hypertension 8. History of subclavian DVT Discharge plan: - You have been started on a medication Pantoprazole for bleeding. Take 1 tablet once a day. - We have held your Eliquis because of your bleeding. - Continue the rest of your home medication as before. - If you have further episodes of bleeding you might need a procedure called a capsule endoscopy - Follow up with your primary doctor within 1 week of discharge for results of the biopsies from your endoscopy and colonoscopy - Follow up with your primary care physician within 1 week of discharge. If you do not have a primary care physician, please follow up with the [facility] Residents clinic ([phone]) ? If you experience any new, worsening or persistent symptoms either call your primary doctor, or dial 911 or present to the emergency department. We are grateful to be able to participate in Mr. Montgomery's care. We wish him the best. Plan of care discussed with Attending Dr. sAhford and PGY3 Dr. Stephen Valdez MD PGY 1 Time Spent with Patient Time attestation: Total time spent providing and/or coordinating discharge services: Time spent: Greater than 30 minutes (38) Exam Vital Signs Temp Pulse Resp BP Pulse Ox O2 Del Method O2 Flow Rate 97.5 F 100 18 133/69 H 100 Nasal Cannula 2 08/19/24 12:08/19/24 12:08/19/24 12:08/19/24 12:08/19/24 12:08/19/24 12:08/19/24 08:01 Narrative Exam Constitutional: Well-developed, no acute distress, breathing comfortably on room air, following directions and answering questions appropriately HEENT: NCAT. Vision grossly intact. Mucous membranes moist. Respiratory: Chest wall normal on inspection and lungs clear to auscultation bilaterally. Cardiac: RRR. Normal S1, S2. Abdomen: Soft, non-distended, non-tender. MSK: No B/L LE edema. Skin: Warm, dry, intact. AV fistula noted in left arm, thrill felt. Neuro: Motor and sensation grossly intact. Psychiatric: Appropriate mood and affect. Discharge Plan Plan Patient Disposition: HOME (Self Care) Care Plan Goals: - You have been started on a medication Pantoprazole for bleeding. Take 1 tablet once a day. - We have held your Eliquis because of your bleeding. - Continue the rest of your home medication as before. - If you have further episodes of bleeding you might need a procedure called a capsule endoscopy - Follow up with your primary doctor within 1 week of discharge for results of the biopsies from your endoscopy and colonoscopy - Follow up with your primary care physician within 1 week of discharge. If you do not have a primary care physician, please follow up with the [facility] Residents clinic ([phone]) ? If you experience any new, worsening or persistent symptoms either call your primary doctor, or dial 911 or present to the emergency department. Prescriptions/Referrals Prescriptions/Med Rec: New pantoprazole 40 mg tablet,delayed release (DR/EC) 40 mg PO QDAY 30 Days Qty: 30 0RF Continued sodium bicarbonate 650 mg Tablet 1,300 mg PO BID doxazosin 4 mg tablet 8 mg PO HS sevelamer carbonate 800 mg tablet 800 mg PO TIDWMEAL Patient Comments: take 1 tablet by mouth three times a day with meals losartan 100 mg Tablet 100 mg PO QDAY Velphoro 500 mg tablet,chewable 1,000 mg PO TID Patient Comments: CHEW AND SWALLOW 2 tablets by mouth three times a day with meals aspirin 81 mg tablet,delayed release (DR/EC) 81 mg PO QDAY Qty: 30 2RF carvedilol 25 mg tablet 25 mg PO BID Qty: 30 0RF Rx Instructions: must administer with a meal/food albuterol sulfate 90 mcg/actuation HFA aerosol inhaler 1 inh inhalation Q6H PRN (Reason: shortness of breath or wheezing) Qty: 8.5 2RF fluticasone propion-salmeterol [Advair Diskus] 250-50 mcg/dose blister with device 1 inh inhalation BID Qty: 60 0RF Held hydralazine 50 mg tablet 50 mg PO TID 30 Days Qty: 90 2RF Hold Instructions: Resume on 08/01/24. Hold until you see your PCP Eliderick DVT-PE Treat 30D Start 5 mg (74 tabs) tablets,dose pack 5 mg PO BID Qty: 74 0RF Hold Instructions: Resume on 09/02/24. Talk to your PCP before resuming Rx Instructions: Skip 3 pills of 10 mg Eliquis and continue starter pack as directed as patient received 3 doses during hospital stay nifedipine 30 mg Tablet Extended Release 24hr 30 mg PO SuMoWeFr@0900 Qty: 36 2RF Hold Instructions: Doctor's Order prednisone 20 mg tablet 40 mg PO QDAY Qty: 8 0RF Hold Instructions: Resume on 09/02/24. Do not take until you see your PCP Referrals: Elsy Connell MD [Primary Care Provider] - Patient/Caregiver Discharge Instructions Education Materials: ED Gastritis (Adult) Print Language: Israeli Stand Alone Forms: Renae Award Info., Patient Portal Info Letter Discharge Order Discharge Orders: Discharge (Routine); Ordered 08/19/24 Ordered By: Catrachito Valdez Quality Discharge Quality Measures none (GI bleed) Attestestation MD Attestation I attest that I was physically present for the evaluation, physical examination, lab and imaging review of the patient with the residents. I discussed the case with the residents and agree with the findings and plans of care as documented above. Colby Ashford MD
--- NOTE | 2024-08-19 18:03 | PD.IMPROG ---
Documentation for date of: 08/19/24 Subjective Subjective Interval history: Patient evaluated Case discussed with internal medicine team sheokay to discharge patient home Exam Vital Signs Temp Pulse Resp BP Pulse Ox O2 Del Method O2 Flow Rate 98.2 F 96 18 118/69 100 Nasal Cannula 2 08/19/24 16:00 08/19/24 16:00 08/19/24 16:00 08/19/24 16:00 08/19/24 16:00 08/19/24 16:00 08/19/24 08:01 Objective Labs 08/19/24 04:34 08/19/24 04:34 Labs: Laboratory Results - last 24 hr 08/16/24 08/19/24 12:05 04:34 WBC 4.7 RBC 3.02 L Hgb 8.8 L Hct 26.7 L MCV 88 MCH 29.1 MCHC 33.0 RDW Std Deviation 67.1 H Plt Count 122 L Neut % (Auto) 76 Lymph % (Auto) 10 [place] % (Auto) 10 Eos % (Auto) 3 Baso % (Auto) 1 Neut # (Auto) 3.6 Lymph # (Auto) 0.5 L [place] # (Auto) 0.5 Eos # (Auto) 0.2 Baso # (Auto) 0.0 Immature Gran # (Auto) 0.02 H Absolute Nucleated RBC 0.00 Immature Gran % 0 Nucleated RBC % 0 Smear Path Review Sent to Pathologist Sodium 140 Potassium 4.8 Chloride 100 Carbon Dioxide 25.7 Anion Gap 14 BUN 42 H Creatinine 8.3 H* D Estim Creat Clear Calc 10.3 L eGFR 7 L* BUN/Creatinine Ratio 5 L Glucose 64 L Calculated Osmolality 287 Calcium 8.4 Corrected Calcium 9.2 Phosphorus 5.5 H Magnesium 2.1 Total Bilirubin 0.4 AST < 8 ALT 9 L Alkaline Phosphatase 76 Total Protein 5.4 L Albumin 3.0 L Globulin 2.4 Albumin/Globulin Ratio 1.3 Crossmatch See Detail Impressions Impression: Anemia blood loss stable okay to discharge patient home to be followed by the PCP Assessment & Plan A&P Narrative Acute posthemorrhagic anemia Melena etiology uncertain Plan N.p.o. midnight tonight Agree with blood transfusion Consent obtained for fiberoptic esophagogastroduodenoscopy with possible biopsy possible therapeutic intervention under intravenous moderate sedation scheduled for tomorrow IV Protonix Other medical problems include End-stage renal disease on hemodialysis Essential hypertension Thank you very much for the opportunity to participate in the care of this patient Time Spent With Patient Time: Total time spent is greater than 50% in coordination of care (as documented) at patient's floor/unit and/or counseling patient:
--- NOTE | 2024-08-21 16:05 | PC.SS ---
MAINTENANCE MANAGER [facility]; requesting H&P and Discharge Summary to resume home health orders for the patient. Requested documentation faxed to [phone]. Patient was aligned with [facility] prior to admission.
== END 2024-08-18 17:33 | disposition home or self-care (01) | DRG 377 ==
LOC: SERX 13:23 → SERHOLD 17:01 → S3SX 21:24
PROVIDERS: Internal Medicine; Nurse Practitioner Family; Specialist; Admitting Provider Student in an Organized Health Care Education/Training Program; Emergency Provider Emergency Medicine; PCP Family Medicine; Visit Provider Student in an Organized Health Care Education/Training Program
PROC: (CPT 43239; principal; 2024-08-17 16:00)
PROC: 0DJD8ZZ Inspection of Lower Intestinal Tract, Via Natural or Artificial Opening Endoscopic (ICD-10-PCS; CPT 45378; principal; 2024-08-18 18:30)
DX: K29.61 Other gastritis with bleeding (principal); N18.6 End stage renal disease; I13.2 Hypertensive heart and chronic kidney disease with heart failure and with stage 5 chronic kidney disease, or end stage renal disease; D62 Acute posthemorrhagic anemia; Q61.3 Polycystic kidney, unspecified; T86.12 Kidney transplant failure; I50.42 Chronic combined systolic (congestive) and diastolic (congestive) heart failure; K20.91 Esophagitis, unspecified with bleeding; K57.31 Diverticulosis of large intestine without perforation or abscess with bleeding; N25.0 Renal osteodystrophy; D63.1 Anemia in chronic kidney disease; E11.22 Type 2 diabetes mellitus with diabetic chronic kidney disease; K44.9 Diaphragmatic hernia without obstruction or gangrene; K64.9 Unspecified hemorrhoids; K22.70 Barrett's esophagus without dysplasia; R00.1 Bradycardia, unspecified; R62.50 Unspecified lack of expected normal physiological development in childhood; Z95.810 Presence of automatic (implantable) cardiac defibrillator; Z99.2 Dependence on renal dialysis; Z86.718 Personal history of other venous thrombosis and embolism; D69.59 Other secondary thrombocytopenia; Z87.19 Personal history of other diseases of the digestive system; Z87.891 Personal history of nicotine dependence; Z79.01 Long term (current) use of anticoagulants; Z11.52 Encounter for screening for COVID-19; Z79.82 Long term (current) use of aspirin; Z79.899 Other long term (current) drug therapy; Y83.8 Other surgical procedures as the cause of abnormal reaction of the patient, or of later complication, without mention of misadventure at the time of the procedure
CPT/HCPCS: 36415; 80053; 82270; 83735; 84100; 85014; 85018; 85025; 85610; 85730; 86850; 86900; 86901; 86923; 87081; 93225; J1200; J1643; J2250; J2470; J3010; P9016; A9270

== ENCOUNTER 2024-09-07 16:54 | Emergency (ER) | payer MEDICARE, MEDICAID, SELFPAY ==
[2024-09-07] VITALS (8 sets, daily range): BP systolic 133–153; BP diastolic 94–107; PULSE 82–98; RESP 7–19; TEMP 36.4–36.7; O2SAT 96–100; BMI 26.9
--- NOTE | 2024-09-07 17:38 | XR_ITS ---
Examination: Duplex scan of the upper extremity, unilateral left Date and time of exam: September 07, 2024 0859 hrs. Indications: Left arm swelling and pain beginning 4 days ago after fistula placement Technique: Duplex scan of the extremity veins using B-mode/grayscale imaging and Doppler spectral analysis and color flow Attention is directed to internal echogenicity, compression and augmentation involving these veins, color flow assessment, spectral analysis Findings: Bandaging material severely limits this study The jugular subclavian radial and ulnar veins are visualized and open Impression: Limited study as above
--- NOTE | 2024-09-07 17:39 | PD.EDUPEX ---
Upper Extremity Injury RME/HPI General Chief Complaint: Extremity Injury, Upper Stated Complaint: LEAKING FISTULA to left arm Time Seen by Provider: 09/07/24 17:22 Arrival date/time: 09/07/24 16:54 RME / HPI RME / HPI narrative: 59-year-old male patient with significant history of hypertension, end-stage renal disease on hemodialysis, was brought in by EMS for evaluation regarding left upper arm swelling. Patient was seen and had a recent AV fistula reconstruction in [place] 3 days ago and was placed on a portable wound VAC. Since today patient's wound VAC is not working. And family noticed that the left arm is swollen. Patient is denying any fever. Denies any chest pain denies any shortness of breath. Patient had hemodialysis today. No medication was taken prior travel. Related Data Home Medications ?Medication ?Instructions ?Recorded ?Confirmed sodium bicarbonate 650 mg tablet 1,300 mg PO BID 10/02/19 08/16/24 doxazosin 4 mg tablet 8 mg PO HS 12/16/23 08/16/24 sevelamer carbonate 800 mg tablet 800 mg PO TIDWMEAL 12/16/23 08/16/24 losartan 100 mg tablet 100 mg PO QDAY 04/29/24 08/16/24 sucroferric oxyhydroxide 500 mg 1,000 mg PO TID 04/30/24 08/16/24 chewable tablet (Velphoro) Previous Rx's ?Medication ?Instructions ?Recorded aspirin 81 mg tablet,delayed 81 mg PO QDAY #30 tabs 05/01/24 release hydralazine 50 mg tablet 50 mg PO TID 30 days #90 tabs 05/02/24 Held on 08/19/24. Instructions: Resume on 09/02/24. Hold until you see your PCP apixaban 5 mg (74 tabs) tablets in 5 mg PO BID #74 tabs 08/01/24 a dose pack (Eliquis DVT-PE Treat 30D Start) Held on 08/19/24. Instructions: Resume on 09/02/24. Talk to your PCP before resuming carvedilol 25 mg tablet 25 mg PO BID #30 tabs 08/01/24 nifedipine 30 mg tablet,extended 30 mg PO SuMoWeFr@0900 #36 tabs 08/02/24 release 24 hr Held on 08/19/24. Instructions: Resume on 09/02/24. Hold until you see your PCP albuterol sulfate 90 mcg/actuation 1 inh inhalation Q6H PRN shortness 08/04/24 aerosol inhaler of breath or wheezing #8.5 grams fluticasone 250 mcg-salmeterol 50 1 inh inhalation BID #60 ea 08/04/24 mcg/dose blistr powdr for inhalation (Advair Diskus) prednisone 20 mg tablet 40 mg (2 x 20 mg) PO QDAY #8 tabs 08/04/24 Held on 08/19/24. Instructions: Resume on 09/02/24. Do not take until you see your PCP pantoprazole 40 mg tablet,delayed 40 mg PO QDAY 30 days #30 tabs 08/19/24 release Allergies Allergy/AdvReac Type Severity Reaction Status Date / Time No Known Allergies Allergy Verified 08/16/24 11:31 Review of Systems Review of Systems Narrative Review of Systems: Review of system reviewed and within normal limits except mentioned in HPI ED Exam Narrative Physical exam: VITAL SIGNS: Reviewed. GENERAL APPEARANCE: Alert and interactive, follows commands, no acute distress, HEAD AND FACE: Non-traumatic. ENT: PERRL, pink conjunctivitis, eyelid no trauma, Mucous membrane moist. NECK: Supple, nontender, no nuchal rigidity. CHEST: No tenderness, no crepitus, no paradoxical movement, no retractions. + dialysis cath noted on the left chest, with dressing no redness nontender LUNGS: Clear, well ventilated, symmetric, no rales, no wheezing, no ronchi, no stridor, good breath sounds bilaterally. HEART: Regular rate, regular rhythm, no murmur, no gallops. ABDOMEN: Soft, positive bowel sounds, nondistended, no guarding, nontender, no rebound, no masses, RECTAL: Deferred. GENITAL: Deferred. NEUROLOGICAL: Gross motor function intact sensory function intact, Appropriate for age. MUSCULOSKELETAL: low back nontender, full range of motion. EXTREMITIES:+ Left upper extremity swelling, with soak dressing, and portable wound VAC is not working, no redness nontender, full range of motion. Radial pulses +2 left upper extremity SKIN: Color pink, dry, no rash, no lacerations, no abrasions, no contusions. LYMPHATICS: Deferred. Course Quality Measures none Orders Category Date Time Status US venous doppler UE LT Stat Exams 09/07/24 17:38 Completed CBC [CBC] Stat Lab 09/07/24 17:56 Completed CMP [Comprehensive Metabolic Panel] Stat Lab 09/07/24 17:56 Completed Vital Signs Vital signs: Vital Signs Temperature 97.5 F 09/07/24 17:00 Pulse Rate 91 09/07/24 17:00 Respiratory Rate 18 09/07/24 17:00 Blood Pressure 135/98 H 09/07/24 17:00 Pulse Oximetry (%) 98 09/07/24 17:00 Oxygen Delivery Method Room Air 09/07/24 17:00 Extremity Injury MDM Narrative [facility] Narrative:: 59-year-old male patient with significant history of hypertension, end-stage renal disease on hemodialysis, was brought in by EMS for evaluation regarding left upper arm swelling. Patient was seen and had a recent AV fistula reconstruction in [place] 3 days ago and was placed on a portable wound VAC. Since today patient's wound VAC is not working. And family noticed that the left arm is swollen. Patient is denying any fever. Denies any chest pain denies any shortness of breath. Patient had hemodialysis today. No medication was taken prior travel. The wound VAC is fully soaked and not working anymore. The wound VAC/dressing was removed and replaced with clean gauze and wrapped with Kerlix. Patient was advised to closely follow-up with the surgeon who did the surgery. Next week this coming Monday. Patient and family agrees with the plan. Ultrasound of the left upper extremity is nondiagnostic. Laboratory workup is significant for slight leukopenia of 3.7 hemoglobin of 9.1 CMP creatinine 5.9 BUN is normal potassium is normal Patient appears nontoxic and hemodynamically stable. Patient discharged home and instructed to follow-up with primary care provider in 24 to 48 hours. Instructed to return to the emergency department immediately if worsening of symptoms Patient data External records reviewed:: None Clinical information provided by:: patient Social determinants that could affect healthcare access:: none Patient has the following chronic illnesses:: ESRD, hypertension How is presenting disease/condition affected by chronic disease/condition?: exacerbated by Evaluation data The following diagnostics were reviewed and interpreted by me:: lab results and radiology exam(s) Lab and/or radiology exams considered but not ordered:: None Interpretation Summary: See results in MDM Medications / Prescriptions Medications or Prescriptions considered but not ordered:: None Medication administrations:: None Consultations Consultation(s) initiated? (list below): No Diagnosis Upper Extremity Injury Differential Diagnosis: other (Left arm swelling, malfunctioning wound VAC, status post AV fistula reconstruction) Most likely diagnosis given after review of the tests above:: Left arm swelling Admission Indicated Admission indicated?: not indicated Admission Request Was there a request for admission?: No Disposition Plan Disposition Plan: Discharge Discharge Attestation Discharge Attestation: The patient and all family members were given an opportunity to ask questions and understood the discharge instructions. Discharge instructions specifically effects, indications for sooner follow up or return to the emergency department, and the expected course of current diagnosis. Patient condition: Stable Discharge Plan Plan Patient Disposition: HOME (Self Care) Disposition Comment: Stable Prescriptions/Referrals Prescriptions/Med Rec: No Action sodium bicarbonate 650 mg Tablet 1,300 mg PO BID doxazosin 4 mg tablet 8 mg PO HS sevelamer carbonate 800 mg tablet 800 mg PO TIDWMEAL Patient Comments: take 1 tablet by mouth three times a day with meals losartan 100 mg Tablet 100 mg PO QDAY Velphoro 500 mg tablet,chewable 1,000 mg PO TID Patient Comments: CHEW AND SWALLOW 2 tablets by mouth three times a day with meals aspirin 81 mg tablet,delayed release (DR/EC) 81 mg PO QDAY Qty: 30 2RF hydralazine 50 mg tablet 50 mg PO TID 30 Days Qty: 90 2RF carvedilol 25 mg tablet 25 mg PO BID Qty: 30 0RF Rx Instructions: must administer with a meal/food Eliquis DVT-PE Treat 30D Start 5 mg (74 tabs) tablets,dose pack 5 mg PO BID Qty: 74 0RF Rx Instructions: Skip 3 pills of 10 mg Eliquis and continue starter pack as directed as patient received 3 doses during hospital stay nifedipine 30 mg Tablet Extended Release 24hr 30 mg PO SuMoWeFr@0900 Qty: 36 2RF prednisone 20 mg tablet 40 mg PO QDAY Qty: 8 0RF albuterol sulfate 90 mcg/actuation HFA aerosol inhaler 1 inh inhalation Q6H PRN (Reason: shortness of breath or wheezing) Qty: 8.5 2RF fluticasone propion-salmeterol [Advair Diskus] 250-50 mcg/dose blister with device 1 inh inhalation BID Qty: 60 0RF pantoprazole 40 mg tablet,delayed release (DR/EC) 40 mg PO QDAY 30 Days Qty: 30 0RF Referrals: No Primary/Family,Physician [Primary Care Provider] - In 1 week Problem List Clinical Impression: Left arm swelling, End stage renal failure on dialysis Patient/Caregiver Discharge Instructions Discharge Activity: activity as tolerated Education Materials: Hemodialysis Additional Instructions: Thank you for the opportunity for serving you today. You are stable for discharged . You are advised to: Follow-up with your PCP in 1 to 2 days Return to ED for worsening of symptoms Elevate left upper extremity as needed Change dressing as needed Print Language: Upper Sorbian Stand Alone Forms: Renae Award Info., Patient Portal Info Letter PA/WATERWORKS SUPERVISOR Supervising Physician PA/WATERWORKS SUPERVISOR Supervising Physician: MD james
[2024-09-07 18:20] LABS: Basophils % (Auto) 1 % (0-2.5); Eosinophils # (Auto) 0.2 Thou/mm3 (0.0-0.5); Eosinophils % (Auto) 5 % (0-10); Hematocrit 27.8 % (41.0-53.0); Hemoglobin 9.1 g/dL (13.5-16.0); Immature Granulocytes % (Auto) 0 % (0-0); Immature Granulocytes Auto 0.01 Thou/mm3 (0.00-0.00); Lymphocytes # (Auto) 0.5 Thou/mm3 (1.0-4.8); Lymphocytes % (Auto) 12 % (10-50); Mean Corpuscular HGB Conc 32.7 g/dl (31.0-37.0); Mean Corpuscular Hemoglobin 29.9 pg (25.0-35.0); Mean Corpuscular Volume 91 fL (80-100); Monocytes # (Auto) 0.4 Thou/mm3 (0.0-0.8); Monocytes % (Auto) 10 % (0-12); Neutrophils # (Auto) 2.7 Thou/mm3 (1.8-7.7); Neutrophils % (Auto) 73 % (37-80); Nucleated Red Blood Cell % 0 /100 WBC (0); Platelet Count 122 Thou/mm3 (140-440); RDW Standard Deviation 62.7 fL (35.1-43.9); Red Blood Count 3.04 Miln/mm3 (4.50-5.90); White Blood Count 3.7 Thou/mm3 (3.8-10.6)
[2024-09-07 18:52] LABS: Alanine Aminotransferase < 7 U/L (10-49); Albumin, Serum 3.8 gm/dL (3.4-4.8); Albumin/Globulin Ratio 1.4 (1.2-2.2); Alkaline Phosphatase 107 U/L (46-116); Anion Gap 8 (7-16); Aspartate Amino Transferase < 10 U/L (0-34); BUN/Creatinine Ratio 3 Ratio (12-20); Bilirubin,Total 0.4 mg/dL (0.3-1.2); Blood Urea Nitrogen 18 mg/dL (9-23); Calcium 8.5 mg/dL (8.3-10.6); Calcium (Corrected) 8.7 mg/dL (8.5-10.1); Carbon Dioxide 30.2 mMol/L (20.0-31.0); Chloride 99 mMol/L (98-107); Creatinine (Component) 5.9 mg/dL (0.6-1.3); Estimated Creatinine Clearance 15.3 mL/min (>60); Globulin 2.8 gm/dL (2.3-3.5); Glucose 92 mg/dL (74-106); Osmolality,Calculated 275 (275-295); Potassium 3.8 mMol/L (3.4-5.1); Sodium 137 mMol/L (136-145); Total Protein 6.6 gm/dL (5.7-8.2); eGFR 10 See Note
--- NOTE | 2024-09-07 21:24 | PC.NURSE ---
pt is resting quietly. NAD. awaiting results.
== END 2024-09-07 23:13 | disposition home or self-care (01) ==
PROVIDERS: Nurse Practitioner Family; Emergency Provider Emergency Medicine
DX: R22.32 Localized swelling, mass and lump, left upper limb (principal); D72.819 Decreased white blood cell count, unspecified; I12.0 Hypertensive chronic kidney disease with stage 5 chronic kidney disease or end stage renal disease; N18.6 End stage renal disease; Z99.2 Dependence on renal dialysis
CPT/HCPCS: 36415; 80053; 85025; 93971; 99284

== ENCOUNTER → 2024-12-12 | Outpatient (CLI) | payer MEDICARE, MEDICAID, SELFPAY ==
--- NOTE | 2024-12-12 12:01 | XR_ITS ---
Examination: PA lateral chest 2 views TECHNIQUE: Upright PA lateral chest 2 views Date and time: December 12, 2024 12:27 PM INDICATIONS: Onset chest pain today. FINDINGS: Mild enlargement left ventricle Stable position cardiac leads compared with August 02, 2024 Left internal jugular dialysis catheter tip right atrium No lobar pneumonia or pulmonary edema IMPRESSION: No lobar pneumonia or pulmonary edema
== END | disposition home or self-care (01) ==
PROVIDERS: PCP Family Medicine; Referring Provider Internal Medicine Nephrology; Visit Provider Internal Medicine Nephrology
DX: Z76.82 Awaiting organ transplant status (principal)
CPT/HCPCS: 71046

== ENCOUNTER 2025-01-06 11:30 | Day surgery (SDC) | payer MEDICARE, MEDICAID, SELFPAY ==
[2025-01-06] VITALS (18 sets, daily range): BP systolic 108–172; BP diastolic 57–113; PULSE 80–100; RESP 12–21; TEMP 36.3–36.7; O2SAT 98–100
--- NOTE | 2025-01-06 07:00 | EKG_ITS ---
[facility] Test Date: 2025-01-06 Pat Name: JANET CHRISTIANSON Department: Room: - Gender: Male School Transportation Director: JAQUAN : 1965 Requested By: Jyoti Do Order Number: [id number] Reading MD: Jyoti Do Measurements Intervals [place] Rate: 93 P: 71 NV: 170 QRS: -4 QRSD: 106 T: 86 QT: 366 QTc: 457 Interpretive Statements SINUS RHYTHM LEFT ATRIAL ENLARGEMENT [-0.15mV P WAVE IN V1/V2] POSSIBLE LEFT VENTRICULAR HYPERTROPHY [VOLTAGE CRITERIA PLUS LAE OR QRS WIDENING] POSSIBLE SEPTAL MYOCARDIAL INFARCTION , OF INDETERMINATE AGE [30 ms Q WAVE IN V1/V2] Compared to ECG 07/27/2024 15:54:13 Myocardial infarct finding now present Sinus tachycardia no longer present Ventricular premature complex(es) no longer present ST (T wave) deviation no longer present /store/S0/[id number].pdf
[2025-01-06 09:44] LABS: Basophils # (Auto) 0.0 Thou/mm3 (0.0-0.2); Basophils % (Auto) 1 % (0-2.5); Eosinophils # (Auto) 0.3 Thou/mm3 (0.0-0.5); Eosinophils % (Auto) 4 % (0-10); Hematocrit 40.1 % (41.0-53.0); Hemoglobin 13.5 g/dL (13.5-16.0); Immature Granulocytes Auto 0.02 Thou/mm3 (0.00-0.00); Lymphocytes # (Auto) 0.7 Thou/mm3 (1.0-4.8); Lymphocytes % (Auto) 12 % (10-50); Mean Corpuscular HGB Conc 33.7 g/dl (31.0-37.0); Mean Corpuscular Hemoglobin 29.8 pg (25.0-35.0); Mean Corpuscular Volume 89 fL (80-100); Monocytes # (Auto) 0.6 Thou/mm3 (0.0-0.8); Monocytes % (Auto) 10 % (0-12); Neutrophils # (Auto) 4.4 Thou/mm3 (1.8-7.7); Neutrophils % (Auto) 74 % (37-80); Nucleated Red Blood Cell # 0.00 Thou/mm3 (0.00-0.00); Nucleated Red Blood Cell % 0 /100 WBC (0); Platelet Count 129 Thou/mm3 (140-440); RDW Standard Deviation 53.1 fL (35.1-43.9); Red Blood Count 4.53 Miln/mm3 (4.50-5.90); White Blood Count 6.0 Thou/mm3 (3.8-10.6)
[2025-01-06 10:02] LABS: Anion Gap 15 (7-16); BUN/Creatinine Ratio 5 Ratio (12-20); Blood Urea Nitrogen 46 mg/dL (9-23); Calcium 10.2 mg/dL (8.3-10.6); Carbon Dioxide 27.8 mMol/L (20.0-31.0); Chloride 97 mMol/L (98-107); Creatinine (Component) 10.0 mg/dL (0.6-1.3); Glucose 82 mg/dL (74-106); Osmolality,Calculated 290 (275-295); Potassium 5.2 mMol/L (3.4-5.1); Sodium 140 mMol/L (136-145); eGFR 5 See Note
[2025-01-06 10:13] LABS: Estimated Creatinine Clearance 7.3 mL/min (>60)
[2025-01-06 10:19] LABS: INR 1.0 (0.9-1.3); Partial Thromboplastin Time 29.8 Seconds (22.0-36.0); Prothrombin Time 10.8 Seconds (9.0-12.2)
[2025-01-06] MEDS: PROTAMINE SULFATE 10 MG/ML 5ML VIAL 30 MG IV (12:43)
--- NOTE | 2025-01-06 13:20 | PC.NURSE ---
FEMORAL SHEATH (ARTERIAL ACCESSS) TO THE RIGHT GROIN AREA REMOVED ABOUT 1304. MANUAL PRESSURE APPLIED FOR ABOUT 15 MINUTES UNTIL HEMOSTASIS ACHIEVED.? PATIENT TOLERATED PROCEDURE WELL WITHOUT COMPLICATIONS. SURGICAL SITE ASYMPTOMATIC, NO ACTIVE BLEEDING, NO HEMATOMA NOTED ON RIGHT GROIN AREA. RIGHT FEMORAL PULSE NOTED WITH NO CHANGES IN STRENGHT AND QUALITY (normal upon palpation), RIGHT DORSALIS PEDIS PULSE NOTED WITH NO CHANGES STRENGHT AND QUALITY (weak with Doppler). DISTAL CAPPILARRY REFILL <3 SECONDS (Baseline, Right Toes). NO NOTED CHANGES IN COLOR OR TEMPERATURE ON RIGHT LOWER EXTREMITY. PATIENT DENIES GENERAL AND LOCALIZED PAIN. NO TINGLING OR NUMBNESS FELT TO RIGHT LOWER EXTREMITY. RIGHT FEMORAL VENOUS SHEATH STILL PRESENT. WILL CONTINUE TO MONITOR.
[2025-01-06 13:28] LABS: ACT (CATH LAB ONLY) 293.0 Seconds (89-169)
--- NOTE | 2025-01-06 14:13 | ESOP_ITS ---
RE: JANET CHRISTIANSON : 1965 DATE OF OPERATION: 01/06/2025 PROCEDURES PERFORMED: 1. Diagnostic right and left heart cardiac catheterization, selective coronary angiogram, left ventricular angiogram, CPT 54482 2. PCI and PTCA stent placement of the right coronary artery, unsuccessful due to heavy classified vessel, CPT 60435. 3. Iliofemoral angiogram. 4. Ultrasound-guided access of the right femoral artery and femoral vein. DIAGNOSES: Coronary artery disease, ischemic cardiomyopathy, congestive heart failure, mitral regurgitation, chronic kidney disease on hemodialysis, requesting cardiac clearance for transplant surgery, and abnormal nuclear stress test. HISTORY AND INDICATIONS: Janet Christianson is a 59-year-old male with a history of chronic kidney disease, stage V on hemodialysis, hypertension, diabetes mellitus, hypercholesterolemia, and congestive heart failure. He has been having shortness of breath on exertion. Cardiac stress test and nuclear scan showed extensive inferolateral perfusion defects, and also severe LV dysfunction, ejection fraction of 30% to 35%. Cardiac echo shows [id number] mitral regurgitation. Hence, right and left heart cardiac catheterization and angiogram was recommended to assess the patient is a candidate for revascularization and intervention. DESCRIPTION OF PROCEDURE: The patient was brought to the cardiac catheterization laboratory. He was given 2 mg of Versed and 50 mcg of fentanyl for sedation. Right femoral approach was taken. Right femoral artery was cannulated by micropuncture technique, 6-Afghan sheath was introduced. Right femoral vein was cannulated by micropuncture technique. Ultrasound guidance was used and 7-Afghan sheath was introduced. Right heart catheterization was performed with Sumter-Rogelio catheter. Right heart pressures were measured. Cardiac output was obtained with thermodilation technique. Subsequently, left heart catheterization was performed with a 6-Afghan pigtail catheter. Left ventricular angiogram performed and subsequently selective right and left coronary angiogram performed with FR4 and JL4 diagnostic catheters. The patient tolerated the diagnostic procedure very well. No complications. Diagnostic procedure showed following findings. Hemodynamics: Right atrial pressure was found to be 7 mmHg. Right ventricular pressure 33/2 mmHg. Pulmonary artery pressure 34/15 mmHg, mean 19 mmHg. Pulmonary artery wedge pressure is found to be 11 mmHg. Left ventricular pressure is measured at 112/21, EDP 24, aortic pressure 105/72. There is no gradient across the aortic valve. FINDINGS: Left ventricular angiogram showed evidence of extensive inferior wall akinesis and [id number] global hypokinesis, ejection fraction is approximately 30%. Coronary angiogram showed following findings. Right coronary artery is large and dominant showed evidence of heavy calcification of the proximal, mid and distal RCA. There is evidence of multiple lesions. Proximal RCA showed 98% stenosis, mid RCA showed 95% stenosis, distal RCA showed 90% stenosis. PDA and PL branches appeared to be widely patent. Left coronary system: Left main coronary artery is normal. At this calcification, left anterior descending artery showed calcification with mild disease, no significant obstructive disease. There is evidence of mild to moderate plaque involving the left anterior descending artery with approximately 30% narrowing of the proximal mid segments. Distal vessel is normal. Left circumflex artery represented by AV groove branch and one obtuse marginal branch, which showed no significant stenosis. There is some calcification. Following diagnostics procedure, intervention was undertaken. The patient was given IV heparin 6000 units of bolus with ACT of 295, also given aspirin and Brilinta loading dose and proceeded with complex PCI, heavily classified vessel. Cannulate the right coronary artery FR4 guiding catheter and lesion was successfully crossed using 0.014 runt-through guidewire; however, I was unable to. A 2.5 mm balloon was then used to try to cross the lesion in the proximal mid segments; however, unable to cross the lesion due to heavily calcified vessel and extreme calcification and endo-calcification and felt that the patient is not a candidate for angioplasty and IVL since unable to cross through the balloons and was recommended to have rotational atherectomy, rotablator technology for optimal management of the right coronary artery lesions. Iliofemoral angiogram performed. Sheath was removed at a later time after ACT is below 200. The patient had no complications. Pre-procedure stenosis was 98%. Post procedure stenosis was 98%, unsuccessful PTCA due to unable to cross the lesion with the balloon. BIANCA flow pre-procedure 3, post procedure 3. RECOMMENDATIONS: Will be to recommend elective PCI, rotational atherectomy and possible IVL and complex PCI of the right coronary artery at a later date at [facility] in [place]. COMPLICATIONS: None. ESTIMATED BLOOD LOSS: Less than 10 mL. DT: 12:38:32 TT: 14:12:00 Ref: [id number] - TID: [id number] [facility]
--- NOTE | 2025-01-06 14:42 | PC.NURSE ---
Dr Zamudio notified that patient woke up wheezing, SOB, and desaturated to 80's. Patient placed on oxygen with improvement to 97%. New order for Breathing treatment ordered. RT Chamberlain called and made aware.
[2025-01-06] MEDS: ALBUTEROL RT 2.5 MG/3 ML NEBU INH (14:50)
--- NOTE | 2025-01-06 17:37 | PC.NURSE ---
Addendum entered by Joe Araya RN 01/07/25 07:14: i took over patient at 15:25 patients right groin gauze is clean dry and intact without any signs of bleeding or hematoma, pulses checked weak with doppler when it was time for discharge and patient was getting up to change he would get short of breath and breath faster and harder. But when patient would sit down to catch his breath he would breath normal. i called Dr. Zamudio to let him know the situation and he was fine with letting him get discharged, patient did receive a breathing treatment earlier in the day when he was recovering, i took another look at thr right groin before discharge and it still looks clean dry and intact without any signs of bleeding or hard to touch. discharge instructions given to brother Garry, all questions answered accordingly. Original Note: i took over patient at 15:25 patients right groin gauze is clean dry and intact without any signs of bleeding or hematoma, pulses checked weak with doppler when it was time for discharge and patient was getting up to change he would get short of breath and breath faster and harder. i called Dr. Zamudio to let him know and he was fine with letting him get discharged, patient did receive a breathing treatment earlier in the day when he was recovering, looked at groin before discharge and it still looks clean dry and intact without any signs of bleeding or hard to touch. discharge instructions given to brother Garry, all questions answered accordingly.
== END 2025-01-06 17:30 | disposition home or self-care (01) ==
PROVIDERS: Referring Provider Internal Medicine Cardiovascular Disease; Visit Provider Internal Medicine Cardiovascular Disease
PROC: (CPT 93460; principal; 2025-01-06 11:30)
DX: I25.10 Atherosclerotic heart disease of native coronary artery without angina pectoris (principal); I25.5 Ischemic cardiomyopathy; I34.0 Nonrheumatic mitral (valve) insufficiency; I50.9 Heart failure, unspecified; N18.6 End stage renal disease; I13.2 Hypertensive heart and chronic kidney disease with heart failure and with stage 5 chronic kidney disease, or end stage renal disease; Z99.2 Dependence on renal dialysis; E78.00 Pure hypercholesterolemia, unspecified; E11.22 Type 2 diabetes mellitus with diabetic chronic kidney disease; Z01.810 Encounter for preprocedural cardiovascular examination
CPT/HCPCS: 93460; G0278; C9600; 36415; 80048; 85025; 85347; 85610; 85730; 93005; 94640; 99152; 99153; A4649; A4699; C1725; C1769; C1887; C1894; J0153; J0171; J0282; J0461; J1643; J2250; J2310; J2371; J2720; J3010; J3490; Q9967; A9270; J2305

== ENCOUNTER 2025-03-07 14:51 | Emergency (ER) | payer MEDICARE, MEDICAID, SELFPAY ==
[2025-03-07 15:34] VITALS: BP 108/69; PULSE 65; RESP 20; TEMP 36.7; O2SAT 98
--- NOTE | 2025-03-07 15:36 | PD.EDRME ---
Rapid Medical Screening Exam RME Arrival date/time: 03/07/25 14:51 60-year-old male with a history of end-stage renal disease, hypertension presents to the emergency room with a chief complaint of a low hemoglobin level. Patient was sent to the emergency room by the dialysis center. I have greeted and performed a focused initial assessment of this patient. A comprehensive ED assessment and evaluation of the patient, analysis of all test results, and completion of the medical decision making process will be conducted by additional ED providers. Chief Complaint: General Adult/Misc Complain Time Seen by Provider: 03/07/25 15:25 Vital signs reviewed by provider: Yes
[2025-03-07 16:20] LABS: Basophils # (Auto) 0.0 Thou/mm3 (0.0-0.2); Basophils % (Auto) 1 % (0-2.5); Eosinophils # (Auto) 0.3 Thou/mm3 (0.0-0.5); Eosinophils % (Auto) 6 % (0-10); Hematocrit 22.8 % (41.0-53.0); Immature Granulocytes Auto 0.01 Thou/mm3 (0.00-0.00); Lymphocytes # (Auto) 0.6 Thou/mm3 (1.0-4.8); Lymphocytes % (Auto) 12 % (10-50); Mean Corpuscular HGB Conc 32.0 g/dl (31.0-37.0); Mean Corpuscular Hemoglobin 31.9 pg (25.0-35.0); Mean Corpuscular Volume 100 fL (80-100); Monocytes # (Auto) 0.4 Thou/mm3 (0.0-0.8); Monocytes % (Auto) 10 % (0-12); Neutrophils # (Auto) 3.3 Thou/mm3 (1.8-7.7); Neutrophils % (Auto) 71 % (37-80); Nucleated Red Blood Cell # 0.00 Thou/mm3 (0.00-0.00); Nucleated Red Blood Cell % 0 /100 WBC (0); Platelet Count 118 Thou/mm3 (140-440); RDW Standard Deviation 60.7 fL (35.1-43.9); Red Blood Count 2.29 Miln/mm3 (4.50-5.90); White Blood Count 4.6 Thou/mm3 (3.8-10.6)
[2025-03-07 16:34] LABS: INR 1.0 (0.9-1.3); Partial Thromboplastin Time 24.1 Seconds (22.0-36.0); Prothrombin Time 11.4 Seconds (9.0-12.2)
[2025-03-07 16:36] LABS: Hemoglobin 7.3 g/dL (13.5-16.0)
[2025-03-07 17:34] LABS: Alanine Aminotransferase < 7 U/L (10-49); Albumin, Serum 3.9 gm/dL (3.4-4.8); Albumin/Globulin Ratio 1.5 (1.2-2.2); Alkaline Phosphatase 79 U/L (46-116); Anion Gap 17 (7-16); Aspartate Amino Transferase < 8 U/L (0-34); BUN/Creatinine Ratio 3 Ratio (12-20); Bilirubin,Total 0.4 mg/dL (0.3-1.2); Blood Urea Nitrogen 26 mg/dL (9-23); Calcium 9.5 mg/dL (8.3-10.6); Calcium (Corrected) 9.6 mg/dL (8.5-10.1); Carbon Dioxide 27.3 mMol/L (20.0-31.0); Chloride 96 mMol/L (98-107); Creatinine (Component) 8.5 mg/dL (0.6-1.3); Globulin 2.6 gm/dL (2.3-3.5); Glucose 81 mg/dL (74-106); Osmolality,Calculated 283 (275-295); Potassium 3.7 mMol/L (3.4-5.1); Sodium 140 mMol/L (136-145); Total Protein 6.5 gm/dL (5.7-8.2); eGFR 7 See Note
--- NOTE | 2025-03-07 18:37 | PD.EDRECHK ---
ED Recheck Abnl Lab Rx-RME/HPI General Chief Complaint: General Adult/Misc Complain Stated Complaint: SENT BY DIALYSIS FOR BLOOD TRASNFUSION Time Seen by Provider: 03/07/25 15:25 Arrival date/time: 03/07/25 14:51 RME / HPI RME / HPI narrative: 03/07/25 14:51 60-year-old male with a history of end-stage renal disease, hypertension presents to the emergency room with a chief complaint of a low hemoglobin level. Patient was sent to the emergency room by the dialysis center. I have greeted and performed a focused initial assessment of this patient. A comprehensive ED assessment and evaluation of the patient, analysis of all test results, and completion of the medical decision making process will be conducted by additional ED providers. -------- Dr. Franco?s Main ED Evaluation: 60yo male with a history of ESRD on HD (/Mon), HTN presents to the ED after being sent over from the dialysis center for low hemoglobin. Patient states he has been feeling generally weak. Patient has been compliant with his medications. No other complaints reported. Related Data Home Medications ?Medication ?Instructions ?Recorded ?Confirmed sodium bicarbonate 650 mg tablet 1,300 mg PO BID 10/02/19 08/16/24 doxazosin 4 mg tablet 8 mg PO HS 12/16/23 01/06/25 sevelamer carbonate 800 mg tablet 800 mg PO TIDWMEAL 12/16/23 01/06/25 losartan 100 mg tablet 100 mg PO QDAY 04/29/24 08/16/24 sucroferric oxyhydroxide 500 mg 1,000 mg PO TID 04/30/24 08/16/24 chewable tablet (Velphoro) isosorbide dinitrate 20 mg tablet 20 mg PO BID 01/06/25 01/06/25 nifedipine 30 mg tablet,extended 30 mg PO .24hr 01/06/25 01/06/25 release 24 hr rosuvastatin 20 mg tablet (Crestor) 20 mg PO QDAY 01/06/25 01/06/25 Previous Rx's ?Medication ?Instructions ?Recorded aspirin 81 mg tablet,delayed 81 mg PO QDAY #30 tabs 05/01/24 release hydralazine 50 mg tablet 50 mg PO TID 30 days #90 tabs 05/02/24 apixaban 5 mg (74 tabs) tablets in 5 mg PO BID #74 tabs 08/01/24 a dose pack (Eliquis DVT-PE Treat 30D Start) Held on 01/06/25. Instructions: UNTIL SEEN BY DR C[place]AND carvedilol 25 mg tablet 25 mg PO BID #30 tabs 08/01/24 albuterol sulfate 90 mcg/actuation 1 inh inhalation Q6H PRN shortness 08/04/24 aerosol inhaler of breath or wheezing #8.5 grams fluticasone 250 mcg-salmeterol 50 1 inh inhalation BID #60 ea 08/04/24 mcg/dose blistr powdr for inhalation (Advair Diskus) prednisone 20 mg tablet 40 mg (2 x 20 mg) PO QDAY #8 tabs 08/04/24 Allergies Allergy/AdvReac Type Severity Reaction Status Date / Time Penicillins Allergy Verified 03/07/25 14:57 Review of Systems Review of Systems Systems Reviewed: All systems reviewed, normal except as documented Past Medical History Past Medical History NEUROLOGIC: Positive Peripheral Neuropathy; Negative Neurological Disorders or Seizures CARDIAC: Positive Cardiac Disorders, Heart Murmur, Coronary Artery Disease, Hypercholesterolemia, Congestive Heart Failure, Valvular Heart Disease and Hypertension RESPIRATORY: Negative Chronic Obstructive Pulmonary Disease (COPD) or Asthma GASTROINTESTINAL: Positive Gastrointestinal Disorders, Gastrointestinal Bleed, Colitis, Diverticulitis and Diverticulosis; Negative Hepatitis GENITOURINARY: Positive Genitourinary Disorders, Renal Disease, Polycystic Kidney Disease and Dialysis (//) REPRODUCTIVE: Negative Fibroids or Testicular Cancer MUSCULOSKELETAL: Negative Musculoskeletal Disorders ENDOCRINE: Negative Endocrine Disorders, Diabetes Mellitus Type 1 or Diabetes Mellitus Type 2 HEMATOLOGIC: Negative Blood Disorders, Anemia, Leukemia, Hemophilia, Thalassemia, Sickle Cell Disease or Clotting Problems OTHER HISTORY: Positive Developmental Delay, Blood Transfusions and Organ Transplant; Negative Hospitalization, Autoimmune Disease, Down Syndrome, Falls, Blood Transfusion Reaction, Anesthesia Reactions, Chemotherapy, Radiation Therapy, MRSA, VRSA, Vancomycin-Resistant Enterococci, Human Immunodeficiency Virus (HIV), Chicken Pox, Measles, Mumps, Rubella (Uzbek Measles), Pertussis, Clostridium Difficile, Cancer or Testicular Cancer Family History FAMILY HISTORY: Negative Family Cancer Surgical History SURGICAL: Positive Cardiac Surgery, Vascular Surgery, Auto Implanted Cardiovert Defib and Organ Transplant; Negative Pacemaker or Vasectomy Social History SMOKING STATUS: Never smoker SECOND HAND EXPOSURE: No SUBSTANCE USE: does not use ED Exam Narrative Physical exam: Generally patient is alert and in no obvious distress chest shows an AICD to the right upper chest and a Vas-Cath to the left upper chest without overlying erythema or tenderness. Heart regular rate and rhythm, lungs clear to auscultation equal bilaterally abdomen soft bowel sounds present most and nontender skin is warm and dry neurologic exam shows the patient to be alert obeying commands and in no obvious distress without focal motor deficits Course Quality Measures none Orders Category Date Time Status CBC Stat Lab 03/07/25 15:00 Completed CMP [Comprehensive Metabolic Panel] Stat Lab 03/07/25 15:00 Completed PT [Prothrombin Time with INR] Stat Lab 03/07/25 15:00 Completed PTT [Partial Thromboplastin Time] Stat Lab 03/07/25 15:00 Completed Type and Screen Stat Lab 03/07/25 15:00 Completed Vital Signs Vital signs: Vital Signs Temperature 98.1 F 03/07/25 15:34 Pulse Rate 65 03/07/25 15:34 Respiratory Rate 20 03/07/25 15:34 Blood Pressure 108/69 03/07/25 15:34 Pulse Oximetry (%) 98 03/07/25 15:34 Oxygen Delivery Method Room Air 03/07/25 15:34 Recheck / Abnormal Lab / Rx MDM Narrative MDM Narrative:: Scribe Attestation: 03/07/25 - Evangelina Maddox am scribing for and in the presence of Dr. Franco. I interpreted all labs. Potassium is normal. Hemoglobin was 7.3. That is not in the transfusion range. Patient is scheduled for dialysis tomorrow which she is to keep. He denies chest pain pressure tightness or heaviness. He does believe he receives monthly Procrit injections at the dialysis center. Patient data External records reviewed:: [facility] previous records (Per chart review, patient was seen here on 09/07/24 for ESRD on HD.) Clinical information provided by:: patient Social determinants that could affect healthcare access:: none Patient has the following chronic illnesses:: ESRD, HTN How is presenting disease/condition affected by chronic disease/condition?: caused by Evaluation data The following diagnostics were reviewed and interpreted by me:: lab results Lab and/or radiology exams considered but not ordered:: none Interpretation Summary: See MDM. Medications / Prescriptions Medications or Prescriptions considered but not ordered:: none Medication administrations:: none Consultations Consultation(s) initiated? (list below): No Diagnosis Recheck Differential Diagnosis: other (chronic anemia, noncompliance with dialysis, generalized weakness, electrolyte abnormality) Most likely diagnosis given after review of the tests above:: see clinical impression below Admission Indicated Admission indicated?: not indicated Admission Request Was there a request for admission?: No Disposition Plan Disposition Plan: Discharge Discharge Attestation Discharge Attestation: The patient and all family members were given an opportunity to ask questions and understood the discharge instructions. Discharge instructions specifically effects, indications for sooner follow up or return to the emergency department, and the expected course of current diagnosis. Patient condition: Stable Discharge Plan Plan Patient Disposition: HOME (Self Care) Prescriptions/Referrals Prescriptions/Med Rec: No Action sodium bicarbonate 650 mg Tablet 1,300 mg PO BID doxazosin 4 mg tablet 8 mg PO HS sevelamer carbonate 800 mg tablet 800 mg PO TIDWMEAL Patient Comments: take 1 tablet by mouth three times a day with meals losartan 100 mg Tablet 100 mg PO QDAY Velphoro 500 mg tablet,chewable 1,000 mg PO TID Patient Comments: CHEW AND SWALLOW 2 tablets by mouth three times a day with meals aspirin 81 mg tablet,delayed release (DR/EC) 81 mg PO QDAY Qty: 30 2RF hydralazine 50 mg tablet 50 mg PO TID 30 Days Qty: 90 2RF carvedilol 25 mg tablet 25 mg PO BID Qty: 30 0RF Rx Instructions: must administer with a meal/food Eliquis DVT-PE Treat 30D Start 5 mg (74 tabs) tablets,dose pack 5 mg PO BID Qty: 74 0RF Rx Instructions: Skip 3 pills of 10 mg Eliquis and continue starter pack as directed as patient received 3 doses during hospital stay prednisone 20 mg tablet 40 mg PO QDAY Qty: 8 0RF albuterol sulfate 90 mcg/actuation HFA aerosol inhaler 1 inh inhalation Q6H PRN (Reason: shortness of breath or wheezing) Qty: 8.5 2RF fluticasone propion-salmeterol [Advair Diskus] 250-50 mcg/dose blister with device 1 inh inhalation BID Qty: 60 0RF rosuvastatin [Crestor] 20 mg tablet 20 mg PO QDAY isosorbide dinitrate 20 mg tablet 20 mg PO BID Patient Comments: take 1 tablet by mouth twice a day nifedipine 30 mg Tablet Extended Release 24hr 30 mg PO .24hr Referrals: Elsy Connell MD [Primary Care Provider, Family Practice] - In 1 week Problem List Clinical Impression: Anemia, Renal failure Patient/Caregiver Discharge Instructions Education Materials: Anemia Additional Instructions: You are not to the level of anemia which requires a blood transfusion at this time. Keep your dialysis appointments. Return to ER as needed or if condition worsens. Print Language: [place] Stand Alone Forms: Renae Award Info., Patient Portal Info Letter
[2025-03-07 18:40] VITALS: BP 123/76; PULSE 78; RESP 18; O2SAT 93
[2025-03-07 18:49] VITALS: BP 123/76; PULSE 73; RESP 14; TEMP 36.4; O2SAT 98
--- NOTE | 2025-03-07 18:55 | PC.NURSE ---
patient from lobby to room 6, sent from dialysis for low h/h , unable to do dialysis today , patient denies pain, vas cath noted to left upper chest , patient has shunts to bilateral arms, however patient states right arm non functional , ok to do blood pressure, blood draws, will awate orders, call light within reach
== END 2025-03-07 19:20 | disposition home or self-care (01) ==
PROVIDERS: Nurse Practitioner Family; Emergency Provider Emergency Medicine; PCP Family Medicine
DX: I13.2 Hypertensive heart and chronic kidney disease with heart failure and with stage 5 chronic kidney disease, or end stage renal disease (principal); D63.1 Anemia in chronic kidney disease; I50.9 Heart failure, unspecified; N18.6 End stage renal disease; E78.00 Pure hypercholesterolemia, unspecified; I25.10 Atherosclerotic heart disease of native coronary artery without angina pectoris; Z99.2 Dependence on renal dialysis; Z95.810 Presence of automatic (implantable) cardiac defibrillator; Z79.82 Long term (current) use of aspirin; Z79.01 Long term (current) use of anticoagulants; Z79.899 Other long term (current) drug therapy
CPT/HCPCS: 36415; 80053; 85025; 85610; 85730; 86850; 86900; 86901; 99283

== ENCOUNTER 2025-05-06 06:43 | Inpatient (IN) | payer MEDICARE, MEDICAID, SELFPAY ==
[2025-05-06] VITALS (33 sets, daily range): BP systolic 99–138; BP diastolic 71–97; PULSE 47–104; RESP 7–20; TEMP 36.2–37.2; O2SAT 94–100; BMI 23.0
--- NOTE | 2025-05-06 06:57 | EKG_ITS ---
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1965 Requested By: Bernice Hicks Order Number: [id number] Reading MD: Bernice Hicks Measurements Intervals [place] Rate: 99 P: 68 VT: 176 QRS: 8 QRSD: 114 T: 199 QT: 375 QTc: 481 Interpretive Statements SINUS RHYTHM WITH FREQUENT VENTRICULAR PREMATURE COMPLEXES LEFT VENTRICULAR HYPERTROPHY AND ST-T CHANGE [VOLTAGE CRITERIA PLUS ST/T ABNORMALITY] Compared to ECG 01/06/2025 09:47:57 Ventricular premature complex(es) now present ST (T wave) deviation now present Atrial abnormality no longer present Myocardial infarct finding no longer present /store/S0/[id number].pdf
--- NOTE | 2025-05-06 06:57 | XR_ITS ---
EXAMINATION: AP chest single view TECHNIQUE: Portable AP sitting chest single view Date and time: May 06, 2025, 0715 hours, comparison December 12, 2024 INDICATIONS: Chest pain today FINDINGS: Moderate enlargement cardiac contour Prominent central pulmonary vasculature with mild vascular congestion Left internal jugular dialysis catheter tips SVC Unipolar ventricular cardiac lead satisfactory position. No lobar pneumonia Prominent osteopenia IMPRESSION: Moderate enlargement cardiac contour Prominent central pulmonary vasculature, suspicious for pulmonary artery hypertension No lobar pneumonia, no anatoliy pulmonary edema
--- NOTE | 2025-05-06 07:08 | EDNOTE_ITS ---
<Statement entered by Chelsea Silva MD - 05/07/25 16:15> I, Chelsea Silva MD, have reviewed the history, exam, and assessment of the patient. I have evaluated the patient independently and agree with the plan of care documented by [ ]. All diagnostic studies were reviewed and discussed. I confirm the diagnosis as documented by the Resident. I was present during the Medical Decision Making for this patient. The patient's plan of care was created between myself and the Resident and consistent with our discussion of the patient's case. ED Chest Pain RME/HPI General Chief Complaint: Chest Pain Stated Complaint: CHEST PAIN Time Seen by Provider: 05/06/25 07:01 Arrival date/time: 05/06/25 06:43 RME / HPI RME / HPI narrative: CC: chest pain Patient is a 60 year old male with a past medical history of developmental delay, hypertension, polycystic kidney disease, s/p renal transplant on 12/02/2017 at [facility], ESRD on HD since aug 2023 [Mon//MON] following Dr. Lerma, HFpEF 35- 40% (04/2024), moderate PAH, and bradycardia s/p ICD placement in 2011, s/p replacement of single-chamber AICD who presented to the emergency room with a chief complain of chest pain experienced during dialysis (did not complete session for today). Patient stated he had chest pain 9/10 at the center of his sternal region that did not radiate to his arm or jaw. Pain was sharp, occurring while at rest during dialysis session for Monday (05/06/2025). Pain not reproducible to deep inspiration or palpation. Per EMS patient's vitals: 148/72 saturting well on room air 98% and EMS EKG noted for frequent PVCs. Nitro X 1 given at dialysis center. Upon further questioning patient stated chest pain has improved. 8:30 AM spoke with patient's next of kin, Aly, denied any sick contacts.no pyrexia,or chills at home. regular bowel movements. Follows Dr. Cleveland as cardiology. Related Data Home Medications ?Medication ?Instructions ?Recorded ?Confirmed sodium bicarbonate 650 mg tablet 1,300 mg PO BID 10/0108/16/24 doxazosin 4 mg tablet 8 mg PO HS 12/16/23 01/06/25 sevelamer carbonate 800 mg tablet 800 mg PO TIDWMEAL 0 12/16/23 01/06/25 losartan 100 mg tablet 100 mg PO QDAY 04/29/2408/03 sucroferric oxyhydroxide 500 mg 1,000 mg PO TID 08/16/24 chewable tablet (Velphoro) isosorbide dinitrate 20 mg tablet 20 mg PO BID 5 01/06/25 nifedipine 30 mg tablet,extended 30 mg PO .24hr 01/06/25 release 24 hr rosuvastatin 20 mg tablet (Crestor) 20 mg PO QDAY 01/2401/06/25 Previous Rx's ?Medication ?Instructions ?Recorded aspirin 81 mg tablet,delayed 81 mg PO QDAY #30 tabs release hydralazine 50 mg tablet 50 mg PO TID 30 days #90 tab s 05/02/24 apixaban 5 mg (74 tabs) tablets in 5 mg PO BID #74 tab s 08/01/24 a dose pack (ParaEngine DVT-PE Treat 30D Start) Held on 01/06/25. Instructions: UNTIL SEEN BY DR CLEVELAND carvedilol 25 mg tablet 25 mg PO BID #30 tabs albuterol sulfate 90 mcg/actuation 1 inh inhalation Q6 H PRN shortness 08/04/24 aerosol inhaler of breath or wheezing #8.5 g lou fluticasone 250 mcg-salmeterol 50 1 inh inhalation BID #60 ea 08/04/24 mcg/dose blistr powdr for inhalation (Advair Diskus) prednisone 20 mg tablet 40 mg (2 x 20 mg) PO QDAY #8 tabs 08/04/24 Allergies Allergy/AdvReac Type Severity Reaction Status Date / Time Penicillins Allergy Verified 05/06/25 07:36 Review of Systems Review of Systems Narrative Review of Systems: General appearance: NO weight change, NO fatigue, NO weakness, NO fever, NO chills, NO night sweats, No cough Skin: NO rash, NO itching, NO sores, NO moles HEENT: NO Trauma, NO nausea, NO vomiting, NO visual changes, NO blurry vision, NO double vision, NO tinnitus, NO vertigo, NO ear discharge, NO rhinorrhea, NO stuffiness, NO sneezing, NO allergy, NO epistaxis. NO Hoarseness, NO sore th roat, NO swollen neck. Cardiac: YES chest Pain, YES Palpitations, NO dyspnea on exertion, NO orthopnea, NO paroxysmal nocturnal dyspnea, NO edema Respiratory: NO Shortness of Breath, NO Wheezing, NO Cough, NO Sputum, NO hemoptysis GI:NO appetite, NO nausea, NO vomiting, NO dysphagia, NO changes in bowel frequency, NO stool color, NO diarrhea, NO constipation, NO hemetemesis, NO hemorrhoids, NO melena, NO hematechezia, NO abdominal pain, NO jaundice Renal: NO frequency, NO hesitancy, NO urgency, NO hematuria, NO nocturia, NO incontinence MSK: NO muscle weakness, NO gout, NO arthritis, NO muscle stiffness Neuro: NO headaches, NO tremors, NO weakness, NO paralysis, NO seizures, NO loss of consciousness, NO numbness. Hem: NO anemia, NO easy bruising/bleeding, NO petechiae, NO purpura Endo: NO heat/cold intolerance, NO excessive sweating, NO polyuria, NO polydipsia, NO polyphagia, NO thyroid problems, NO diabetes Pysch: NO mood, NO anxiety, NO depression ED Exam Narrative Physical exam: General Appearance: Alert & Oriented X2, well-nourished male who is lying in bed in no acute distress but complaining of chest pain HEENT: Skull symmetrical and atraumatic. Conjunctivae pink and moist. Pupils equ al, round, reactive to light and accommodation (PERRL). External ear without lesion or discharge. Straight, nares patient, mucosa pink, no discharge. Cardio: Normal Rate and Rhythm with S1 and S2 heart sounds. No murmurs or extra heart sounds auscultated. No bruits on carotid auscultation. No peripheral edema or cyanosis. Lungs: Symmetric with good expansion. Chest and back non-tender. Breath sounds vesicular without crackles, wheezing or rhonchi Abdomen: Non-tender, Non-distended, Normal Reactive Bowel Sounds Neuro: Alert, cooperative, oriented to person, place, and time. Speech clear. CN grossly intact. Upper motor strength 5/5 and Lower motor strength 5/5. Sensation intact. Course Course Course Narrative: Patient is a 60 year old male with multiple co-morbidities who is presenting with chest pain during dialysis. CBC, CMP, EKG, Troponin, BNP and chest x-ray ordered Troponin-->elevated at 0.109, EKG, frequent PVCs, Magnesium 2 mg IV X 1 Quality Measures none Orders Category Date Time Status Automatic Seamer STAT Care 05/06/25 06:57 Active Continuous Pulse Oximetry ONCE Care 05/06/25 06:57 Active EKG (ED ONLY) *Do not use* NOW Care 05/06/25 06:57 Completed Insert IV STAT Care 05/06/25 06:57 Active Intake and Output Routine Care 05/06/25 06:57 Ordered Vital Signs, Non-Routine Q4H Care 05/06/25 07:00 Ordered Vital Signs, Non-Routine Q4H Care 05/06/25 11:00 Ordered Vital Signs, Non-Routine Q4H Care 05/06/25 15:00 Ordered Vital Signs, Non-Routine Q4H Care 05/06/25 19:00 Ordered Vital Signs, Non-Routine Q4H Care 05/06/25 23:00 Ordered Consult to Nephrology Routine Cons 05/06/25 08:38 Ordered EKG (ED Only) Stat Exams 05/06/25 06:57 Draft XR chest 1V portable Stat Exams 05/06/25 06:57 Completed B-Type Natriuretic Peptide Stat Lab 05/06/25 07:07 Completed CBC Stat Lab 05/06/25 07:07 Completed Comprehensive Metabolic Panel Stat Lab 05/06/25 07:07 Completed Magnesium Stat Lab 05/06/25 07:07 Completed Partial Thromboplastin Time Stat Lab 05/06/25 07:07 Completed Phosphorous Stat Lab 05/06/25 07:07 Completed Prothrombin Time with INR Stat Lab 05/06/25 07:07 Completed Troponin I Stat Lab 05/06/25 07:07 Completed Aspirin Chew Med 05/06/25 06:57 Discontinued 324 mg PO X1 ONE Magnesium Sulfate 2 GM Ivpb [Magnesium Sulfate Ivpb] Med 05/06/25 07:14 Discontinued 2 gm in 50 ml IV X1 Morphine* Inj Med 05/06/25 06:57 Discontinued 4 mg IVP Q30M PRN Nitroglycerin [Nitrostat 1/150] Med 05/06/25 06:57 Active 0.4 mg SL Q5M PRN Ondansetron Inj [Zofran Inj] Med 05/06/25 06:57 Active 4 mg IVP Q1HR PRN Oxygen Delivery NOW RT 05/06/25 06:57 Active Vital Signs Vital signs: Vital Signs Temperature 97.8 F 05/06/25 07:19 Pulse Rate 94 05/06/25 07:19 Respiratory Rate 16 05/06/25 07:19 Blood Pressure 122/87 H 05/06/25 07:19 Pulse Oximetry (%) 100 05/06/25 07:19 Oxygen Delivery Method Room Air 05/06/25 07:19 Chest Pain Patient data External records reviewed:: [facility] previous records Clinical information provided by:: patient Social determinants that could affect healthcare access:: mental health (developmental delay ) Patient has the following chronic illnesses:: Patient is a 60 year old male with a past medical history of developmental delay, hypertension, polycystic kidney disease, s/p renal transplant on 12/02/2017 at [facility], ESRD on HD since aug 2023 [Mon//MON] following Dr. Lerma, HFpEF 35- 40% (04/2024), moderate PAH, and bradycardia s/p ICD placement in 2011, s/p replacement of single-chamber AICD How is presenting disease/condition affected by chronic disease/condition?: exacerbated by (history of CHF and ESRD ) Evaluation data The following diagnostics were reviewed and interpreted by me:: lab results and EKG tracing(s) Lab and/or radiology exams considered but not ordered:: ESRD w/ elevated Cr and low GFR, no electrolyte abnormalities. EKG no STV elevation, PVCs Interpretation Summary: concern for NSTEMI, troponemia, ESRD-missed dialysis, concern for ACS Medications / Prescriptions Medications or Prescriptions considered but not ordered:: none Medication administrations:: Medication Administration History Nitroglycerin (Nitroglycerin 0.4 Mg Subl Btl #25) 0.4 mg SL Q5M PRN PRN Reason: CHEST PAIN Ondansetron HCl (Ondansetron Inj 2 Mg/Ml Inj 2 Ml) 4 mg IVP Q1HR PRN PRN Reason: PERSISTENT NAUSEA OR VOMITING Discontinued Medications Aspirin (Aspirin 81 Mg Chew) 324 mg PO X1 ONE Stop: 05/06/25 06:58 Last Admin: 05/06/25 08:01 Dose: 324 mg Documented By: ED Magnesium Sulfate (Magnesium Sulfate Ivpb) 2 gm in 50 mls @ 25 mls/hr IV X1 ONE Stop: 05/06/25 09:13 Last Admin: 05/06/25 08:06 Dose: 25 mls/hr Documented By: ED Morphine Sulfate (Morphine Sulf Inj 4 Mg/Ml Vial) 4 mg IVP Q30M PRN PRN Reason: PAIN SCALE 7-10 (Severe Stop: 05/06/25 08:57 same as above Consultations Consultation(s) initiated? (list below): Yes Consultation #1 (Physician, Specialty, Details): DR. Muse, Nephrology-->Dialysis Follows Dr. Lerma, Dr. Muse covers Dr. Lerma patients. Time: 08:31 Diagnosis Chest Pain Differential Diagnosis: pneumothorax, costochondritis and chest pain Most likely diagnosis given after review of the tests above:: ACS, chest pain, NSTEM, Troponemia Admission Indicated Admission indicated?: indicated Explain why admission is indicated or not indicated:: concern for NSTEM I vs II given past medical history of CHF and chest Admission Request Was there a request for admission?: Yes Admission Attestation Admission request attestation: Discussed case with Dr. Key, resident [id number], from Hospitalist service regarding admission. Discussed patients ED course, exam findings, labs, and radiology results. The Hospitalist agrees to accept the patient for admission. Disposition Plan Disposition Plan: Admit Discharge Plan Plan Patient Disposition: Admit Acute Care w/in Hospital Patient condition on transfer: Stable Prescriptions/Referrals Prescriptions/Med Rec: No Action sodium bicarbonate 650 mg Tablet 1,300 mg PO BID doxazosin 4 mg tablet 8 mg PO HS sevelamer carbonate 800 mg tablet 800 mg PO TIDWMEAL Patient Comments: take 1 tablet by mouth three times a day with meals losartan 100 mg Tablet 100 mg PO QDAY Velphoro 500 mg tablet,chewable 1,000 mg PO TID Patient Comments: CHEW AND SWALLOW 2 tablets by mouth three times a day with meals aspirin 81 mg tablet,delayed release (DR/EC) 81 mg PO QDAY Qty: 30 2RF hydralazine 50 mg tablet 50 mg PO TID 30 Days Qty: 90 2RF carvedilol 25 mg tablet 25 mg PO BID Qty: 30 0RF Rx Instructions: must administer with a meal/food Eliquis DVT-PE Treat 30D Start 5 mg (74 tabs) tablets,dose pack 5 mg PO BID Qty: 74 0RF Rx Instructions: Skip 3 pills of 10 mg Eliquis and continue starter pack as directed as patient received 3 doses during hospital stay prednisone 20 mg tablet 40 mg PO QDAY Qty: 8 0RF albuterol sulfate 90 mcg/actuation HFA aerosol inhaler 1 inh inhalation Q6H PRN (Reason: shortness of breath or wheezing) Qty: 8.5 2RF fluticasone propion-salmeterol [Advair Diskus] 250-50 mcg/dose blister with device 1 inh inhalation BID Qty: 60 0RF rosuvastatin [Crestor] 20 mg tablet 20 mg PO QDAY isosorbide dinitrate 20 mg tablet 20 mg PO BID Patient Comments: take 1 tablet by mouth twice a day nifedipine 30 mg Tablet Extended Release 24hr 30 mg PO .24hr Referrals: No Primary/Family,Physician [Primary Care Provider] - In 1 week Problem List Clinical Impression: ACS (acute coronary syndrome), Acute non-ST elevation myocardial infarction (NSTEMI), Chest pain Patient/Caregiver Discharge Instructions Print Language: Chinese Stand Alone Forms: Renae Award Info., Patient Portal Info Letter
--- NOTE | 2025-05-06 07:19 | PC.NURSE ---
Pt. here from dialysis to room 2, pt. states he was having chest pain at dialysis but pt. denies pain at this time. Pt. has dialysis access to left upper chest and left arm. Pt. right arm has a large round lump just below his AC pt. states he used to have dialysis access in that arm. Pt. resting comfortably in bed in room 2, no s/s of distress at this time , pt. unable to state how much he weighs.
[2025-05-06 07:46] LABS: B-Type Natriuretic Peptide 1776 pg/mL (0-100)
[2025-05-06 08:00] LABS: Alanine Aminotransferase < 7 U/L (10-49); Albumin, Serum 4.5 gm/dL (3.4-4.8); Albumin/Globulin Ratio 1.7 (1.2-2.2); Alkaline Phosphatase 91 U/L (46-116); Anion Gap 14 (7-16); Aspartate Amino Transferase < 10 U/L (0-34); BUN/Creatinine Ratio 4 Ratio (12-20); Bilirubin,Total 0.3 mg/dL (0.3-1.2); Blood Urea Nitrogen 41 mg/dL (9-23); Calcium 9.6 mg/dL (8.3-10.6); Calcium (Corrected) 9.6 mg/dL (8.5-10.1); Carbon Dioxide 26.9 mMol/L (20.0-31.0); Chloride 98 mMol/L (98-107); Creatinine (Component) 11.6 mg/dL (0.6-1.3); Estimated Creatinine Clearance 7.2 mL/min (>60); Globulin 2.6 gm/dL (2.3-3.5); Glucose 88 mg/dL (74-106); Magnesium 2.6 mg/dL (1.6-2.6); Osmolality,Calculated 286 (275-295); Potassium 4.4 mMol/L (3.4-5.1); Sodium 139 mMol/L (136-145); Total Protein 7.1 gm/dL (5.7-8.2); eGFR 4 See Note
--- NOTE | 2025-05-06 08:00 | PC.NURSE ---
Pt. has a defibrillator to right upper chest.
[2025-05-06] MEDS: ASPIRIN 81 MG CHEW 324 MG PO (08:01)
[2025-05-06] MEDS: Magnesium Sulfate 2 GM Ivpb 2 GM/50 ML BAG IV (08:06)
[2025-05-06 08:07] LABS: Troponin I 0.109 ng/mL (0.0-0.045)
[2025-05-06 08:42] LABS: Basophils # (Auto) 0.1 Thou/mm3 (0.0-0.2); Basophils % (Auto) 1 % (0-2.5); Eosinophils # (Auto) 0.3 Thou/mm3 (0.0-0.5); Eosinophils % (Auto) 6 % (0-10); Hematocrit 36.8 % (41.0-53.0); Hemoglobin 11.8 g/dL (13.5-16.0); Immature Granulocytes Auto 0.02 Thou/mm3 (0.00-0.00); Lymphocytes # (Auto) 0.8 Thou/mm3 (1.0-4.8); Lymphocytes % (Auto) 15 % (10-50); Mean Corpuscular HGB Conc 32.1 g/dl (31.0-37.0); Mean Corpuscular Hemoglobin 30.2 pg (25.0-35.0); Mean Corpuscular Volume 94 fL (80-100); Monocytes # (Auto) 0.5 Thou/mm3 (0.0-0.8); Monocytes % (Auto) 9 % (0-12); Neutrophils # (Auto) 3.8 Thou/mm3 (1.8-7.7); Neutrophils % (Auto) 69 % (37-80); Nucleated Red Blood Cell # 0.00 Thou/mm3 (0.00-0.00); Nucleated Red Blood Cell % 0 /100 WBC (0); Platelet Count 109 Thou/mm3 (140-440); RDW Standard Deviation 53.5 fL (35.1-43.9); Red Blood Count 3.91 Miln/mm3 (4.50-5.90); White Blood Count 5.6 Thou/mm3 (3.8-10.6)
[2025-05-06 08:49] LABS: Phosphorous 7.9 mg/dL (2.4-5.1)
[2025-05-06 09:03] LABS: INR 1.0 (0.9-1.3); Partial Thromboplastin Time 40.3 Seconds (22.0-36.0); Prothrombin Time 10.7 Seconds (9.0-12.2)
--- NOTE | 2025-05-06 10:23 | ESCONSULT_ITS ---
<Statement entered by Jyoti Zamudio MD - 05/12/25 13:06> I personally examined evaluated the patient was very well-known to me has longstanding history of CAD multiple stents placed complex PCI of RCA in December and also previous stent was circumflex artery ischemic cardiomyopathy ICD implantation chronic kidney disease admitted to hospital with chest pain NSTEMI troponin elevation will continue heparin and on the patient is stable will schedule patient for coronary angiogram cardiac evaluation evaluate the patient with resident physician PGY 2 Dr. Sykes and agree with the treatment plan recommendation as documented will continue to monitor the patient closely. HPI Data of Consult Requesting Physician: Rosy Wood DO Admitting Provider: Rosy Wood DO Attending Provider: Rosy Wood DO Primary Care Provider: Physician No Primary/Family Consult Narrative History of present illness: 60 year old male with a past medical history of developmental delay, hypertension, polycystic kidney disease, s/p renal transplant on 12/02/2017 at [facility], ESRD on HD [//] following Dr. Lerma, HFpEF 35-40% (04/2024), moderate PAH, and bradycardia s/p ICD placement in 2011, s/p replacement of single- chamber AICD who presented to the ED on 05/06 with chest pain during dialysis session. Patient is a poor historian secondary to some degree of developmental delay and currently lives with his sister who is his primary youth care worker. Patient is awake and answering questions, although unsure exactly if they are accurate answers as he has a tendency to repeat answers when prompted. Patient states that he currently has chest tightness in the substernal region which is worse with deep inspiration but is not bothering him when he is laying still. Patient also states that he has been having some dizziness but denies having any shortness of breath, palpitations, PND or orthopnea. Unsure exactly how long patient's been having the symptoms and unsure exactly if patient is able to understand all the symptoms stated. Patient had a PCI with stent placement in the RCA along with Impella at [facility] in December. Medical history: As stated above Surgical history: ICD placement 2011, replacement of single-chamber AICD in 05/05/2024, renal transplantation in 2018 Allergies: Penicillins Medications: Pending med rec Family history: Noncontributory Social history: Former smoker with [id number] history, denies any alcohol or illicit drug use, developmentally delayed and requires assistance with activities of daily living via sister who he currently lives with. ROS: All 12 systems assessed and the patient denies unless otherwise stated in HPI In the ED, patient presented mildly hypertensive 122/87, mildly tachycardic with a heart rate fluctuating in the high 90s, respiratory rate of 16, afebrile satting 100 on room air, currently requiring minimal supplemental oxygen via nasal cannula. Pertinent lab findings include hemoglobin 11.8 with MCV 94, platelet count 109, BUN 41, creatinine 11.6, eGFR 4, Troponin 0.109 has plateaued at 0.111, BNP of 1776, chest x-ray shows moderate enlargement of the cardiac contour, prominent central pulmonary vasculature but no lobar pneumonia EKG shows sinus rhythm with some ST changes noted in septal leads with reciprocal changes possibly in inferior leads. Patient will be admitted for acute coronary syndrome and started on IV heparin with possible left heart cath to be scheduled for 05/08 along with continued dialysis sessions while in the hospital. cc:: cc: Rosy Wood, DO Exam Vital Signs Temp Pulse Resp BP Pulse Ox O2 Del Method 97.9 F 88 16 119/79 98 Room Air 05/06/25 10:18 05/06/25 10:18 05/06/25 10:18 05/06/25 10:18 05/06/25 10:18 05/06/25 10:18 Narrative Exam Physical Exam: GENERAL: Awake, answering questions although unsure if appropriately secondary to developmental delay, appears stated age HEENT: NC/AT. Moist mucosa. PERRLA/EOMI. left IJ tunneled catheter CARDIO: Heart RRR, III/IV holosystolic flow murmur auscultated at left sternal base and II/IV soft blowing systolic murmur auscultated at fifth intercostal midclavicular space PULM: No coughing or visible SOB. Lungs CTA B/L but patient requiring 2 L of supplemental oxygen via nasal cannula GI: Abdomen soft, NT/ND, +BS. 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 No wounds/discoloration/rashes/edema/amputations noted. +Pedal pulses present B/L. NEURO: Oriented x3, Moves extremities x4, no focal neurologic deficits noted Results Labs 05/06/25 07:07 05/06/25 07:07 Labs: Short CBC 05/06/25 Range/Units 07:07 WBC 5.6 (3.8-10.6) Thou/mm3 Hgb 11.8 L (13.5-16.0) g/dL Hct 36.8 L (41.0-53.0) % Plt Count 109 L (140-440) Thou/mm3 BMP 05/06/25 07:07 Sodium 139 Potassium 4.4 Chloride 98 Carbon Dioxide 26.9 BUN 41 H Creatinine 11.6 H* Glucose 88 Calcium 9.6 Cardiac Enzymes 05/06/25 Range/Units 07:07 Troponin I 0.109 H* (0.0-0.045) ng/mL Liver Function 05/06/25 Range/Units 07:07 Total Bilirubin 0.3 (0.3-1.2) mg/dL AST < 10 (0-34) U/L ALT < 7 L (10-49) U/L Alkaline Phosphatase 91 (46-116) U/L Albumin 4.5 (3.4-4.8) gm/dL Quality Measures Quality Measures none Medications Home Medications and Allergies Home Medications ?Medication ?Instructions ?Recorded ?Confirmed ?Type sodium bicarbonate 650 mg tablet 1,300 mg PO BID 10/0108/16/24 History doxazosin 4 mg tablet 8 mg PO HS 12/16/23 01/06/25 History sevelamer carbonate 800 mg tablet 800 mg PO TIDWMEAL 0 12/16/23 01/06/25 History losartan 100 mg tablet 100 mg PO QDAY 04/29/2408/03 History sucroferric oxyhydroxide 500 mg 1,000 mg PO TID 08/16/24 History chewable tablet (Velphoro) isosorbide dinitrate 20 mg tablet 20 mg PO BID 5 01/06/25 History nifedipine 30 mg tablet,extended 30 mg PO .24hr 01/06/25 History release 24 hr rosuvastatin 20 mg tablet (Crestor) 20 mg PO QDAY 01/2401/06/25 History Allergies Allergy/AdvReac Type Severity Reaction Status Date / Time Penicillins Allergy Verified 05/06/25 07:36 Visit Medications Acetaminophen (Acetaminophen 325 Mg Tablet) 1,000 mg PO Q6H PRN PRN Reason: Fever >100.4 Stop: 06/05/25 09:45 Heparin Sodium/Dextrose (Heparin In D5w Ivpb) 25,000 unit in 250 mls @ 9.253 mls/hr IV .Q24H ANTONIA; Protocol Stop: 05/20/25 10:14 Nitroglycerin (Nitroglycerin 0.4 Mg Subl Btl #25) 0.4 mg SL Q5M PRN PRN Reason: CHEST PAIN Ondansetron HCl (Ondansetron Inj 2 Mg/Ml Inj 2 Ml) 4 mg IVP Q6H PRN; Protocol PRN Reason: NAUSEA OR VOMITING Stop: 06/05/25 09:50 Discontinued Medications Aspirin (Aspirin 81 Mg Chew) 324 mg PO X1 ONE Stop: 05/06/25 06:58 Last Admin: 05/06/25 08:01 Dose: 324 mg Heparin Sodium (Porcine) (Heparin Sod Inj 5000 Unit/Ml Vial) 2,000 unit IV X1 ONE; Protocol Stop: 05/06/25 10:16 Magnesium Sulfate (Magnesium Sulfate Ivpb) 2 gm in 50 mls @ 25 mls/hr IV X1 ONE Stop: 05/06/25 09:13 Last Admin: 05/06/25 08:06 Dose: 25 mls/hr Morphine Sulfate (Morphine Sulf Inj 4 Mg/Ml Vial) 4 mg IVP Q30M PRN PRN Reason: PAIN SCALE 7-10 (Severe Stop: 05/06/25 08:57 Ondansetron HCl (Ondansetron Inj 2 Mg/Ml Inj 2 Ml) 4 mg IVP Q1HR PRN PRN Reason: PERSISTENT NAUSEA OR VOMITING Assessment & Plan Plan 60 year old male with a past medical history of developmental delay, hypertension, polycystic kidney disease, s/p renal transplant on 12/02/2017 at [facility], ESRD on HD [//] following Dr. Lerma, HFpEF 35-40% (04/2024), moderate PAH, and bradycardia s/p ICD placement in 2011, s/p replacement of single- chamber AICD who presented with chest pain during dialysis session will be admitted for acute coronary syndrome and started on IV heparin with possible left heart cath to be scheduled for 05/08 along with continued dialysis sessions while in the hospital. #Acute coronary syndrome #NSTEMI type I versus type II #Coronary artery disease, status post stent placement in RCA on December 2024 #Impella placement As per HPI above, patient presented with chest pain during dialysis session Significant history of CAD with recent stent placement in RCA on December [address] [facility] with Impella placement for left ventricular failure Patient's presenting with typical chest pain along with elevated troponin and BNP EKG shows sinus rhythm with some ST changes noted in septal leads with reciprocal changes possibly in inferior leads? Plan: Continue IV heparin drip DAPT with Brilinta 90 mg p.o. twice daily and aspirin 81 mg daily High intensity statin nightly Metoprolol to tartrate 25 mg p.o. twice daily, HOLD if HR less than 70 Left heart catheterization tentatively scheduled for 05/08 #Heart failure with systolic dysfunction, HFpEF 35-40% (04/2024) #Left Ventricular Hypertrophy #Moderate PAH #Bradycardia s/p ICD placement in 2011, s/p replacement of single-chamber AICD Last echo findings, Normal LV size. Moderate LVH. Moderate LV systolic dysfunction with global hypokinesis, Estimated EF 35-40% Mild RV dilatation. Normal RV function. Estimated RVSP 49mmHg. RAP 15. Moderate PAH. Pacing wire present. Moderate AV sclerosis without sclerosis. Vmax 2.3 m/s and Mean PG of 10 mm hg. Mild MR. Moderate TR. Moderate PAH. There is anterior trivial pericardial effusion. No evidence of cardiac tamponde. Patient on home carvedilol 25 mg p.o. twice daily, losartan 100 mg p.o. daily BNP elevated which could be multifactorial secondary to ESRD status On examination, patient does not appear to be in acute heart failure exacerbation as there is no noted crackles, JVD, lower extremity edema and he is requiring minimal supplemental oxygen Plan: Repeat echo to monitor heart function #Hypertension Patient on multiple medications for blood pressure control at home including Hydralazine 50 mg p.o. 3 times daily, isosorbide dinitrate 20 mg p.o. twice daily Pending med rec Patient currently normotensive Plan: Restart home medications when appropriate or when needed, recommend starting 1 antihypertensive agent at a time #Normocytic anemia, likely anemia of chronic disease versus iron deficiency #History of DVT #COPD/asthma #Developmental delay, #Polycystic kidney disease, #ESRD s/p renal transplant HD [/Th/S] Rest of medical problems to be managed by primary hospitalist team and nephrology Patient seen and assessed with attending Dr. Robb Sykes, DO PGY-2 Internal Medicine - [facility]
--- NOTE | 2025-05-06 10:28 | PD.RESCONSUL ---
HPI Data of Consult Consult date: 05/06/25 Requesting Physician: Rosy Wood DO Admitting Provider: Rosy Wood DO Attending Provider: Rosy Wood DO Primary Care Provider: Physician No Primary/Family Consult Narrative History of present illness: Mr. Montgomery is a 59-year-old -Israeli gentleman with past medical history of developmental delay, hypertension, polycystic kidney disease, s/p renal transplant on 12/02/2017 at [facility]- failed, back on HD since aug 2023 [//MON]- under DR. LERMA, HFpEF 55 to 60%, bradycardia s/p ICD placement in 2011, s/p replacement of single-chamber AICD on 05/05/2024 for depleted battery, diverticulosis presented to [facility] ED in 05/06 for chest pain during dialysis earlier today. Questionably poor historian as patient agrees with answers that were prompted. Patient reports chest pain started yesterday, described as central, 9/10 nonradiating chest pain, and was unable to complete dialysis, prompting ED visit. Patient reports experiencing total of 4 episodes each lasting about 1 minute occurred while he was sitting and standing doing things. Reports pain increases on deep inspiration and not positional dependent. Reports similar episode about 1 year ago. Denies missing hemodialysis sessions. Denies shortness of breath or palpitations. Lives with sister at home. Currently, patient endorses central 9/10 radiating chest pain. Denies nausea/vomiting, fever/chills or recent illness. Of note, patient under cardiac cath 12/2024 with stent placement. cc:: cc: Rosy Wood DO Review of Systems Review of Systems Systems Reviewed: All systems reviewed, normal except as documented Exam Vital Signs Temp Pulse Resp BP Pulse Ox O2 Del Method 97.9 F 88 16 119/79 98 Room Air 05/06/25 10:18 05/06/25 10:18 05/06/25 10:18 05/06/25 10:18 05/06/25 10:18 05/06/25 10:18 Narrative Exam GENERAL: AOx3, no acute distress HEENT: mucous membranes moist, bilateral sclera anicteric CARDIOVASCULAR: regular rate and rhythm, S1/S2 present, 2/6 systolic murmur, left IJ catheter in place, ICD palpable on right side chest with overlying scars PULMONARY: clear to auscultation bilaterally, no rales/rhonchi/wheezes ABDOMINAL: soft, non-tender, non-distended, no rebound/guarding, bowel sounds present EXTREMITIES: no peripheral edema SKIN: warm and dry, intact, no rashes NEURO: CN II-XII grossly intact, no focal deficits, alert, following commands Results Labs 05/07/25 04:47 05/07/25 04:47 Labs: Short CBC 05/06/25 Range/Units 07:07 WBC 5.6 (3.8-10.6) Thou/mm3 Hgb 11.8 L (13.5-16.0) g/dL Hct 36.8 L (41.0-53.0) % Plt Count 109 L (140-440) Thou/mm3 BMP 05/06/25 07:07 Sodium 139 Potassium 4.4 Chloride 98 Carbon Dioxide 26.9 BUN 41 H Creatinine 11.6 H* Glucose 88 Calcium 9.6 Cardiac Enzymes 05/06/25 Range/Units 07:07 Troponin I 0.109 H* (0.0-0.045) ng/mL Liver Function 05/06/25 Range/Units 07:07 Total Bilirubin 0.3 (0.3-1.2) mg/dL AST < 10 (0-34) U/L ALT < 7 L (10-49) U/L Alkaline Phosphatase 91 (46-116) U/L Albumin 4.5 (3.4-4.8) gm/dL Quality Measures Quality Measures none Medications Home Medications and Allergies Home Medications ?Medication ?Instructions ?Recorded ?Confirmed ?Type sodium bicarbonate 650 mg tablet 1,300 mg PO BID 10/02/19 08/16/24 History doxazosin 4 mg tablet 8 mg PO HS 12/16/23 01/06/25 History sevelamer carbonate 800 mg tablet 800 mg PO TIDWMEAL 12/16/23 01/06/25 History losartan 100 mg tablet 100 mg PO QDAY 04/29/24 08/16/24 History sucroferric oxyhydroxide 500 mg 1,000 mg PO TID 04/30/24 08/16/24 History chewable tablet (Velphoro) isosorbide dinitrate 20 mg tablet 20 mg PO BID 01/06/25 01/06/25 History nifedipine 30 mg tablet,extended 30 mg PO .24hr 01/06/25 01/06/25 History release 24 hr rosuvastatin 20 mg tablet (Crestor) 20 mg PO QDAY 01/06/25 01/06/25 History Allergies Allergy/AdvReac Type Severity Reaction Status Date / Time Penicillins Allergy Verified 05/06/25 07:36 Visit Medications Acetaminophen (Acetaminophen 325 Mg Tablet) 1,000 mg PO Q6H PRN PRN Reason: Fever >100.4 Stop: 06/05/25 09:45 Heparin Sodium/Dextrose (Heparin In D5w Ivpb) 25,000 unit in 250 mls @ 9.253 mls/hr IV .Q24H [facility]; Protocol Stop: 05/20/25 10:14 Nitroglycerin (Nitroglycerin 0.4 Mg Subl Btl #25) 0.4 mg SL Q5M PRN PRN Reason: CHEST PAIN Ondansetron HCl (Ondansetron Inj 2 Mg/Ml Inj 2 Ml) 4 mg IVP Q6H PRN; Protocol PRN Reason: NAUSEA OR VOMITING Stop: 06/05/25 09:50 Discontinued Medications Aspirin (Aspirin 81 Mg Chew) 324 mg PO X1 ONE Stop: 05/06/25 06:58 Last Admin: 05/06/25 08:01 Dose: 324 mg Heparin Sodium (Porcine) (Heparin Sod Inj 5000 Unit/Ml Vial) 2,000 unit IV X1 ONE; Protocol Stop: 05/06/25 10:16 Magnesium Sulfate (Magnesium Sulfate Ivpb) 2 gm in 50 mls @ 25 mls/hr IV X1 ONE Stop: 05/06/25 09:13 Last Admin: 05/06/25 08:06 Dose: 25 mls/hr Morphine Sulfate (Morphine Sulf Inj 4 Mg/Ml Vial) 4 mg IVP Q30M PRN PRN Reason: PAIN SCALE 7-10 (Severe Stop: 05/06/25 08:57 Ondansetron HCl (Ondansetron Inj 2 Mg/Ml Inj 2 Ml) 4 mg IVP Q1HR PRN PRN Reason: PERSISTENT NAUSEA OR VOMITING Assessment & Plan Plan Mr. Montgomery is a 59-year-old -Israeli gentleman with past medical history of developmental delay, hypertension, polycystic kidney disease, s/p renal transplant on 12/02/2017 at [facility]- failed, back on HD since aug 2023 [//SAT]- under DR. LERMA, HFrEF (35-40%, 2023), bradycardia s/p ICD placement in 2011, s/p replacement of single-chamber AICD on 05/05/2024 for depleted battery, diverticulosis presented to [facility] ED in 05/06 for chest pain during dialysis morning of admission, admitted for NSTEMI. Nephrology consulted for ESRD on HD. #ESRD on HD thru [facility] (T/R/S) since 2023 #Polycystic kidney disease s/p renal transplant 2018, failed Patient presents with chest pain during dialysis session morning of admission and was unable to complete session. Adherent with HD schedule. On admission, BUN 41, creatinine 11.6, phosphorus 7.9, magnesium 2.6, troponin 0.109, BNP 1776. HD: 05/06, Plan: - HD today - Restart home sevelamer 800 TIDWM - Renally dose and avoid nephrotoxic medication - Caution with fluid resuscitation if necessary given HFrEF - Per cardiology, possible cardiac cath tomorrow, possible HD following cardiac cath as patient will be given contrast #NSTEMI, type I vs type II #HTN #HFrEF (35-40%, 2023) #Diverticulosis - Above managed per primary team Thank you for the consultation and allowing participation in patient's care. Plan of care discussed with attending Dr. Muse. Josefina De, PGY-1 Internal Medicine Attending Provider Attestation/Addendum Patient seen and examined with resident physician Dr. De. Note reviewed, agree with findings and recommendations. Patient was sent from the dialysis unit. Dr. Lerma is his airdox fitter. I am covering for him. patient currently seen on dialysis. Tolerating dialysis without any problems. Hemodialysis for 3 hours, 2K, ultrafiltration 1-2 L, Epogen 6000, no heparin ordered. Plan of care discussed with the dialysis nurse. Please see dialysis flowsheet for further details. Thank you Rosy for allowing me to participate in the care of Mr. Montgomery
[2025-05-06] MEDS: TICAGRELOR 90 MG TABLET PO ×2 (11:07→21:34)
[2025-05-06] MEDS: HEPARIN SOD INJ 5000 UNIT/ML VIAL 2000 UNIT IV (11:10)
[2025-05-06] MEDS: Heparin/D5w 25K 250 ML Ivpb 25,000 UNIT/250 ML BAG 9.253 UNIT IV (11:15)
[2025-05-06 11:19] LABS: Troponin I 0.111 ng/mL (0.0-0.045)
--- NOTE | 2025-05-06 16:24 | ESHP_ITS ---
<Statement entered by Ewelina Key MD - 05/06/25 18:24> Mr. Peña is a 60 year old male with a past medical history of hypertension, polycystic kidney disease s/p renal transplant on 12/02/2017 at [facility], ESRD on HD [//], HFpEF 35-40% (04/2024), moderate PAH, and bradycardia s/p ICD placement in 2011, s/p replacement of single-chamber AICD, and underwent PCI with stent placement in the RCA along with Impella at [facility] in December with director retirement Dr. Zamudio presented to the ED complaining of chest pain that started during dialysis session. Patient was unable to complete his dialysis session due to midsternal sharp chest pain. Patient states that he has been having intermittent sharp chest pain for several weeks but because it would go away quickly he did not seek medical help. Patient also states that at times he feels like an elephant is sitting on his chest but denies any diaphoresis, nausea, vomiting, dizziness or syncopal episodes. Patient also denies any radiation of the pain. In the ED patient is given loading dose of aspirin along with nitroglycerin patch patient is started on heparin drip as per ACS protocol. Parking Lot Signaler Dr. Zamudio is contacted who recommended to admit the patient and will possibly plan for cardiac cath tomorrow. Dyeing Machine Tender Dr. Muse is consulted and dialysis is ordered for tonight. Patient was seen and examined by me personally. I have directly supervised and reviewed documentation by the team resident and agree with its findings.. ------- Plan of care was discussed with the attending, Dr. Israel Key, PGY-2 Documentation for date of: 05/06/25 HPI History of Present Illness History of present illness: HPI: 60 year old male with a past medical history of developmental delay, hypertension, polycystic kidney disease s/p renal transplant on 12/02/2017 at [facility], ESRD on HD [] following Dr. Lerma, HFpEF 35-40% (04/2024), moderate PAH, and bradycardia s/p ICD placement in 2011, s/p replacement of single- chamber AICD who presented to the ED on 05/06 with chest pain during his dialysis session. Patient is a poor historian secondary to some degree of developmental delay and currently lives with his sister who is his primary health careers instructor. He admits to diffuse chest pain and shortness of breath upon questioning and also endorses dizziness. He had a PCI with stent placement in the right coronary along with Impella Rosario in December. The patient was admitted for acute coronary syndrome and consideration for cardiac cath as well as continue dialysis. ED course: * Vitals on arrival insignificant * Labs on arrival significant for hemoglobin 11.8, hematocrit 36.8, platelets 109, PTT 40.3, BUN 41, creatinine 11.6, Phos 7.9, troponins 0.109 -> 0.111, BNP 1766. * Imaging: EKG showed ST depressions in 2 3 and aVF. Chest x-ray showed Moderate enlargement cardiac contour, prominent central pulmonary vasculature, suspicious for pulmonary artery hypertension. * Patient was given a 324 mg dose of aspirin. Also received magnesium, Brilinta, and started on heparin. History: * Past medical history as above * Surgical history: Stent placement in the RCA in December. Kidney transplant on 12/02/2017. * Family history: Hypertension in both parents * Social history: Denies alcohol tobacco or illicit drugs. Developmentally delayed and requires help with activities of daily living, lives with sister. * Allergies: No known drug allergies * Pulm medications per patient's caregiver, his sister: Aspirin, Brilinta, lisinopril, carvedilol, Lipitor, nifedipine. Also reported: Albuterol, doxazosin, Eliquis, fluticasone, hydralazine, isosorbide dinitrate, losartan, prednisone, Crestor, sevelamer, sodium bicarb, Velphoro. Review of Systems Review of Systems Narrative Review of Systems: Review of Systems: * General: Feels dizzy * HEENT: Denies headache, congestion, or sore throat. * Cardiac: Diffuse chest pain. * Pulmonary: Feels short of breath. * GI: Denies nausea, vomiting, diarrhea, constipation, melena, or hematochezia. * : Denies dysuria, hematuria, frequency, or urgency. * MSK: Denies pain in the extremities, joints, or myalgias. * Neuro: Denies weakness, numbness, vision changes, or speech difficulty. Exam Vital Signs Temp Pulse Resp BP Pulse Ox O2 Del Method O2 Flow Rate 98 F 65 20 116/89 H 99 Room Air 1 11/04/25 16:12 05/06/25 16:12 05/06/25 16:12 05/06/25 16:12 05/06/25 16:12 05/06/25 12:16 05/06/25 16:12 Narrative Exam General: Awake and in no acute distress. Conversational and non-toxic appearing. Neurologic: GCS 15. Alert and oriented x3, no gross neurological deficit, and patient able to move all 4 extremities. HEENT: Normocephalic, atraumatic, mucous membranes moist. Pupils reactive to light. Heart: 2 out of 6 6 systolic ejection murmur, left IJ dialysis catheter, scars over the right chest overlying ICD. Lungs: Clear to auscultation bilaterally with no wheezing or crackles. Abdomen: Soft, nondistended, nontender, positive bowel sounds. No guarding or rebound tenderness. Extremities: No edema. 2+ radial and dorsalis pedis pulses bilaterally. Skin: Warm. Dry. No rash or ecchymoses. Results: Labs 05/06/25 07:07 05/06/25 07:07 Labs: Short CBC 05/06/25 Range/Units 07:07 WBC 5.6 (3.8-10.6) Thou/mm3 Hgb 11.8 L (13.5-16.0) g/dL Hct 36.8 L (41.0-53.0) % Plt Count 109 L (140-440) Thou/mm3 BMP 05/06/25 07:07 Sodium 139 Potassium 4.4 Chloride 98 Carbon Dioxide 26.9 BUN 41 H Creatinine 11.6 H* Glucose 88 Calcium 9.6 Cardiac Enzymes 05/06/25 05/06/25 Range/Units 07:07 10:22 Troponin I 0.109 H* 0.111 H* (0.0-0.045) ng/mL Liver Function 05/06/25 Range/Units 07:07 Total Bilirubin 0.3 (0.3-1.2) mg/dL AST < 10 (0-34) U/L ALT < 7 L (10-49) U/L Alkaline Phosphatase 91 (46-116) U/L Albumin 4.5 (3.4-4.8) gm/dL Quality Measures Quality Measures none Medications Home Medications and Allergies Home Medications ?Medication ?Instructions ?Recorded ?Confirmed ?Type sodium bicarbonate 650 mg tablet 1,300 mg PO BID 10/0108/16/24 History doxazosin 4 mg tablet 8 mg PO HS 12/16/23 01/06/25 History sevelamer carbonate 800 mg tablet 800 mg PO TIDWMEAL 0 12/16/23 01/06/25 History losartan 100 mg tablet 100 mg PO QDAY 04/29/2408/03 History sucroferric oxyhydroxide 500 mg 1,000 mg PO TID 08/16/24 History chewable tablet (Velphoro) isosorbide dinitrate 20 mg tablet 20 mg PO BID 5 01/06/25 History nifedipine 30 mg tablet,extended 30 mg PO .24hr 01/06/25 History release 24 hr rosuvastatin 20 mg tablet (Crestor) 20 mg PO QDAY 01/2401/06/25 History Allergies Allergy/AdvReac Type Severity Reaction Status Date / Time Penicillins Allergy Verified 05/06/25 07:36 Visit Medications Acetaminophen (Acetaminophen 325 Mg Tablet) 1,000 mg PO Q6H PRN PRN Reason: Fever >100.4 Stop: 06/05/25 09:45 Aspirin (Aspirin Ec 81 Mg Tabec) 81 mg PO QDAY [facility] Stop: 06/06/25 08:59 Atorvastatin Calcium (Atorvastatin Calcium 20 Mg Tablet) 40 mg PO HS [facility] Stop: 06/05/25 20:59 Heparin Sodium (Porcine) (Heparin Sod Inj 1000 Unit/Ml Vial 10 Ml) 4,000 unit INDWELLCAT X1 PRN PRN Reason: DIALYSIS Stop: 05/20/25 13:21 Heparin Sodium/Dextrose (Heparin In D5w Ivpb) 25,000 unit in 250 mls @ 9.253 mls/hr IV .Q24H [facility]; Protocol Stop: 05/20/25 10:14 Last Admin: 05/06/25 11:15 Dose: 12 units/kg/hr, 9.253 mls/hr Metoprolol Tartrate (Metoprolol Tartrate 25 Mg Tablet) 25 mg PO BID [facility] Stop: 06/05/25 20:59 Nitroglycerin (Nitroglycerin 0.4 Mg Subl Btl #25) 0.4 mg SL Q5M PRN PRN Reason: CHEST PAIN Ondansetron HCl (Ondansetron Inj 2 Mg/Ml Inj 2 Ml) 4 mg IVP Q6H PRN; Protocol PRN Reason: NAUSEA OR VOMITING Stop: 06/05/25 09:50 Ticagrelor (Ticagrelor 90 Mg Tablet) 90 mg PO BID [facility] Stop: 06/05/25 10:44 Last Admin: 05/06/25 11:07 Dose: 90 mg Discontinued Medications Aspirin (Aspirin 81 Mg Chew) 324 mg PO X1 ONE Stop: 05/06/25 06:58 Last Admin: 05/06/25 08:01 Dose: 324 mg Heparin Sodium (Porcine) (Heparin Sod Inj 5000 Unit/Ml Vial) 2,000 unit IV X1 ONE; Protocol Stop: 05/06/25 10:16 Last Admin: 05/06/25 11:10 Dose: 2,000 unit Magnesium Sulfate (Magnesium Sulfate Ivpb) 2 gm in 50 mls @ 25 mls/hr IV X1 ONE Stop: 05/06/25 09:13 Last Infusion: 05/06/25 10:06 Dose: Infused Metoprolol Tartrate (Metoprolol Tartrate 25 Mg Tablet) 25 mg PO BID [facility] Stop: 06/05/25 20:59 Morphine Sulfate (Morphine Sulf Inj 4 Mg/Ml Vial) 4 mg IVP Q30M PRN PRN Reason: PAIN SCALE 7-10 (Severe Stop: 05/06/25 08:57 Ondansetron HCl (Ondansetron Inj 2 Mg/Ml Inj 2 Ml) 4 mg IVP Q1HR PRN PRN Reason: PERSISTENT NAUSEA OR VOMITING Assessment & Plan Plan Summary: 60-year-old male with a past medical history of ESRD on dialysis and status post renal transplant, developmental delay, hypertension, polycystic kidney disease, pulmonary hypertension, and hyperlipidemia who presented to the ED after having chest pain during his dialysis session. Was found to have ST depressions on EKG and an elevated troponin. He was admitted for management of his acute coronary syndrome in addition to continue dialysis. #Acute coronary syndrome #NSTEMI type I versus type II #Impella placement #Hyperlipidemia * Troponins elevated on arrival * EKG showed ST depression in leads 2 3 and aVF * Patient has diffuse chest pain and shortness of breath * Patient is status post right coronary artery stent placement in December currently on aspirin Plan: * Trending troponins * Heparin drip * DAPT with Brilinta 90 mg p.o. twice daily and aspirin 81 mg daily * Atorvastatin nightly * Metoprolol tartrate 25 mg p.o. twice daily * Per cardiology cath 05/08/2025 after dialysis * Lipid panel #Heart failure with severe systolic dysfunction, HFpEF 35-40% (04/2024) #Moderate PAH #Bradycardia s/p ICD placement in 2011, s/p replacement of single-chamber AICD * Echo on 04/30/2024 Normal LV size. Moderate LVH. Moderate LV systolic dysfunction with global hypokinesis, Estimated EF 35-40%Mild RV dilatation. Normal RV function. Estimated RVSP 49mmHg. RAP 15. Moderate PAH. Pacing wire present. * Patient on home carvedilol 25 mg p.o. twice daily, losartan 100 mg p.o. daily * BNP elevated which could be multifactorial secondary to ESRD status * No evidence on physical exam for acute exacerbation of heart failure, lungs are clear, no peripheral edema Plan: * Repeat echo * Holding carvedilol and losartan for now #Hypertension * Patient takes carvedilol, hydralazine, isosorbide dinitrate, losartan, and nifedipine at home for hypertension * Patient's blood pressure is currently well-controlled Plan: * Per cardiology will resume these medications when needed #ESRD status post kidney transplant on dialysis #History of polycystic kidney disease * Patient attends dialysis Monday, has been for 2 years, presented with chest pain during his dialysis session * Patient is status post renal transplant on 12/02/2017 at [facility] Plan: * Hemodialysis the day of admission per nephrology * Home sevelamer 800 3 times daily * Renally dose medications and avoid nephrotoxic agents #History of DVT * Patient has a history of right subclavian DVT in August 2024 * Completed a 3-month course of Eliquis Plan: * No direct intervention for this specific issue at this time, though the patient is at increased risk of DVT due to ESRD * Patient is on DAPT and heparin #COPD/Asthma * Patient takes albuterol at home * It was reported that the patient has a distant [id number] smoking history Plan: * Will monitor for shortness of breath and wheezing, will use DuoNebs as needed #Normocytic anemia * Hemoglobin 11.8 on arrival * Has been a longstanding issue * Consider in the presence of longstanding ESRD and fluid overload Plan: * Will continue to monitor and transfuse if hemoglobin below 7 #Developmental delay * There is reported that the patient requires help with activities of daily living and lives with his sister Plan: * No direct intervention Hospital Maintenance: DVT ppx: DAPT and heparin GI ppx: Not indicated Diet: Cardiac diet IV lines: Peripheral IVs, left IJ dialysis catheter Code status: Full code Dispo: Patient admitted for ACS and dialysis. Will receive dialysis the day of admission. Cardiology plans for PCI on 05/08/2025. Will continue to trend troponins. Patient was seen and discussed with my attending physician Dr. Israel FLEMING and my senior resident Dr. Shahid PLAZA PGY-2. Donavan Caballero DO PGY-1. Attending Provider Attestation/Addendum I, Rosy Wood DO, attest that I was physically present for the hare portions of the service and evaluated the patient with the resident and I reviewed and discussed the case with the resident and agree with the resident's findings and plans of care as documented above Patient is a 60-year-old male with past medical history end-stage renal disease on hemodialysis, polycystic kidney disease, bradycardia and HFrEF status post AICD, CAD, right subclavian vein DVT who was brought to the ED due to chest pain that began while he was receiving dialysis this a.m. Patient reported diffuse chest pain and shortness of breath, but denies any diaphoresis, nausea, vomiting otherwise. Patient reports the pain is sharp and substernal. In the ED, he was noted to have a troponin of 0.109 and BNP of 1776. EKG shows ST depression in leads II to III aVF with reciprocal changes in V1-V3. Cardiology was consulted due to concern for NSTEMI. Will admit patient to telemetry for further workup and medical management of NSTEMI. Will place patient on aspirin and heparin drip. Patient was seen in dialysis and reports resolution of the symptoms at this time. Will consult nephrology to continue with his dialysis as scheduled. Continue to trend troponins. Cardiology was called and plans for cardiac cath in AM. Patient recently had a cardiac cath done in December during which patient was found to have an ejection fraction of 30%, heavy calcification of the proximal mid and distal RCA that was greater than 90% stenosed. LAD was noted to have about 30% narrowing in the proximal and mid segments as well. Patient was recommended for complex PCI, rotational atherotomy and intravascular lithotripsy in the future.
--- NOTE | 2025-05-06 16:45 | PC.NURSE ---
pt arrived to the floor from dialysis admitted with tele orders at this time to ICU from ED. pt is alert with stable VSS.
[2025-05-06 17:28] LABS: Troponin I 0.105 ng/mL (0.0-0.045)
[2025-05-06 19:45] LABS: Partial Thromboplastin Time 32.0 Seconds (22.0-36.0)
[2025-05-06] MEDS: METOPROLOL TARTRATE 25 MG TABLET PO (21:34)
[2025-05-06] MEDS: ATORVASTATIN CALCIUM 20 MG TABLET 40 MG PO (21:34)
[2025-05-06] MEDS: HEPARIN SOD INJ 5000 UNIT/ML VIAL 4000 UNIT IV (22:07)
[2025-05-06 22:47] LABS: Troponin I 0.104 ng/mL (0.0-0.045)
[2025-05-07] VITALS (15 sets, daily range): BP systolic 104–115; BP diastolic 71–80; PULSE 71–102; RESP 10–32; TEMP 36.1–36.3; O2SAT 96–100; BMI 22.6
[2025-05-07 03:37] LABS: Partial Thromboplastin Time 54.7 Seconds (22.0-36.0)
[2025-05-07 05:27] LABS: Basophils # (Auto) 0.0 Thou/mm3 (0.0-0.2); Basophils % (Auto) 1 % (0-2.5); Eosinophils # (Auto) 0.3 Thou/mm3 (0.0-0.5); Eosinophils % (Auto) 5 % (0-10); Hematocrit 37.4 % (41.0-53.0); Hemoglobin 12.1 g/dL (13.5-16.0); Immature Granulocytes Auto 0.01 Thou/mm3 (0.00-0.00); Immature Reticulocyte Fraction 23.7 % (2.3-13.4); Lymphocytes # (Auto) 0.6 Thou/mm3 (1.0-4.8); Lymphocytes % (Auto) 12 % (10-50); Mean Corpuscular HGB Conc 32.4 g/dl (31.0-37.0); Mean Corpuscular Hemoglobin 30.0 pg (25.0-35.0); Mean Corpuscular Volume 93 fL (80-100); Monocytes # (Auto) 0.4 Thou/mm3 (0.0-0.8); Monocytes % (Auto) 7 % (0-12); Neutrophils # (Auto) 3.8 Thou/mm3 (1.8-7.7); Neutrophils % (Auto) 75 % (37-80); Nucleated Red Blood Cell # 0.00 Thou/mm3 (0.00-0.00); Nucleated Red Blood Cell % 0 /100 WBC (0); Platelet Count 117 Thou/mm3 (140-440); RDW Standard Deviation 51.5 fL (35.1-43.9); Red Blood Count 4.03 Miln/mm3 (4.50-5.90); Reticulocyte % (Auto) 1.8 % (0.5-1.5); Reticulocyte Absolute Auto 73.7 Biln/L (25.0-75.0); Reticulocyte Hgb Content 38.8 pg (28.0-35.0); White Blood Count 5.1 Thou/mm3 (3.8-10.6)
[2025-05-07 05:46] LABS: Ferritin 312 ng/mL (10.5-307.3); Percent Iron Saturation 19 % (20-55); Total Iron Binding Capacity 199 mcg/dL (250-425); Unsaturated Iron Binding 160 (225-295)
[2025-05-07 06:26] LABS: Alanine Aminotransferase < 7 U/L (10-49); Albumin, Serum 4.2 gm/dL (3.4-4.8); Albumin/Globulin Ratio 1.6 (1.2-2.2); Alkaline Phosphatase 80 U/L (46-116); Anion Gap 15 (7-16); Aspartate Amino Transferase < 10 U/L (0-34); BUN/Creatinine Ratio 3 Ratio (12-20); Bilirubin,Total 0.4 mg/dL (0.3-1.2); Blood Urea Nitrogen 25 mg/dL (9-23); Calcium 9.8 mg/dL (8.3-10.6); Calcium (Corrected) 9.8 mg/dL (8.5-10.1); Carbon Dioxide 24.2 mMol/L (20.0-31.0); Cardiac Risk Estimate 3.7 RATIO (4.0-6.7); Chloride 97 mMol/L (98-107); Cholesterol 166 mg/dL (132-200); Creatinine (Component) 8.2 mg/dL (0.6-1.3); Estimated Creatinine Clearance 10.2 mL/min (>60); Globulin 2.7 gm/dL (2.3-3.5); Glucose 83 mg/dL (74-106); HDL Cholesterol 45 mg/dL (40-60); LDL Cholesterol,Calculated 104 mg/dL (0-130); Magnesium 2.3 mg/dL (1.6-2.6); Osmolality,Calculated 275 (275-295); Potassium 4.5 mMol/L (3.4-5.1); Sodium 136 mMol/L (136-145); Total Protein 6.9 gm/dL (5.7-8.2); Triglycerides 87 mg/dL (30-150); eGFR 7 See Note
--- NOTE | 2025-05-07 08:27 | ESPR_ITS ---
<Statement entered by Jyoti Zamudio MD - 05/12/25 13:08> I personally examined evaluated the patient with resident physician PGY 2 Dr. Sykes, patient is doing better still have some shortness of breath but no chest pain known history of CAD multivessel stent placement came to the hospital chest pain during dialysis and EKG changes as well as ST abnormalities and troponin elevation will recommend coronary angiogram cardiac evaluation will be scheduled tomorrow. Documentation for date of: 05/07/25 Subjective Subjective Interval history: Patient seen and assessed in hospital bed, denies having any chest pressure as noted previously. He states that he feels a little short of breath but otherwise denies any concerning cardiac symptoms such as palpitations, chest pain/tightness, dizziness, PND or orthopnea. Patient had dialysis session the day prior. He is scheduled for a left heart catheterization to assess for possible restenosis of RCA stent vs. new stenosis on 05/08. He will require dialysis session after left heart cath. Will continue monitoring for any acute changes. Exam Vital Signs Temp Pulse Resp BP Pulse Ox O2 Del Method O2 Flow Rate 97.1 F 86 18 109/80 100 Room Air 3 05/07/25 04:00 05/07/25 04:00 05/07/25 04:00 05/07/25 04:00 05/07/25 04:00 05/06/25 17:15 05/07/25 03:08 FiO2 100 05/06/25 17:15 Narrative Exam Physical Exam: GENERAL: Awake, answering questions although unsure if appropriately secondary to developmental delay, appears stated age HEENT: NC/AT. Moist mucosa. PERRLA/EOMI. left IJ tunneled catheter CARDIO: Heart RRR, III/IV holosystolic flow murmur auscultated at left sternal base and II/IV soft blowing systolic murmur auscultated at fifth intercostal midclavicular space PULM: No coughing or visible SOB. Lungs CTA B/L but patient requiring 2 L of supplemental oxygen via nasal cannula GI: Abdomen soft, NT/ND, +BS. 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 No wounds/discoloration/rashes/edema/amputations noted. +Pedal pulses present B/L. NEURO: Oriented x3, Moves extremities x4, no focal neurologic deficits noted Objective Labs 05/07/25 04:47 05/07/25 04:47 Labs: Laboratory Results - last 24 hr 05/06/25 05/06/25 05/06/25 07:07 10:22 16:48 WBC 5.6 RBC 3.91 L Hgb 11.8 L Hct 36.8 L MCV 94 MCH 30.2 MCHC 32.1 RDW Std Deviation 53.5 H Plt Count 109 L Neut % (Auto) 69 Lymph % (Auto) 15 Owen % (Auto) 9 Eos % (Auto) 6 Baso % (Auto) 1 Neut # (Auto) 3.8 Lymph # (Auto) 0.8 L [place] # (Auto) 0.5 Eos # (Auto) 0.3 Baso # (Auto) 0.1 Immature Gran # (Auto) 0.02 H Absolute Nucleated RBC 0.00 Immature Gran % 0 Nucleated RBC % 0 Retic Count (auto) Absolute Retic Immature Retic Fraction Retic Hgb Content CHr PT 10.7 INR 1.0 APTT 40.3 H Sodium Potassium Chloride Carbon Dioxide Anion Gap BUN Creatinine Estim Creat Clear Calc eGFR BUN/Creatinine Ratio Glucose Calculated Osmolality Calcium Corrected Calcium Phosphorus 7.9 H Magnesium Iron TIBC Iron Saturation Unsat Iron Binding Ferritin Total Bilirubin AST ALT Alkaline Phosphatase Troponin I 0.111 H* 0.105 H* Total Protein Albumin Globulin Albumin/Globulin Ratio Triglycerides Cholesterol LDL Cholesterol, Calc HDL Cholesterol Cholesterol/HDL Ratio 05/06/25 05/06/25 05/07/25 19:19 22:11 02:40 WBC RBC Hgb Hct MCV MCH MCHC RDW Std Deviation Plt Count Neut % (Auto) Lymph % (Auto) [place] % (Auto) Eos % (Auto) Baso % (Auto) Neut # (Auto) Lymph # (Auto) [place] # (Auto) Eos # (Auto) Baso # (Auto) Immature Gran # (Auto) Absolute Nucleated RBC Immature Gran % Nucleated RBC % Retic Count (auto) Absolute Retic Immature Retic Fraction Retic Hgb Content CHr PT INR APTT 32.0 54.7 H D Sodium Potassium Chloride Carbon Dioxide Anion Gap BUN Creatinine Estim Creat Clear Calc eGFR BUN/Creatinine Ratio Glucose Calculated Osmolality Calcium Corrected Calcium Phosphorus Magnesium Iron TIBC Iron Saturation Unsat Iron Binding Ferritin Total Bilirubin AST ALT Alkaline Phosphatase Troponin I 0.104 H* Total Protein Albumin Globulin Albumin/Globulin Ratio Triglycerides Cholesterol LDL Cholesterol, Calc HDL Cholesterol Cholesterol/HDL Ratio 05/07/25 04:47 WBC 5.1 RBC 4.03 L Hgb 12.1 L Hct 37.4 L MCV 93 MCH 30.0 MCHC 32.4 RDW Std Deviation 51.5 H Plt Count 117 L Neut % (Auto) 75 Lymph % (Auto) 12 [place] % (Auto) 7 Eos % (Auto) 5 Baso % (Auto) 1 Neut # (Auto) 3.8 Lymph # (Auto) 0.6 L [place] # (Auto) 0.4 Eos # (Auto) 0.3 Baso # (Auto) 0.0 Immature Gran # (Auto) 0.01 H Absolute Nucleated RBC 0.00 Immature Gran % 0 Nucleated RBC % 0 Retic Count (auto) 1.8 H Absolute Retic 73.7 Immature Retic Fraction 23.7 H Retic Hgb Content CHr 38.8 H PT INR APTT Sodium 136 Potassium 4.5 Chloride 97 L Carbon Dioxide 24.2 Anion Gap 15 BUN 25 H Creatinine 8.2 H* D Estim Creat Clear Calc 10.2 L eGFR 7 L* BUN/Creatinine Ratio 3 L Glucose 83 Calculated Osmolality 275 Calcium 9.8 Corrected Calcium 9.8 Phosphorus Magnesium 2.3 Iron 39 L TIBC 199 L Iron Saturation 19 L Unsat Iron Binding 160 L Ferritin 312 H Total Bilirubin 0.4 AST < 10 ALT < 7 L Alkaline Phosphatase 80 Troponin I Total Protein 6.9 Albumin 4.2 Globulin 2.7 Albumin/Globulin Ratio 1.6 Triglycerides 87 Cholesterol 166 LDL Cholesterol, Calc 104 HDL Cholesterol 45 Cholesterol/HDL Ratio 3.7 L Quality Measures Quality Measures none Assessment & Plan Assessment Current Active Medications: Generic Name Dose Route Start Last Admin Trade Name Bisi PRN Reason Stop Dose Admin Acetaminophen 1,000 mg 05/06/25 09:46 Acetaminophen 325 Mg Tablet PO 06/05/25 09:45 Q6H PRN Fever >100.4 Aspirin 81 mg 05/07/25 09:00 Aspirin Ec 81 Mg Tabec PO 06/06/25 08:59 QDAY ANTONIA Atorvastatin Calcium 40 mg 05/06/25 21:00 05/06/25 21:34 Atorvastatin Calcium 20 Mg Tablet PO 06/05/25 20:59 40 mg HS ANTONIA Administration Heparin Sodium (Porcine) 4,000 unit 05/06/25 13:22 Heparin Sod Inj 1000 Unit/Ml Vial 10 Ml INDWELLCAT 05/20/25 13:21 X1 PRN DIALYSIS Heparin Sodium/Dextrose 25,000 unit in 250 mls @ 9.253 mls/hr 05/06/25 10:15 05/06/25 21:41 Heparin In D5w Ivpb IV 05/20/25 10:14 16 units/kg/hr .Q24H ANTONIA 12.338 mls/hr Protocol Titration 12 UNITS/KG/HR Metoprolol Tartrate 25 mg 05/06/25 21:00 05/06/25 21:34 Metoprolol Tartrate 25 Mg Tablet PO 06/05/25 20:59 25 mg BID ANTONIA Administration Nitroglycerin 0.4 mg 05/06/25 06:57 Nitroglycerin 0.4 Mg Subl Btl #25 SL Q5M PRN CHEST PAIN Ondansetron HCl 4 mg 05/06/25 09:51 Ondansetron Inj 2 Mg/Ml Inj 2 Ml IVP 06/05/25 09:50 Q6H PRN NAUSEA OR VOMITING Protocol Ticagrelor 90 mg 05/06/25 10:45 05/06/25 21:34 Ticagrelor 90 Mg Tablet PO 06/05/25 10:44 90 mg BID ANTONIA Administration Plan 60 year old male with a past medical history of developmental delay, hypertension, polycystic kidney disease, s/p renal transplant on 12/02/2017 at [facility], ESRD on HD [//] following Dr. Lerma, HFpEF 35-40% (04/2024), moderate PAH, and bradycardia s/p ICD placement in 2011, s/p replacement of single- chamber AICD who presented with chest pain during dialysis session will be admitted for acute coronary syndrome and started on IV heparin with possible left heart cath to be scheduled for 05/08 along with continued dialysis sessions while in the hospital. #Acute coronary syndrome #NSTEMI type I versus type II #Coronary artery disease, status post stent placement in RCA on December 2024 #Impella placement As per HPI above, patient presented with chest pain during dialysis session Significant history of CAD with recent stent placement in RCA on December 2024 at [facility] with Impella placement for left ventricular failure Patient's presenting with typical chest pain along with elevated troponin and BNP EKG shows sinus rhythm with some ST changes noted in septal leads with reciprocal changes possibly in inferior leads? Plan: NPO after midnight - LHC planned for 05/08 Continue IV heparin drip DAPT with Brilinta 90 mg p.o. twice daily and aspirin 81 mg daily High intensity statin nightly Metoprolol to tartrate 25 mg p.o. twice daily, HOLD if HR less than 70 Keep Mg >2.0 and K >4.0 Dialysis session after LHC #Heart failure with systolic dysfunction, HFpEF 35-40% (04/2024) #Left Ventricular Hypertrophy #Moderate PAH #Bradycardia s/p ICD placement in 2011, s/p replacement of single-chamber AICD Last echo findings, Normal LV size. Moderate LVH. Moderate LV systolic dysfunction with global hypokinesis, Estimated EF 35-40% Mild RV dilatation. Normal RV function. Estimated RVSP 49mmHg. RAP 15. Moderate PAH. Pacing wire present. Moderate AV sclerosis without sclerosis. Vmax 2.3 m/s and Mean PG of 10 mm hg. Mild MR. Moderate TR. Moderate PAH. There is anterior trivial pericardial effusion. No evidence of cardiac tamponde. Patient on home carvedilol 25 mg p.o. twice daily, losartan 100 mg p.o. daily BNP elevated which could be multifactorial secondary to ESRD status On examination, patient does not appear to be in acute heart failure exacerbation as there is no noted crackles, JVD, lower extremity edema and he is requiring minimal supplemental oxygen Plan: Will consider repeat echo to monitor heart function #Hypertension Patient on multiple medications for blood pressure control at home including Hydralazine 50 mg p.o. 3 times daily, isosorbide dinitrate 20 mg p.o. twice daily Pending med rec Patient currently normotensive Plan: Restart home medications when appropriate or when needed, recommend starting 1 antihypertensive agent at a time #Normocytic anemia, likely anemia of chronic disease versus iron deficiency #History of DVT #COPD/asthma #Developmental delay, #Polycystic kidney disease, #ESRD s/p renal transplant HD [//] Rest of medical problems to be managed by primary hospitalist team and nephrology Patient seen and assessed with attending Dr. Robb Sykes, DO PGY-2 Internal Medicine - GME
[2025-05-07] MEDS: METOPROLOL TARTRATE 25 MG TABLET PO ×2 (08:28→20:54)
[2025-05-07] MEDS: ASPIRIN EC 81 MG TABEC PO (08:28)
[2025-05-07] MEDS: TICAGRELOR 90 MG TABLET PO ×2 (08:28→20:54)
[2025-05-07 08:53] LABS: Phosphorous 6.7 mg/dL (2.4-5.1)
--- NOTE | 2025-05-07 08:56 | PD.RESPRO ---
Documentation for date of: 05/07/25 Subjective Subjective Interval history: Mr. Montgomery is a 59-year-old -[place] gentleman with past medical history of developmental delay, hypertension, polycystic kidney disease, s/p renal transplant on 12/02/[address] [facility]- failed, back on HD since aug 2023 [T//MON]- under DR. LERMA, HFpEF 55 to 60%, bradycardia s/p ICD placement in 2011, s/p replacement of single-chamber AICD on 05/05/2024 for depleted battery, diverticulosis presented to [facility] ED in 05/06 for chest pain during dialysis earlier today. Questionably poor historian as patient agrees with answers that were prompted. Patient reports chest pain started yesterday, described as central, 9/10 nonradiating chest pain, and was unable to complete dialysis, prompting ED visit. Patient reports experiencing total of 4 episodes each lasting about 1 minute occurred while he was sitting and standing doing things. Reports pain increases on deep inspiration and not positional dependent. Reports similar episode about 1 year ago. Denies missing hemodialysis sessions. Denies shortness of breath or palpitations. Lives with sister at home. Currently, patient endorses central 9/10 radiating chest pain. Denies nausea/vomiting, fever/chills or recent illness. Of note, patient under cardiac cath 12/2024 with stent placement. 05/07/25: Patient seen and examined at bedside in ICU, telemetry overflow. No complaints. Denies further episodes of chest pain since ED, palpitations, N/V or SOB. Labs and vitals reviewed, troponins stable mildly elevated at 0.1. Per cardiology, likely cath 05/08. Exam Vital Signs Temp Pulse Resp BP Pulse Ox O2 Del Method O2 Flow Rate 97.1 F 82 18 107/72 100 Room Air 3 05/07/25 04:00 05/07/25 08:28 05/07/25 04:00 05/07/25 08:28 05/07/25 04:00 05/06/25 17:15 05/07/25 03:08 FiO2 100 05/06/25 17:15 Narrative Exam GENERAL: AOx3, no acute distress HEENT: mucous membranes moist, bilateral sclera anicteric CARDIOVASCULAR: regular rate and rhythm, S1/S2 present, 2/6 systolic murmur, left IJ catheter in place clean, ICD palpable on right side chest with overlying scars PULMONARY: clear to auscultation bilaterally, no rales/rhonchi/wheezes ABDOMINAL: soft, non-tender, non-distended, no rebound/guarding, bowel sounds present EXTREMITIES: no peripheral edema SKIN: warm and dry, intact, no rashes NEURO: CN II-XII grossly intact, no focal deficits, alert, following commands Objective Labs 05/07/25 04:47 05/07/25 04:47 Labs: Laboratory Results - last 24 hr 05/06/25 05/06/25 05/06/25 07:07 10:22 16:48 WBC RBC Hgb Hct MCV MCH MCHC RDW Std Deviation Plt Count Neut % (Auto) Lymph % (Auto) [place] % (Auto) Eos % (Auto) Baso % (Auto) Neut # (Auto) Lymph # (Auto) [place] # (Auto) Eos # (Auto) Baso # (Auto) Immature Gran # (Auto) Absolute Nucleated RBC Immature Gran % Nucleated RBC % Retic Count (auto) Absolute Retic Immature Retic Fraction Retic Hgb Content CHr PT 10.7 INR 1.0 APTT 40.3 H Sodium Potassium Chloride Carbon Dioxide Anion Gap BUN Creatinine Estim Creat Clear Calc eGFR BUN/Creatinine Ratio Glucose Calculated Osmolality Calcium Corrected Calcium Phosphorus Magnesium Iron TIBC Iron Saturation Unsat Iron Binding Ferritin Total Bilirubin AST ALT Alkaline Phosphatase Troponin I 0.111 H* 0.105 H* Total Protein Albumin Globulin Albumin/Globulin Ratio Triglycerides Cholesterol LDL Cholesterol, Calc HDL Cholesterol Cholesterol/HDL Ratio 05/06/25 05/06/25 05/07/25 19:19 22:11 02:40 WBC RBC Hgb Hct MCV MCH MCHC RDW Std Deviation Plt Count Neut % (Auto) Lymph % (Auto) [place] % (Auto) Eos % (Auto) Baso % (Auto) Neut # (Auto) Lymph # (Auto) [place] # (Auto) Eos # (Auto) Baso # (Auto) Immature Gran # (Auto) Absolute Nucleated RBC Immature Gran % Nucleated RBC % Retic Count (auto) Absolute Retic Immature Retic Fraction Retic Hgb Content CHr PT INR APTT 32.0 54.7 H D Sodium Potassium Chloride Carbon Dioxide Anion Gap BUN Creatinine Estim Creat Clear Calc eGFR BUN/Creatinine Ratio Glucose Calculated Osmolality Calcium Corrected Calcium Phosphorus Magnesium Iron TIBC Iron Saturation Unsat Iron Binding Ferritin Total Bilirubin AST ALT Alkaline Phosphatase Troponin I 0.104 H* Total Protein Albumin Globulin Albumin/Globulin Ratio Triglycerides Cholesterol LDL Cholesterol, Calc HDL Cholesterol Cholesterol/HDL Ratio 05/07/25 04:47 WBC 5.1 RBC 4.03 L Hgb 12.1 L Hct 37.4 L MCV 93 MCH 30.0 MCHC 32.4 RDW Std Deviation 51.5 H Plt Count 117 L Neut % (Auto) 75 Lymph % (Auto) 12 [place] % (Auto) 7 Eos % (Auto) 5 Baso % (Auto) 1 Neut # (Auto) 3.8 Lymph # (Auto) 0.6 L [place] # (Auto) 0.4 Eos # (Auto) 0.3 Baso # (Auto) 0.0 Immature Gran # (Auto) 0.01 H Absolute Nucleated RBC 0.00 Immature Gran % 0 Nucleated RBC % 0 Retic Count (auto) 1.8 H Absolute Retic 73.7 Immature Retic Fraction 23.7 H Retic Hgb Content CHr 38.8 H PT INR APTT Sodium 136 Potassium 4.5 Chloride 97 L Carbon Dioxide 24.2 Anion Gap 15 BUN 25 H Creatinine 8.2 H* D Estim Creat Clear Calc 10.2 L eGFR 7 L* BUN/Creatinine Ratio 3 L Glucose 83 Calculated Osmolality 275 Calcium 9.8 Corrected Calcium 9.8 Phosphorus 6.7 H Magnesium 2.3 Iron 39 L TIBC 199 L Iron Saturation 19 L Unsat Iron Binding 160 L Ferritin 312 H Total Bilirubin 0.4 AST < 10 ALT < 7 L Alkaline Phosphatase 80 Troponin I Total Protein 6.9 Albumin 4.2 Globulin 2.7 Albumin/Globulin Ratio 1.6 Triglycerides 87 Cholesterol 166 LDL Cholesterol, Calc 104 HDL Cholesterol 45 Cholesterol/HDL Ratio 3.7 L Quality Measures Quality Measures none Assessment & Plan Assessment Current Active Medications: Generic Name Dose Route Start Last Admin Trade Name Freq PRN Reason Stop Dose Admin Acetaminophen 1,000 mg 05/06/25 09:46 Acetaminophen 325 Mg Tablet PO 06/05/25 09:45 Q6H PRN Fever >100.4 Aspirin 81 mg 05/07/25 09:00 05/07/25 08:28 Aspirin Ec 81 Mg Tabec PO 06/06/25 08:59 81 mg QDAY ANTONIA Administration Atorvastatin Calcium 40 mg 05/06/25 21:00 05/06/25 21:34 Atorvastatin Calcium 20 Mg Tablet PO 06/05/25 20:59 40 mg HS ANTONIA Administration Heparin Sodium (Porcine) 4,000 unit 05/06/25 13:22 Heparin Sod Inj 1000 Unit/Ml Vial 10 Ml INDWELLCAT 05/20/25 13:21 X1 PRN DIALYSIS Heparin Sodium/Dextrose 25,000 unit in 250 mls @ 9.253 mls/hr 05/06/25 10:15 05/06/25 21:41 Heparin In D5w Ivpb IV 05/20/25 10:14 16 units/kg/hr .Q24H ANTONIA 12.338 mls/hr Protocol Titration 12 UNITS/KG/HR Metoprolol Tartrate 25 mg 05/06/25 21:00 05/07/25 08:28 Metoprolol Tartrate 25 Mg Tablet PO 06/05/25 20:59 25 mg BID ANTONIA Administration Nitroglycerin 0.4 mg 05/06/25 06:57 Nitroglycerin 0.4 Mg Subl Btl #25 SL Q5M PRN CHEST PAIN Ondansetron HCl 4 mg 05/06/25 09:51 Ondansetron Inj 2 Mg/Ml Inj 2 Ml IVP 06/05/25 09:50 Q6H PRN NAUSEA OR VOMITING Protocol Ticagrelor 90 mg 05/06/25 10:45 05/07/25 08:28 Ticagrelor 90 Mg Tablet PO 06/05/25 10:44 90 mg BID ANTONIA Administration Plan Mr. Montgomery is a 59-year-old -[place] gentleman with past medical history of developmental delay, hypertension, polycystic kidney disease, s/p renal transplant on 12/02/[address] [facility]- failed, back on HD since aug 2023 [//MON]- under DR. LERMA, HFrEF (35-40%, 2023), bradycardia s/p ICD placement in 2011, s/p replacement of single-chamber AICD on 05/05/2024 for depleted battery, diverticulosis presented to [facility] ED in 05/06 for chest pain during dialysis morning of admission, admitted for NSTEMI. Nephrology consulted for ESRD on HD. #ESRD on HD thru [facility] (T/R/S) since 2023 #Polycystic kidney disease s/p renal transplant 2017, failed Patient presents with chest pain during dialysis session morning of admission and was unable to complete session. Adherent with HD schedule. On admission, BUN 41, creatinine 11.6, phosphorus 7.9, magnesium 2.6, troponin 0.109, BNP 1776. HD: 05/06, Plan: - HD tomorrow - Restart home sevelamer 800 TIDWM - Renally dose and avoid nephrotoxic medication - Caution with fluid resuscitation if necessary given HFrEF - Per cardiology, possible cardiac cath tomorrow, and plan for HD following cardiac cath as patient will be given contrast #NSTEMI, type I vs type II #HTN #HFrEF (35-40%, 2023) #Diverticulosis - Above managed per primary team Thank you for the consultation and allowing participation in patient's care. Plan of care discussed with attending Dr. Muse. Josefnia De, DO PGY-1 Internal Medicine Attending Provider Attestation/Addendum Patient seen and examined with resident physician Dr. De. Note reviewed, agree with findings and recommendations. Patient was sent from the dialysis unit. Dr. Lerma is his stock lifter. I am covering for him. Noted patient might need angiogram tomorrow. Will plan for dialysis post catheter tomorrow. Thank you Rosy for allowing me to participate in the care of Mr. Montgomery
[2025-05-07 09:01] LABS: Iron 39 mcg/dL (65-175)
--- NOTE | 2025-05-07 09:51 | ESPR_ITS ---
<Statement entered by Ewelina Key MD - 05/08/25 17:13> Patient is seen at bedside. Will continue heparin drip as per ACS protocol. Patient was originally planned for cardiac cath today however it is rescheduled for tomorrow will be followed by dialysis as per patient's schedule. Patient denies any chest pain, palpitation but does endorse to some shortness of breath. Patient was seen and examined by me personally. I have directly supervised and reviewed documentation by the team resident and agree with its findings. ------- Plan of care was discussed with the attending, Dr. Israel Key, PGY-2 Documentation for date of: 05/07/25 Subjective Subjective Interval history: Patient seen and examined at bedside. He mentions that his chest pain is improved. He went to dialysis yesterday, removed 1.6 L. Tropes have been steady around 0.1. Cardiology plans for PCI on 05/08/2025. Exam Vital Signs Temp Pulse Resp BP Pulse Ox O2 Del Method O2 Flow Rate 97.1 F 82 18 107/72 100 Room Air 3 05/07/25 04:00 05/07/25 08:28 05/07/25 04:00 05/07/25 08:28 05/07/25 04:00 05/06/25 17:15 05/07/25 03:08 FiO2 100 05/06/25 17:15 Narrative Exam General: Awake and in no acute distress. Conversational and non-toxic appearing. Neurologic: GCS 15. Alert and oriented x3, no gross neurological deficit, and patient able to move all 4 extremities. HEENT: Normocephalic, atraumatic, mucous membranes moist. Pupils reactive to light. Heart: 2 out of 6 6 systolic ejection murmur, left IJ dialysis catheter, scars over the right chest overlying ICD. Lungs: Clear to auscultation bilaterally with no wheezing or crackles. Abdomen: Soft, nondistended, nontender, positive bowel sounds. No guarding or rebound tenderness. Extremities: No edema. 2+ radial and dorsalis pedis pulses bilaterally. Skin: Warm. Dry. No rash or ecchymoses. Objective Labs 05/08/25 04:50 05/08/25 04:50 Labs: Laboratory Results - last 24 hr 05/06/25 05/06/25 05/06/25 10:22 16:48 19:19 WBC RBC Hgb Hct MCV MCH MCHC RDW Std Deviation Plt Count Neut % (Auto) Lymph % (Auto) [place] % (Auto) Eos % (Auto) Baso % (Auto) Neut # (Auto) Lymph # (Auto) [place] # (Auto) Eos # (Auto) Baso # (Auto) Immature Gran # (Auto) Absolute Nucleated RBC Immature Gran % Nucleated RBC % Retic Count (auto) Absolute Retic Immature Retic Fraction Retic Hgb Content CHr APTT 32.0 Sodium Potassium Chloride Carbon Dioxide Anion Gap BUN Creatinine Estim Creat Clear Calc eGFR BUN/Creatinine Ratio Glucose Calculated Osmolality Calcium Corrected Calcium Phosphorus Magnesium Iron TIBC Iron Saturation Unsat Iron Binding Ferritin Total Bilirubin AST ALT Alkaline Phosphatase Troponin I 0.111 H* 0.105 H* Total Protein Albumin Globulin Albumin/Globulin Ratio Triglycerides Cholesterol LDL Cholesterol, Calc HDL Cholesterol Cholesterol/HDL Ratio 05/06/25 05/07/25 05/07/25 22:11 02:40 04:47 WBC 5.1 RBC 4.03 L Hgb 12.1 L Hct 37.4 L MCV 93 MCH 30.0 MCHC 32.4 RDW Std Deviation 51.5 H Plt Count 117 L Neut % (Auto) 75 Lymph % (Auto) 12 [place] % (Auto) 7 Eos % (Auto) 5 Baso % (Auto) 1 Neut # (Auto) 3.8 Lymph # (Auto) 0.6 L [place] # (Auto) 0.4 Eos # (Auto) 0.3 Baso # (Auto) 0.0 Immature Gran # (Auto) 0.01 H Absolute Nucleated RBC 0.00 Immature Gran % 0 Nucleated RBC % 0 Retic Count (auto) 1.8 H Absolute Retic 73.7 Immature Retic Fraction 23.7 H Retic Hgb Content CHr 38.8 H APTT 54.7 H D Sodium 136 Potassium 4.5 Chloride 97 L Carbon Dioxide 24.2 Anion Gap 15 BUN 25 H Creatinine 8.2 H* D Estim Creat Clear Calc 10.2 L eGFR 7 L* BUN/Creatinine Ratio 3 L Glucose 83 Calculated Osmolality 275 Calcium 9.8 Corrected Calcium 9.8 Phosphorus 6.7 H Magnesium 2.3 Iron 39 L TIBC 199 L Iron Saturation 19 L Unsat Iron Binding 160 L Ferritin 312 H Total Bilirubin 0.4 AST < 10 ALT < 7 L Alkaline Phosphatase 80 Troponin I 0.104 H* Total Protein 6.9 Albumin 4.2 Globulin 2.7 Albumin/Globulin Ratio 1.6 Triglycerides 87 Cholesterol 166 LDL Cholesterol, Calc 104 HDL Cholesterol 45 Cholesterol/HDL Ratio 3.7 L Quality Measures Quality Measures none Assessment & Plan Assessment Current Active Medications: Generic Name Dose Route Start Last Admin Trade Name Freq PRN Reason Stop Dose Admin Acetaminophen 1,000 mg 05/06/25 09:46 Acetaminophen 325 Mg Tablet PO 06/05/25 09:45 Q6H PRN Fever >100.4 Aspirin 81 mg 05/07/25 09:00 05/07/25 08:28 Aspirin Ec 81 Mg Tabec PO 06/06/25 08:59 81 mg QDAY ANTONIA Administration Atorvastatin Calcium 40 mg 05/06/25 21:00 05/06/25 21:34 Atorvastatin Calcium 20 Mg Tablet PO 06/05/25 20:59 40 mg HS ANTONIA Administration Heparin Sodium (Porcine) 4,000 unit 05/06/25 13:22 Heparin Sod Inj 1000 Unit/Ml Vial 10 Ml INDWELLCAT 05/20/25 13:21 X1 PRN DIALYSIS Heparin Sodium/Dextrose 25,000 unit in 250 mls @ 9.253 mls/hr 05/06/25 10:15 05/06/25 21:41 Heparin In D5w Ivpb IV 05/20/25 10:14 16 units/kg/hr .Q24H ANTONIA 12.338 mls/hr Protocol Titration 12 UNITS/KG/HR Metoprolol Tartrate 25 mg 05/06/25 21:00 05/07/25 08:28 Metoprolol Tartrate 25 Mg Tablet PO 06/05/25 20:59 25 mg BID ANTONIA Administration Nitroglycerin 0.4 mg 05/06/25 06:57 Nitroglycerin 0.4 Mg Subl Btl #25 SL Q5M PRN CHEST PAIN Ondansetron HCl 4 mg 05/06/25 09:51 Ondansetron Inj 2 Mg/Ml Inj 2 Ml IVP 06/05/25 09:50 Q6H PRN NAUSEA OR VOMITING Protocol Ticagrelor 90 mg 05/06/25 10:45 05/07/25 08:28 Ticagrelor 90 Mg Tablet PO 06/05/25 10:44 90 mg BID ANTONIA Administration Plan Summary: 60-year-old male with a past medical history of ESRD on dialysis and status post renal transplant, developmental delay, hypertension, polycystic kidney disease, pulmonary hypertension, and hyperlipidemia who presented to the ED after having chest pain during his dialysis session. Was found to have ST depressions on EKG and an elevated troponin. He was admitted for management of his acute coronary syndrome in addition to continue dialysis. #Acute coronary syndrome #NSTEMI type I versus type II #Impella placement #Hyperlipidemia * Troponins elevated on arrival * EKG showed ST depression in leads 2 3 and aVF * Patient has diffuse chest pain and shortness of breath * Patient is status post right coronary artery stent placement in December currently on aspirin * Lipid panel within normal limits minus a slightly low cholesterol/HDL ratio of 3.7 * Troponins have been stable since admission Plan: * Heparin drip * DAPT with Brilinta 90 mg p.o. twice daily and aspirin 81 mg daily * Continue home atorvastatin * Per cardiology cath planned for 05/08/2025 #Heart failure with severe systolic dysfunction, HFpEF 35-40% (04/2024) #Hypertension #Moderate PAH #Bradycardia s/p ICD placement in 2011, s/p replacement of single-chamber AICD * Echo on 04/30/2024 Normal LV size. Moderate LVH. Moderate LV systolic dysfunction with global hypokinesis, Estimated EF 35-40%Mild RV dilatation. Normal RV function. Estimated RVSP 49mmHg. RAP 15. Moderate PAH. Pacing wire present. * Patient on home carvedilol 25 mg p.o. twice daily, losartan 100 mg p.o. daily * BNP elevated which could be multifactorial secondary to ESRD status * No evidence on physical exam for acute exacerbation of heart failure, lungs are clear, no peripheral edema * Blood pressure normotensive and stable currently * Patient takes carvedilol, hydralazine, isosorbide dinitrate, losartan, and nifedipine at home for hypertension Plan: * Per cardiology restarted home metoprolol 25 mg twice daily #ESRD status post kidney transplant on dialysis #History of polycystic kidney disease * Patient attends dialysis Monday, has been for 2 years, presented with chest pain during his dialysis session * Patient is status post renal transplant on 12/02/2017 at [facility] * Patient tolerated dialysis well the day of his admission Plan: * Nephrology on board * Home sevelamer 800 3 times daily * Renally dose medications and avoid nephrotoxic agents #History of DVT * Patient has a history of right subclavian DVT in August 2024 * Completed a 3-month course of Eliquis Plan: * No direct intervention for this specific issue at this time, though the patient is at increased risk of DVT due to ESRD * Patient is on DAPT and heparin #COPD/Asthma * Patient takes albuterol at home * It was reported that the patient has a distant [id number] smoking history Plan: * Will monitor for shortness of breath and wheezing, will use DuoNebs as needed #Normocytic anemia * Hemoglobin 11.8 on arrival * Has been a longstanding issue * Consider in the presence of longstanding ESRD and fluid overload Plan: * Will continue to monitor and transfuse if hemoglobin below 7 #Developmental delay * There is reported that the patient requires help with activities of daily living and lives with his sister Plan: * No direct intervention Hospital Maintenance: DVT ppx: DAPT and heparin GI ppx: Not indicated Diet: Cardiac diet IV lines: Peripheral IVs, left IJ dialysis catheter Code status: Full code Dispo: Cath planned by cardiology for 05/08/2025. Tolerated dialysis well. Troponins have been steady at 0.1. Patient was seen and discussed with my attending physician Dr. Israel FLEMING and my senior resident Dr. Shahid PLAZA PGY-2. Donavan Caballero DO PGY-1. Attending Provider Attestation/Addendum I, Rosy Wood DO, attest that I was physically present for the hare portions of the service and evaluated the patient with the resident and I reviewed and discussed the case with the resident and agree with the resident's findings and plans of care as documented above Patient seen and evaluated this AM. He states he is feeling much better today. He denies any further episodes of chest pain, He also denies any shortness of breath, fevers, chills, nausea, vomiting otherwise. He is scheduled for cardiac cath in AM. Will place NPO at midnight. He remains on DAPT and heparin drip. HD scheduled after cardiac cath tomorrow.
[2025-05-07] MEDS: Heparin/D5w 25K 250 ML Ivpb 25,000 UNIT/250 ML BAG 12.338 UNIT IV (10:25)
[2025-05-07 11:21] LABS: Partial Thromboplastin Time 44.1 Seconds (22.0-36.0)
--- NOTE | 2025-05-07 16:12 | PC.SS ---
Rounding Note: Patient to undergo cath procedure tomorrow with Dr. Zamudio.
[2025-05-07] MEDS: HEPARIN SOD INJ 5000 UNIT/ML VIAL 2000 UNIT IVP (16:35)
[2025-05-07] MEDS: ATORVASTATIN CALCIUM 20 MG TABLET 40 MG PO (20:54)
[2025-05-07 23:15] LABS: Partial Thromboplastin Time 59.4 Seconds (22.0-36.0)
[2025-05-08] VITALS (29 sets, daily range): BP systolic 95–136; BP diastolic 47–95; PULSE 41–89; RESP 12–24; TEMP 36.2–36.8; O2SAT 96–100; BMI 22.6
[2025-05-08 05:26] LABS: Basophils # (Auto) 0.0 Thou/mm3 (0.0-0.2); Basophils % (Auto) 1 % (0-2.5); Eosinophils # (Auto) 0.2 Thou/mm3 (0.0-0.5); Eosinophils % (Auto) 4 % (0-10); Hematocrit 35.8 % (41.0-53.0); Hemoglobin 11.6 g/dL (13.5-16.0); Immature Granulocytes Auto 0.01 Thou/mm3 (0.00-0.00); Lymphocytes # (Auto) 0.7 Thou/mm3 (1.0-4.8); Lymphocytes % (Auto) 14 % (10-50); Mean Corpuscular HGB Conc 32.4 g/dl (31.0-37.0); Mean Corpuscular Hemoglobin 30.1 pg (25.0-35.0); Mean Corpuscular Volume 93 fL (80-100); Monocytes # (Auto) 0.5 Thou/mm3 (0.0-0.8); Monocytes % (Auto) 9 % (0-12); Neutrophils # (Auto) 3.6 Thou/mm3 (1.8-7.7); Neutrophils % (Auto) 72 % (37-80); Nucleated Red Blood Cell # 0.00 Thou/mm3 (0.00-0.00); Nucleated Red Blood Cell % 0 /100 WBC (0); Platelet Count 121 Thou/mm3 (140-440); RDW Standard Deviation 53.0 fL (35.1-43.9); Red Blood Count 3.85 Miln/mm3 (4.50-5.90); White Blood Count 5.1 Thou/mm3 (3.8-10.6)
[2025-05-08 05:49] LABS: INR 1.0 (0.9-1.3); Partial Thromboplastin Time 52.7 Seconds (22.0-36.0); Prothrombin Time 10.7 Seconds (9.0-12.2)
[2025-05-08 05:51] LABS: Alanine Aminotransferase < 7 U/L (10-49); Albumin, Serum 4.1 gm/dL (3.4-4.8); Albumin/Globulin Ratio 1.6 (1.2-2.2); Alkaline Phosphatase 78 U/L (46-116); Anion Gap 14 (7-16); Aspartate Amino Transferase < 10 U/L (0-34); BUN/Creatinine Ratio 4 Ratio (12-20); Bilirubin,Total 0.2 mg/dL (0.3-1.2); Blood Urea Nitrogen 42 mg/dL (9-23); Calcium 9.7 mg/dL (8.3-10.6); Calcium (Corrected) 9.7 mg/dL (8.5-10.1); Carbon Dioxide 25.7 mMol/L (20.0-31.0); Chloride 94 mMol/L (98-107); Creatinine (Component) 10.8 mg/dL (0.6-1.3); Estimated Creatinine Clearance 7.6 mL/min (>60); Globulin 2.6 gm/dL (2.3-3.5); Glucose 88 mg/dL (74-106); Magnesium 2.7 mg/dL (1.6-2.6); Osmolality,Calculated 277 (275-295); Phosphorous 8.1 mg/dL (2.4-5.1); Potassium 5.2 mMol/L (3.4-5.1); Sodium 134 mMol/L (136-145); Total Protein 6.7 gm/dL (5.7-8.2); eGFR 5 See Note
[2025-05-08] MEDS: Heparin/D5w 25K 250 ML Ivpb 25,000 UNIT/250 ML BAG 13.88 UNIT IV (05:56)
--- NOTE | 2025-05-08 07:58 | ESPR_ITS ---
Documentation for date of: 05/08/25 Subjective Subjective Interval history: Mr. Montgomery is a 59-year-old -German gentleman with past medical history of developmental delay, hypertension, polycystic kidney disease, s/p renal transplant on 12/02/2017 at [facility]- failed, back on HD since aug 2023 [T//MON]- under DR. DAVENPORT, HFpEF 55 to 60%, bradycardia s/p ICD placement in 2011, s/p replacement of single-chamber AICD on 05/05/2024 for depleted battery, diverticulosis presented to [facility] ED in 05/06 for chest pain during dialysis earlier today. Questionably poor historian as patient agrees with answers that were prompted. Patient reports chest pain started yesterday, described as central, 9/10 nonradiating chest pain, and was unable to complete dialysis, prompting ED visit. Patient reports experiencing total of 4 episodes each lasting about 1 minute occurred while he was sitting and standing doing things. Reports pain increases on deep inspiration and not positional dependent. Reports similar episode about 1 year ago. Denies missing hemodialysis sessions. Denies shortness of breath or palpitations. Lives with sister at home. Currently, patient endorses central 9/10 radiating chest pain. Denies nausea/vomiting, fever/chills or recent illness. Of note, patient under cardiac cath 12/2024 with stent placement. 05/07/25: Patient seen and examined at bedside in ICU, telemetry overflow. No complaints. Denies further episodes of chest pain since ED, palpitations, N/V or SOB. Labs and vitals reviewed, troponins stable mildly elevated at 0.1. Per cardiology, likely cath 05/08. 05/08/25: Patient seen examined at bedside. Patient reports feeling at times tachypneic and SOB however that has been going on prior to admission for a long time . No other complaints. Denies any other episodes of chest pain since ED. Denies palpitations, abdominal pain or leg swelling. Plan for cath 11:30AM, plan for dialysis subsequently. Exam Vital Signs Temp Pulse Resp BP Pulse Ox O2 Del Method O2 Flow Rate 98.3 F 84 18 114/75 100 Nasal Cannula 2 05/08/25 04:00 05/08/25 06:54 05/08/25 06:54 05/08/25 04:00 05/08/25 06:54 05/08/25 04:00 05/08/25 06:54 FiO2 100 05/06/25 17:15 Narrative Exam GENERAL: AOx3, no acute distress HEENT: mucous membranes moist, bilateral sclera anicteric CARDIOVASCULAR: regular rate and rhythm, S1/S2 present, 2/6 systolic murmur, left IJ TDC in place clean, ICD palpable on right side chest with overlying scars PULMONARY: clear to auscultation bilaterally, no rales/rhonchi/wheezes ABDOMINAL: soft, non-tender, non-distended, no rebound/guarding, bowel sounds present EXTREMITIES: no peripheral edema SKIN: warm and dry, intact, no rashes NEURO: CN II-XII grossly intact, no focal deficits, alert, following commands Objective Labs 05/08/25 04:50 05/08/25 18:25 Labs: Laboratory Results - last 24 hr 05/07/25 05/07/25 05/07/25 04:47 10:34 22:21 WBC RBC Hgb Hct MCV MCH MCHC RDW Std Deviation Plt Count Neut % (Auto) Lymph % (Auto) [place] % (Auto) Eos % (Auto) Baso % (Auto) Neut # (Auto) Lymph # (Auto) [place] # (Auto) Eos # (Auto) Baso # (Auto) Immature Gran # (Auto) Absolute Nucleated RBC Immature Gran % Nucleated RBC % PT INR APTT 44.1 H D 59.4 H D Sodium Potassium Chloride Carbon Dioxide Anion Gap BUN Creatinine Estim Creat Clear Calc eGFR BUN/Creatinine Ratio Glucose Calculated Osmolality Calcium Corrected Calcium Phosphorus 6.7 H Magnesium Iron 39 L Total Bilirubin AST ALT Alkaline Phosphatase Total Protein Albumin Globulin Albumin/Globulin Ratio 05/08/25 04:50 WBC 5.1 RBC 3.85 L Hgb 11.6 L Hct 35.8 L MCV 93 MCH 30.1 MCHC 32.4 RDW Std Deviation 53.0 H Plt Count 121 L Neut % (Auto) 72 Lymph % (Auto) 14 [place] % (Auto) 9 Eos % (Auto) 4 Baso % (Auto) 1 Neut # (Auto) 3.6 Lymph # (Auto) 0.7 L [place] # (Auto) 0.5 Eos # (Auto) 0.2 Baso # (Auto) 0.0 Immature Gran # (Auto) 0.01 H Absolute Nucleated RBC 0.00 Immature Gran % 0 Nucleated RBC % 0 PT 10.7 INR 1.0 APTT 52.7 H Sodium 134 L Potassium 5.2 H D Chloride 94 L Carbon Dioxide 25.7 Anion Gap 14 BUN 42 H Creatinine 10.8 H* D Estim Creat Clear Calc 7.6 L eGFR 5 L* BUN/Creatinine Ratio 4 L Glucose 88 Calculated Osmolality 277 Calcium 9.7 Corrected Calcium 9.7 Phosphorus 8.1 H Magnesium 2.7 H Iron Total Bilirubin 0.2 L AST < 10 ALT < 7 L Alkaline Phosphatase 78 Total Protein 6.7 Albumin 4.1 Globulin 2.6 Albumin/Globulin Ratio 1.6 Quality Measures Quality Measures VTE prophylaxis Assessment & Plan Assessment Current Active Medications: Generic Name Dose Route Start Last Admin Trade Name Freq PRN Reason Stop Dose Admin Acetaminophen 1,000 mg 05/06/25 09:46 Acetaminophen 325 Mg Tablet PO 06/05/25 09:45 Q6H PRN Fever >100.4 Aspirin 81 mg 05/07/25 09:00 05/07/25 08:28 Aspirin Ec 81 Mg Tabec PO 06/06/25 08:59 81 mg QDAY ANTONIA Administration Atorvastatin Calcium 40 mg 05/06/25 21:00 05/07/25 20:54 Atorvastatin Calcium 20 Mg Tablet PO 06/05/25 20:59 40 mg HS ANTONIA Administration Heparin Sodium (Porcine) 4,000 unit 05/06/25 13:22 Heparin Sod Inj 1000 Unit/Ml Vial 10 Ml INDWELLCAT 05/20/25 13:21 X1 PRN DIALYSIS Heparin Sodium/Dextrose 25,000 unit in 250 mls @ 9.253 mls/hr 05/06/25 10:15 05/08/25 05:56 Heparin In D5w Ivpb IV 05/20/25 10:14 18 units/kg/hr .Q24H ANTONIA 13.88 mls/hr Protocol Administration 12 UNITS/KG/HR Metoprolol Tartrate 25 mg 05/06/25 21:00 05/07/25 20:54 Metoprolol Tartrate 25 Mg Tablet PO 06/05/25 20:59 25 mg BID ANTONIA Administration Nitroglycerin 0.4 mg 05/06/25 06:57 Nitroglycerin 0.4 Mg Subl Btl #25 SL Q5M PRN CHEST PAIN Ondansetron HCl 4 mg 05/06/25 09:51 Ondansetron Inj 2 Mg/Ml Inj 2 Ml IVP 06/05/25 09:50 Q6H PRN NAUSEA OR VOMITING Protocol Ticagrelor 90 mg 05/06/25 10:45 05/07/25 20:54 Ticagrelor 90 Mg Tablet PO 06/05/25 10:44 90 mg BID ANTONIA Administration Plan Mr. Montgomery is a 59-year-old -German gentleman with past medical history of developmental delay, hypertension, polycystic kidney disease, s/p renal transplant on 12/02/2017 at [facility]- failed, back on HD since aug 2023 [//MON]- under DR. DAVENPORT, HFrEF (35-40%, 2023), bradycardia s/p ICD placement in 2011, s/p replacement of single-chamber AICD on 05/05/2024 for depleted battery, diverticulosis presented to [facility] ED in 05/06 for chest pain during dialysis morning of admission, admitted for NSTEMI. Nephrology consulted for ESRD on HD. #ESRD on HD thru [facility] ([facility]/R/S) since 2023 #Polycystic kidney disease s/p renal transplant 2017, failed Patient presents with chest pain during dialysis session morning of admission and was unable to complete session. Adherent with HD schedule. On admission, BUN 41, creatinine 11.6, phosphorus 7.9, magnesium 2.6, troponin 0.109, BNP 1776. HD: 05/06, 05/08 Plan: - HD today following cardiac cath - Restart home sevelamer 800 TIDWM - Renally dose and avoid nephrotoxic medication - Caution with fluid resuscitation if necessary given HFrEF #NSTEMI, type I vs type II #HTN #HFrEF (35-40%, 2023) #Diverticulosis - Above managed per primary team Thank you for the consultation and allowing participation in patient's care. Plan of care discussed with attending Dr. Muse. Josefina De, PGY-1 Internal Medicine Attending Provider Attestation/Addendum Patient seen and examined with resident physician Dr. De. Note reviewed, agree with findings and recommendations. Patient currently seen on dialysis. Tolerating dialysis without any problems. Hemodialysis for 3 hours, 2K, ultrafiltration 2-3 L, Epogen 6000, no heparin ordered. Plan of care discussed with the dialysis nurse. Please see dialysis flowsheet for further details. s/p cardiac catg, on oxymask
[2025-05-08] MEDS: TICAGRELOR 90 MG TABLET PO ×2 (08:11→21:38)
[2025-05-08] MEDS: ASPIRIN EC 81 MG TABEC PO (08:11)
[2025-05-08] MEDS: METOPROLOL TARTRATE 25 MG TABLET PO (08:11)
--- NOTE | 2025-05-08 08:56 | ESPR_ITS ---
<Statement entered by Jyoti Zamudio MD - 05/12/25 13:09> I personally examined the patient and evaluated the resident physician patient underwent cardiac catheterization coronary angiogram showed evidence of multivessel CAD new lesion involving circumflex artery underwent stent placement to the proximal circumflex severe LV dysfunction EF 20% right coronary totally occluded distally and moderate to severe stenosis in the midsegment in-stent restenosis we left this alone. Because of low ejection fraction high risk PCI was performed subsequently went on to have an dialysis with no problems. Evaluated patient and agree with treatment plan recommendation as documented by PGY 2.Dr. Sykes patient requires optimal guideline directed medical management possibly Entresto beta-isidro as tolerated will monitor the patient closely in telemetry. Documentation for date of: 05/08/25 Subjective Subjective Interval history: Patient seen and examined in hospital bed prior to left heart catheterization which is scheduled. Patient states that he is feeling short of breath but otherwise saturating well on minimal supplemental oxygen. Left heart catheterization completed on 05/08 shows significant multi-vessel disease with stenosis of the left circumflex, PCI, stent placement completed of the left circumflex. Additionally, patient is RCA which was stented on December 2024 appears to have stent restenosis. Will likely require another left heart cath in about week. Patient has some bleeding from access site; keep dressing and pressure as needed. Will continue DAPT (Brilinta and Aspirin) for now and switch to metroprolol succinate 25mg by mouth daily. Exam Vital Signs Temp Pulse Resp BP Pulse Ox O2 Del Method O2 Flow Rate 97.6 F 89 19 123/85 H 100 Nasal Cannula 4 05/08/25 08:00 05/08/25 08:11 05/08/25 08:00 05/08/25 08:11 05/08/25 08:00 05/08/25 08:00 05/08/25 08:00 FiO2 100 05/06/25 17:15 Narrative Exam Physical Exam: GENERAL: Awake, answering questions although unsure if appropriately secondary to developmental delay, appears stated age HEENT: NC/AT. Moist mucosa. PERRLA/EOMI. left IJ tunneled catheter CARDIO: Heart RRR, III/IV holosystolic flow murmur auscultated at left sternal base and II/IV soft blowing systolic murmur auscultated at fifth intercostal midclavicular space PULM: No coughing or visible SOB. Lungs CTA B/L but patient requiring 2 L of supplemental oxygen via nasal cannula GI: Abdomen soft, NT/ND, +BS. 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 No wounds/discoloration/rashes/edema/amputations noted. +Pedal pulses present B/L. NEURO: Oriented x3, Moves extremities x4, no focal neurologic deficits noted Objective Labs 05/08/25 04:50 05/08/25 04:50 Labs: Laboratory Results - last 24 hr 05/07/25 05/07/25 05/07/25 04:47 10:34 22:21 WBC RBC Hgb Hct MCV MCH MCHC RDW Std Deviation Plt Count Neut % (Auto) Lymph % (Auto) [place] % (Auto) Eos % (Auto) Baso % (Auto) Neut # (Auto) Lymph # (Auto) [place] # (Auto) Eos # (Auto) Baso # (Auto) Immature Gran # (Auto) Absolute Nucleated RBC Immature Gran % Nucleated RBC % PT INR APTT 44.1 H D 59.4 H D Sodium Potassium Chloride Carbon Dioxide Anion Gap BUN Creatinine Estim Creat Clear Calc eGFR BUN/Creatinine Ratio Glucose Calculated Osmolality Calcium Corrected Calcium Phosphorus Magnesium Iron 39 L Total Bilirubin AST ALT Alkaline Phosphatase Total Protein Albumin Globulin Albumin/Globulin Ratio 05/08/25 04:50 WBC 5.1 RBC 3.85 L Hgb 11.6 L Hct 35.8 L MCV 93 MCH 30.1 MCHC 32.4 RDW Std Deviation 53.0 H Plt Count 121 L Neut % (Auto) 72 Lymph % (Auto) 14 [place] % (Auto) 9 Eos % (Auto) 4 Baso % (Auto) 1 Neut # (Auto) 3.6 Lymph # (Auto) 0.7 L [place] # (Auto) 0.5 Eos # (Auto) 0.2 Baso # (Auto) 0.0 Immature Gran # (Auto) 0.01 H Absolute Nucleated RBC 0.00 Immature Gran % 0 Nucleated RBC % 0 PT 10.7 INR 1.0 APTT 52.7 H Sodium 134 L Potassium 5.2 H D Chloride 94 L Carbon Dioxide 25.7 Anion Gap 14 BUN 42 H Creatinine 10.8 H* D Estim Creat Clear Calc 7.6 L eGFR 5 L* BUN/Creatinine Ratio 4 L Glucose 88 Calculated Osmolality 277 Calcium 9.7 Corrected Calcium 9.7 Phosphorus 8.1 H Magnesium 2.7 H Iron Total Bilirubin 0.2 L AST < 10 ALT < 7 L Alkaline Phosphatase 78 Total Protein 6.7 Albumin 4.1 Globulin 2.6 Albumin/Globulin Ratio 1.6 Quality Measures Quality Measures VTE prophylaxis Assessment & Plan Assessment Current Active Medications: Generic Name Dose Route Start Last Admin Trade Name Freq PRN Reason Stop Dose Admin Acetaminophen 1,000 mg 05/06/25 09:46 Acetaminophen 325 Mg Tablet PO 06/05/25 09:45 Q6H PRN Fever >100.4 Aspirin 81 mg 05/07/25 09:00 05/08/25 08:11 Aspirin Ec 81 Mg Tabec PO 06/06/25 08:59 81 mg QDAY ANTONIA Administration Atorvastatin Calcium 40 mg 05/06/25 21:00 05/07/25 20:54 Atorvastatin Calcium 20 Mg Tablet PO 06/05/25 20:59 40 mg HS ANTONIA Administration Heparin Sodium (Porcine) 4,000 unit 05/06/25 13:22 Heparin Sod Inj 1000 Unit/Ml Vial 10 Ml INDWELLCAT 05/20/25 13:21 X1 PRN DIALYSIS Heparin Sodium/Dextrose 25,000 unit in 250 mls @ 9.253 mls/hr 05/06/25 10:15 05/08/25 05:56 Heparin In D5w Ivpb IV 05/20/25 10:14 18 units/kg/hr .Q24H ANTONIA 13.88 mls/hr Protocol Administration 12 UNITS/KG/HR Metoprolol Tartrate 25 mg 05/06/25 21:00 05/08/25 08:11 Metoprolol Tartrate 25 Mg Tablet PO 06/05/25 20:59 25 mg BID ANTONIA Administration Nitroglycerin 0.4 mg 05/06/25 06:57 Nitroglycerin 0.4 Mg Subl Btl #25 SL Q5M PRN CHEST PAIN Ondansetron HCl 4 mg 05/06/25 09:51 Ondansetron Inj 2 Mg/Ml Inj 2 Ml IVP 06/05/25 09:50 Q6H PRN NAUSEA OR VOMITING Protocol Ticagrelor 90 mg 05/06/25 10:45 05/08/25 08:11 Ticagrelor 90 Mg Tablet PO 06/05/25 10:44 90 mg BID ANTONIA Administration Plan 60 year old male with a past medical history of developmental delay, hypertension, polycystic kidney disease, s/p renal transplant on 12/02/2017 [facility], ESRD on HD [//] following Dr. Lerma, HFpEF 35-40% (04/2024), moderate PAH, and bradycardia s/p ICD placement in 2011, s/p replacement of single- chamber AICD who presented with chest pain during dialysis session will be admitted for acute coronary syndrome and started on IV heparin with possible left heart cath to be scheduled for 05/08 along with continued dialysis sessions while in the hospital. #Acute coronary syndrome #NSTEMI type I versus type II #Coronary artery disease, status post stent placement in RCA on December 2024 #Impella placement As per HPI above, patient presented with chest pain during dialysis session Significant history of CAD with recent stent placement in RCA on December 2024 at [facility] with Impella placement for left ventricular failure Patient's presenting with typical chest pain along with elevated troponin and BNP EKG shows sinus rhythm with some ST changes noted in septal leads with reciprocal changes possibly in inferior leads? Left heart catheterization completed on 05/08 shows significant multi-vessel disease with stenosis of the left circumflex, PCI, stent placement completed of the left circumflex. Additionally, patient is RCA which was stented on December 2024 appears to have stent restenosis Plan: DAPT with Brilinta 90 mg p.o. twice daily and aspirin 81 mg daily High intensity statin nightly Switched to Metoprolol succinate 25mg by mouth daily Keep Mg >2.0 and K >4.0 Dialysis session after [facility] #Heart failure with systolic dysfunction, HFpEF 35-40% (04/2024) #Left Ventricular Hypertrophy #Moderate PAH #Bradycardia s/p ICD placement in 2011, s/p replacement of single-chamber AICD Last echo findings, Normal LV size. Moderate LVH. Moderate LV systolic dysfunction with global hypokinesis, Estimated EF 35-40% Mild RV dilatation. Normal RV function. Estimated RVSP 49mmHg. RAP 15. Moderate PAH. Pacing wire present. Moderate AV sclerosis without sclerosis. Vmax 2.3 m/s and Mean PG of 10 mm hg. Mild MR. Moderate TR. Moderate PAH. There is anterior trivial pericardial effusion. No evidence of cardiac tamponde. Patient on home carvedilol 25 mg p.o. twice daily, losartan 100 mg p.o. daily BNP elevated which could be multifactorial secondary to ESRD status On examination, patient does not appear to be in acute heart failure exacerbation as there is no noted crackles, JVD, lower extremity edema and he is requiring minimal supplemental oxygen Plan: Resume GDMT for HFrEF #Hypertension Patient on multiple medications for blood pressure control at home including Hydralazine 50 mg p.o. 3 times daily, isosorbide dinitrate 20 mg p.o. twice daily Pending med rec Patient currently normotensive Plan: Restart home medications when appropriate or when needed, recommend starting 1 antihypertensive agent at a time #Normocytic anemia, likely anemia of chronic disease versus iron deficiency #History of DVT #COPD/asthma #Developmental delay, #Polycystic kidney disease, #ESRD s/p renal transplant HD [//] Rest of medical problems to be managed by primary hospitalist team and nephrology Patient seen and assessed with attending Dr. Robb Sykes, DO PGY-2 Internal Medicine - GME
--- NOTE | 2025-05-08 09:04 | ESPR_ITS ---
<Statement entered by Ewelina Key MD - 05/09/25 08:11> Pt is seen at bedside. Pt underwent cardiac cath and 1 stent was placed in the left circumflex. post procedure pt complained of worsening SOB, however it improved with intermitten episodes. Pt denied any chest pain or palpitations post procedure. Some bleeding is noted at the inguinal puncture site, pressure is placed and controlled. Cardiology team is notified of findings. Pt is seen again during dialysis and symptoms have improved, gauze has minimal bleeding and shortness of breath has improved. Patient was seen and examined by me personally. I have directly supervised and reviewed documentation by the team resident and agree with its findings. ------- Plan of care was discussed with the attending, Dr. Israel Key, PGY-2 Documentation for date of: 05/08/25 Subjective Subjective Interval history: Patient seen and examined at bedside. Cardiology plans for PCI today 05/08/2025 followed by dialysis. Patient satting at 100% on 4 L, continue to sat at 100% on 3 L. Patient endorsed shortness of breath. Nurse mentions that the patient sometimes gasps for breath but does not desaturate. Will keep him on 3 L. Exam Vital Signs Temp Pulse Resp BP Pulse Ox O2 Del Method O2 Flow Rate 97.6 F 89 19 123/85 H 100 Nasal Cannula 4 05/08/25 08:00 05/08/25 08:11 05/08/25 08:00 05/08/25 08:11 05/08/25 08:00 05/08/25 08:00 05/08/25 08:00 FiO2 100 05/06/25 17:15 Narrative Exam General: Awake and in no acute distress. Conversational and non-toxic appearing. Neurologic: GCS 15. Alert and oriented x3, no gross neurological deficit, and patient able to move all 4 extremities. HEENT: Normocephalic, atraumatic, mucous membranes moist. Pupils reactive to light. Heart: 2 out of 6 6 systolic ejection murmur, left IJ dialysis catheter, scars over the right chest overlying ICD. Lungs: Clear to auscultation bilaterally with no wheezing or crackles. Abdomen: Soft, nondistended, nontender, positive bowel sounds. No guarding or rebound tenderness. Extremities: No edema. 2+ radial and dorsalis pedis pulses bilaterally. Skin: Warm. Dry. No rash or ecchymoses. Objective Labs 05/09/25 05:47 05/09/25 05:47 Labs: Laboratory Results - last 24 hr 05/07/25 05/07/25 05/08/25 10:34 22:21 04:50 WBC 5.1 RBC 3.85 L Hgb 11.6 L Hct 35.8 L MCV 93 MCH 30.1 MCHC 32.4 RDW Std Deviation 53.0 H Plt Count 121 L Neut % (Auto) 72 Lymph % (Auto) 14 [place] % (Auto) 9 Eos % (Auto) 4 Baso % (Auto) 1 Neut # (Auto) 3.6 Lymph # (Auto) 0.7 L [place] # (Auto) 0.5 Eos # (Auto) 0.2 Baso # (Auto) 0.0 Immature Gran # (Auto) 0.01 H Absolute Nucleated RBC 0.00 Immature Gran % 0 Nucleated RBC % 0 PT 10.7 INR 1.0 APTT 44.1 H D 59.4 H D 52.7 H Sodium 134 L Potassium 5.2 H D Chloride 94 L Carbon Dioxide 25.7 Anion Gap 14 BUN 42 H Creatinine 10.8 H* D Estim Creat Clear Calc 7.6 L eGFR 5 L* BUN/Creatinine Ratio 4 L Glucose 88 Calculated Osmolality 277 Calcium 9.7 Corrected Calcium 9.7 Phosphorus 8.1 H Magnesium 2.7 H Total Bilirubin 0.2 L AST < 10 ALT < 7 L Alkaline Phosphatase 78 Total Protein 6.7 Albumin 4.1 Globulin 2.6 Albumin/Globulin Ratio 1.6 Quality Measures Quality Measures VTE prophylaxis Assessment & Plan Assessment Current Active Medications: Generic Name Dose Route Start Last Admin Trade Name Freq PRN Reason Stop Dose Admin Acetaminophen 1,000 mg 05/06/25 09:46 Acetaminophen 325 Mg Tablet PO 06/05/25 09:45 Q6H PRN Fever >100.4 Aspirin 81 mg 05/07/25 09:00 05/08/25 08:11 Aspirin Ec 81 Mg Tabec PO 06/06/25 08:59 81 mg QDAY ANTONIA Administration Atorvastatin Calcium 40 mg 05/06/25 21:00 05/07/25 20:54 Atorvastatin Calcium 20 Mg Tablet PO 06/05/25 20:59 40 mg HS ANTONIA Administration Heparin Sodium (Porcine) 4,000 unit 05/06/25 13:22 Heparin Sod Inj 1000 Unit/Ml Vial 10 Ml INDWELLCAT 05/20/25 13:21 X1 PRN DIALYSIS Heparin Sodium/Dextrose 25,000 unit in 250 mls @ 9.253 mls/hr 05/06/25 10:15 05/08/25 05:56 Heparin In D5w Ivpb IV 05/20/25 10:14 18 units/kg/hr .Q24H ANTONIA 13.88 mls/hr Protocol Administration 12 UNITS/KG/HR Metoprolol Tartrate 25 mg 05/06/25 21:00 05/08/25 08:11 Metoprolol Tartrate 25 Mg Tablet PO 06/05/25 20:59 25 mg BID ANTONIA Administration Nitroglycerin 0.4 mg 05/06/25 06:57 Nitroglycerin 0.4 Mg Subl Btl #25 SL Q5M PRN CHEST PAIN Ondansetron HCl 4 mg 05/06/25 09:51 Ondansetron Inj 2 Mg/Ml Inj 2 Ml IVP 06/05/25 09:50 Q6H PRN NAUSEA OR VOMITING Protocol Ticagrelor 90 mg 05/06/25 10:45 05/08/25 08:11 Ticagrelor 90 Mg Tablet PO 06/05/25 10:44 90 mg BID ANTONIA Administration Plan Summary: 60-year-old male with a past medical history of ESRD on dialysis and status post renal transplant, developmental delay, hypertension, polycystic kidney disease, pulmonary hypertension, and hyperlipidemia who presented to the ED after having chest pain during his dialysis session. Was found to have ST depressions on EKG and an elevated troponin. He was admitted for management of his acute coronary syndrome in addition to continue dialysis. #Acute coronary syndrome #NSTEMI type I versus type II #Impella placement #Hyperlipidemia * Troponins elevated on arrival * EKG showed ST depression in leads 2 3 and aVF * Patient has diffuse chest pain and shortness of breath * Patient is status post right coronary artery stent placement in December currently on aspirin * Lipid panel within normal limits minus a slightly low cholesterol/HDL ratio of 3.7 * Troponins have been stable since admission Plan: * Heparin drip * DAPT with Brilinta 90 mg p.o. twice daily and aspirin 81 mg daily * Continue home atorvastatin * Per cardiology cath planned for 05/08/2025 #Heart failure with severe systolic dysfunction, HFpEF 35-40% (04/2024) #Hypertension #Moderate PAH #Bradycardia s/p ICD placement in 2011, s/p replacement of single-chamber AICD * Echo on 04/30/2024 Normal LV size. Moderate LVH. Moderate LV systolic dysfunction with global hypokinesis, Estimated EF 35-40%Mild RV dilatation. Normal RV function. Estimated RVSP 49mmHg. RAP 15. Moderate PAH. Pacing wire present. * Patient on home carvedilol 25 mg p.o. twice daily, losartan 100 mg p.o. daily * BNP elevated which could be multifactorial secondary to ESRD status * No evidence on physical exam for acute exacerbation of heart failure, lungs are clear, no peripheral edema * Blood pressure normotensive and stable currently * Patient takes carvedilol, hydralazine, isosorbide dinitrate, losartan, and nifedipine at home for hypertension Plan: * Per cardiology restarted home metoprolol 25 mg twice daily * Nitroglycerin 0.4 SL Q5 PRN for chest pain #ESRD status post kidney transplant on dialysis #History of polycystic kidney disease * Patient attends dialysis Monday, has been for 2 years, presented with chest pain during his dialysis session * Patient is status post renal transplant on 12/02/2017 at [facility] * Patient tolerated dialysis well the day of his admission Plan: * Nephrology on board * Renally dose medications and avoid nephrotoxic agents * DCed home meds of Lisinopril and Losartan for his discharge orders * DCed home med sevelamer 800 3 times daily, continued Velphoro for his discharge orders * Dialysis planned for 05/08/2025 following cardiac cath #History of DVT * Patient has a history of right subclavian DVT in August 2024 * Completed a 3-month course of Eliquis Plan: * No direct intervention for this specific issue at this time, though the patient is at increased risk of DVT due to ESRD * Patient is on DAPT and heparin #COPD/Asthma * Patient takes albuterol at home * It was reported that the patient has a distant [id number] smoking history * Saturating 100% on 3 L. Plan: * Will monitor for shortness of breath and wheezing, will add DuoNebs if needed #Normocytic anemia * Hemoglobin 11.8 on arrival * Has been a longstanding issue * Consider in the presence of longstanding ESRD and fluid overload Plan: * Will continue to monitor and transfuse if hemoglobin below 7 #Anemia of chronic disease * Iron panel showed an iron level 39, TIBC 199, and ferritin 312. * Red blood cell distribution width of 53 * MCV of 93 * This data may reinforce iron deficiency anemia versus anemia of chronic disease? A normal MCV points more towards iron deficiency, which the patient has, while an elevated ferritin points towards anemia of chronic disease * Consider the presence of longstanding ESRD versus chronic inflammation, which may lead to increased hepatocyte blockage of the ferroportin channel on macrophages, trapping the iron inside and causing ferritin to be elevated * Chronic inflammation may reinforce decreased transferrin production, leading to the patient's decreased TIBC * Patient's reticulocyte count is appropriately elevated Plan: * Will hold iron supplementation for now, hemoglobin is 11.6, consider iron supplementation if hemoglobin goes below 10 #Hyperkalemia * Potassium 5.2 Plan: * Will repeat renal panel #Developmental delay * There is reported that the patient requires help with activities of daily living and lives with his sister Plan: * No direct intervention Hospital Maintenance: DVT ppx: DAPT and heparin GI ppx: Not indicated Diet: Cardiac diet IV lines: Peripheral IVs, left IJ dialysis catheter Code status: Full code Dispo: Cath planned by cardiology for today 05/08/2025, dialysis planned afterwards. Patient was seen and discussed with my attending physician Dr. Israel FLEMING and my senior resident Dr. Shahid PLAZA PGY-2. Donavan Caballero DO PGY-1. Attending Provider Attestation/Addendum Varsha, Rosy Wood DO, attest that I was physically present for the hare portions of the service and evaluated the patient with the resident and I reviewed and discussed the case with the resident and agree with the resident's findings and plans of care as documented above Patient seen and evaluated this afternoon in dialysis following cardiac cath. Patient noted to have oozing from insertion site of cardiac catheterization. Dressing was changed and pressure placed. SOTERO was placed in proximal circumflex as it was found to have 90% stenosis. Patient also found to have in-stent restenosis of his RCA stent and will require another cardiac cath in about 1 week. Will monitor H&H at this time. Anticipate discharge in the next 24 hours if patient remains stable.
[2025-05-08 09:20] LABS: Hepatitis A Antibody IgM Non Reactive (Non React); Hepatitis B Core Antibody IgM Non Reactive (Non React); Hepatitis B Surface Ab Reactive (Immune) (Immune); Hepatitis B Surface Antigen Non Reactive (Non React); Hepatitis C Antibody Non Reactive (Non React)
--- NOTE | 2025-05-08 11:30 | ECHO_ITS ---
Patient Info Name: Casey Montgomery Age: 60 yrs Admit Date: 05/06/2025 Exam Date: 05/08/2025 11:03 AM Patient Status: I Site: [facility] Ht: 183 cm Wt: 76 kg BSA: 1.96 m2 Gender: Male : 1965 Exam Type: CCL heart cath LT ventricle Procedure Staff Name: Jyoti Zamudio Title: Role: Dial Polisher Name: Heidi Iraheta Title: SARAH Role: Legal Associate Name: Shira Posadas Title: SARAH Role: Monitor Name: James Garcia Title: Reza Dowell Role: Scrub Name: Rosalia Welsh Title: SARAH Role: Sedation Nurse Name: Elsy Zheng Title: Delmer Role: Monitor Procedure(s) Code: 89951337 Description: CONSCIOUS SEDATION INITIAL Code: 69543842 Description: [facility] W/VENTRICULOGRAM/PTCA Code: [id number] Description: ACT ACTIVATED CLOTTING TIME Code: 78623945 Description: ILLIO/FEMORAL GRAM Code: [id number] Description: CONSCIOUS SEDATION ADDITIONAL Code: 50889738 Description: CONSCIOUS SEDATION ADDITIONAL Exam Priority: R Cath Hemodynamic Data Pressures Phase:Baseline AO : 97 mmHg/59 mmHg(69 mmHg) @ 12:31:44 PM LV : 120 mmHg/-3 mmHg/13 mmHg @ 12:30:58 PM 104 mmHg/2 mmHg/10 mmHg @ 12:31:38 PM AO HR: 79 bpm @ 12:31:44 PM LV HR: 36 bpm @ 12:30:58 PM 49 bpm @ 12:31:38 PM LV DP/DT: 724 mmHg/s @ 12:30:58 PM 579 mmHg/s @ 12:31:38 PM Procedural Details Infusor 500ml pressure bag administered. 1000 ml NS with 5000 units Heparin administered. 500ml NS with 2500 units Heparin administered. Patient Allergies: PENICILLINS. Patient prepped and draped in usual sterile technique. Time out taken. Patient identity and surgery site confirmed. Fire risk assessment and proper safety precautions in place. Medication verified by sedation nurse with circulating nurse. 1% Lidocaine Administered To Rt Groin. 1% Lidocaine Administered To Rt Groin used for stiff micro puncture. Percutaneous Puncture To RFA. 5fr x 10cm Sheath / [place] sheath inserted into RFA. 5FR ANGIO KIT 5FR. Guidewire/ 0.035/ 260cm/ 3mm J (Exchange). JL4 Catheter Inserted By Guidewire. Guidewire Removed. Left Coronary System Injected and Multiple Views Taken. Guidewire Inserted. Catheter Removed. Catheter Removed catheter inserted by guidewire. Guidewire Removed. Right Coronary System Injected and Multiple Views Taken. Guidewire Inserted. Catheter Removed. LEFT VENTRICLE Pig Tail Catheter inserted by guidewire. Guidewire Removed. LV Gram Performed. Pullback from LV to AO. Snapshot: Pullback from LV to AO. Guidewire Inserted. Catheter Removed. [place] Sheath 6fr. Sheath Exchange 5fr to 6fr. Heparin IV 6,000 units. [place] FL 4.5. Guide Catheter Inserted. Interventional Guidewire Inserted. 2.50 x 12mm Euphora Balloon. Balloon Catheter Inserted. Balloon inflated for 19 sec @ 8 chintan in the pCIRC. Balloon inflated for 11 sec @ 14 chintan in the pCIRC. Balloon Catheter Removed. ACT: (Reference Range 89-169 seconds)= 381. 3.00 x 12 mm Dom [place] Rx Stent. Stent Catheter inserted. Stent deployed for 13 sec @ 14 chintan in the pCIRC. Stent deployed for 10 sec @ 15 chintan in the pCIRC. Stent Deployment System Removed. Post Injection Of Coronaries. Guidewire Inserted. Catheter Removed. Injection Of Iliac For Possible Closure Device. Sheath Pulled & Pressure Applied with Closure Device. Perclose 6FR. Guidewire Inserted. Guidewire Removed. Closure Device Deployed. HEMOSTASIS Obtained. No complications. Post Procedure Teaching Performed. Patient Verbalizes Understanding Of Teaching. Patient Transferred to Cardiac Intermediate Frame Tender Recovery. Complication Findings No complications. X-ray Summary Total Time (min): 7.95 Interventional Time (min): --- Diagnostic Time (min): --- Total Dose (mGy): --- Air Kerma (mGy): --- DAP (cGy*cm2): --- Contrast Contrast: ISOVUE 370 Amount (mL): 140 ml Report Signatures Interventional Finalized by Jyoti Zamudio on 05/08/2025 05:24 PM Diagnostic Finalized by Jyoti Zamudio on 05/08/2025 05:24 PM
[2025-05-08] MEDS: ALBUTEROL/IPRATROPIUM (Duoneb) RT SOL 3 ML NEBU INH (13:34)
[2025-05-08 15:40] LABS: ACT (CATH LAB ONLY) 381.0 Seconds (89-169)
--- NOTE | 2025-05-08 17:36 | XR_ITS ---
EXAMINATION: AP chest single view TECHNIQUE: AP portable upright chest single view Date and time: May 08, 2025, 1808 hours, comparison May 06, 2025 INDICATIONS: Shortness of breath today FINDINGS: Moderate enlargement cardiac contour Mild vascular congestion. Left dialysis catheter tip satisfactory position Cardiac leads satisfactory position Mild vascular congestion. No lobar pneumonia or pulmonary edema Prominent osteopenia IMPRESSION: Moderate enlargement cardiac contour Mild vascular congestion
[2025-05-08] MEDS: HEPARIN SOD INJ 1000 UNIT/ML VIAL 10 ML 4000 UNIT INDWELLCAT (17:40)
[2025-05-08 19:08] LABS: Albumin, Serum 4.4 gm/dL (3.4-4.8); Anion Gap 11 (7-16); Blood Urea Nitrogen 24 mg/dL (9-23); Calcium 9.0 mg/dL (8.3-10.6); Calcium (Corrected) 9.0 mg/dL (8.5-10.1); Carbon Dioxide 28.7 mMol/L (20.0-31.0); Chloride 96 mMol/L (98-107); Glucose 156 mg/dL (74-106); Osmolality,Calculated 278 (275-295); Phosphorous 5.0 mg/dL (2.4-5.1); Potassium 3.9 mMol/L (3.4-5.1); Sodium 136 mMol/L (136-145)
[2025-05-08 19:22] LABS: BUN/Creatinine Ratio 4 Ratio (12-20); Creatinine (Component) 6.8 mg/dL (0.6-1.3); Estimated Creatinine Clearance 12.1 mL/min (>60); eGFR 9 See Note
--- NOTE | 2025-05-08 20:08 | PC.NURSE ---
received report at bedside, pt up in restroom, this nurse,upon assessment and during report, noted pt was bleeding from cath site, pressure applied anddressing reinforced. Per am nurse (Dr Osmar Zamudio) notified earlier of bleeding from site. Reassessed pt after 15 min reinforced dressing dry-no new bleeding at this time. will continue to monitor
[2025-05-08] MEDS: ATORVASTATIN CALCIUM 20 MG TABLET 40 MG PO (21:38)
[2025-05-09] VITALS (10 sets, daily range): BP systolic 109–128; BP diastolic 63–98; PULSE 72–96; RESP 12–18; TEMP 36.2–36.8; O2SAT 100; BMI 22.6
[2025-05-09 06:22] LABS: Basophils # (Auto) 0.0 Thou/mm3 (0.0-0.2); Basophils % (Auto) 1 % (0-2.5); Eosinophils # (Auto) 0.2 Thou/mm3 (0.0-0.5); Eosinophils % (Auto) 3 % (0-10); Hematocrit 34.5 % (41.0-53.0); Hemoglobin 11.2 g/dL (13.5-16.0); Immature Granulocytes Auto 0.01 Thou/mm3 (0.00-0.00); Lymphocytes # (Auto) 0.7 Thou/mm3 (1.0-4.8); Lymphocytes % (Auto) 13 % (10-50); Mean Corpuscular HGB Conc 32.5 g/dl (31.0-37.0); Mean Corpuscular Hemoglobin 30.3 pg (25.0-35.0); Mean Corpuscular Volume 93 fL (80-100); Monocytes # (Auto) 0.6 Thou/mm3 (0.0-0.8); Monocytes % (Auto) 11 % (0-12); Neutrophils # (Auto) 3.7 Thou/mm3 (1.8-7.7); Neutrophils % (Auto) 72 % (37-80); Nucleated Red Blood Cell # 0.00 Thou/mm3 (0.00-0.00); Nucleated Red Blood Cell % 0 /100 WBC (0); Platelet Count 129 Thou/mm3 (140-440); RDW Standard Deviation 52.9 fL (35.1-43.9); Red Blood Count 3.70 Miln/mm3 (4.50-5.90); White Blood Count 5.2 Thou/mm3 (3.8-10.6)
[2025-05-09 06:43] LABS: Partial Thromboplastin Time 27.9 Seconds (22.0-36.0)
[2025-05-09 06:52] LABS: Alanine Aminotransferase < 7 U/L (10-49); Albumin, Serum 4.0 gm/dL (3.4-4.8); Albumin/Globulin Ratio 1.4 (1.2-2.2); Alkaline Phosphatase 75 U/L (46-116); Anion Gap 11 (7-16); Aspartate Amino Transferase < 8 U/L (0-34); BUN/Creatinine Ratio 4 Ratio (12-20); Bilirubin,Total 0.3 mg/dL (0.3-1.2); Blood Urea Nitrogen 33 mg/dL (9-23); Calcium 9.6 mg/dL (8.3-10.6); Calcium (Corrected) 9.6 mg/dL (8.5-10.1); Carbon Dioxide 28.4 mMol/L (20.0-31.0); Chloride 97 mMol/L (98-107); Creatinine (Component) 8.8 mg/dL (0.6-1.3); Estimated Creatinine Clearance 9.3 mL/min (>60); Globulin 2.8 gm/dL (2.3-3.5); Glucose 90 mg/dL (74-106); Magnesium 2.5 mg/dL (1.6-2.6); Osmolality,Calculated 279 (275-295); Phosphorous 7.6 mg/dL (2.4-5.1); Potassium 4.2 mMol/L (3.4-5.1); Sodium 136 mMol/L (136-145); Total Protein 6.8 gm/dL (5.7-8.2); eGFR 6 See Note
[2025-05-09] MEDS: TICAGRELOR 90 MG TABLET PO ×2 (08:37→20:19)
[2025-05-09] MEDS: METOPROLOL SUCCINATE XL 25 MG TABCR PO (08:37)
[2025-05-09] MEDS: ASPIRIN EC 81 MG TABEC PO (08:37)
--- NOTE | 2025-05-09 08:50 | PD.RESPRO ---
Documentation for date of: 05/09/25 Subjective Subjective Interval history: Mr. Montgomery is a 59-year-old -[place] gentleman with past medical history of developmental delay, hypertension, polycystic kidney disease, s/p renal transplant on 12/02/2017 at [facility] [place]- failed, back on HD since aug 2023 [T//MON]- under DR. DAVENPORT, HFpEF 55 to 60%, bradycardia s/p ICD placement in 2011, s/p replacement of single-chamber AICD on 05/05/2024 for depleted battery, diverticulosis presented to [facility] ED in 05/06 for chest pain during dialysis earlier today. Questionably poor historian as patient agrees with answers that were prompted. Patient reports chest pain started yesterday, described as central, 9/10 nonradiating chest pain, and was unable to complete dialysis, prompting ED visit. Patient reports experiencing total of 4 episodes each lasting about 1 minute occurred while he was sitting and standing doing things. Reports pain increases on deep inspiration and not positional dependent. Reports similar episode about 1 year ago. Denies missing hemodialysis sessions. Denies shortness of breath or palpitations. Lives with sister at home. Currently, patient endorses central 9/10 radiating chest pain. Denies nausea/vomiting, fever/chills or recent illness. Of note, patient under cardiac cath 12/2024 with stent placement. 05/07/25: Patient seen and examined at bedside in ICU, telemetry overflow. No complaints. Denies further episodes of chest pain since ED, palpitations, N/V or SOB. Labs and vitals reviewed, troponins stable mildly elevated at 0.1. Per cardiology, likely cath 05/08. 05/08/25: Patient seen examined at bedside. Patient reports feeling at times tachypneic and SOB however that has been going on prior to admission for a long time . No other complaints. Denies any other episodes of chest pain since ED. Denies palpitations, abdominal pain or leg swelling. Plan for cath 11:30AM, plan for dialysis subsequently. 05/09/25: Patient seen and examined at bedside. Endorses baseline episodes of SOB and tachypnea. Patient is status post 1 day cardiac cath following proximal left circumflex stent placement. Per cardiology, RCA stent was restenosed, and no anticipated further interventions at this time. Plan for HD tomorrow. Exam Vital Signs Temp Pulse Resp BP Pulse Ox O2 Del Method O2 Flow Rate 97.2 F 72 18 118/98 H 100 Nasal Cannula 3 05/09/25 08:00 05/09/25 08:37 05/09/25 08:00 05/09/25 08:37 05/09/25 08:00 05/09/25 08:00 05/09/25 08:00 FiO2 100 05/08/25 17:58 Narrative Exam GENERAL: AOx3, no acute distress HEENT: mucous membranes moist, bilateral sclera anicteric CARDIOVASCULAR: regular rate and rhythm, S1/S2 present, 2/6 systolic murmur, left IJ TDC in place clean, ICD palpable on right side chest with overlying scars, LAVF patent with palpable thrill PULMONARY: clear to auscultation bilaterally, no rales/rhonchi/wheezes ABDOMINAL: soft, non-tender, non-distended, no rebound/guarding, bowel sounds present EXTREMITIES: no peripheral edema SKIN: warm and dry, intact, no rashes NEURO: CN II-XII grossly intact, no focal deficits, alert, following commands Objective Labs 05/10/25 04:30 05/10/25 04:30 Labs: Laboratory Results - last 24 hr 05/08/25 05/08/25 05/08/25 04:50 12:45 18:25 WBC RBC Hgb Hct MCV MCH MCHC RDW Std Deviation Plt Count Neut % (Auto) Lymph % (Auto) [place] % (Auto) Eos % (Auto) Baso % (Auto) Neut # (Auto) Lymph # (Auto) [place] # (Auto) Eos # (Auto) Baso # (Auto) Immature Gran # (Auto) Absolute Nucleated RBC Immature Gran % Nucleated RBC % APTT Activated Clotting Time 381.0 H Sodium 136 Potassium 3.9 D Chloride 96 L Carbon Dioxide 28.7 Anion Gap 11 BUN 24 H Creatinine 6.8 H* D Estim Creat Clear Calc 12.1 L eGFR 9 L* BUN/Creatinine Ratio 4 L Glucose 156 H D Calculated Osmolality 278 Calcium 9.0 Corrected Calcium 9.0 Phosphorus 5.0 Magnesium Total Bilirubin AST ALT Alkaline Phosphatase Total Protein Albumin 4.4 Globulin Albumin/Globulin Ratio Hepatitis A IgM Ab Non Reactive Hep Bs Antigen Non Reactive Hep Bs Antibody Reactive (Immune) Hep B Core IgM Ab Non Reactive Hepatitis C Antibody Non Reactive 05/09/25 05:47 WBC 5.2 RBC 3.70 L Hgb 11.2 L Hct 34.5 L MCV 93 MCH 30.3 MCHC 32.5 RDW Std Deviation 52.9 H Plt Count 129 L Neut % (Auto) 72 Lymph % (Auto) 13 [place] % (Auto) 11 Eos % (Auto) 3 Baso % (Auto) 1 Neut # (Auto) 3.7 Lymph # (Auto) 0.7 L [place] # (Auto) 0.6 Eos # (Auto) 0.2 Baso # (Auto) 0.0 Immature Gran # (Auto) 0.01 H Absolute Nucleated RBC 0.00 Immature Gran % 0 Nucleated RBC % 0 APTT 27.9 D Activated Clotting Time Sodium 136 Potassium 4.2 Chloride 97 L Carbon Dioxide 28.4 Anion Gap 11 BUN 33 H Creatinine 8.8 H* D Estim Creat Clear Calc 9.3 L eGFR 6 L* BUN/Creatinine Ratio 4 L Glucose 90 D Calculated Osmolality 279 Calcium 9.6 Corrected Calcium 9.6 Phosphorus 7.6 H Magnesium 2.5 Total Bilirubin 0.3 AST < 8 ALT < 7 L Alkaline Phosphatase 75 Total Protein 6.8 Albumin 4.0 Globulin 2.8 Albumin/Globulin Ratio 1.4 Hepatitis A IgM Ab Hep Bs Antigen Hep Bs Antibody Hep B Core IgM Ab Hepatitis C Antibody Quality Measures Quality Measures VTE prophylaxis Assessment & Plan Assessment Current Active Medications: Generic Name Dose Route Start Last Admin Trade Name Freq PRN Reason Stop Dose Admin Acetaminophen 1,000 mg 05/06/25 09:46 Acetaminophen 325 Mg Tablet PO 06/05/25 09:45 Q6H PRN Fever >100.4 Aspirin 81 mg 05/07/25 09:00 05/09/25 08:37 Aspirin Ec 81 Mg Tabec PO 06/06/25 08:59 81 mg QDAY ANTONIA Administration Atorvastatin Calcium 40 mg 05/06/25 21:00 05/08/25 21:38 Atorvastatin Calcium 20 Mg Tablet PO 06/05/25 20:59 40 mg HS ANTONIA Administration Heparin Sodium (Porcine) 4,000 unit 05/06/25 13:22 05/08/25 17:40 Heparin Sod Inj 1000 Unit/Ml Vial 10 Ml INDWELLCAT 05/20/25 13:21 4,000 unit X1 PRN Administration DIALYSIS Metoprolol Succinate 25 mg 05/09/25 09:00 05/09/25 08:37 Metoprolol Succinate Xl 25 Mg Tabcr PO 06/08/25 08:59 25 mg QDAY ANTONIA Administration Nitroglycerin 0.4 mg 05/06/25 06:57 Nitroglycerin 0.4 Mg Subl Btl #25 SL Q5M PRN CHEST PAIN Ondansetron HCl 4 mg 05/06/25 09:51 Ondansetron Inj 2 Mg/Ml Inj 2 Ml IVP 06/05/25 09:50 Q6H PRN NAUSEA OR VOMITING Protocol Ticagrelor 90 mg 05/06/25 10:45 05/09/25 08:37 Ticagrelor 90 Mg Tablet PO 06/05/25 10:44 90 mg BID ANTONIA Administration Plan Mr. Montgomery is a 59-year-old -[place] gentleman with past medical history of developmental delay, hypertension, polycystic kidney disease, s/p renal transplant on 12/02/2017 at [facility] [place]- failed, back on HD since aug 2023 [//MON]- under DR. DAVENPORT, HFrEF (35-40%, 2023), bradycardia s/p ICD placement in 2011, s/p replacement of single-chamber AICD on 05/05/2024 for depleted battery, diverticulosis presented to [facility] ED in 05/06 for chest pain during dialysis morning of admission, admitted for NSTEMI. Nephrology consulted for ESRD on HD. #ESRD on HD thru [facility] ([facility]/R/[facility]) since 2023 #Polycystic kidney disease s/p renal transplant 2017, failed Patient presents with chest pain during dialysis session morning of admission and was unable to complete session. Adherent with HD schedule. On admission, BUN 41, creatinine 11.6, phosphorus 7.9, magnesium 2.6, troponin 0.109, BNP 1776. HD: 05/06, 05/08 Plan: - HD plan for tomorrow - Restart home sevelamer 800 TIDWM - Renally dose and avoid nephrotoxic medication - Caution with fluid resuscitation if necessary given HFrEF #NSTEMI, type I vs type II #HTN #HFrEF (35-40%, 2023) #Diverticulosis - Above managed per primary team Thank you for the consultation and allowing participation in patient's care. Plan of care discussed with attending Dr. Muse. Josefina De DO PGY-1 Internal Medicine Attending Provider Attestation/Addendum Patient seen and examined with resident physician Dr. De. Note reviewed, agree with findings and recommendations. Dialysis in am s/p cardiac cahg, on O2 doing ok
--- NOTE | 2025-05-09 09:06 | ESOP_ITS ---
RE: JANET CHRISTIANSON : 1965 date of [id number]/06/2025 PROCEDURES PERFORMED: 1. Diagnostic left heart cardiac catheterization, selective coronary angiogram, left ventricular angiogram, CPT 40836. 2. PTCA stent placement, proximal left circumflex artery, drug-eluting stent placed, 3.0 x 12 mm Medtronic Dom drug-eluting stent placement. Pre-procedure stenosis 99%, pre- procedure BIANCA flow 2, post-procedure BIANCA flow 3. 3. Iliofemoral angiogram followed by Perclose to secure hemostasis. 4. Conscious sedation, 1-hour duration. 5. Ultrasound-guided access, right femoral artery. DIAGNOSES: 1. Coronary artery disease status post multiple stent placement. 2. Ischemic cardiomyopathy. 3. Systolic heart failure. 4. Acute thk-[id number]-[id number] elevation myocardial infarction. 5. Chronic kidney disease on hemodialysis. INDICATIONS: The patient is a 60-year-old male with history of chronic ischemic heart disease, coronary artery disease status post multiple stent placement to the RCA and circumflex arteries in the past. Most recently, in 12/2024, he underwent PCI stent placement for complex PCI of the right coronary artery. During failure and recently came to the hospital with severe shortness of breath and chest pain while undergoing dialysis. He was admitted to the hospital with elevated troponins and persistent chest pain, acute coronary syndrome, ebt-VT-[id number] elevation myocardial infarction. Because of persistent chest pain and known CAD with stent placement, an emergency and urgent coronary angiogram was recommended to assess if the patient is a candidate for PCI intervention. PROCEDURE DETAILS: The patient was brought to the cardiac catheterization laboratory where he was given 2 mg of Versed and 50 mcg of fentanyl for sedation. A right femoral approach was taken. The right femoral artery was cannulated by micropuncture technique. Ultrasound guidance was used and documented. A 6-Guamanian sheath was introduced. Selective right and left coronary angiogram was performed with a 6-[place]amanian FR4 diagnostic catheter. Left heart catheterization and left ventricular angiogram were performed with a 5-Guamanian pigtail catheter. Subsequently, coronary intervention was undertaken. FINDINGS: The diagnostic procedure showed the following findings. The right coronary artery was large and dominant and showed evidence of multiple stents in the proximal, mid, and distal right coronary artery. The right coronary artery showed evidence of in-stent restenosis with total occlusion of the distal right coronary artery. The mid right coronary artery showed 80% stenosis and one of the posterolateral branches, RV branch showed 90% stenosis. The left coronary system showed a normal left main coronary artery. The left anterior descending artery showed mild disease involvement in LAD with no significant obstructive lesions. The left circumflex artery, represented by one large obtuse marginal branch, showed evidence of a 99% stenosis with BIANCA 2 flow, the culprit lesion. The right coronary artery is chronically occluded. Left ventricular pressures were recorded to be 120, with an EDP of 15. Aortic pressure was 120/70. There was no gradient across the aortic valve. The left ventricular angiogram showed severe global hypokinesis with an ejection fraction of 20%. Following the diagnostic procedure, an intervention procedure was performed as follows. The patient was given IV heparin, a total of 6000 units, and the ACT was more than 300, with a value of 315. The patient was already on aspirin and Brilinta. We proceeded with the PCI. The left coronary artery was engaged using a 6-Guamanian FL4.5 guiding catheter. A 0.014 runthrough guidewire was used to cross the lesion successfully. The lesion was pre-dilated with a 2.5 mm balloon. Subsequently, the stent was deployed using a 3.0 x 12 mm [place] Medtronic stent deployed in the proximal circumflex artery with multiple inflations up to 15 atmospheres, with excellent angiographic results. The final angiogram showed no residual stenosis. BIANCA flow was improved to 3. Perclose was used to secure hemostasis successfully with no complications. SUMMARY OF FINDINGS: 1. Multivessel coronary artery disease with evidence of ischemic cardiomyopathy and severe LV dysfunction, EF 20%. 2. Total occlusion of the right coronary artery, possibly in-stent restenosis with chronic total occlusion of the distal right coronary artery and moderate stenosis in the mid RCA in-stent restenosis. 3. A 99% stenosis of the circumflex artery, which underwent successful PCI stent placement as described above. COMPLICATIONS: None. The patient did require 3 doses of IV Erick-Synephrine during the procedure to maintain his blood pressure. The patient will be undergoing hemodialysis later today. PLAN: The plan will be to continue medical management. If he has further problems, we may consider attempting PCI of the totally occluded right coronary artery at a later date, possibly within the next few weeks, depending on the clinical status. I felt it was too risky to perform multivessel PCI in the same setting because of his low ejection fraction. DT: 07:54:53 TT: 09:05:00 Ref: [id number] - TID: [id number] MTDD
--- NOTE | 2025-05-09 09:10 | ESPR_ITS ---
<Statement entered by Jyoti Zamudio MD - 05/12/25 13:10> I personally examined evaluated the patient with resident physician PGY 2Dr. Onel patient underwent PCI stent present circumflex artery HFrEF congestive heart failure well compensated now clinically doing well will start on guideline directed medical management as tolerated agree with treatment plan recommendation as documented by resident physician patient needs to be in the hospital for another day or so for optimal medical management. Documentation for date of: 05/09/25 Subjective Subjective Interval history: Patient seen and assessed in hospital bed denies having any chest pain but appears to be short of breath and requires 3 L of supplemental oxygen via nasal cannula. Patient has a fairly guarded prognosis regarding his heart condition with ejection fraction of 20% and multivessel coronary artery disease. Patient had left heart catheterization with LCx stented; however, will require another left heart catheterization most likely in 1 week time for RCA which was restenosed. Will continue monitoring the patient over the next 24 hours and consider discharge if remains stable. Exam Vital Signs Temp Pulse Resp BP Pulse Ox O2 Del Method O2 Flow Rate 97.2 F 72 18 118/98 H 100 Nasal Cannula 3 05/09/25 08:00 05/09/25 08:37 05/09/25 08:00 05/09/25 08:37 05/09/25 08:00 05/09/25 08:00 05/09/25 08:00 FiO2 100 05/08/25 17:58 Narrative Exam General: Awake and in no acute distress. Conversational and non-toxic appearing. Neurologic: GCS 15. Alert and oriented x3, no gross neurological deficit, and patient able to move all 4 extremities. HEENT: Normocephalic, atraumatic, mucous membranes moist. Pupils reactive to light. Heart: 2 out of 6 6 systolic ejection murmur, left IJ dialysis catheter, scars over the right chest overlying ICD. Lungs: Clear to auscultation bilaterally with no wheezing or crackles. Abdomen: Soft, nondistended, nontender, positive bowel sounds. No guarding or rebound tenderness. Extremities: No edema. 2+ radial and dorsalis pedis pulses bilaterally. Skin: Warm. Dry. No rash or ecchymoses. Objective Labs 05/09/25 05:47 05/09/25 05:47 Labs: Laboratory Results - last 24 hr 05/08/25 05/08/2505/08/25 04:50 12:45 18:25 WBC RBC Hgb Hct MCV MCH MCHC RDW Std Deviation Plt Count Neut % (Auto) Lymph % (Auto) [place] % (Auto) Eos % (Auto) Baso % (Auto) Neut # (Auto) Lymph # (Auto) [place] # (Auto) Eos # (Auto) Baso # (Auto) Immature Gran # (Auto) Absolute Nucleated RBC Immature Gran % Nucleated RBC % APTT Activated Clotting Time 381.0 H Sodium 136 Potassium 3.9 D Chloride 96 L Carbon Dioxide 28.7 Anion Gap 11 BUN 24 H Creatinine 6.8 H* D Estim Creat Clear Calc 12.1 L eGFR 9 L* BUN/Creatinine Ratio 4 L Glucose 156 H D Calculated Osmolality 278 Calcium 9.0 Corrected Calcium 9.0 Phosphorus 5.0 Magnesium Total Bilirubin AST ALT Alkaline Phosphatase Total Protein Albumin 4.4 Globulin Albumin/Globulin Ratio Hepatitis A IgM Ab Non Reactive Hep Bs Antigen Non Reactive Hep Bs Antibody Reactive (Immune) Hep B Core IgM Ab Non Reactive Hepatitis C Antibody Non Reactive 05/09/25 05:47 WBC 5.2 RBC 3.70 L Hgb 11.2 L Hct 34.5 L MCV 93 MCH 30.3 MCHC 32.5 RDW Std Deviation 52.9 H Plt Count 129 L Neut % (Auto) 72 Lymph % (Auto) 13 [place] % (Auto) 11 Eos % (Auto) 3 Baso % (Auto) 1 Neut # (Auto) 3.7 Lymph # (Auto) 0.7 L [place] # (Auto) 0.6 Eos # (Auto) 0.2 Baso # (Auto) 0.0 Immature Gran # (Auto) 0.01 H Absolute Nucleated RBC 0.00 Immature Gran % 0 Nucleated RBC % 0 APTT 27.9 D Activated Clotting Time Sodium 136 Potassium 4.2 Chloride 97 L Carbon Dioxide 28.4 Anion Gap 11 BUN 33 H Creatinine 8.8 H* D Estim Creat Clear Calc 9.3 L eGFR 6 L* BUN/Creatinine Ratio 4 L Glucose 90 D Calculated Osmolality 279 Calcium 9.6 Corrected Calcium 9.6 Phosphorus 7.6 H Magnesium 2.5 Total Bilirubin 0.3 AST < 8 ALT < 7 L Alkaline Phosphatase 75 Total Protein 6.8 Albumin 4.0 Globulin 2.8 Albumin/Globulin Ratio 1.4 Hepatitis A IgM Ab Hep Bs Antigen Hep Bs Antibody Hep B Core IgM Ab Hepatitis C Antibody Quality Measures Quality Measures VTE prophylaxis Assessment & Plan Assessment Current Active Medications: Generic Name Dose Route Start Last Admin Trade Name Freq PRN Reason Stop Dose Admin Acetaminophen 1,000 mg 05/06/25 09:46 Acetaminophen 325 Mg Tablet PO 06/05/25 09:45 Q6H PRN Fever >100.4 Aspirin 81 mg 05/07/25 09:00 05/09/25 08:37 Aspirin Ec 81 Mg Tabec PO 06/06/25 08:59 81 mg QDAY ANTONIA Administration Atorvastatin Calcium 40 mg 05/06/25 21:00 05/08/25 21:38 Atorvastatin Calcium 20 Mg Tablet PO 06/05/25 20:59 40 mg HS ANTONIA Administration Heparin Sodium (Porcine) 4,000 unit 05/06/25 13:22 05/08/25 17:40 Heparin Sod Inj 1000 Unit/Ml Vial 10 Ml INDWELLCAT 05/20/25 13:21 4,000 unit X1 PRN Administration DIALYSIS Metoprolol Succinate 25 mg 05/09/25 09:00 05/09/25 08:37 Metoprolol Succinate Xl 25 Mg Tabcr PO 06/08/25 08:59 25 mg QDAY ANTONIA Administration Nitroglycerin 0.4 mg 05/06/25 06:57 Nitroglycerin 0.4 Mg Subl Btl #25 SL Q5M PRN CHEST PAIN Ondansetron HCl 4 mg 05/06/25 09:51 Ondansetron Inj 2 Mg/Ml Inj 2 Ml IVP 06/05/25 09:50 Q6H PRN NAUSEA OR VOMITING Protocol Ticagrelor 90 mg 05/06/25 10:45 05/09/25 08:37 Ticagrelor 90 Mg Tablet PO 06/05/25 10:44 90 mg BID ANTONIA Administration Plan 60 year old male with a past medical history of developmental delay, hypertension, polycystic kidney disease, s/p renal transplant on 12/02/2017 at [facility], ESRD on HD [//] following Dr. Lerma, HFpEF 35-40% (04/2024), moderate PAH, and bradycardia s/p ICD placement in 2011, s/p replacement of single- chamber AICD who presented with chest pain during dialysis session will be admitted for acute coronary syndrome and started on IV heparin with possible left heart cath to be scheduled for 05/08 along with continued dialysis sessions while in the hospital. #Acute coronary syndrome #NSTEMI type I versus type II #Coronary artery disease, status post stent placement in RCA on December 2024 #Impella placement As per HPI above, patient presented with chest pain during dialysis session Significant history of CAD with recent stent placement in RCA on December 2024 at [facility] with Impella placement for left ventricular failure Patient's presenting with typical chest pain along with elevated troponin and BNP EKG shows sinus rhythm with some ST changes noted in septal leads with reciprocal changes possibly in inferior leads? Left heart catheterization completed on 05/08 shows significant multi-vessel disease with stenosis of the left circumflex, PCI, stent placement completed of the left circumflex. Additionally, patient is RCA which was stented on December 2024 appears to have stent restenosis Plan: Monitor over the next 24 hours for any acute changes; will plan for discharge if patient remains stable Patient might need another left heart cath in about 1 weeks time for RCA which appeared to be restenosed DAPT with Brilinta 90 mg p.o. twice daily and aspirin 81 mg daily High intensity statin nightly Switched to Metoprolol succinate 25mg by mouth daily Keep Mg >2.0 and K >4.0 #Heart failure with systolic dysfunction, HFpEF 35-40% (04/2024) #Left Ventricular Hypertrophy #Moderate PAH #Bradycardia s/p ICD placement in 2011, s/p replacement of single-chamber AICD Last echo findings, Normal LV size. Moderate LVH. Moderate LV systolic dysfunction with global hypokinesis, Estimated EF 35-40% Mild RV dilatation. Normal RV function. Estimated RVSP 49mmHg. RAP 15. Moderate PAH. Pacing wire present. Moderate AV sclerosis without sclerosis. Vmax 2.3 m/s and Mean PG of 10 mm hg. Mild MR. Moderate TR. Moderate PAH. There is anterior trivial pericardial effusion. No evidence of cardiac tamponde. Patient on home carvedilol 25 mg p.o. twice daily, losartan 100 mg p.o. daily BNP elevated which could be multifactorial secondary to ESRD status On examination, patient does not appear to be in acute heart failure exacerbation as there is no noted crackles, JVD, lower extremity edema and he is requiring minimal supplemental oxygen Plan: Resume GDMT for HFrEF #Hypertension Patient on multiple medications for blood pressure control at home including Hydralazine 50 mg p.o. 3 times daily, isosorbide dinitrate 20 mg p.o. twice daily Pending med rec Patient currently normotensive Plan: Restart home medications when appropriate or when needed, recommend starting 1 antihypertensive agent at a time #Normocytic anemia, likely anemia of chronic disease versus iron deficiency #History of DVT #COPD/asthma #Developmental delay, #Polycystic kidney disease, #ESRD s/p renal transplant HD [T//] Rest of medical problems to be managed by primary hospitalist team and nephrology Patient seen and assessed with attending Dr. Robb Sykes, DO PGY-2 Internal Medicine - [facility]
--- NOTE | 2025-05-09 11:07 | PD.RESPRO ---
Documentation for date of: 05/09/25 Exam Vital Signs Temp Pulse Resp BP Pulse Ox O2 Del Method O2 Flow Rate 97.2 F 72 18 118/98 H 100 Nasal Cannula 3 05/09/25 08:00 05/09/25 08:37 05/09/25 08:00 05/09/25 08:37 05/09/25 08:00 05/09/25 08:00 05/09/25 08:00 FiO2 100 05/08/25 17:58 Objective Labs 05/09/25 05:47 05/09/25 05:47 Labs: Laboratory Results - last 24 hr 05/08/25 05/08/25 05/09/25 12:45 18:25 05:47 WBC 5.2 RBC 3.70 L Hgb 11.2 L Hct 34.5 L MCV 93 MCH 30.3 MCHC 32.5 RDW Std Deviation 52.9 H Plt Count 129 L Neut % (Auto) 72 Lymph % (Auto) 13 [place] % (Auto) 11 Eos % (Auto) 3 Baso % (Auto) 1 Neut # (Auto) 3.7 Lymph # (Auto) 0.7 L [place] # (Auto) 0.6 Eos # (Auto) 0.2 Baso # (Auto) 0.0 Immature Gran # (Auto) 0.01 H Absolute Nucleated RBC 0.00 Immature Gran % 0 Nucleated RBC % 0 APTT 27.9 D Activated Clotting Time 381.0 H Sodium 136 136 Potassium 3.9 D 4.2 Chloride 96 L 97 L Carbon Dioxide 28.7 28.4 Anion Gap 11 11 BUN 24 H 33 H Creatinine 6.8 H* D 8.8 H* D Estim Creat Clear Calc 12.1 L 9.3 L eGFR 9 L* 6 L* BUN/Creatinine Ratio 4 L 4 L Glucose 156 H D 90 D Calculated Osmolality 278 279 Calcium 9.0 9.6 Corrected Calcium 9.0 9.6 Phosphorus 5.0 7.6 H Magnesium 2.5 Total Bilirubin 0.3 AST < 8 ALT < 7 L Alkaline Phosphatase 75 Total Protein 6.8 Albumin 4.4 4.0 Globulin 2.8 Albumin/Globulin Ratio 1.4 Quality Measures Quality Measures VTE prophylaxis Assessment & Plan Assessment Current Active Medications: Generic Name Dose Route Start Last Admin Trade Name Freq PRN Reason Stop Dose Admin Acetaminophen 1,000 mg 05/06/25 09:46 Acetaminophen 325 Mg Tablet PO 06/05/25 09:45 Q6H PRN Fever >100.4 Aspirin 81 mg 05/07/25 09:00 05/09/25 08:37 Aspirin Ec 81 Mg Tabec PO 06/06/25 08:59 81 mg QDAY ANTONIA Administration Atorvastatin Calcium 40 mg 05/06/25 21:00 05/08/25 21:38 Atorvastatin Calcium 20 Mg Tablet PO 06/05/25 20:59 40 mg HS ANTONIA Administration Heparin Sodium (Porcine) 4,000 unit 05/06/25 13:22 05/08/25 17:40 Heparin Sod Inj 1000 Unit/Ml Vial 10 Ml INDWELLCAT 05/20/25 13:21 4,000 unit X1 PRN Administration DIALYSIS Metoprolol Succinate 25 mg 05/09/25 09:00 05/09/25 08:37 Metoprolol Succinate Xl 25 Mg Tabcr PO 06/08/25 08:59 25 mg QDAY ANTONIA Administration Nitroglycerin 0.4 mg 05/06/25 06:57 Nitroglycerin 0.4 Mg Subl Btl #25 SL Q5M PRN CHEST PAIN Ondansetron HCl 4 mg 05/06/25 09:51 Ondansetron Inj 2 Mg/Ml Inj 2 Ml IVP 06/05/25 09:50 Q6H PRN NAUSEA OR VOMITING Protocol Ticagrelor 90 mg 05/06/25 10:45 05/09/25 08:37 Ticagrelor 90 Mg Tablet PO 06/05/25 10:44 90 mg BID ANTONIA Administration
--- NOTE | 2025-05-09 13:54 | ESPR_ITS ---
<Statement entered by Ewelina Key MD - 05/09/25 16:49> Patient seen at bedside this morning, currently saturating on 2 L of oxygen via nasal cannula. Patient denies any chest pain and continues to have some shortness of breath. As per cardiology recommendation will continue Brilinta, will switch home Coreg to metoprolol 25 succinate daily and will start patient on Entresto 24?26. Patient was seen and examined by me personally. I have directly supervised and reviewed documentation by the team resident and agree with its findings. ------- Plan of care was discussed with the attending, Dr. Israel Key, PGY-2 Documentation for date of: 05/09/25 Subjective Subjective Interval history: Patient seen and examined at bedside. Cardiac cath yesterday showed 99% stenosis of the proximal left circumflex artery. A stent was placed and the patient is on DAPT with aspirin and Brilinta. Patient's catheter insertion site was bleeding yesterday, has since improved, site was slightly moist on exam. Per cardiology will watch patient 1 more day. Exam Vital Signs Temp Pulse Resp BP Pulse Ox O2 Del Method O2 Flow Rate 97.5 F 87 17 113/78 100 Nasal Cannula 3 05/09/25 12:00 05/09/25 12:00 05/09/25 12:00 05/09/25 12:00 05/09/25 12:00 05/09/25 12:00 05/09/25 12:00 FiO2 100 05/08/25 17:58 Narrative Exam General: Awake and in no acute distress. Conversational and non-toxic appearing. Neurologic: GCS 15. Alert and oriented x3, no gross neurological deficit, and patient able to move all 4 extremities. HEENT: Normocephalic, atraumatic, mucous membranes moist. Pupils reactive to light. Heart: 2 out of 6 6 systolic ejection murmur, left IJ dialysis catheter, scars over the right chest overlying ICD. Lungs: Clear to auscultation bilaterally with no wheezing or crackles. Abdomen: Soft, nondistended, nontender, positive bowel sounds. No guarding or rebound tenderness. Extremities: Right groin cardiac cath insertion site is clean, slightly moist with blood but no profuse bleeding. No edema. 2+ radial and dorsalis pedis pulses bilaterally. Skin: Warm. Dry. No rash or ecchymoses. Objective Labs 11/07/25 05:47 05/09/25 05:47 Labs: Laboratory Results - last 24 hr 05/08/25 05/08/25 05/09/25 12:45 18:25 05:47 WBC 5.2 RBC 3.70 L Hgb 11.2 L Hct 34.5 L MCV 93 MCH 30.3 MCHC 32.5 RDW Std Deviation 52.9 H Plt Count 129 L Neut % (Auto) 72 Lymph % (Auto) 13 [place] % (Auto) 11 Eos % (Auto) 3 Baso % (Auto) 1 Neut # (Auto) 3.7 Lymph # (Auto) 0.7 L [place] # (Auto) 0.6 Eos # (Auto) 0.2 Baso # (Auto) 0.0 Immature Gran # (Auto) 0.01 H Absolute Nucleated RBC 0.00 Immature Gran % 0 Nucleated RBC % 0 APTT 27.9 D Activated Clotting Time 381.0 H Sodium 136 136 Potassium 3.9 D 4.2 Chloride 96 L 97 L Carbon Dioxide 28.7 28.4 Anion Gap 11 11 BUN 24 H 33 H Creatinine 6.8 H* D 8.8 H* D Estim Creat Clear Calc 12.1 L 9.3 L eGFR 9 L* 6 L* BUN/Creatinine Ratio 4 L 4 L Glucose 156 H D 90 D Calculated Osmolality 278 279 Calcium 9.0 9.6 Corrected Calcium 9.0 9.6 Phosphorus 5.0 7.6 H Magnesium 2.5 Total Bilirubin 0.3 AST < 8 ALT < 7 L Alkaline Phosphatase 75 Total Protein 6.8 Albumin 4.4 4.0 Globulin 2.8 Albumin/Globulin Ratio 1.4 Quality Measures Quality Measures VTE prophylaxis Assessment & Plan Assessment Current Active Medications: Generic Name Dose Route Start Last Admin Trade Name Freq PRN Reason Stop Dose Admin Acetaminophen 1,000 mg 05/06/25 09:46 Acetaminophen 325 Mg Tablet PO 06/05/25 09:45 Q6H PRN Fever >100.4 Aspirin 81 mg 05/07/25 09:00 05/09/25 08:37 Aspirin Ec 81 Mg Tabec PO 06/06/25 08:59 81 mg QDAY ANTONIA Administration Atorvastatin Calcium 40 mg 05/06/25 21:00 05/08/25 21:38 Atorvastatin Calcium 20 Mg Tablet PO 06/05/25 20:59 40 mg HS ANTONIA Administration Heparin Sodium (Porcine) 4,000 unit 05/06/25 13:22 05/08/25 17:40 Heparin Sod Inj 1000 Unit/Ml Vial 10 Ml INDWELLCAT 05/20/25 13:21 4,000 unit X1 PRN Administration DIALYSIS Metoprolol Succinate 25 mg 05/09/25 09:00 05/09/25 08:37 Metoprolol Succinate Xl 25 Mg Tabcr PO 06/08/25 08:59 25 mg QDAY ANTONIA Administration Nitroglycerin 0.4 mg 05/06/25 06:57 Nitroglycerin 0.4 Mg Subl Btl #25 SL Q5M PRN CHEST PAIN Ondansetron HCl 4 mg 05/06/25 09:51 Ondansetron Inj 2 Mg/Ml Inj 2 Ml IVP 06/05/25 09:50 Q6H PRN NAUSEA OR VOMITING Protocol Ticagrelor 90 mg 05/06/25 10:45 05/09/25 08:37 Ticagrelor 90 Mg Tablet PO 06/05/25 10:44 90 mg BID ANTONIA Administration Plan Summary: 60-year-old male with a past medical history of ESRD on dialysis and status post renal transplant, developmental delay, hypertension, polycystic kidney disease, pulmonary hypertension, and hyperlipidemia who presented to the ED after having chest pain during his dialysis session. Was found to have ST depressions on EKG and an elevated troponin. He was admitted for management of his acute coronary syndrome in addition to continue dialysis. #Acute coronary syndrome #NSTEMI type I versus type II #Impella placement #Hyperlipidemia * Troponins elevated on arrival * EKG showed ST depression in leads 2 3 and aVF * Patient has diffuse chest pain and shortness of breath * Patient is status post right coronary artery stent placement in December currently on aspirin * Lipid panel within normal limits minus a slightly low cholesterol/HDL ratio of 3.7 * Cardiac cath on 05/08/2025 showed 99% stenosis of the proximal left circumflex artery, stent was placed Plan: * DAPT with Brilinta 90 mg p.o. twice daily and aspirin 81 mg daily * Continue home atorvastatin * Per cardiology will monitor patient 1 more day, plan for discharge 05/10/2025 #Heart failure with severe systolic dysfunction, HFpEF 35-40% (04/2024) #Hypertension #Moderate PAH #Bradycardia s/p ICD placement in 2011, s/p replacement of single-chamber AICD * Echo on 04/30/2024 Normal LV size. Moderate LVH. Moderate LV systolic dysfunction with global hypokinesis, Estimated EF 35-40%Mild RV dilatation. Normal RV function. Estimated RVSP 49mmHg. RAP 15. Moderate PAH. Pacing wire present. * Patient on home carvedilol 25 mg p.o. twice daily, losartan 100 mg p.o. daily * BNP elevated which could be multifactorial secondary to ESRD status * No evidence on physical exam for acute exacerbation of heart failure, lungs are clear, no peripheral edema * Blood pressure normotensive and stable currently * Patient takes carvedilol, hydralazine, isosorbide dinitrate, losartan, and nifedipine at home for hypertension Plan: * Per cardiology restarted home metoprolol 25 mg twice daily * Will start low-dose Entresto * Nitroglycerin 0.4 SL Q5 PRN for chest pain #ESRD status post kidney transplant on dialysis #History of polycystic kidney disease * Patient attends dialysis Monday, has been for 2 years, presented with chest pain during his dialysis session * Patient is status post renal transplant on 12/02/2017 at [facility] * Patient tolerated dialysis well the day of his admission Plan: * Nephrology on board, plans for dialysis 05/10/2025 * Renally dose medications and avoid nephrotoxic agents * DCed home meds of Lisinopril and Losartan for his discharge orders * DCed home med sevelamer 800 3 times daily, continued Velphoro for his discharge orders #History of DVT * Patient has a history of right subclavian DVT in August 2024 * Completed a 3-month course of Eliquis Plan: * No direct intervention for this specific issue at this time, though the patient is at increased risk of DVT due to ESRD * Patient is on DAPT #COPD/Asthma * Patient takes albuterol at home * It was reported that the patient has a distant [id number] smoking history * Saturating 100% on 3 L * Has had periods of shortness of breath, nursing describes these episodes as Javy Strokes respirations * Consider in the presence of CHF, lower cardiac output may be leading to delayed blood flow between the lungs and brain, causing delay in the sensing of carbon oxide changes, which may cause breathing to inappropriately overshoot or undershoot based on the current carbon dioxide level Plan: * Will monitor for shortness of breath and wheezing, will add DuoNebs if needed #Normocytic anemia * Hemoglobin 11.8 on arrival * Has been a longstanding issue * Consider in the presence of longstanding ESRD and fluid overload Plan: * Will continue to monitor and transfuse if hemoglobin below 7 #Anemia of chronic disease * Iron panel showed an iron level 39, TIBC 199, and ferritin 312. * Red blood cell distribution width in the low 50s, stable * MCV in the low 90s, stable * This data may reinforce iron deficiency anemia versus anemia of chronic disease? A normal MCV points more towards iron deficiency, which the patient has, while an elevated ferritin points towards anemia of chronic disease * Consider the presence of longstanding ESRD versus chronic inflammation, which may lead to increased hepatocyte blockage of the ferroportin channel on macrophages, trapping the iron inside and causing ferritin to be elevated * Chronic inflammation may reinforce decreased transferrin production, leading to the patient's decreased TIBC * Patient's reticulocyte count is appropriately elevated Plan: * Will hold iron supplementation for now, consider iron supplementation if hemoglobin goes below 10 #Hyperkalemia (Resolved) * Potassium within normal limits #Developmental delay * There is reported that the patient requires help with activities of daily living and lives with his sister Plan: * No direct intervention Hospital Maintenance: DVT ppx: DAPT and heparin GI ppx: Not indicated Diet: Cardiac diet IV lines: Peripheral IVs, left IJ dialysis catheter Code status: Full code Dispo: Patient is post procedure day 1 from cardiac cath with proximal left circumflex artery stent placement. On dual antiplatelet therapy with aspirin and Brilinta. Starting low-dose Entresto. Plan for discharge 05/10/2025. Patient was seen and discussed with my attending physician Dr. Israel FLEMING and my senior resident Dr. Shahid PLAZA PGY-2. Donavan Caballero DO PGY-1. Attending Provider Attestation/Addendum I, Rosy Wood DO, attest that I was physically present for the hare portions of the service and evaluated the patient with the resident and I reviewed and discussed the case with the resident and agree with the resident's findings and plans of care as documented above Patient seen and evaluated this AM. He states he is feeling well and denies any further episodes of chest pain. Patient underwent cardiac cath yesterday and dressing has some bleeding noted on gauze that was reinforced yesterday, but appears stable. Cardiology would like to monitor patient for another day and medically optimize before discharge. Will continue with metoprolol, entresto, aspirin and brillinta. Patient can be discharged home tomorrow if he remains stable.
--- NOTE | 2025-05-09 15:27 | PC.SS ---
Patient had heart cath procedure. Patient is from home and plans on returning home. Physician team may d/c over weekend.
[2025-05-09] MEDS: ATORVASTATIN CALCIUM 20 MG TABLET 40 MG PO (20:18)
[2025-05-10] VITALS (27 sets, daily range): BP systolic 80–115; BP diastolic 48–82; PULSE 58–87; RESP 12–16; TEMP 36.4–37.1; O2SAT 100; BMI 22.6
[2025-05-10 06:44] LABS: Basophils # (Auto) 0.0 Thou/mm3 (0.0-0.2); Basophils % (Auto) 1 % (0-2.5); Eosinophils # (Auto) 0.3 Thou/mm3 (0.0-0.5); Eosinophils % (Auto) 6 % (0-10); Hematocrit 34.1 % (41.0-53.0); Hemoglobin 11.2 g/dL (13.5-16.0); Immature Granulocytes Auto 0.02 Thou/mm3 (0.00-0.00); Lymphocytes # (Auto) 0.7 Thou/mm3 (1.0-4.8); Lymphocytes % (Auto) 13 % (10-50); Mean Corpuscular HGB Conc 32.8 g/dl (31.0-37.0); Mean Corpuscular Hemoglobin 30.2 pg (25.0-35.0); Mean Corpuscular Volume 92 fL (80-100); Monocytes # (Auto) 0.6 Thou/mm3 (0.0-0.8); Monocytes % (Auto) 11 % (0-12); Neutrophils # (Auto) 3.6 Thou/mm3 (1.8-7.7); Neutrophils % (Auto) 70 % (37-80); Nucleated Red Blood Cell # 0.00 Thou/mm3 (0.00-0.00); Nucleated Red Blood Cell % 0 /100 WBC (0); Platelet Count 119 Thou/mm3 (140-440); RDW Standard Deviation 52.9 fL (35.1-43.9); Red Blood Count 3.71 Miln/mm3 (4.50-5.90); White Blood Count 5.1 Thou/mm3 (3.8-10.6)
[2025-05-10 07:31] LABS: Alanine Aminotransferase < 7 U/L (10-49); Albumin, Serum 4.0 gm/dL (3.4-4.8); Albumin/Globulin Ratio 1.7 (1.2-2.2); Alkaline Phosphatase 69 U/L (46-116); Anion Gap 18 (7-16); Aspartate Amino Transferase < 10 U/L (0-34); BUN/Creatinine Ratio 4 Ratio (12-20); Bilirubin,Total 0.3 mg/dL (0.3-1.2); Blood Urea Nitrogen 50 mg/dL (9-23); Calcium 9.6 mg/dL (8.3-10.6); Calcium (Corrected) 9.6 mg/dL (8.5-10.1); Carbon Dioxide 23.4 mMol/L (20.0-31.0); Chloride 95 mMol/L (98-107); Creatinine (Component) 11.2 mg/dL (0.6-1.3); Estimated Creatinine Clearance 7.3 mL/min (>60); Globulin 2.4 gm/dL (2.3-3.5); Glucose 72 mg/dL (74-106); Magnesium 2.5 mg/dL (1.6-2.6); Osmolality,Calculated 284 (275-295); Phosphorous 9.0 mg/dL (2.4-5.1); Potassium 4.5 mMol/L (3.4-5.1); Sodium 136 mMol/L (136-145); Total Protein 6.4 gm/dL (5.7-8.2); eGFR 5 See Note
--- NOTE | 2025-05-10 07:40 | ESPR_ITS ---
<Statement entered by Jyoti Zamudio MD - 05/12/25 13:12> I personally examined the patient evaluate the patient with resident physician PGY 2Dr. Onel patient is doing better tolerating medical management will change beta-isidro to metoprolol succinate 25 mg daily and also continued on ARB as tolerated patient's has HFrEF low EF 20% the patient remains stable can be discharged and will see him for cardiology follow-up following discharge in my office in 1 to 2 weeks. Documentation for date of: 05/10/25 Subjective Subjective Interval history: Patient seen and examined in hospital bed denies having any concerning cardiac symptoms at this time. Patient continues to be on minimal supplemental oxygen via nasal cannula. Patient will require left heart catheterization within the next 1 to 2 weeks for RCA which was restenosed. Patient was started on guideline based medical management for HFrEF; follow-up with cardiology within 1 week at the clinic. Exam Vital Signs Temp Pulse Resp BP Pulse Ox O2 Del Method O2 Flow Rate 98.1 F 76 15 101/74 100 Nasal Cannula 2 05/10/25 04:00 05/10/25 04:00 05/10/25 04:00 05/10/25 04:00 05/10/25 04:00 05/10/25 04:00 05/10/25 04:00 FiO2 100 05/08/25 17:58 Narrative Exam General: Awake and in no acute distress. Conversational and non-toxic appearing. Neurologic: GCS 15. Alert and oriented x3, no gross neurological deficit, and patient able to move all 4 extremities. HEENT: Normocephalic, atraumatic, mucous membranes moist. Pupils reactive to light. Heart: 2 out of 6 6 systolic ejection murmur, left IJ dialysis catheter, scars over the right chest overlying ICD. Lungs: Clear to auscultation bilaterally with no wheezing or crackles. Abdomen: Soft, nondistended, nontender, positive bowel sounds. No guarding or rebound tenderness. Extremities: No edema. 2+ radial and dorsalis pedis pulses bilaterally. Skin: Warm. Dry. No rash or ecchymoses. Objective Labs 05/10/25 04:30 05/10/25 04:30 Labs: Laboratory Results - last 24 hr 05/10/25 04:30 WBC 5.1 RBC 3.71 L Hgb 11.2 L Hct 34.1 L MCV 92 MCH 30.2 MCHC 32.8 RDW Std Deviation 52.9 H Plt Count 119 L Neut % (Auto) 70 Lymph % (Auto) 13 [place] % (Auto) 11 Eos % (Auto) 6 Baso % (Auto) 1 Neut # (Auto) 3.6 Lymph # (Auto) 0.7 L [place] # (Auto) 0.6 Eos # (Auto) 0.3 Baso # (Auto) 0.0 Immature Gran # (Auto) 0.02 H Absolute Nucleated RBC 0.00 Immature Gran % 0 Nucleated RBC % 0 Sodium 136 Potassium 4.5 Chloride 95 L Carbon Dioxide 23.4 Anion Gap 18 H BUN 50 H Creatinine 11.2 H* D Estim Creat Clear Calc 7.3 L eGFR 5 L* BUN/Creatinine Ratio 4 L Glucose 72 L Calculated Osmolality 284 Calcium 9.6 Corrected Calcium 9.6 Phosphorus 9.0 H Magnesium 2.5 Total Bilirubin 0.3 AST < 10 ALT < 7 L Alkaline Phosphatase 69 Total Protein 6.4 Albumin 4.0 Globulin 2.4 Albumin/Globulin Ratio 1.7 Quality Measures Quality Measures VTE prophylaxis Assessment & Plan Assessment Current Active Medications: Generic Name Dose Route Start Last Admin Trade Name Freq PRN Reason Stop Dose Admin Acetaminophen 1,000 mg 05/06/25 09:46 Acetaminophen 325 Mg Tablet PO 06/05/25 09:45 Q6H PRN Fever >100.4 Aspirin 81 mg 05/07/25 09:00 05/09/25 08:37 Aspirin Ec 81 Mg Tabec PO 06/06/25 08:59 81 mg QDAY ANTONIA Administration Atorvastatin Calcium 40 mg 05/06/25 21:00 05/09/25 20:18 Atorvastatin Calcium 20 Mg Tablet PO 06/05/25 20:59 40 mg HS ANTONIA Administration Heparin Sodium (Porcine) 4,000 unit 05/06/25 13:22 05/08/25 17:40 Heparin Sod Inj 1000 Unit/Ml Vial 10 Ml INDWELLCAT 05/20/25 13:21 4,000 unit X1 PRN Administration DIALYSIS Metoprolol Succinate 25 mg 05/09/25 09:00 05/09/25 08:37 Metoprolol Succinate Xl 25 Mg Tabcr PO 06/08/25 08:59 25 mg QDAY ANTONIA Administration Nitroglycerin 0.4 mg 05/06/25 06:57 Nitroglycerin 0.4 Mg Subl Btl #25 SL Q5M PRN CHEST PAIN Ondansetron HCl 4 mg 05/06/25 09:51 Ondansetron Inj 2 Mg/Ml Inj 2 Ml IVP 06/05/25 09:50 Q6H PRN NAUSEA OR VOMITING Protocol Sacubitril/Valsartan 1 tab 05/09/25 21:00 05/09/25 20:19 Sacubitril 24 Mg/Valsartan 26 Mg Tablet PO 06/08/25 20:59 1 tab BID ANTONIA Administration Ticagrelor 90 mg 05/06/25 10:45 05/09/25 20:19 Ticagrelor 90 Mg Tablet PO 06/05/25 10:44 90 mg BID ANTONIA Administration Plan 60 year old male with a past medical history of developmental delay, hypertension, polycystic kidney disease, s/p renal transplant on 12/02/2017 at [facility], ESRD on HD [//] following Dr. Lerma, HFpEF 35-40% (04/2024), moderate PAH, and bradycardia s/p ICD placement in 2011, s/p replacement of single- chamber AICD who presented with chest pain during dialysis session will be admitted for acute coronary syndrome and started on IV heparin with possible left heart cath to be scheduled for 05/08 along with continued dialysis sessions while in the hospital. #Acute coronary syndrome #NSTEMI type I versus type II #Coronary artery disease, status post stent placement in RCA on December 2024 #Impella placement As per HPI above, patient presented with chest pain during dialysis session Significant history of CAD with recent stent placement in RCA on December 2024 at [facility] with Impella placement for left ventricular failure Patient's presenting with typical chest pain along with elevated troponin and BNP EKG shows sinus rhythm with some ST changes noted in septal leads with reciprocal changes possibly in inferior leads? Left heart catheterization completed on 05/08 shows significant multi-vessel disease with stenosis of the left circumflex, PCI, stent placement completed of the left circumflex. Additionally, patient is RCA which was stented on December 2024 appears to have stent restenosis Plan: Patient states to be discharged from cardiology standpoint Patient will need another left heart cath in about 1 weeks time for RCA which appeared to be restenosed DAPT with Brilinta 90 mg p.o. twice daily and aspirin 81 mg daily High intensity statin nightly Switched to Metoprolol succinate 25mg by mouth daily Keep Mg >2.0 and K >4.0 #Heart failure with systolic dysfunction, HFpEF 35-40% (04/2024) #Left Ventricular Hypertrophy #Moderate PAH #Bradycardia s/p ICD placement in 2011, s/p replacement of single-chamber AICD Last echo findings, Normal LV size. Moderate LVH. Moderate LV systolic dysfunction with global hypokinesis, Estimated EF 35-40% Mild RV dilatation. Normal RV function. Estimated RVSP 49mmHg. RAP 15. Moderate PAH. Pacing wire present. Moderate AV sclerosis without sclerosis. Vmax 2.3 m/s and Mean PG of 10 mm hg. Mild MR. Moderate TR. Moderate PAH. There is anterior trivial pericardial effusion. No evidence of cardiac tamponde. Patient on home carvedilol 25 mg p.o. twice daily, losartan 100 mg p.o. daily BNP elevated which could be multifactorial secondary to ESRD status On examination, patient does not appear to be in acute heart failure exacerbation as there is no noted crackles, JVD, lower extremity edema and he is requiring minimal supplemental oxygen Plan: Patient metoprolol succinate, Entresto will hold off on spironolactone at this time as his blood pressure is on the softer side but important to follow-up with cardiology within 1 week of discharge for close monitoring #Hypertension Patient on multiple medications for blood pressure control at home including Hydralazine 50 mg p.o. 3 times daily, isosorbide dinitrate 20 mg p.o. twice daily Pending med rec Patient currently normotensive Plan: Restart home medications when appropriate or when needed, recommend starting 1 antihypertensive agent at a time #Normocytic anemia, likely anemia of chronic disease versus iron deficiency #History of DVT #COPD/asthma #Developmental delay, #Polycystic kidney disease, #ESRD s/p renal transplant HD [//] Rest of medical problems to be managed by primary hospitalist team and nephrology Patient seen and assessed with attending Dr. Robb Sykes, DO PGY-2 Internal Medicine - [facility]
[2025-05-10] MEDS: ASPIRIN EC 81 MG TABEC PO (08:21)
[2025-05-10] MEDS: TICAGRELOR 90 MG TABLET PO (08:21)
[2025-05-10] MEDS: METOPROLOL SUCCINATE XL 25 MG TABCR PO (08:21)
[2025-05-10] MEDS: ALBUMIN HUMAN-KJDA 25% IVPB 25 GM/100 ML BTL IV ×2 (09:23→10:25)
--- NOTE | 2025-05-10 09:25 | PC.NURSE ---
BP LOW AT START OF TX PT DENIES ALL S/S OF HYPOTENSION WILL ADMIN PRN ALBUMIN AND CONT. TO MONITOR
--- NOTE | 2025-05-10 09:33 | PC.NURSE ---
BP REMAINS LOW, PT CONT'S. TO DENY ALL COMPLAINTS OF DISCOMFORT. UF GOAL LOWERED TO 1.5L TOLERATED, WILL CONT. TO MONITOR
--- NOTE | 2025-05-10 09:37 | PC.NURSE ---
BP RECHECKED AND CONT'S. TO TREND DOWN, PT REMAINS ASYMPTOMATIC. UF GOAL LOWERED TO 1L TOLERATED, WILL CONT. TO MONITOR
--- NOTE | 2025-05-10 10:23 | PD.RESPRO ---
Documentation for date of: 05/10/25 Subjective Subjective Interval history: Mr. Montgomery is a 59-year-old -[place] gentleman with past medical history of developmental delay, hypertension, polycystic kidney disease, s/p renal transplant on 12/02/2017 at [facility]- failed, back on HD since aug 2023 [T//MON]- under DR. DAVENPORT, HFpEF 55 to 60%, bradycardia s/p ICD placement in 2011, s/p replacement of single-chamber AICD on 05/05/2024 for depleted battery, diverticulosis presented to [facility] ED in 05/06 for chest pain during dialysis earlier today. Questionably poor historian as patient agrees with answers that were prompted. Patient reports chest pain started yesterday, described as central, 9/10 nonradiating chest pain, and was unable to complete dialysis, prompting ED visit. Patient reports experiencing total of 4 episodes each lasting about 1 minute occurred while he was sitting and standing doing things. Reports pain increases on deep inspiration and not positional dependent. Reports similar episode about 1 year ago. Denies missing hemodialysis sessions. Denies shortness of breath or palpitations. Lives with sister at home. Currently, patient endorses central 9/10 radiating chest pain. Denies nausea/vomiting, fever/chills or recent illness. Of note, patient under cardiac cath 12/2024 with stent placement. 05/07/25: Patient seen and examined at bedside in ICU, telemetry overflow. No complaints. Denies further episodes of chest pain since ED, palpitations, N/V or SOB. Labs and vitals reviewed, troponins stable mildly elevated at 0.1. Per cardiology, likely cath 05/08. 05/08/25: Patient seen examined at bedside. Patient reports feeling at times tachypneic and SOB however that has been going on prior to admission for a long time . No other complaints. Denies any other episodes of chest pain since ED. Denies palpitations, abdominal pain or leg swelling. Plan for cath 11:30AM, plan for dialysis subsequently. 05/09/25: Patient seen and examined at bedside. Endorses baseline episodes of SOB and tachypnea. Patient is status post 1 day cardiac cath following proximal left circumflex stent placement. Per cardiology, RCA stent was restenosed, and no anticipated further interventions at this time. Plan for HD tomorrow. 05/10/25: Patient seen examined at bedside in dialysis. No new complaints. Denies chest pain, shortness of breath or N/V. Plan for patient to get routine dialysis today. Exam Vital Signs Temp Pulse Resp BP Pulse Ox O2 Del Method O2 Flow Rate 97.8 F 73 16 95/55 L 100 Nasal Cannula 2 05/10/25 08:17 05/10/25 10:21 05/10/25 08:17 05/10/25 10:21 05/10/25 08:17 05/10/25 07:40 05/10/25 08:17 FiO2 100 05/10/25 07:40 Narrative Exam GENERAL: AOx3, no acute distress HEENT: mucous membranes moist, bilateral sclera anicteric CARDIOVASCULAR: regular rate and rhythm, S1/S2 present, 2/6 systolic murmur, left IJ TDC in place clean, ICD palpable on right side chest with overlying scars, LAVF patent with palpable thrill PULMONARY: clear to auscultation bilaterally, no rales/rhonchi/wheezes ABDOMINAL: soft, non-tender, non-distended, no rebound/guarding, bowel sounds present EXTREMITIES: no peripheral edema SKIN: warm and dry, intact, no rashes NEURO: CN II-XII grossly intact, no focal deficits, alert, following commands Objective Labs 05/10/25 04:30 05/10/25 04:30 Labs: Laboratory Results - last 24 hr 05/10/25 04:30 WBC 5.1 RBC 3.71 L Hgb 11.2 L Hct 34.1 L MCV 92 MCH 30.2 MCHC 32.8 RDW Std Deviation 52.9 H Plt Count 119 L Neut % (Auto) 70 Lymph % (Auto) 13 [place] % (Auto) 11 Eos % (Auto) 6 Baso % (Auto) 1 Neut # (Auto) 3.6 Lymph # (Auto) 0.7 L [place] # (Auto) 0.6 Eos # (Auto) 0.3 Baso # (Auto) 0.0 Immature Gran # (Auto) 0.02 H Absolute Nucleated RBC 0.00 Immature Gran % 0 Nucleated RBC % 0 Sodium 136 Potassium 4.5 Chloride 95 L Carbon Dioxide 23.4 Anion Gap 18 H BUN 50 H Creatinine 11.2 H* D Estim Creat Clear Calc 7.3 L eGFR 5 L* BUN/Creatinine Ratio 4 L Glucose 72 L Calculated Osmolality 284 Calcium 9.6 Corrected Calcium 9.6 Phosphorus 9.0 H Magnesium 2.5 Total Bilirubin 0.3 AST < 10 ALT < 7 L Alkaline Phosphatase 69 Total Protein 6.4 Albumin 4.0 Globulin 2.4 Albumin/Globulin Ratio 1.7 Quality Measures Quality Measures VTE prophylaxis Assessment & Plan Assessment Current Active Medications: Generic Name Dose Route Start Last Admin Trade Name Freq PRN Reason Stop Dose Admin Acetaminophen 1,000 mg 05/06/25 09:46 Acetaminophen 325 Mg Tablet PO 06/05/25 09:45 Q6H PRN Fever >100.4 Aspirin 81 mg 05/07/25 09:00 05/10/25 08:21 Aspirin Ec 81 Mg Tabec PO 06/06/25 08:59 81 mg QDAY ANTONIA Administration Atorvastatin Calcium 40 mg 05/06/25 21:00 05/09/25 20:18 Atorvastatin Calcium 20 Mg Tablet PO 06/05/25 20:59 40 mg HS ANTONIA Administration Epoetin Patrcik 10,000 unit 05/10/25 11:45 Epoetin Patrick-Epbx Inj 10,000 Unit/Ml Vial (Non-Esrd) SC 05/10/25 11:46 X1 ONE Heparin Sodium (Porcine) 4,000 unit 05/06/25 13:22 05/08/25 17:40 Heparin Sod Inj 1000 Unit/Ml Vial 10 Ml INDWELLCAT 05/20/25 13:21 4,000 unit X1 PRN Administration DIALYSIS Albumin Human 25 gm in 100 mls @ 100 mls/min 05/10/25 09:17 05/10/25 09:23 Albuminex 25% Ivpb IV 100 mls/min Q30MIN PRN Administration DIALYSIS Metoprolol Succinate 25 mg 05/09/25 09:00 05/10/25 08:21 Metoprolol Succinate Xl 25 Mg Tabcr PO 06/08/25 08:59 25 mg QDAY ANTONIA Administration Nitroglycerin 0.4 mg 05/06/25 06:57 Nitroglycerin 0.4 Mg Subl Btl #25 SL Q5M PRN CHEST PAIN Ondansetron HCl 4 mg 05/06/25 09:51 Ondansetron Inj 2 Mg/Ml Inj 2 Ml IVP 06/05/25 09:50 Q6H PRN NAUSEA OR VOMITING Protocol Sacubitril/Valsartan 1 tab 05/09/25 21:00 05/10/25 08:21 Sacubitril 24 Mg/Valsartan 26 Mg Tablet PO 06/08/25 20:59 1 tab BID ANTONIA Administration Ticagrelor 90 mg 05/06/25 10:45 05/10/25 08:21 Ticagrelor 90 Mg Tablet PO 06/05/25 10:44 90 mg BID ANTONIA Administration Plan Mr. Montgomery is a 59-year-old -[place] gentleman with past medical history of developmental delay, hypertension, polycystic kidney disease, s/p renal transplant on 12/02/2017 at [facility]- failed, back on HD since aug 2023 [//MON]- under DR. DAVENPORT, HFrEF (35-40%, 2023), bradycardia s/p ICD placement in 2011, s/p replacement of single-chamber AICD on 05/05/2024 for depleted battery, diverticulosis presented to [facility] ED in 05/06 for chest pain during dialysis morning of admission, admitted for NSTEMI. Nephrology consulted for ESRD on HD. #ESRD on HD thru [facility] (T/R/S) since 2023 #Polycystic kidney disease s/p renal transplant 2017, failed Patient presents with chest pain during dialysis session morning of admission and was unable to complete session. Adherent with HD schedule. On admission, BUN 41, creatinine 11.6, phosphorus 7.9, magnesium 2.6, troponin 0.109, BNP 1776. HD: 05/06, 05/08, 05/10 Plan: - HD plan for today - Restart home Velphoro TID - Renally dose and avoid nephrotoxic medication - Caution with fluid resuscitation if necessary given HFrEF #NSTEMI, type I vs type II #HTN #HFrEF (35-40%, 2023) #Diverticulosis - Above managed per primary team Thank you for the consultation and allowing participation in patient's care. Plan of care discussed with attending Dr. Muse. Josefina De, PGY-1 Internal Medicine Attending Provider Attestation/Addendum Patient seen and examined with resident physician Dr. De. Note reviewed, agree with findings and recommendations. Patient currently seen on dialysis. Tolerating dialysis without any problems. Hemodialysis for 3 hours, 2K, ultrafiltration 2-3 L, Epogen 6000, no heparin ordered. Plan of care discussed with the dialysis nurse. Please see dialysis flowsheet for further details. Postdialysis patient is going to be discharged.
--- NOTE | 2025-05-10 10:34 | PC.NURSE ---
bp low pt denies all complaints will admin prn albumin 25/100ml and cont. to monitor
--- NOTE | 2025-05-10 10:38 | PC.NURSE ---
PER MD CHOI, ORDER CHANGE TO NO UF INSTEAD TX W/ JUST CLEANING. ORDER CARRIED OUT WILL CONT. TO MONITOR
[2025-05-10] MEDS: HEPARIN SOD INJ 1000 UNIT/ML VIAL 10 ML 4000 UNIT INDWELLCAT (12:50)
--- NOTE | 2025-05-10 18:11 | ESDS_ITS ---
<Statement entered by Rosy Wood DO - 05/11/25 07:44> I, Rosy Wood DO, attest that I was physically present for the hare portions of the service and evaluated the patient with the resident and I reviewed and discussed the case with the resident and agree with the resident's findings and plans of care as documented above Planned Discharge Date 05/10/25 DS: Providers Provider Date of admission: 05/06/25 09:46 Primary care physician: Physician No Primary/Family Admitting Provider: Rosy Wood DO Attending Provider on Admission: Rosy Wood DO Consults: 05/06/25 08:38 Consult to Nephrology Routine Comment: Missed Dialysis-, , Monday Consulting Provider: Mckenna Muse 05/06/25 11:02 Consult to Cardiology Routine Comment: Consulting Provider: Jyoti Zamudio Attending Provider on DC: Rosy Wood DO Discharging Provider: Donavan Caballero DO DS: Diagnosis Discharge Diagnosis (1) Chest pain: Status: Acute (2) Acute non-ST elevation myocardial infarction (NSTEMI): Status: Acute (3) End stage renal failure on dialysis: Status: Acute Problem List Completed Was Problem List Reviewed/Reconciled?: Yes Hospital Course Hospital Course Hospital course: Hospital Course: 60 year old male with a past medical history of developmental delay, hypertension, polycystic kidney disease s/p renal transplant on 12/02/2017 at [facility], ESRD on HD [//] following Dr. Lerma, HFpEF 35-40% (04/2024), moderate PAH, and bradycardia s/p ICD placement in 2011, s/p replacement of single- chamber AICD who presented to the ED on 05/06 with chest pain during his dialysis session. Patient is a poor historian secondary to some degree of developmental delay and currently lives with his sister who is his primary rn progressive care. He admitted to diffuse chest pain and shortness of breath upon questioning and also endorsed dizziness. Was found to have an elevated troponin. He had a PCI with stent placement in the right coronary along with Impella Rosario in December. The patient was admitted for acute coronary syndrome and continued dialysis. The patient underwent 3 sessions of dialysis during his hospital stay and tolerated each of them well. The patient underwent cardiac cath on 05/08/2025 that showed 99% stenosis of the proximal left circumflex artery. A stent was placed and the patient was placed on DAPT with aspirin and Brilinta. The patient's catheter insertion site was bleeding after the procedure however this improved and the site eventually stopped bleeding. Patient is stable for discharge he will continue dialysis outpatient. Problem List: #Acute coronary syndrome #NSTEMI type I versus type II #Ischemic cardiomyopathy (HFpEF 35-40% ) #Hyperlipidemia #Hypertension #Moderate PAH #Bradycardia s/p ICD placement in 2011, s/p replacement of single-chamber AICD #ESRD status post kidney transplant on dialysis #History of polycystic kidney disease #History of DVT #COPD/Asthma #Normocytic anemia #Anemia of chronic disease #Hyperkalemia (Resolved) #Developmental delay Discharge Instructions: * Take your aspirin 81 mg daily * Take your metoprolol 25 mg daily * Take your entresto 24-26 mg daily * Stop taking your Carvedolol * Stop taking your Eliquis * Stop taking your Losartan * Stop taking your Lisinopril * Stop taking your Sevelomer * Stop taking your Nifedipine * Stop taking your Isosorbide Dinitrate * Follow-up with PCP within 1-2 weeks of discharge. Pleas follow up with Dr. Zamudio within 1 week of discharge * If you do not have a PCP, then you can follow-up at the [facility] * Return to the emergency room if symptoms worsen The patient was seen and discussed with my attending physician Dr. Israel FLEMING. Donavan Caballero DO PGY-1 Time Spent with Patient Time attestation: Total time spent providing and/or coordinating discharge services: More than 50% Time spent: Greater than 30 minutes Exam Vital Signs Temp Pulse Resp BP Pulse Ox O2 Del Method O2 Flow Rate 97.5 F 82 16 105/82 100 Room Air 2 05/10/25 13:47 05/10/25 13:47 05/10/25 13:47 05/10/25 13:47 05/10/25 13:47 05/10/25 13:47 05/10/25 12:45 FiO2 100 05/10/25 07:40 Narrative Exam General: Awake and in no acute distress. Conversational and non-toxic appearing. Neurologic: GCS 15. Alert and oriented x3, no gross neurological deficit, and patient able to move all 4 extremities. HEENT: Normocephalic, atraumatic, mucous membranes moist. Pupils reactive to light. Heart: 2 out of 6 6 systolic ejection murmur, left IJ dialysis catheter, scars over the right chest overlying ICD. Lungs: Clear to auscultation bilaterally with no wheezing or crackles. Abdomen: Soft, nondistended, nontender, positive bowel sounds. No guarding or rebound tenderness. Extremities: Right groin cardiac cath insertion site is clean and dry. No edema. 2+ radial and dorsalis pedis pulses bilaterally. Skin: Warm. Dry. No rash or ecchymoses. Discharge Plan Plan Patient Disposition: HOME (Self Care) Patient condition on transfer: Stable Care Plan Goals: Instructions: * Take your aspirin 81 mg daily * Take your metoprolol 25 mg daily * Take your entresto 24-26 mg daily * Stop taking your Carvedolol * Stop taking your Eliquis * Stop taking your Losartan * Stop taking your Lisinopril * Stop taking your Sevelomer * Stop taking your Nifedipine * Stop taking your Isosorbide Dinitrate * Follow-up with PCP within 1-2 weeks of discharge. Pleas follow up with Dr. Zamudio within 1 week of discharge * If you do not have a PCP, then you can follow-up at the [facility] * Return to the emergency room if symptoms worsen Prescriptions/Referrals Prescriptions/Med Rec: New aspirin 81 mg Tablet,Delayed Release (Dr/Ec) 81 mg PO QDAY 30 Days Qty: 30 0RF metoprolol succinate 25 mg Tablet Extended Release 24 Hr 25 mg PO QDAY 30 Days Qty: 30 0RF sacubitril-valsartan 24-26 mg Tablet 1 tab PO BID 30 Days Qty: 60 0RF Continued sodium bicarbonate 650 mg Tablet 1,300 mg PO BID doxazosin 4 mg tablet 8 mg PO HS Velphoro 500 mg tablet,chewable 1,000 mg PO TID Patient Comments: CHEW AND SWALLOW 2 tablets by mouth three times a day with meals albuterol sulfate 90 mcg/actuation HFA aerosol inhaler 1 inh inhalation Q6H PRN (Reason: shortness of breath or wheezing) Qty: 8.5 2RF rosuvastatin [Crestor] 20 mg tablet 20 mg PO QDAY ticagrelor [Brilinta] 90 mg tablet 90 mg PO BID Discontinued sevelamer carbonate 800 mg tablet 800 mg PO TIDWMEAL Patient Comments: take 1 tablet by mouth three times a day with meals losartan 100 mg Tablet 100 mg PO QDAY aspirin 81 mg tablet,delayed release (DR/EC) 81 mg PO QDAY Qty: 30 2RF hydralazine 50 mg tablet 50 mg PO TID 30 Days Qty: 90 2RF carvedilol 25 mg tablet 25 mg PO BID Qty: 30 0RF Rx Instructions: must administer with a meal/food Eliquis DVT-PE Treat 30D Start 5 mg (74 tabs) tablets,dose pack 5 mg PO BID Qty: 74 0RF Rx Instructions: Skip 3 pills of 10 mg Eliquis and continue starter pack as directed as patient received 3 doses during hospital stay prednisone 20 mg tablet 40 mg PO QDAY Qty: 8 0RF fluticasone propion-salmeterol [Advair Diskus] 250-50 mcg/dose blister with device 1 inh inhalation BID Qty: 60 0RF isosorbide dinitrate 20 mg tablet 20 mg PO BID Patient Comments: take 1 tablet by mouth twice a day nifedipine 30 mg Tablet Extended Release 24hr 30 mg PO .24hr lisinopril 10 mg tablet 10 mg PO QDAY Referrals: No Primary/Family,Physician [Primary Care Provider] Patient/Caregiver Discharge Instructions Discharge Activity: activity as tolerated Print Language: Venezuelan Stand Alone Forms: Renae Award Info., Patient Portal Info Letter Discharge Order Discharge Orders: Discharge (Routine); Ordered 05/10/25 Ordered By: Rosy Wood Quality Discharge Quality Measures VTE prophylaxis
== END 2025-05-10 14:08 | disposition home or self-care (01) | DRG 321 ==
LOC: SERX 10:01 → SERHOLD 10:17 → S2SX 05-07 06:16 → S2NX 05-07 18:04
PROVIDERS: Internal Medicine; Internal Medicine Cardiovascular Disease; Student in an Organized Health Care Education/Training Program; Admitting Provider Internal Medicine; Emergency Provider Emergency Medicine; Visit Provider Internal Medicine
PROC: 4A023N7 Measurement of Cardiac Sampling and Pressure, Left Heart, Percutaneous Approach (ICD-10-PCS; principal; 2025-05-08 11:30)
DX: I21.4 Non-ST elevation (NSTEMI) myocardial infarction (principal); N18.6 End stage renal disease; I13.2 Hypertensive heart and chronic kidney disease with heart failure and with stage 5 chronic kidney disease, or end stage renal disease; Z94.0 Kidney transplant status; Q61.3 Polycystic kidney, unspecified; I50.22 Chronic systolic (congestive) heart failure; I50.42 Chronic combined systolic (congestive) and diastolic (congestive) heart failure; T82.855A Stenosis of coronary artery stent, initial encounter; Z99.2 Dependence on renal dialysis; E78.5 Hyperlipidemia, unspecified; Z86.718 Personal history of other venous thrombosis and embolism; J44.89 Other specified chronic obstructive pulmonary disease; D63.1 Anemia in chronic kidney disease; Z79.82 Long term (current) use of aspirin; I25.10 Atherosclerotic heart disease of native coronary artery without angina pectoris; E87.5 Hyperkalemia; I27.20 Pulmonary hypertension, unspecified; Z79.02 Long term (current) use of antithrombotics/antiplatelets; Z79.899 Other long term (current) drug therapy; Z87.891 Personal history of nicotine dependence; K57.30 Diverticulosis of large intestine without perforation or abscess without bleeding; R62.50 Unspecified lack of expected normal physiological development in childhood; Z95.810 Presence of automatic (implantable) cardiac defibrillator; I25.5 Ischemic cardiomyopathy; Y83.1 Surgical operation with implant of artificial internal device as the cause of abnormal reaction of the patient, or of later complication, without mention of misadventure at the time of the procedure
CPT/HCPCS: 36415; 71045; 80053; 80061; 80069; 80074; 82728; 83540; 83550; 83735; 83880; 84100; 84484; 85025; 85046; 85347; 85610; 85730; 86706; 93005; 93225; 94640; 96365; 96366; 99152; 99153; 99284; A4649; A9270; C1725; C1760; C1769; C1874; C1887; C1894; J0461; J1643; J1644; J2250; J2312; J2371; J3010; J3475; J3490; P9047; Q9967; J2305; P0947

== ENCOUNTER 2025-07-02 09:42 | Emergency (ER) | payer MEDICARE, MEDICAID, SELFPAY ==
[2025-07-02 09:52] VITALS: PULSE 75; RESP 17; O2SAT 98
--- NOTE | 2025-07-02 09:53 | PD.EDSOB ---
ED SOB =RME/HPI General Chief Complaint: Shortness of Breath/Dyspnea Stated Complaint: LOW HEART RATE Time Seen by Provider: 07/02/25 09:54 Arrival date/time: 07/02/25 09:42 RME / HPI RME / HPI Narrative: See MDM for Dr. Tesfaye's HPI documentation. Related Data Home Medications ?Medication ?Instructions ?Recorded ?Confirmed sodium bicarbonate 650 mg tablet 1,300 mg PO BID 10/02/19 05/08/25 doxazosin 4 mg tablet 8 mg PO HS 12/16/23 05/08/25 sucroferric oxyhydroxide 500 mg 1,000 mg PO TID 04/30/24 05/08/25 chewable tablet (Velphoro) rosuvastatin 20 mg tablet (Crestor) 20 mg PO QDAY 01/06/25 05/08/25 ticagrelor 90 mg tablet (Brilinta) 90 mg PO BID 05/08/25 05/08/25 Previous Rx's ?Medication ?Instructions ?Recorded albuterol sulfate 90 mcg/actuation 1 inh inhalation Q6H PRN shortness 08/04/24 aerosol inhaler of breath or wheezing #8.5 grams Allergies Allergy/AdvReac Type Severity Reaction Status Date / Time Penicillins Allergy Verified 05/06/25 07:36 Review of Systems Review of Systems Systems Reviewed: All systems reviewed, normal except as documented Past Medical History Past Medical History NEUROLOGIC: Positive Peripheral Neuropathy CARDIAC: Positive Cardiac Disorders, Heart Murmur, Coronary Artery Disease, Hypercholesterolemia, Congestive Heart Failure, Valvular Heart Disease and Hypertension GASTROINTESTINAL: Positive Gastrointestinal Disorders, Gastrointestinal Bleed, Colitis, Diverticulitis and Diverticulosis GENITOURINARY: Positive Genitourinary Disorders, Renal Disease, Polycystic Kidney Disease and Dialysis OTHER HISTORY: Positive Developmental Delay, Blood Transfusions and Organ Transplant Surgical History SURGICAL: Positive Cardiac Surgery, Vascular Surgery (left upper chest), Pacemaker (right chest), Auto Implanted Cardiovert Defib and Organ Transplant Social History SMOKING STATUS: Never smoker SECOND HAND EXPOSURE: No SUBSTANCE USE: does not use ED Exam Narrative Physical exam: See [facility] for Dr. Tesfaye's physical exam documentation. Course Quality Measures none Orders Category Date Time Status Bedside COVID-19 Antigen Test NOW Care 07/02/25 09:55 Completed Bedside Influenza A&B Antigen Test NOW Care 07/02/25 09:55 Completed EKG (ED ONLY) *Do not use* NOW Care 07/02/25 09:55 Completed Saline [Insert IV] NOW Care 07/02/25 09:55 Completed Straight [In and Out Catheter] X1 Care 07/02/25 09:55 Completed EKG (ED Only) Stat Exams 07/02/25 09:55 Draft XR chest 1V portable Stat Exams 07/02/25 09:56 Completed BNP [B-Type Natriuretic Peptide] Stat Lab 07/02/25 10:00 Completed Bilirubin,Direct Stat Lab 07/02/25 10:00 Completed Blood Culture (Lab) Stat Lab 07/02/25 10:12 Results CBC Stat Lab 07/02/25 10:00 Completed CMP [Comprehensive Metabolic Panel] Stat Lab 07/02/25 10:00 Completed CRP [C-Reactive Protein] Stat Lab 07/02/25 10:00 Completed ESR [Sed Rate (ESR)] Stat Lab 07/02/25 10:00 Completed Hemoglobin A1C [Glycohemoglobin w (eAG)] Stat Lab 07/02/25 10:00 Completed Lactate (Lactic Acid) Stat Lab 07/02/25 10:00 Completed Magnesium Stat Lab 07/02/25 10:00 Completed Procalcitonin Stat Lab 07/02/25 10:00 Completed TSH [Thyroid Stimulating Hormone] Stat Lab 07/02/25 10:00 Completed Troponin I Stat Lab 07/02/25 10:00 Completed Troponin I Stat Lab 07/02/25 13:21 Completed VBG [Venous Blood Gas] Stat Lab 07/02/25 10:40 Completed Vital Signs Vital signs: Vital Signs Temperature 97.4 F 07/02/25 09:59 Pulse Rate 77 07/02/25 09:59 Respiratory Rate 17 07/02/25 09:59 Blood Pressure 132/90 H 07/02/25 09:59 Pulse Oximetry (%) 95 07/02/25 09:59 Oxygen Delivery Method Nasal Cannula 07/02/25 09:59 Shortness of Breath / Dyspnea MDM Narrative MDM Narrative:: This section includes all my notes and documentations, including HPI, PE, and ED course. Kendrick Tesfaye MD HPI: 60-year-old male sent here from the dialysis center for evaluation of bradycardia. Per medics report, staff there reported heart rate had dropped to 30's bpm. Received about half of his dialysis treatment. In the ED, patient reports weakness and more shortness of breath than normal, in the past few days. No other complaints. ROS: All negative except as documented in HPI. Physical Exam: General: Alert and oriented. No acute distress when remaining still. Eyes: Conjunctivae and lids clear. EOMI. PERRL. ENT: No nasal congestion. Neck: Supple. No JVD. Heart: RRR. Lungs: No respiratory distress. Good air movement. No severe rhonchi, wheezing, rales. Abdomen: Soft and nontender. Normal bowel sounds. No distension. No rebound or guarding. Back: No CVA tenderness. Legs: No clubbing, cyanosis, edema. Skin: Warm and dry. Neuro: Alert and oriented X 3. Cranial Nerves II-XII grossly intact. No peripheral motor deficits. I reviewed EMS notes. I reviewed all diagnostic test results: My interpretation of the EKG: Paced rhythm (71 bpm). My interpretation of the chest x-ray is: NAD. Blood tests unremarkable for dialysis patient. Covid/Influenza are negative. At this point, diagnoses include: ESRD on dialysis Pacemaker Treatment here included: Cardiology consultation No medications given Patient remained stable. 12:35- I discussed the case with patient's business office director (Dr. Zmaudio). About the presentation and exam and diagnostics and treatments here. And possible need of further care in the hospital. Recommended outpatient follow-up. Based on my best medical judgment, made decision no further evaluation or treatment indicated at this time. Patient understands and agrees to the discharge instructions customized and printed, see below. Discharge Instructions from Dr. Tesfaye printed for you: 1. You were sent here by dialysis with slow heart rate. 2. Here, your pacemaker is working and we didn't see your heart slow down. 3. And after extensive evaluation, there is no heart attack or other serious condition. 4. We reviewed your case with your business office director (Dr. Robb Montes) and you are cleared to go home. 5. See a private doctor on 07/04/2025 for recheck. Ask to review all test results and official radiology reports, to make sure you receive all necessary follow-ups and monitoring. 6. Seek immediate medical care with worsening or with any concerns. Kendrick Tesfaye MD Patient data External records reviewed:: [facility] previous records and EMS form Clinical information provided by:: patient and EMS Social determinants that could affect healthcare access:: none Patient has the following chronic illnesses:: developmental delay, HFrEF (EF 35-40% 04/2024), s/p AICD placement for bradycardia, hypertension, polycystic kidney disease s/p renal transplant on 12/02/2017 at [facility], ESRD on HD How is presenting disease/condition affected by chronic disease/condition?: exacerbated by Evaluation data The following diagnostics were reviewed and interpreted by me:: lab results, radiology exam(s) and EKG tracing(s) (My interpretation of the EKG: Paced rhythm (71 bpm). Kendrick Tesfaye MD) Lab and/or radiology exams considered but not ordered:: None Interpretation Summary: I reviewed all diagnostic test results: My interpretation of the EKG: Paced rhythm (71 bpm). My interpretation of the chest x-ray is: NAD. Blood tests unremarkable for dialysis patient. Covid/Influenza are negative. Medications / Prescriptions Medications or Prescriptions considered but not ordered:: None Medication administrations:: Treatment here included: Cardiology consultation No medications given Consultations Consultation(s) initiated? (list below): Yes Consultation #1 (Physician, Specialty, Details): 12:35- I discussed the case with patient's business office director (Dr. Zamudio). About the presentation and exam and diagnostics and treatments here. And possible need of further care in the hospital. Recommended outpatient follow-up. Diagnosis Shortness of Breath Differential Diagnosis: acute exacerbation of chronic obstructive airways disease, congestive heart failure and community acquired pneumonia Most likely diagnosis given after review of the tests above:: At this point, diagnoses include: ESRD on dialysis Pacemaker Admission Indicated Admission indicated?: not indicated Explain why admission is indicated or not indicated:: With no condition needing emergent intervention, there was no indication for admission. 12:35- I discussed the case with patient's business office director (Dr. Zamudio). About the presentation and exam and diagnostics and treatments here. And possible need of further care in the hospital. Recommended outpatient follow-up. Admission Request Was there a request for admission?: No Disposition Plan Disposition Plan: Discharge Discharge Attestation Discharge Attestation: The patient and all family members were given an opportunity to ask questions and understood the discharge instructions. Discharge instructions specifically effects, indications for sooner follow up or return to the emergency department, and the expected course of current diagnosis. Patient condition: Stable Discharge Plan Plan Patient Disposition: HOME (Self Care) Prescriptions/Referrals Prescriptions/Med Rec: No Action sodium bicarbonate 650 mg Tablet 1,300 mg PO BID doxazosin 4 mg tablet 8 mg PO HS Velphoro 500 mg tablet,chewable 1,000 mg PO TID Patient Comments: CHEW AND SWALLOW 2 tablets by mouth three times a day with meals albuterol sulfate 90 mcg/actuation HFA aerosol inhaler 1 inh inhalation Q6H PRN (Reason: shortness of breath or wheezing) Qty: 8.5 2RF rosuvastatin [Crestor] 20 mg tablet 20 mg PO QDAY ticagrelor [Brilinta] 90 mg tablet 90 mg PO BID Referrals: No Primary/Family,Physician [Primary Care Provider] - In 1 week Problem List Clinical Impression: ESRD (end stage renal disease) on dialysis, Pacemaker Patient/Caregiver Discharge Instructions Discharge Activity: activity as tolerated Education Materials: Living with a Pacemaker, ED Chronic Kidney Disease (CKD) Additional Instructions: Discharge Instructions from Dr. Tesfaye printed for you: 1. You were sent here by dialysis with slow heart rate. 2. Here, your pacemaker is working and we didn't see your heart slow down. 3. And after extensive evaluation, there is no heart attack or other serious condition. 4. We reviewed your case with your business office director (Dr. Robb Montes) and you are cleared to go home. 5. See a private doctor on 07/04/2025 for recheck. Ask to review all test results and official radiology reports, to make sure you receive all necessary follow-ups and monitoring. 6. Seek immediate medical care with worsening or with any concerns. Print Language: Turkish Stand Alone Forms: [facility]ae Award Info., Patient Portal Info Letter
--- NOTE | 2025-07-02 09:55 | EKG_ITS ---
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
[2025-07-02 09:56] VITALS: BMI 26.7
--- NOTE | 2025-07-02 09:56 | XR_ITS ---
EXAMINATION: AP chest single view TECHNIQUE: AP portable upright chest single view Date and time: July 02, 2025, 1027 hours, comparison May 08, 2025 INDICATIONS: Shortness of breath today. FINDINGS: Moderate enlargement left ventricle Mild vascular congestion. No lobar pneumonia or anatoliy pulmonary edema Surgical clips left arm. Left internal jugular dialysis catheter tip satisfactory position as well as unipolar ventricular lead IMPRESSION: Moderate enlargement left ventricle Mild vascular congestion
[2025-07-02 09:59] VITALS: BP 132/90; PULSE 77; RESP 17; TEMP 36.3; O2SAT 95
[2025-07-02 10:18] LABS: Lactate (Lactic Acid) 1.4 mMol/L (0.4-2.0)
[2025-07-02 10:20] LABS: Basophils # (Auto) 0.1 Thou/mm3 (0.0-0.2); Basophils % (Auto) 1 % (0-2.5); Eosinophils # (Auto) 0.2 Thou/mm3 (0.0-0.5); Eosinophils % (Auto) 4 % (0-10); Hematocrit 40.0 % (41.0-53.0); Hemoglobin 12.9 g/dL (13.5-16.0); Immature Granulocytes Auto 0.01 Thou/mm3 (0.00-0.00); Lymphocytes # (Auto) 0.7 Thou/mm3 (1.0-4.8); Lymphocytes % (Auto) 16 % (10-50); Mean Corpuscular HGB Conc 32.3 g/dl (31.0-37.0); Mean Corpuscular Hemoglobin 30.3 pg (25.0-35.0); Mean Corpuscular Volume 94 fL (80-100); Monocytes # (Auto) 0.4 Thou/mm3 (0.0-0.8); Monocytes % (Auto) 8 % (0-12); Neutrophils # (Auto) 3.2 Thou/mm3 (1.8-7.7); Neutrophils % (Auto) 70 % (37-80); Nucleated Red Blood Cell # 0.00 Thou/mm3 (0.00-0.00); Nucleated Red Blood Cell % 0 /100 WBC (0); Platelet Count 126 Thou/mm3 (140-440); RDW Standard Deviation 66.1 fL (35.1-43.9); Red Blood Count 4.26 Miln/mm3 (4.50-5.90); White Blood Count 4.6 Thou/mm3 (3.8-10.6)
--- NOTE | 2025-07-02 10:22 | PC.NURSE ---
notified pt does not produce urine anymore therefore UA not collected
[2025-07-02 10:34] LABS: Sed Rate (ESR) 32 mm/hr (0-20)
[2025-07-02 10:47] LABS: Glucose Estimated Average 103 mg/dL (80-131); Hemoglobin A1C 5.2 % Hgb (4.8-6.0)
[2025-07-02 10:53] LABS: Alanine Aminotransferase < 7 U/L (10-49); Albumin, Serum 4.6 gm/dL (3.4-4.8); Albumin/Globulin Ratio 1.4 (1.2-2.2); Alkaline Phosphatase 76 U/L (46-116); Anion Gap 11 (7-16); Aspartate Amino Transferase 10 U/L (0-34); BUN/Creatinine Ratio 3 Ratio (12-20); Bilirubin,Direct 0.2 mg/dL (0.0-0.3); Bilirubin,Total 0.5 mg/dL (0.3-1.2); Blood Urea Nitrogen 18 mg/dL (9-23); C-Reactive Protein 0.6 mg/dL (0.0-0.9); Calcium 9.5 mg/dL (8.3-10.6); Calcium (Corrected) 9.5 mg/dL (8.5-10.1); Carbon Dioxide 34.4 mMol/L (20.0-31.0); Chloride 94 mMol/L (98-107); Creatinine (Component) 6.4 mg/dL (0.6-1.3); Estimated Creatinine Clearance 11.2 mL/min (>60); Globulin 3.4 gm/dL (2.3-3.5); Glucose 80 mg/dL (74-106); Magnesium 2.1 mg/dL (1.6-2.6); Osmolality,Calculated 278 (275-295); Potassium 4.2 mMol/L (3.4-5.1); Procalcitonin 0.35 ng/ml (0.0-0.49); Sodium 139 mMol/L (136-145); Thyroid Stimulating Hormone 2.10 uIU/mL (0.55-4.78); Total Protein 8.0 gm/dL (5.7-8.2); eGFR 9 See Note
[2025-07-02 10:54] LABS: Base Excess, Venous 10 (-3-3); O2 Saturation, Venous 43 % (96-97); PCO2, Venous 50 mmHg (36-56); PO2, Venous 27 mmHg (15-58); pH, Venous 7.46 (7.33-7.66)
[2025-07-02 10:56] LABS: Troponin I 0.440 ng/mL (0.0-0.045)
[2025-07-02 11:51] LABS: B-Type Natriuretic Peptide 2834 pg/mL (0-100)
[2025-07-02 14:08] VITALS: BP 113/71; PULSE 81; RESP 18; TEMP 36.6; O2SAT 97
[2025-07-02 14:13] LABS: Troponin I 0.437 ng/mL (0.0-0.045)
== END 2025-07-02 15:32 | disposition home or self-care (01) ==
PROVIDERS: Emergency Provider Emergency Medicine
DX: I13.2 Hypertensive heart and chronic kidney disease with heart failure and with stage 5 chronic kidney disease, or end stage renal disease (principal); N18.6 End stage renal disease; I50.20 Unspecified systolic (congestive) heart failure; R94.31 Abnormal electrocardiogram [ECG] [EKG]; Z95.810 Presence of automatic (implantable) cardiac defibrillator; Z94.0 Kidney transplant status; Z99.2 Dependence on renal dialysis
CPT/HCPCS: 36415; 36600; 71045; 80053; 81001; 82248; 82803; 83036; 83605; 83735; 83880; 84145; 84443; 84484; 85025; 85652; 86140; 87040; 87502; 87635; 93005; 99283